=== PATIENT | female | born 1940 | race Caucasian/White ===

== ENCOUNTER → 2018-03-17 12:36 | Outpatient (CLI) | payer MEDICARE, OTHER, SELFPAY ==
[2018-03-17 13:16] LABS: Add Manual Diff / Slide Review NO; Basophils Percent Auto 0.9 % (0-2); Eosinophils Percent Auto 0.8 % (2-4); Hematocrit 42.2 % (36-46); Hemoglobin 14.7 g/dL (12.0-16.0); Mean Corpuscular Hemoglobin 31.3 PG (26-34); Mean Corpuscular Volume 89.5 fL (80-100); Monocytes Percent Auto 8.6 % (3-14); Neutrophils Absolute Auto 2800 /uL (3000-5900); Neutrophils Percent Auto 64.7 % (50-75); Platelet Count 129 X10^3/uL (150-400); Red Blood Cell Count 4.71 X10^6/uL (4.0-5.2); Red Cell Distribution Width 13.2 % (11.6-14.8); White Blood Cell Count 4.3 X10^3/uL (4.5-11.0)
[2018-03-17 13:19] LABS: Erythrocyte Sedimentation Rate 4 MM/HR (0-20)
[2018-03-17 13:47] LABS: Alanine Aminotransferase 29 IU/L (9-52); Albumin 4.3 g/dL (3.5-5.0); Albumin Globulin Ratio 1.5 (1.0-2.8); Alkaline Phosphatase 53 U/L (38-126); Aspartate Aminotransferase 24 IU/L (14-36); BUN Creatinine Ratio 25.7 (6-22); Bilirubin Total 0.5 mg/dL (0.2-1.3); Blood Urea Nitrogen 18 mg/dL (7-17); Calcium 9.6 mg/dL (8.4-10.2); Carbon Dioxide 30 mmol/L (22-32); Chloride 102 mmol/L (98-107); Estimated Glomerular Filt Rate > 60.0 mL/min (>60); Globulin 2.8 g/dL (1.7-4.1); Glucose 90 mg/dL (80-110); Potassium 3.8 mmol/L (3.4-5.1); Sodium 142 mmol/L (137-145); Total Protein 7.1 g/dL (6.3-8.2)
[2018-03-17 13:48] LABS: C-Reactive Protein Quant < 0.5 mg/dL (<1.0)
[2018-03-17 13:49] LABS: HEMOLYSIS < 15 (0-50)
[2018-03-17 13:52] LABS: Rheumatoid Factor < 8.6 IU/mL (<12.0)
[2018-03-17 14:15] LABS: TSH w/ Reflex to FT4 1.17 uIU/mL (0.47-4.68)
[2018-03-17 14:34] LABS: Vitamin B12 889 pg/mL (239-931)
[2018-03-19 11:15] LABS: CCP Antibody (IgG) < 16 Units (< 20)
[2018-03-19 11:50] LABS: Homocysteine 7.2 umol/L (< 10.4)
[2018-03-21 21:22] LABS: ANA Screen NEGATIVE (Negative); DNA Antibody Crithidia IFA NEGATIVE (Negative); Rheumatoid Factor <14 IU/mL; Sjogren Antiboday SS-A <1.0 NEG AI (<1.0 NEGATIVE); Sjogren Antiboday SS-B <1.0 NEG AI (<1.0 NEGATIVE); Sm Antibody <1.0 NEG AI (<1.0 NEGATIVE); Sm/RNP Antibody <1.0 NEG AI (<1.0 NEGATIVE)
[2018-03-22 23:09] LABS: Methylmalonic Acid 181 nmol/L (87-318)
== END ==
PROVIDERS: PCP Family Medicine; Visit Provider Family Medicine
DX: E03.9 Hypothyroidism, unspecified (principal); R63.6 Underweight; G43.909 Migraine, unspecified, not intractable, without status migrainosus; G62.9 Polyneuropathy, unspecified; M25.50 Pain in unspecified joint
CPT/HCPCS: 36415; 80053; 82607; 83090; 83516; 83735; 83921; 84443; 85025; 85651; 86038; 86140; 86430

== ENCOUNTER → 2018-05-25 08:40 | Outpatient (CLI) | payer MEDICARE, OTHER, SELFPAY ==
[2018-05-25 10:12] LABS: BUN Creatinine Ratio 31.4 (6-22); Blood Urea Nitrogen 22 mg/dL (7-17); Estimated Glomerular Filt Rate > 60.0 mL/min (>60)
== END ==
PROVIDERS: Family Provider Family Medicine; PCP Family Medicine; Visit Provider Family Medicine
DX: Z01.818 Encounter for other preprocedural examination (principal)
CPT/HCPCS: 36415; 82565; 84520

== ENCOUNTER → 2018-06-01 08:58 | Outpatient (CLI) | payer MEDICARE, OTHER, SELFPAY ==
--- NOTE | 2018-06-01 09:00 | DI.MRI.S_ITS ---
PROCEDURE: MR HEAD/BRAIN WO/W CON INDICATIONS: memory loss, new onset of headache, concern for mass TECHNIQUE: Noncontrast axial T1 spin echo, axial T2 fast spin echo, sagittal and axial FLAIR, coronal T2 fast spin echo, axial gradient echo, axial diffusion and ADC through the brain. After the administration of contrast, axial and coronal 3D VIBE or T1 spin echo with fat saturation through the brain. COMPARISON: [facility], , BRAIN WITH AND WITHOUT CONTRAS, 01/20/2010, 18:57. FINDINGS: Image quality: Excellent. CSF Spaces: Basal cisterns are patent. No extra-axial fluid collections. Ventricles are normal in size and shape. Brain: No midline shift. No intracranial bleeds or masses. No abnormal intracranial enhancement. The brainstem appears normal. Diffusion-weighted images demonstrate no acute ischemic insults. No chronic ischemic insults. Normal intravascular flow voids are present. Skull and face: Calvarial marrow is normal in signal. Orbits appear normal. Sinuses: Sinuses and mastoids appear clear. IMPRESSION: Mild to moderate microvascular atherosclerotic change in the deep white matter of each hemisphere, no area of mass or stroke is found, no vascular malformation or evidence of prior hemorrhage is seen. Dictated by: Ludwin Navas M.D. on 06/01/2018 at 12:13 Approved by: Ludwin Navas M.D. on 06/01/2018 at 12:15
== END ==
PROVIDERS: Family Provider Family Medicine; PCP Family Medicine; Visit Provider Family Medicine
DX: R41.3 Other amnesia (principal); R51 Headache
CPT/HCPCS: 70553; A9579

== ENCOUNTER 2018-06-03 08:15 | Outpatient (RCR) | payer MEDICARE, OTHER, SELFPAY ==
--- NOTE | 2018-03-30 15:45 | PT.OIE ---
Current Diagnoses Radiculopathy, lumbar region (03/29/18) Lumbago with sciatica, left side (03/29/18) Past Medical History (Last Updated 03/30/18 @ 06:57 by Oksana Rodriguez, PT) Right fibular fracture (Acute) Past Surgical History History of esophagogastroduodenoscopy (EGD) History of third molar tooth extraction Status post tonsillectomy and adenoidectomy Status post vaginal hysterectomy Provider Visit Care Team Role Provider Type Josee Peterson DO Attending Provider Physician Family Provider Primary Care Provider Specialty: Family Practice Address: [address] [place] [address], [facility] Email: [email or web address] Physical Therapy Initial Evaluation PT-OP-A Visit Information Start: 03/29/18 09:04 Freq: Status: Active Protocol: Document 03/29/18 09:45 AMB (Rec: 03/30/18 07:16 AMB [email or web address]) Out-Patient Physical Therapy Visit Information Visit Information Visit Type Initial Evaluation Visit Start Time 09:45 Visit Stop Time 10:45 Total Visit Minutes 60 Visit Number 1 Evaluation Information Evaluation Date 03/29/18 PT-OP-B Current Condition Start: 03/29/18 09:04 Freq: Status: Active Protocol: Document 03/29/18 09:45 AMB (Rec: 03/29/18 10:06 AMB [id number]) Current Condition History of Current Condition Onset Date 3 months ago, back pain worsened Current Complaints Difficulty sitting, standing due to back pain History of Current Condition Enjoys gardening, but bends forward a lot. Standing is difficult, lifting, sitting up straight is very painful so that sitting in the computer for 10 minutes is as much as she can handle. Pain can radiate down the front of the left thigh. Back pain is bilateral. 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 Also notices recent onset spinning dizziness. Prior Treatments and Tests MRI from 2016: Grade 1/11 anterolisthesis of L5 on S1. Severe left and moderate right foraminal narrowing with mild nerve root flattening at L5-S1. Multilevel spinal stenosis secondary to disc bulges. Prior Functional Status Baseline Function- ADL's Independent Baseline Function- Mobility Independent Baseline Function- Recreation/Hobbies Gardening: pt has been careful with lifting, but does tend to flex forward and the spine to weed. Current Functional Impairments (Reported) Functional Limitations- ADL's Pt limited to sitting at the computer for 10 minutes, previously walking 4-6 miles on the trails with her dog, now avoids walking due to pain . Avoids standing for 10 minutes or more due to pain. Difficulty sleeping, or being on her back without her knees flexed forward significantly. Personal Factors Other Personal Factors That May Effect Dizziness, osteopenia, history Therapy/Recovery of low blood pressure, neuropathy PT-OP-C Subjective Start: 03/29/18 09:04 Freq: Status: Active Protocol: Document 03/29/18 09:45 AMB (Rec: 03/30/18 07:16 AMB [email or web address]) OP-PT Subjective Patient Comments Patient Comments Pt states her health has gone down significantly in the last 3 months Patient Questionnaires Oswestry Low Back Index Oswestry Score 60 Oswestry Impairment 60 to 79% Impaired (Score 60- 79) OP-PT Pain Assessment Pain Assessment Grid Paper Pain Assessment Grid Completed Yes Location Lower Back Pain Location Details LB with radiation into anterior L thigh Intensity 7 Scale Used Numeric (1 - 10) PT-OP-G Mobility & Gait Start: 03/29/18 09:04 Freq: Status: Active Protocol: Document 03/29/18 09:45 AMB (Rec: 03/30/18 07:21 AMB [email or web address]) OP Gait Assessment Comments Gait Comments Ambulates without AD. States she uses a walking stick when walking on a trail. Reduced trunk rotation, forward head, pauses with transfers due to dizziness. PT-OP-J Posture/Palpation/Skin Start: 03/29/18 09:04 Freq: Status: Active Protocol: Document 03/29/18 09:45 AMB (Rec: 03/30/18 06:54 AMB [email or web address]) Posture Evaluation Comments Posture Comments Pt stands with moderate- severe thoracic kyphosis with flat lumbar spine and posterior pelvic tilt. PT-OP-K Range of Motion Start: 03/29/18 09:04 Freq: Status: Active Protocol: Document 03/29/18 09:45 AMB (Rec: 03/30/18 07:03 AMB [email or web address]) Lumbar Spine Range of Motion Lumbar Spine Active Percentage Testing Position standing Flexion 90 Extension 25 Lateral Flexion Left 75 Lateral Flexion Right 75 PT-OP-L Special Tests Start: 03/29/18 09:04 Freq: Status: Active Protocol: Document 03/29/18 09:45 AMB (Rec: 03/30/18 07:11 AMB [email or web address]) Special Tests Lumbar Spine Special Tests Slump Test Results negative for increased radicular pain PT-OP-M Strength Start: 03/29/18 09:04 Freq: Status: Active Protocol: Document 03/29/18 09:45 AMB (Rec: 03/30/18 07:11 AMB [email or web address]) Hip Strength Hip Manual Muscle Testing Right Flexion (L2) 4 Good Extension (S1) 4 Good Abduction 4 Good Left Flexion (L2) 4 Good Extension (S1) 4- Good- Abduction 4- Good- Knee Strength Knee Manual Muscle Testing Right Flexion (S2) 4 Good Extension (L3) 4 Good Left Flexion (S2) 4 Good Extension (L3) 4 Good Ankle/Foot Strength Ankle and Foot Manual Muscle Testing Right Dorsiflexion (L4) 3+ Fair+ Plantarflexion (S1) 3 Fair Left Dorsiflexion (L4) 4 Good Plantarflexion (S1) 4 Good PT-OP-Q Treatments Start: 03/29/18 09:04 Freq: Status: Active Protocol: Document 03/29/18 09:45 AMB (Rec: 03/30/18 07:14 AMB [email or web address]) Self-Care/Home Management Treatment Activities Self-Care/Home Management Activities set up of desk to avoid reaching forward PT-OP-R Modalities Start: 03/29/18 09:04 Freq: Status: Active Protocol: Document 03/29/18 09:45 AMB (Rec: 03/30/18 07:14 AMB [email or web address]) Electric Stimulation Electric Stimulation Interferential Current (IFC) Body Location low back Duration (Minutes) 15 Patient Position Hooklying Combined With Heat/Cold Hot Pack PT-OP-T Assessment and Plan Start: 03/29/18 09:04 Freq: Status: Active Protocol: Document 03/29/18 09:45 AMB (Rec: 03/30/18 07:30 AMB [email or web address]) Physical Therapy Assessment Rehab Potential Rehabilitation Potential Good Evaluation Complexity Number of Personal Factors/Comorbidities 3 or More Number of Body Systems Impaired 4 or More Clinical Presentation at Evaluation Evolving Impairments Impairments Activity Tolerance Balance Functional Activities Functional Mobility Gait Pain Posture ROM Sensation Strength Transfers Goals 3 Impairment Positional tolerance Short Term Goal (STG) The patient will sit at her computer for 30 minutes with 5 /10 pain or less. STG Duration 4 weeks Colon And Rectal Surgeon Goal (LTG) The patient will plug making operator her kitchen for 30 minutes to cook a meal with good posture. LTG Duration 8 weeks 2 Impairment Strength Short Term Goal (STG) The patient will safely lift 10 pounds from the floor to waist height with good body mechanics without an increase in baseline back pain. STG Duration 4 weeks Colon And Rectal Surgeon Goal (LTG) The patient will be independent with a core stabilization HEP. LTG Duration 8 weeks 1 Impairment Body mechanics Short Term Goal (STG) The patient will sleep using pillows as props to avoid radiating leg pain. STG Duration 4 weeks Colon And Rectal Surgeon Goal (LTG) The patient will garden for 30 minutes without excessive lumbar flexion without an increase in baseline back pain . LTG Duration 8 weeks Assessment Summary Assessment The patient presents with an acute exacerbation of chronic radicular low back pain. She presents with poor body mechanics, weakness, and difficulty sitting, standing, walking, and sleeping due to the pain. She will benefit from education in self care techniques to manage her pain, and then core stabilization and body mechanics awareness to help prevent further flare up. Physical Therapy Plan Frequency and Duration Frequency of Treatment 2x/Week Duration of Treatment 8 weeks Plan of Care Start Date 03/29/18 Plan of Care End Date 05/24/18 Therapeutic Interventions Therapeutic Interventions Aquatic Therapy Balance Training Gait Training Home Exercise Program Manual Therapy Neuromuscular Re-education Self-Care/Home Management Soft Tissue Mobilization Therapeutic Activities Therapeutic Exercises Next Visit Focus/Plan Next Note Type Treatment Note Please Sign and Return: I have reviewed this Plan of Care and certify that the skilled therapy services above are required to meet the patient?s needs. Physician Signature Date Printed Name and Credentials Clinical Instructor Signature Printed Name and Credentials
--- NOTE | 2018-04-01 15:41 | PT.OTN ---
Current Diagnoses Radiculopathy, lumbar region (03/31/18) Physical Therapy Treatment Note PT-OP-A Visit Information Start: 03/29/18 09:04 Freq: Status: Active Protocol: Document 03/31/18 13:00 AMB (Rec: 03/31/18 13:12 AMB [id number]) Out-Patient Physical Therapy Visit Information Visit Information Visit Type Treatment Note Visit Start Time 09:45 Visit Stop Time 10:45 Total Visit Minutes 45 Visit Number 2 Evaluation Information Evaluation Date 03/29/18 PT-OP-B Current Condition Start: 03/29/18 09:04 Freq: Status: Active Protocol: Document 03/29/18 09:45 AMB (Rec: 03/29/18 10:06 AMB [email or web address]) Current Condition History of Current Condition Onset Date 3 months ago, back pain worsened Current Complaints Difficulty sitting, standing due to back pain History of Current Condition Enjoys gardening, but bends forward a lot. Standing is difficult, lifting, sitting up straight is very painful so that sitting in the computer for 10 minutes is as much as she can handle. Pain can radiate down the front of the left thigh. Back pain is bilateral. 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 Also notices recent onset spinning dizziness. Prior Treatments and Tests MRI from 2016: Grade 1/11 anterolistehesis of L5 on S1. Severe left and moderate right foraminal narrowing with mild nerve root flattening at L5-S1. Multilevel spinal stenosis secondary to disc bulges. Prior Functional Status Baseline Function- ADL's Independent Baseline Function- Mobility Independent Baseline Function- Recreation/Hobbies Gardening: pt has been careful with lifting, but does tend to flex forward and the spine to weed. Current Functional Impairments (Reported) Functional Limitations- ADL's Pt limited to sitting at the computer for 10 minutes, previously walking 4-6 miles on the trails with her dog, now avoids walking due to pain . Avoids standing for 10 minutes or more due to pain. Difficulty sleeping, or being on her back without her knees flexed forward significantly. Personal Factors Other Personal Factors That May Effect Dizziness, osteopenia, history Therapy/Recovery of low blood pressure, neuropathy PT-OP-C Subjective Start: 03/29/18 09:04 Freq: Status: Active Protocol: Document 03/31/18 13:00 AMB (Rec: 03/31/18 13:12 AMB [id number]) OP-PT Subjective Patient Comments Patient Comments Pt states she felt that the TENS was helpful PT-OP-G Mobility & Gait Start: 03/29/18 09:04 Freq: Status: Active Protocol: Document 03/29/18 09:45 AMB (Rec: 03/30/18 07:21 AMB [email or web address]) OP Gait Assessment Comments Gait Comments Ambulates without AD. States she uses a walking stick when walking on a trail. Reduced trunk rotation, forward head, pauses with transfers due to dizziness. PT-OP-J Posture/Palpation/Skin Start: 03/29/18 09:04 Freq: Status: Active Protocol: Document 03/29/18 09:45 AMB (Rec: 03/30/18 06:54 AMB [email or web address]) Posture Evaluation Comments Posture Comments Pt stands with moderate- severe thoracic kyphosis with flat lumbar spine and posterior pelvic tilt. PT-OP-K Range of Motion Start: 03/29/18 09:04 Freq: Status: Active Protocol: Document 03/29/18 09:45 AMB (Rec: 03/30/18 07:03 AMB [email or web address]) Lumbar Spine Range of Motion Lumbar Spine Active Percentage Testing Position standing Flexion 90 Extension 25 Lateral Flexion Left 75 Lateral Flexion Right 75 PT-OP-L Special Tests Start: 03/29/18 09:04 Freq: Status: Active Protocol: Document 03/29/18 09:45 AMB (Rec: 03/30/18 07:11 AMB [email or web address]) Special Tests Lumbar Spine Special Tests Slump Test Results negative for increased radicular pain PT-OP-M Strength Start: 03/29/18 09:04 Freq: Status: Active Protocol: Document 03/29/18 09:45 AMB (Rec: 03/30/18 07:11 AMB [email or web address]) Hip Strength Hip Manual Muscle Testing Right Flexion (L2) 4 Good Extension (S1) 4 Good Abduction 4 Good Left Flexion (L2) 4 Good Extension (S1) 4- Good- Abduction 4- Good- Knee Strength Knee Manual Muscle Testing Right Flexion (S2) 4 Good Extension (L3) 4 Good Left Flexion (S2) 4 Good Extension (L3) 4 Good Ankle/Foot Strength Ankle and Foot Manual Muscle Testing Right Dorsiflexion (L4) 3+ Fair+ Plantarflexion (S1) 3 Fair Left Dorsiflexion (L4) 4 Good Plantarflexion (S1) 4 Good PT-OP-Q Treatments Start: 03/29/18 09:04 Freq: Status: Active Protocol: Document 03/31/18 13:00 AMB (Rec: 04/01/18 15:39 AMB [email or web address]) Cardio Equipment Recumbent Elliptical (Biodex) Duration (Minutes) 6 Resistance 4 Therapeutic Exercises Supine Exercises 6 Supine Exercise Name double knee to chest Reps/Minutes 30x 2 5 Supine Exercise Name supine march Reps/Minutes 2x10 4 Supine Exercise Name pelvic tilt Reps/Minutes 10 3 Supine Exercise Name hamstring stretch Reps/Minutes 30x2 2 Supine Exercise Name piriformis stretch Reps/Minutes 30 x 2 1 Supine Exercise Name hip flexor stretch Reps/Minutes 30x2 Therapeutic Activity Therapeutic Activity 3 Name desk ergonomics Reps/Minutes 5 min Comments computer desk set up to avoid forward flexion 2 Name floor transfer Reps/Minutes 5 min Comments for gardening, avoiding florward bend. pt better with UE support on environmental support 1 Name bed mobility Reps/Minutes 5 min Comments avoiding sit up position, instructed in log roll Manual Therapy Treatment Manual Traction LE long axis Details L LE Body Position Supine Reps/Duration 30x2 PT-OP-R Modalities Start: 03/29/18 09:04 Freq: Status: Active Protocol: Document 03/31/18 13:00 AMB (Rec: 04/01/18 15:39 AMB [email or web address]) Electric Stimulation Electric Stimulation Interferential Current (IFC) Body Location low back Duration (Minutes) 15 Patient Position Hooklying Combined With Heat/Cold Hot Pack PT-OP-T Assessment and Plan Start: 03/29/18 09:04 Freq: Status: Active Protocol: Document 03/31/18 13:00 AMB (Rec: 04/01/18 15:39 AMB [email or web address]) Physical Therapy Assessment Assessment Summary Assessment Pt tolerated exercises well, she will need to make a conscious effort to change her body mechanics. Physical Therapy Plan Frequency and Duration Frequency of Treatment 2x/Week Duration of Treatment 8 weeks Plan of Care Start Date 03/29/18 Plan of Care End Date 05/24/18 Next Visit Focus/Plan Next Note Type Treatment Note Next Visit Plan Progress core stability, body mechanics Please Sign and Return: I have reviewed this Plan of Care and certify that the skilled therapy services above are required to meet the patient?s needs. Physician Signature Date Printed Name and Credentials Clinical Instructor Signature Printed Name and Credentials
--- NOTE | 2018-04-05 10:56 | PT.OTN ---
Current Diagnoses Radiculopathy, lumbar region (04/05/18) Physical Therapy Treatment Note PT-OP-A Visit Information Start: 03/29/18 09:04 Freq: Status: Active Protocol: Document 04/05/18 08:15 AMB (Rec: 04/05/18 10:36 AMB [email or web address]) Out-Patient Physical Therapy Visit Information Visit Information Visit Type Treatment Note Visit Start Time 08:15 Visit Stop Time 09:10 Total Visit Minutes 55 Visit Number 3 Evaluation Information Evaluation Date 03/29/18 PT-OP-B Current Condition Start: 03/29/18 09:04 Freq: Status: Active Protocol: Document 03/29/18 09:45 AMB (Rec: 03/29/18 10:06 AMB [email or web address]) Current Condition History of Current Condition Onset Date 3 months ago, back pain worsened Current Complaints Difficulty sitting, standing due to back pain History of Current Condition Enjoys gardening, but bends forward a lot. Standing is difficult, lifting, sitting up straight is very painful so that sitting in the computer for 10 minutes is as much as she can handle. Pain can radiate down the front of the left thigh. Back pain is bilateral. 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 Also notices recent onset spinning dizziness. Prior Treatments and Tests MRI from 2016: Grade 1/11 anterolistehesis of L5 on S1. Severe left and moderate right foraminal narrowing with mild nerve root flattening at L5-S1. Multilevel spinal stenosis secondary to disc bulges. Prior Functional Status Baseline Function- ADL's Independent Baseline Function- Mobility Independent Baseline Function- Recreation/Hobbies Gardening: pt has been careful with lifting, but does tend to flex forward and the spine to weed. Current Functional Impairments (Reported) Functional Limitations- ADL's Pt limited to sitting at the computer for 10 minutes, previously walking 4-6 miles on the trails with her dog, now avoids walking due to pain . Avoids standing for 10 minutes or more due to pain. Difficulty sleeping, or being on her back without her knees flexed forward significantly. Personal Factors Other Personal Factors That May Effect Dizziness, osteopenia, history Therapy/Recovery of low blood pressure, neuropathy PT-OP-C Subjective Start: 03/29/18 09:04 Freq: Status: Active Protocol: Document 04/05/18 08:15 AMB (Rec: 04/05/18 10:36 AMB [email or web address]) OP-PT Subjective Patient Comments Patient Comments Pt states her pain has been improving, because she hasn't been doing anything. She very much misses gardening and walking. PT-OP-G Mobility & Gait Start: 03/29/18 09:04 Freq: Status: Active Protocol: Document 03/29/18 09:45 AMB (Rec: 03/30/18 07:21 AMB [email or web address]) OP Gait Assessment Comments Gait Comments Ambulates without AD. States she uses a walking stick when walking on a trail. Reduced trunk rotation, forward head, pauses with transfers due to dizziness. PT-OP-J Posture/Palpation/Skin Start: 03/29/18 09:04 Freq: Status: Active Protocol: Document 03/29/18 09:45 AMB (Rec: 03/30/18 06:54 AMB [email or web address]) Posture Evaluation Comments Posture Comments Pt stands with moderate- severe thoracic kyphosis with flat lumbar spine and posterior pelvic tilt. PT-OP-K Range of Motion Start: 03/29/18 09:04 Freq: Status: Active Protocol: Document 03/29/18 09:45 AMB (Rec: 03/30/18 07:03 AMB [email or web address]) Lumbar Spine Range of Motion Lumbar Spine Active Percentage Testing Position standing Flexion 90 Extension 25 Lateral Flexion Left 75 Lateral Flexion Right 75 PT-OP-L Special Tests Start: 03/29/18 09:04 Freq: Status: Active Protocol: Document 03/29/18 09:45 AMB (Rec: 03/30/18 07:11 AMB [email or web address]) Special Tests Lumbar Spine Special Tests Slump Test Results negative for increased radicular pain PT-OP-M Strength Start: 03/29/18 09:04 Freq: Status: Active Protocol: Document 03/29/18 09:45 AMB (Rec: 03/30/18 07:11 AMB [email or web address]) Hip Strength Hip Manual Muscle Testing Right Flexion (L2) 4 Good Extension (S1) 4 Good Abduction 4 Good Left Flexion (L2) 4 Good Extension (S1) 4- Good- Abduction 4- Good- Knee Strength Knee Manual Muscle Testing Right Flexion (S2) 4 Good Extension (L3) 4 Good Left Flexion (S2) 4 Good Extension (L3) 4 Good Ankle/Foot Strength Ankle and Foot Manual Muscle Testing Right Dorsiflexion (L4) 3+ Fair+ Plantarflexion (S1) 3 Fair Left Dorsiflexion (L4) 4 Good Plantarflexion (S1) 4 Good PT-OP-Q Treatments Start: 03/29/18 09:04 Freq: Status: Active Protocol: Document 04/05/18 08:15 AMB (Rec: 04/05/18 10:36 AMB [email or web address]) Cardio Equipment Recumbent Elliptical (Biodex) Duration (Minutes) 7 Resistance 4 Therapeutic Exercises Supine Exercises 8 Supine Exercise Name 90-90 tap down Comments 2x10 7 Supine Exercise Name SLR Reps/Minutes 2x10 6 Supine Exercise Name double knee to chest Reps/Minutes 30x 2 4 Supine Exercise Name pelvic tilt Reps/Minutes 10 Prone Exercises 1 Prone Exercise Name gianluca pose Comments 30x2 PT-OP-R Modalities Start: 03/29/18 09:04 Freq: Status: Active Protocol: Document 04/05/18 08:15 AMB (Rec: 04/05/18 10:36 AMB [email or web address]) Electric Stimulation Electric Stimulation Interferential Current (IFC) Body Location low back Duration (Minutes) 15 Patient Position Hooklying Combined With Heat/Cold Hot Pack PT-OP-T Assessment and Plan Start: 03/29/18 09:04 Freq: Status: Active Protocol: Document 04/05/18 08:15 AMB (Rec: 04/05/18 10:49 AMB [email or web address]) Physical Therapy Assessment Assessment Summary Assessment Pt with better body mechanics at today's visit, need to work on getting back into gentle activity. Physical Therapy Plan Next Visit Focus/Plan Next Note Type Treatment Note Next Visit Plan Progress core stability
--- NOTE | 2018-04-08 10:02 | PT.OTN ---
Current Diagnoses Radiculopathy, lumbar region (04/08/18) Physical Therapy Treatment Note PT-OP-A Visit Information Start: 03/29/18 09:04 Freq: Status: Active Protocol: Document 04/08/18 08:15 AMB (Rec: 04/08/18 10:01 AMB [email or web address]) Out-Patient Physical Therapy Visit Information Visit Information Visit Type Treatment Note Visit Start Time 08:15 Visit Stop Time 09:10 Total Visit Minutes 55 Visit Number 3 Evaluation Information Evaluation Date 03/29/18 PT-OP-B Current Condition Start: 03/29/18 09:04 Freq: Status: Active Protocol: Document 03/29/18 09:45 AMB (Rec: 03/29/18 10:06 AMB [id number]) Current Condition History of Current Condition Onset Date 3 months ago, back pain worsened Current Complaints Difficulty sitting, standing due to back pain History of Current Condition Enjoys gardening, but bends forward a lot. Standing is difficult, lifting, sitting up straight is very painful so that sitting in the computer for 10 minutes is as much as she can handle. Pain can radiate down the front of the left thigh. Back pain is bilateral. 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 Also notices recent onset spinning dizziness. Prior Treatments and Tests MRI from 2016: Grade 1/11 anterolistehesis of L5 on S1. Severe left and moderate right foraminal narrowing with mild nerve root flattening at L5-S1. Multilevel spinal stenosis secondary to disc bulges. Prior Functional Status Baseline Function- ADL's Independent Baseline Function- Mobility Independent Baseline Function- Recreation/Hobbies Gardening: pt has been careful with lifting, but does tend to flex forward and the spine to weed. Current Functional Impairments (Reported) Functional Limitations- ADL's Pt limited to sitting at the computer for 10 minutes, previously walking 4-6 miles on the trails with her dog, now avoids walking due to pain . Avoids standing for 10 minutes or more due to pain. Difficulty sleeping, or being on her back without her knees flexed forward significantly. Personal Factors Other Personal Factors That May Effect Dizziness, osteopenia, history Therapy/Recovery of low blood pressure, neuropathy PT-OP-C Subjective Start: 03/29/18 09:04 Freq: Status: Active Protocol: Document 04/08/18 08:15 AMB (Rec: 04/08/18 10:01 AMB [email or web address]) OP-PT Subjective Patient Comments Patient Comments Pt has been trying to garden a little and it was difficult to kneel without putting hands on the ground. PT-OP-G Mobility & Gait Start: 03/29/18 09:04 Freq: Status: Active Protocol: Document 03/29/18 09:45 AMB (Rec: 03/30/18 07:21 AMB [email or web address]) OP Gait Assessment Comments Gait Comments Ambulates without AD. States she uses a walking stick when walking on a trail. Reduced trunk rotation, forward head, pauses with transfers due to dizziness. PT-OP-J Posture/Palpation/Skin Start: 03/29/18 09:04 Freq: Status: Active Protocol: Document 03/29/18 09:45 AMB (Rec: 03/30/18 06:54 AMB [email or web address]) Posture Evaluation Comments Posture Comments Pt stands with moderate- severe thoracic kyphosis with flat lumbar spine and posterior pelvic tilt. PT-OP-K Range of Motion Start: 03/29/18 09:04 Freq: Status: Active Protocol: Document 03/29/18 09:45 AMB (Rec: 03/30/18 07:03 AMB [email or web address]) Lumbar Spine Range of Motion Lumbar Spine Active Percentage Testing Position standing Flexion 90 Extension 25 Lateral Flexion Left 75 Lateral Flexion Right 75 PT-OP-L Special Tests Start: 03/29/18 09:04 Freq: Status: Active Protocol: Document 03/29/18 09:45 AMB (Rec: 03/30/18 07:11 AMB [email or web address]) Special Tests Lumbar Spine Special Tests Slump Test Results negative for increased radicular pain PT-OP-M Strength Start: 03/29/18 09:04 Freq: Status: Active Protocol: Document 03/29/18 09:45 AMB (Rec: 03/30/18 07:11 AMB [email or web address]) Hip Strength Hip Manual Muscle Testing Right Flexion (L2) 4 Good Extension (S1) 4 Good Abduction 4 Good Left Flexion (L2) 4 Good Extension (S1) 4- Good- Abduction 4- Good- Knee Strength Knee Manual Muscle Testing Right Flexion (S2) 4 Good Extension (L3) 4 Good Left Flexion (S2) 4 Good Extension (L3) 4 Good Ankle/Foot Strength Ankle and Foot Manual Muscle Testing Right Dorsiflexion (L4) 3+ Fair+ Plantarflexion (S1) 3 Fair Left Dorsiflexion (L4) 4 Good Plantarflexion (S1) 4 Good PT-OP-Q Treatments Start: 03/29/18 09:04 Freq: Status: Active Protocol: Document 04/08/18 08:15 AMB (Rec: 04/08/18 10:01 AMB [email or web address]) Cardio Equipment Recumbent Elliptical (Biodex) Duration (Minutes) 7 Resistance 4 Therapeutic Exercises Supine Exercises 8 Supine Exercise Name 90-90 tap down Comments 2x10 4 Supine Exercise Name pelvic tilt Reps/Minutes 10 Prone Exercises 2 Prone Exercise Name quadruped LE/ UE ext Reps/Minutes 2x10 1 Prone Exercise Name gianluca pose Comments 30x2 Standing Exercises 1 Standing Exercise Name squat Reps/Minutes 10 Comments partial Therapeutic Activity Therapeutic Activity 3 Name desk ergonomics Reps/Minutes 5 min Comments computer desk set up to avoid forward flexion Manual Therapy Treatment Soft Tissue Mobilization 1 Body Location low back STM Mobilization Type Myofascial Release Strumming Sustained Pressure Intensity/Depth Moderate Body Position Sidelying Comments lumbar and sacral, focus on L PT-OP-R Modalities Start: 03/29/18 09:04 Freq: Status: Active Protocol: Document 04/08/18 08:15 AMB (Rec: 04/08/18 10:01 AMB [email or web address]) Electric Stimulation Electric Stimulation Interferential Current (IFC) Body Location low back Duration (Minutes) 15 Patient Position Hooklying Combined With Heat/Cold Hot Pack PT-OP-T Assessment and Plan Start: 03/29/18 09:04 Freq: Status: Active Protocol: Document 04/08/18 08:15 AMB (Rec: 04/08/18 10:01 AMB [email or web address]) Physical Therapy Assessment Goals 3 Impairment Positional tolerance Short Term Goal (STG) The patient will sit at her computer for 30 minutes with 5 /10 pain or less. STG Duration 4 weeks Nursing Home Goal (LTG) The patient will marketing designer her kitchen for 30 minutes to cook a meal with good posture. LTG Duration 8 weeks 2 Impairment Strength Short Term Goal (STG) The patient will safely lift 10 pounds from the floor to waist height with good body mechanics without an increase in baseline back pain. STG Duration 4 weeks Optics Technical Officer Goal (LTG) The patient will be independent with a core stabilization HEP. LTG Duration 8 weeks 1 Impairment Body mechanics Short Term Goal (STG) The patient will sleep using pillows as props to avoid radiating leg pain. STG Duration 4 weeks Optics Technical Officer Goal (LTG) The patient will garden for 30 minutes without excessive lumbar flexion without an increase in baseline back pain . LTG Duration 8 weeks Assessment Summary Assessment Pt with better body mechanics with gardening, no pain at rest, but pain with spinal flexion continues. Physical Therapy Plan Frequency and Duration Frequency of Treatment 2x/Week Duration of Treatment 8 weeks Plan of Care Start Date 03/29/18 Plan of Care End Date 05/24/18 Next Visit Focus/Plan Next Note Type Treatment Note Next Visit Plan Progress core stability
--- NOTE | 2018-04-11 16:31 | PT.OTN ---
Current Diagnoses Radiculopathy, lumbar region (04/11/18) Physical Therapy Treatment Note PT-OP-A Visit Information Start: 03/29/18 09:04 Freq: Status: Active Protocol: Document 04/11/18 09:00 AMB (Rec: 04/11/18 10:15 AMB [id number]) Out-Patient Physical Therapy Visit Information Visit Information Visit Type Treatment Note Visit Start Time 09:00 Visit Stop Time 09:45 Total Visit Minutes 45 Visit Number 5 Evaluation Information Evaluation Date 03/29/18 PT-OP-B Current Condition Start: 03/29/18 09:04 Freq: Status: Active Protocol: Document 03/29/18 09:45 AMB (Rec: 03/29/18 10:06 AMB [id number]) Current Condition History of Current Condition Onset Date 3 months ago, back pain worsened Current Complaints Difficulty sitting, standing due to back pain History of Current Condition Enjoys gardening, but bends forward a lot. Standing is difficult, lifting, sitting up straight is very painful so that sitting in the computer for 10 minutes is as much as she can handle. Pain can radiate down the front of the left thigh. Back pain is bilateral. 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 Also notices recent onset spinning dizziness. Prior Treatments and Tests MRI from 2016: Grade 1/11 anterolistehesis of L5 on S1. Severe left and moderate right foraminal narrowing with mild nerve root flattening at L5-S1. Multilevel spinal stenosis secondary to disc bulges. Prior Functional Status Baseline Function- ADL's Independent Baseline Function- Mobility Independent Baseline Function- Recreation/Hobbies Gardening: pt has been careful with lifting, but does tend to flex forward and the spine to weed. Current Functional Impairments (Reported) Functional Limitations- ADL's Pt limited to sitting at the computer for 10 minutes, previously walking 4-6 miles on the trails with her dog, now avoids walking due to pain . Avoids standing for 10 minutes or more due to pain. Difficulty sleeping, or being on her back without her knees flexed forward significantly. Personal Factors Other Personal Factors That May Effect Dizziness, osteopenia, history Therapy/Recovery of low blood pressure, neuropathy PT-OP-C Subjective Start: 03/29/18 09:04 Freq: Status: Active Protocol: Document 04/11/18 09:00 AMB (Rec: 04/11/18 10:15 AMB [id number]) OP-PT Subjective Patient Comments Patient Comments Pt does not have much pain today, she states she gardened yesterday, kneeling and it was painful in the evening, but this morning she is feeling good. PT-OP-G Mobility & Gait Start: 03/29/18 09:04 Freq: Status: Active Protocol: Document 03/29/18 09:45 AMB (Rec: 03/30/18 07:21 AMB [email or web address]) OP Gait Assessment Comments Gait Comments Ambulates without AD. States she uses a walking stick when walking on a trail. Reduced trunk rotation, forward head, pauses with transfers due to dizziness. PT-OP-J Posture/Palpation/Skin Start: 03/29/18 09:04 Freq: Status: Active Protocol: Document 03/29/18 09:45 AMB (Rec: 03/30/18 06:54 AMB [email or web address]) Posture Evaluation Comments Posture Comments Pt stands with moderate- severe thoracic kyphosis with flat lumbar spine and posterior pelvic tilt. PT-OP-K Range of Motion Start: 03/29/18 09:04 Freq: Status: Active Protocol: Document 03/29/18 09:45 AMB (Rec: 03/30/18 07:03 AMB [email or web address]) Lumbar Spine Range of Motion Lumbar Spine Active Percentage Testing Position standing Flexion 90 Extension 25 Lateral Flexion Left 75 Lateral Flexion Right 75 PT-OP-L Special Tests Start: 03/29/18 09:04 Freq: Status: Active Protocol: Document 03/29/18 09:45 AMB (Rec: 03/30/18 07:11 AMB [email or web address]) Special Tests Lumbar Spine Special Tests Slump Test Results negative for increased radicular pain PT-OP-M Strength Start: 03/29/18 09:04 Freq: Status: Active Protocol: Document 03/29/18 09:45 AMB (Rec: 03/30/18 07:11 AMB [email or web address]) Hip Strength Hip Manual Muscle Testing Right Flexion (L2) 4 Good Extension (S1) 4 Good Abduction 4 Good Left Flexion (L2) 4 Good Extension (S1) 4- Good- Abduction 4- Good- Knee Strength Knee Manual Muscle Testing Right Flexion (S2) 4 Good Extension (L3) 4 Good Left Flexion (S2) 4 Good Extension (L3) 4 Good Ankle/Foot Strength Ankle and Foot Manual Muscle Testing Right Dorsiflexion (L4) 3+ Fair+ Plantarflexion (S1) 3 Fair Left Dorsiflexion (L4) 4 Good Plantarflexion (S1) 4 Good PT-OP-Q Treatments Start: 03/29/18 09:04 Freq: Status: Active Protocol: Document 04/11/18 09:00 AMB (Rec: 04/11/18 16:31 AMB [email or web address]) Therapeutic Exercises Supine Exercises 8 Supine Exercise Name 90-90 tap down Comments 2x10 6 Supine Exercise Name double knee to chest Reps/Minutes 30x 2 4 Supine Exercise Name pelvic tilt Reps/Minutes 10 Prone Exercises 2 Prone Exercise Name quadruped LE/ UE ext Reps/Minutes 2x10 1 Prone Exercise Name gianluca pose Comments 30x2 Sidelying Exercises 2 Sidelying Exercise Name clamshell Reps/Minutes 15 1 Sidelying Exercise Name hip abduction Reps/Minutes 10 Comments difficult on L Therapeutic Activity Therapeutic Activity 4 Name squatting form Reps/Minutes 15 min Comments picking up a pen from the floor PT-OP-R Modalities Start: 03/29/18 09:04 Freq: Status: Active Protocol: Document 04/08/18 08:15 AMB (Rec: 04/08/18 10:01 AMB [email or web address]) Electric Stimulation Electric Stimulation Interferential Current (IFC) Body Location low back Duration (Minutes) 15 Patient Position Hooklying Combined With Heat/Cold Hot Pack PT-OP-T Assessment and Plan Start: 03/29/18 09:04 Freq: Status: Active Protocol: Document 04/11/18 09:00 AMB (Rec: 04/11/18 10:15 AMB [id number]) Physical Therapy Assessment Assessment Summary Assessment Pt needed vc for body mechanics for lifting things from the floor. Genu valgus posture continues. Physical Therapy Plan Next Visit Focus/Plan Next Note Type Treatment Note Next Visit Plan Follow up on body mechanics, desk ergonomics
--- NOTE | 2018-04-14 16:21 | PT.OTN ---
Current Diagnoses Radiculopathy, lumbar region (04/14/18) Physical Therapy Treatment Note PT-OP-A Visit Information Start: 03/29/18 09:04 Freq: Status: Active Protocol: Document 04/14/18 08:15 AMB (Rec: 04/14/18 08:34 AMB [id number]) Out-Patient Physical Therapy Visit Information Visit Information Visit Type Treatment Note Visit Start Time 08:15 Visit Stop Time 09:00 Total Visit Minutes 45 Visit Number 6 Evaluation Information Evaluation Date 03/29/18 PT-OP-B Current Condition Start: 03/29/18 09:04 Freq: Status: Active Protocol: Document 03/29/18 09:45 AMB (Rec: 03/29/18 10:06 AMB [id number]) Current Condition History of Current Condition Onset Date 3 months ago, back pain worsened Current Complaints Difficulty sitting, standing due to back pain History of Current Condition Enjoys gardening, but bends forward a lot. Standing is difficult, lifting, sitting up straight is very painful so that sitting in the computer for 10 minutes is as much as she can handle. Pain can radiate down the front of the left thigh. Back pain is bilateral. 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 Also notices recent onset spinning dizziness. Prior Treatments and Tests MRI from 2016: Grade 1/11 anterolistehesis of L5 on S1. Severe left and moderate right foraminal narrowing with mild nerve root flattening at L5-S1. Multilevel spinal stenosis secondary to disc bulges. Prior Functional Status Baseline Function- ADL's Independent Baseline Function- Mobility Independent Baseline Function- Recreation/Hobbies Gardening: pt has been careful with lifting, but does tend to flex forward and the spine to weed. Current Functional Impairments (Reported) Functional Limitations- ADL's Pt limited to sitting at the computer for 10 minutes, previously walking 4-6 miles on the trails with her dog, now avoids walking due to pain . Avoids standing for 10 minutes or more due to pain. Difficulty sleeping, or being on her back without her knees flexed forward significantly. Personal Factors Other Personal Factors That May Effect Dizziness, osteopenia, history Therapy/Recovery of low blood pressure, neuropathy PT-OP-C Subjective Start: 03/29/18 09:04 Freq: Status: Active Protocol: Document 04/14/18 08:15 AMB (Rec: 04/14/18 08:34 AMB [email or web address]) OP-PT Subjective Patient Comments Patient Comments The patient is doing well today, but the last few days were painful after gardening. PT-OP-G Mobility & Gait Start: 03/29/18 09:04 Freq: Status: Active Protocol: Document 03/29/18 09:45 AMB (Rec: 03/30/18 07:21 AMB [email or web address]) OP Gait Assessment Comments Gait Comments Ambulates without AD. States she uses a walking stick when walking on a trail. Reduced trunk rotation, forward head, pauses with transfers due to dizziness. PT-OP-J Posture/Palpation/Skin Start: 03/29/18 09:04 Freq: Status: Active Protocol: Document 03/29/18 09:45 AMB (Rec: 03/30/18 06:54 AMB [email or web address]) Posture Evaluation Comments Posture Comments Pt stands with moderate- severe thoracic kyphosis with flat lumbar spine and posterior pelvic tilt. PT-OP-K Range of Motion Start: 03/29/18 09:04 Freq: Status: Active Protocol: Document 03/29/18 09:45 AMB (Rec: 03/30/18 07:03 AMB [email or web address]) Lumbar Spine Range of Motion Lumbar Spine Active Percentage Testing Position standing Flexion 90 Extension 25 Lateral Flexion Left 75 Lateral Flexion Right 75 PT-OP-L Special Tests Start: 03/29/18 09:04 Freq: Status: Active Protocol: Document 03/29/18 09:45 AMB (Rec: 03/30/18 07:11 AMB [email or web address]) Special Tests Lumbar Spine Special Tests Slump Test Results negative for increased radicular pain PT-OP-M Strength Start: 03/29/18 09:04 Freq: Status: Active Protocol: Document 03/29/18 09:45 AMB (Rec: 03/30/18 07:11 AMB [email or web address]) Hip Strength Hip Manual Muscle Testing Right Flexion (L2) 4 Good Extension (S1) 4 Good Abduction 4 Good Left Flexion (L2) 4 Good Extension (S1) 4- Good- Abduction 4- Good- Knee Strength Knee Manual Muscle Testing Right Flexion (S2) 4 Good Extension (L3) 4 Good Left Flexion (S2) 4 Good Extension (L3) 4 Good Ankle/Foot Strength Ankle and Foot Manual Muscle Testing Right Dorsiflexion (L4) 3+ Fair+ Plantarflexion (S1) 3 Fair Left Dorsiflexion (L4) 4 Good Plantarflexion (S1) 4 Good PT-OP-Q Treatments Start: 03/29/18 09:04 Freq: Status: Active Protocol: Document 04/14/18 08:15 AMB (Rec: 04/14/18 08:58 AMB [id number]) Cardio Equipment Recumbent Elliptical (Biodex) Duration (Minutes) 7 Resistance 4 Therapeutic Exercises Supine Exercises 2 Supine Exercise Name piriformis stretch Reps/Minutes 30 x 2 Prone Exercises 1 Prone Exercise Name gianluca pose Comments 30x2 Sidelying Exercises 2 Sidelying Exercise Name clamshell Reps/Minutes 15 1 Sidelying Exercise Name hip abduction Reps/Minutes 10 Comments difficult on L Therapeutic Activity Therapeutic Activity 5 Name gardening techniques Comments supporting core with at least one UE, stability from core before moving limbs Manual Therapy Treatment Soft Tissue Mobilization 1 Body Location piriformis STM Mobilization Type Myofascial Release Strumming Sustained Pressure Intensity/Depth Moderate Body Position Sidelying PT-OP-R Modalities Start: 03/29/18 09:04 Freq: Status: Active Protocol: Document 04/08/18 08:15 AMB (Rec: 04/08/18 10:01 AMB [email or web address]) Electric Stimulation Electric Stimulation Interferential Current (IFC) Body Location low back Duration (Minutes) 15 Patient Position Hooklying Combined With Heat/Cold Hot Pack PT-OP-T Assessment and Plan Start: 03/29/18 09:04 Freq: Status: Active Protocol: Document 04/14/18 08:15 AMB (Rec: 04/14/18 16:20 AMB [email or web address]) Physical Therapy Assessment Goals 3 Impairment Positional tolerance Short Term Goal (STG) The patient will sit at her computer for 30 minutes with 5 /10 pain or less. STG Duration 4 weeks Cone Picker Goal (LTG) The patient will building maintenance technician her kitchen for 30 minutes to cook a meal with good posture. LTG Duration 8 weeks 2 Impairment Strength Short Term Goal (STG) The patient will safely lift 10 pounds from the floor to waist height with good body mechanics without an increase in baseline back pain. STG Duration 4 weeks [facility] Goal (LTG) The patient will be independent with a core stabilization HEP. LTG Duration 8 weeks 1 Impairment Body mechanics Short Term Goal (STG) The patient will sleep using pillows as props to avoid radiating leg pain. STG Duration 4 weeks [facility] Goal (LTG) The patient will garden for 30 minutes without excessive lumbar flexion without an increase in baseline back pain . LTG Duration 8 weeks Assessment Summary Assessment hip abductor weakness continues, tight in piriformis Physical Therapy Plan Frequency and Duration Frequency of Treatment 2x/Week Duration of Treatment 8 weeks Plan of Care Start Date 03/29/18 Plan of Care End Date 05/24/18 Next Visit Focus/Plan Next Note Type Treatment Note Next Visit Plan Core stability with functional activities
--- NOTE | 2018-04-22 15:14 | PT.OTN ---
Current Diagnoses Radiculopathy, lumbar region (04/22/18) Physical Therapy Treatment Note PT-OP-A Visit Information Start: 03/29/18 09:04 Freq: Status: Active Protocol: Document 04/22/18 09:00 AMB (Rec: 04/22/18 09:08 AMB [id number]) Out-Patient Physical Therapy Visit Information Visit Information Visit Type Treatment Note Visit Start Time 09:00 Visit Stop Time 09:45 Total Visit Minutes 45 Visit Number 7 PT-OP-B Current Condition Start: 03/29/18 09:04 Freq: Status: Active Protocol: Document 03/29/18 09:45 AMB (Rec: 03/29/18 10:06 AMB [id number]) Current Condition History of Current Condition Onset Date 3 months ago, back pain worsened Current Complaints Difficulty sitting, standing due to back pain History of Current Condition Enjoys gardening, but bends forward a lot. Standing is difficult, lifting, sitting up straight is very painful so that sitting in the computer for 10 minutes is as much as she can handle. Pain can radiate down the front of the left thigh. Back pain is bilateral. 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 Also notices recent onset spinning dizziness. Prior Treatments and Tests MRI from 2016: Grade 1/11 anterolistehesis of L5 on S1. Severe left and moderate right foraminal narrowing with mild nerve root flattening at L5-S1. Multilevel spinal stenosis secondary to disc bulges. Prior Functional Status Baseline Function- ADL's Independent Baseline Function- Mobility Independent Baseline Function- Recreation/Hobbies Gardening: pt has been careful with lifting, but does tend to flex forward and the spine to weed. Current Functional Impairments (Reported) Functional Limitations- ADL's Pt limited to sitting at the computer for 10 minutes, previously walking 4-6 miles on the trails with her dog, now avoids walking due to pain . Avoids standing for 10 minutes or more due to pain. Difficulty sleeping, or being on her back without her knees flexed forward significantly. Personal Factors Other Personal Factors That May Effect Dizziness, osteopenia, history Therapy/Recovery of low blood pressure, neuropathy PT-OP-C Subjective Start: 03/29/18 09:04 Freq: Status: Active Protocol: Document 04/22/18 09:00 AMB (Rec: 04/22/18 15:13 AMB [email or web address]) OP-PT Subjective Patient Comments Patient Comments Pt reports increased pain the next evening after last PT session, was also chopping a lot of vegetables, sitting at the picnic table was also quite painful. PT-OP-G Mobility & Gait Start: 03/29/18 09:04 Freq: Status: Active Protocol: Document 03/29/18 09:45 AMB (Rec: 03/30/18 07:21 AMB [email or web address]) OP Gait Assessment Comments Gait Comments Ambulates without AD. States she uses a walking stick when walking on a trail. Reduced trunk rotation, forward head, pauses with transfers due to dizziness. PT-OP-J Posture/Palpation/Skin Start: 03/29/18 09:04 Freq: Status: Active Protocol: Document 03/29/18 09:45 AMB (Rec: 03/30/18 06:54 AMB [email or web address]) Posture Evaluation Comments Posture Comments Pt stands with moderate- severe thoracic kyphosis with flat lumbar spine and posterior pelvic tilt. PT-OP-K Range of Motion Start: 03/29/18 09:04 Freq: Status: Active Protocol: Document 03/29/18 09:45 AMB (Rec: 03/30/18 07:03 AMB [email or web address]) Lumbar Spine Range of Motion Lumbar Spine Active Percentage Testing Position standing Flexion 90 Extension 25 Lateral Flexion Left 75 Lateral Flexion Right 75 PT-OP-L Special Tests Start: 03/29/18 09:04 Freq: Status: Active Protocol: Document 03/29/18 09:45 AMB (Rec: 03/30/18 07:11 AMB [email or web address]) Special Tests Lumbar Spine Special Tests Slump Test Results negative for increased radicular pain PT-OP-M Strength Start: 03/29/18 09:04 Freq: Status: Active Protocol: Document 03/29/18 09:45 AMB (Rec: 03/30/18 07:11 AMB [email or web address]) Hip Strength Hip Manual Muscle Testing Right Flexion (L2) 4 Good Extension (S1) 4 Good Abduction 4 Good Left Flexion (L2) 4 Good Extension (S1) 4- Good- Abduction 4- Good- Knee Strength Knee Manual Muscle Testing Right Flexion (S2) 4 Good Extension (L3) 4 Good Left Flexion (S2) 4 Good Extension (L3) 4 Good Ankle/Foot Strength Ankle and Foot Manual Muscle Testing Right Dorsiflexion (L4) 3+ Fair+ Plantarflexion (S1) 3 Fair Left Dorsiflexion (L4) 4 Good Plantarflexion (S1) 4 Good PT-OP-Q Treatments Start: 03/29/18 09:04 Freq: Status: Active Protocol: Document 04/22/18 09:00 AMB (Rec: 04/22/18 15:13 AMB [email or web address]) Cardio Equipment Recumbent Elliptical (Biodex) Duration (Minutes) 7 Resistance 4 Therapeutic Exercises Supine Exercises 6 Supine Exercise Name double knee to chest Reps/Minutes 30x 2 4 Supine Exercise Name pelvic tilt Reps/Minutes 10 2 Supine Exercise Name piriformis stretch Reps/Minutes 30 x 2 Prone Exercises 1 Prone Exercise Name gianluca pose Comments 30x2 Sidelying Exercises 1 Sidelying Exercise Name hip abduction Reps/Minutes 10 Comments difficult on L Sitting Exercises 1 Sitting Exercise Name therapy ball weightshift Comments 65cm Standing Exercises 2 Standing Exercise Name weightshift Comments stride stance and lateral Manual Therapy Treatment Soft Tissue Mobilization 1 Body Location piriformis STM Mobilization Type Myofascial Release Strumming Sustained Pressure Intensity/Depth Moderate Body Position Sidelying Comments with sidelying QL stretch and lumbar gapping, GrI, II PT-OP-R Modalities Start: 03/29/18 09:04 Freq: Status: Active Protocol: Document 04/08/18 08:15 AMB (Rec: 04/08/18 10:01 AMB [email or web address]) Electric Stimulation Electric Stimulation Interferential Current (IFC) Body Location low back Duration (Minutes) 15 Patient Position Hooklying Combined With Heat/Cold Hot Pack PT-OP-T Assessment and Plan Start: 03/29/18 09:04 Freq: Status: Active Protocol: Document 04/22/18 09:00 AMB (Rec: 04/22/18 15:13 AMB [email or web address]) Physical Therapy Assessment Assessment Summary Assessment Encouraged pt to follow up with her PCP regarding her feeling of lightheadedness that is limiting her walking. Reinforced that patient is not to forward bend, that includes while seated. Weightshifting during static standing (and possibly during seated) can also help to reduce pain. Physical Therapy Plan Next Visit Focus/Plan Next Note Type Treatment Note Next Visit Plan Progress body mechanics, revisit therapy ball and if that would help with sitting pain
--- NOTE | 2018-05-04 14:26 | PT.OTN ---
Current Diagnoses Radiculopathy, lumbar region (05/04/18) Physical Therapy Treatment Note PT-OP-A Visit Information Start: 03/29/18 09:04 Freq: Status: Active Protocol: Document 05/04/18 08:15 AMB (Rec: 05/04/18 13:06 AMB [email or web address]) Out-Patient Physical Therapy Visit Information Visit Information Visit Type Treatment Note Visit Start Time 08:15 Visit Stop Time 09:00 Total Visit Minutes 45 Visit Number 8 Evaluation Information Evaluation Date 03/29/18 PT-OP-B Current Condition Start: 03/29/18 09:04 Freq: Status: Active Protocol: Document 03/29/18 09:45 AMB (Rec: 03/29/18 10:06 AMB [id number]) Current Condition History of Current Condition Onset Date 3 months ago, back pain worsened Current Complaints Difficulty sitting, standing due to back pain History of Current Condition Enjoys gardening, but bends forward a lot. Standing is difficult, lifting, sitting up straight is very painful so that sitting in the computer for 10 minutes is as much as she can handle. Pain can radiate down the front of the left thigh. Back pain is bilateral. 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 Also notices recent onset spinning dizziness. Prior Treatments and Tests MRI from 2016: Grade 1/11 anterolistehesis of L5 on S1. Severe left and moderate right foraminal narrowing with mild nerve root flattening at L5-S1. Multilevel spinal stenosis secondary to disc bulges. Prior Functional Status Baseline Function- ADL's Independent Baseline Function- Mobility Independent Baseline Function- Recreation/Hobbies Gardening: pt has been careful with lifting, but does tend to flex forward and the spine to weed. Current Functional Impairments (Reported) Functional Limitations- ADL's Pt limited to sitting at the computer for 10 minutes, previously walking 4-6 miles on the trails with her dog, now avoids walking due to pain . Avoids standing for 10 minutes or more due to pain. Difficulty sleeping, or being on her back without her knees flexed forward significantly. Personal Factors Other Personal Factors That May Effect Dizziness, osteopenia, history Therapy/Recovery of low blood pressure, neuropathy PT-OP-C Subjective Start: 03/29/18 09:04 Freq: Status: Active Protocol: Document 05/04/18 08:15 AMB (Rec: 05/04/18 13:06 AMB [email or web address]) OP-PT Subjective Patient Comments Patient Comments Pt reports back pain is getting better with sitting, but she has not tried gardening, and sleeping remains painful. She also reports dizziness continues and that she has had a fall on the right shoulder. PT-OP-G Mobility & Gait Start: 03/29/18 09:04 Freq: Status: Active Protocol: Document 03/29/18 09:45 AMB (Rec: 03/30/18 07:21 AMB [email or web address]) OP Gait Assessment Comments Gait Comments Ambulates without AD. States she uses a walking stick when walking on a trail. Reduced trunk rotation, forward head, pauses with transfers due to dizziness. PT-OP-J Posture/Palpation/Skin Start: 03/29/18 09:04 Freq: Status: Active Protocol: Document 03/29/18 09:45 AMB (Rec: 03/30/18 06:54 AMB [email or web address]) Posture Evaluation Comments Posture Comments Pt stands with moderate- severe thoracic kyphosis with flat lumbar spine and posterior pelvic tilt. PT-OP-K Range of Motion Start: 03/29/18 09:04 Freq: Status: Active Protocol: Document 03/29/18 09:45 AMB (Rec: 03/30/18 07:03 AMB [email or web address]) Lumbar Spine Range of Motion Lumbar Spine Active Percentage Testing Position standing Flexion 90 Extension 25 Lateral Flexion Left 75 Lateral Flexion Right 75 PT-OP-L Special Tests Start: 03/29/18 09:04 Freq: Status: Active Protocol: Document 03/29/18 09:45 AMB (Rec: 03/30/18 07:11 AMB [email or web address]) Special Tests Lumbar Spine Special Tests Slump Test Results negative for increased radicular pain PT-OP-M Strength Start: 03/29/18 09:04 Freq: Status: Active Protocol: Document 03/29/18 09:45 AMB (Rec: 03/30/18 07:11 AMB [email or web address]) Hip Strength Hip Manual Muscle Testing Right Flexion (L2) 4 Good Extension (S1) 4 Good Abduction 4 Good Left Flexion (L2) 4 Good Extension (S1) 4- Good- Abduction 4- Good- Knee Strength Knee Manual Muscle Testing Right Flexion (S2) 4 Good Extension (L3) 4 Good Left Flexion (S2) 4 Good Extension (L3) 4 Good Ankle/Foot Strength Ankle and Foot Manual Muscle Testing Right Dorsiflexion (L4) 3+ Fair+ Plantarflexion (S1) 3 Fair Left Dorsiflexion (L4) 4 Good Plantarflexion (S1) 4 Good PT-OP-Q Treatments Start: 03/29/18 09:04 Freq: Status: Active Protocol: Document 05/04/18 08:15 AMB (Rec: 05/04/18 14:24 AMB [email or web address]) Cardio Equipment Recumbent Elliptical (Biodex) Duration (Minutes) 7 Resistance 4 Therapeutic Activity Therapeutic Activity 2 Name standing Reps/Minutes 20 min Comments weightshift, engage core Neuro Re-Education Treatment Balance Activities 2 Details Check Hollis Hallpike Vestibular Rehabilitation X1 Viewing Details modified tandem Reps/Duration 30x2 PT-OP-R Modalities Start: 03/29/18 09:04 Freq: Status: Active Protocol: Document 04/08/18 08:15 AMB (Rec: 04/08/18 10:01 AMB [email or web address]) Electric Stimulation Electric Stimulation Interferential Current (IFC) Body Location low back Duration (Minutes) 15 Patient Position Hooklying Combined With Heat/Cold Hot Pack PT-OP-T Assessment and Plan Start: 03/29/18 09:04 Freq: Status: Active Protocol: Document 05/04/18 08:15 AMB (Rec: 05/04/18 14:24 AMB [email or web address]) Physical Therapy Assessment Assessment Summary Assessment Patient's dizziness is becoming more of an issue. Encouraged her to follow up with her physician. Better ability to functionally use core with standing/ walking today. No nystagmus with Kamini Hallpike, but more sx L>R. Physical Therapy Plan Next Visit Focus/Plan Next Note Type Treatment Note Next Visit Plan Follow up on sleeping postures
--- NOTE | 2018-05-11 10:31 | PT.OTN ---
Current Diagnoses Radiculopathy, lumbar region (05/11/18) Physical Therapy Treatment Note PT-OP-A Visit Information Start: 03/29/18 09:04 Freq: Status: Active Protocol: Document 05/11/18 07:30 AMB (Rec: 05/11/18 07:31 AMB [id number]) Out-Patient Physical Therapy Visit Information Visit Information Visit Type Treatment Note Visit Start Time 07:30 Visit Stop Time 08:15 Total Visit Minutes 45 Visit Number 9 Evaluation Information Evaluation Date 03/29/18 PT-OP-B Current Condition Start: 03/29/18 09:04 Freq: Status: Active Protocol: Document 03/29/18 09:45 AMB (Rec: 03/29/18 10:06 AMB [id number]) Current Condition History of Current Condition Onset Date 3 months ago, back pain worsened Current Complaints Difficulty sitting, standing due to back pain History of Current Condition Enjoys gardening, but bends forward a lot. Standing is difficult, lifting, sitting up straight is very painful so that sitting in the computer for 10 minutes is as much as she can handle. Pain can radiate down the front of the left thigh. Back pain is bilateral. 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 Also notices recent onset spinning dizziness. Prior Treatments and Tests MRI from 2016: Grade 1/11 anterolistehesis of L5 on S1. Severe left and moderate right foraminal narrowing with mild nerve root flattening at L5-S1. Multilevel spinal stenosis secondary to disc bulges. Prior Functional Status Baseline Function- ADL's Independent Baseline Function- Mobility Independent Baseline Function- Recreation/Hobbies Gardening: pt has been careful with lifting, but does tend to flex forward and the spine to weed. Current Functional Impairments (Reported) Functional Limitations- ADL's Pt limited to sitting at the computer for 10 minutes, previously walking 4-6 miles on the trails with her dog, now avoids walking due to pain . Avoids standing for 10 minutes or more due to pain. Difficulty sleeping, or being on her back without her knees flexed forward significantly. Personal Factors Other Personal Factors That May Effect Dizziness, osteopenia, history Therapy/Recovery of low blood pressure, neuropathy PT-OP-C Subjective Start: 03/29/18 09:04 Freq: Status: Active Protocol: Document 05/11/18 07:30 AMB (Rec: 05/11/18 07:41 AMB [id number]) OP-PT Subjective Patient Comments Patient Comments Sleeping is really difficult still. Standing continues to be painful. PT-OP-G Mobility & Gait Start: 03/29/18 09:04 Freq: Status: Active Protocol: Document 03/29/18 09:45 AMB (Rec: 03/30/18 07:21 AMB [email or web address]) OP Gait Assessment Comments Gait Comments Ambulates without AD. States she uses a walking stick when walking on a trail. Reduced trunk rotation, forward head, pauses with transfers due to dizziness. PT-OP-J Posture/Palpation/Skin Start: 03/29/18 09:04 Freq: Status: Active Protocol: Document 03/29/18 09:45 AMB (Rec: 03/30/18 06:54 AMB [email or web address]) Posture Evaluation Comments Posture Comments Pt stands with moderate- severe thoracic kyphosis with flat lumbar spine and posterior pelvic tilt. PT-OP-K Range of Motion Start: 03/29/18 09:04 Freq: Status: Active Protocol: Document 03/29/18 09:45 AMB (Rec: 03/30/18 07:03 AMB [email or web address]) Lumbar Spine Range of Motion Lumbar Spine Active Percentage Testing Position standing Flexion 90 Extension 25 Lateral Flexion Left 75 Lateral Flexion Right 75 PT-OP-L Special Tests Start: 03/29/18 09:04 Freq: Status: Active Protocol: Document 03/29/18 09:45 AMB (Rec: 03/30/18 07:11 AMB [email or web address]) Special Tests Lumbar Spine Special Tests Slump Test Results negative for increased radicular pain PT-OP-M Strength Start: 03/29/18 09:04 Freq: Status: Active Protocol: Document 03/29/18 09:45 AMB (Rec: 03/30/18 07:11 AMB [email or web address]) Hip Strength Hip Manual Muscle Testing Right Flexion (L2) 4 Good Extension (S1) 4 Good Abduction 4 Good Left Flexion (L2) 4 Good Extension (S1) 4- Good- Abduction 4- Good- Knee Strength Knee Manual Muscle Testing Right Flexion (S2) 4 Good Extension (L3) 4 Good Left Flexion (S2) 4 Good Extension (L3) 4 Good Ankle/Foot Strength Ankle and Foot Manual Muscle Testing Right Dorsiflexion (L4) 3+ Fair+ Plantarflexion (S1) 3 Fair Left Dorsiflexion (L4) 4 Good Plantarflexion (S1) 4 Good PT-OP-Q Treatments Start: 03/29/18 09:04 Freq: Status: Active Protocol: Document 05/11/18 07:30 AMB (Rec: 05/11/18 07:41 AMB [id number]) Cardio Equipment Recumbent Elliptical (Biodex) Duration (Minutes) 7 Resistance 4 Therapeutic Exercises Supine Exercises 6 Supine Exercise Name double knee to chest Reps/Minutes 30x 2 4 Supine Exercise Name pelvic tilt Reps/Minutes 10 Prone Exercises 2 Prone Exercise Name prone on elbows Comments increased shoulder pain Therapeutic Activity Therapeutic Activity 1 Name sleep positioning Comments pillows, towel roll under waist, difficult with R shoulder pain Manual Therapy Treatment Manual Traction LE long axis Details with hamstring stretch Body Position Hooklying Comments single leg then double leg PT-OP-R Modalities Start: 03/29/18 09:04 Freq: Status: Active Protocol: Document 04/08/18 08:15 AMB (Rec: 04/08/18 10:01 AMB [email or web address]) Electric Stimulation Electric Stimulation Interferential Current (IFC) Body Location low back Duration (Minutes) 15 Patient Position Hooklying Combined With Heat/Cold Hot Pack PT-OP-T Assessment and Plan Start: 03/29/18 09:04 Freq: Status: Active Protocol: Document 05/11/18 07:30 AMB (Rec: 05/11/18 10:30 AMB [email or web address]) Physical Therapy Assessment Assessment Summary Assessment Pt is managing pain, but continues to have flare ups with challenging activities ( standing and sleeping appear to be the worst). Nerve pain does not go past the knee, but does continue. Physical Therapy Plan Next Visit Focus/Plan Next Note Type Treatment Note Next Visit Plan Progress core stability
--- NOTE | 2018-05-20 12:38 | PT.OTN ---
Current Diagnoses Radiculopathy, lumbar region (05/20/18) Physical Therapy Treatment Note PT-OP-A Visit Information Start: 03/29/18 09:04 Freq: Status: Active Protocol: Document 05/20/18 08:15 AMB (Rec: 05/20/18 08:26 AMB [id number]) Out-Patient Physical Therapy Visit Information Visit Information Visit Type Treatment Note Visit Note G codes Visit Start Time 07:30 Visit Stop Time 08:15 Total Visit Minutes 45 Visit Number 10 Evaluation Information Evaluation Date 03/29/18 PT-OP-B Current Condition Start: 03/29/18 09:04 Freq: Status: Active Protocol: Document 03/29/18 09:45 AMB (Rec: 03/29/18 10:06 AMB [id number]) Current Condition History of Current Condition Onset Date 3 months ago, back pain worsened Current Complaints Difficulty sitting, standing due to back pain History of Current Condition Enjoys gardening, but bends forward a lot. Standing is difficult, lifting, sitting up straight is very painful so that sitting in the computer for 10 minutes is as much as she can handle. Pain can radiate down the front of the left thigh. Back pain is bilateral. 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 Also notices recent onset spinning dizziness. Prior Treatments and Tests MRI from 2016: Grade 1/11 anterolistehesis of L5 on S1. Severe left and moderate right foraminal narrowing with mild nerve root flattening at L5-S1. Multilevel spinal stenosis secondary to disc bulges. Prior Functional Status Baseline Function- ADL's Independent Baseline Function- Mobility Independent Baseline Function- Recreation/Hobbies Gardening: pt has been careful with lifting, but does tend to flex forward and the spine to weed. Current Functional Impairments (Reported) Functional Limitations- ADL's Pt limited to sitting at the computer for 10 minutes, previously walking 4-6 miles on the trails with her dog, now avoids walking due to pain . Avoids standing for 10 minutes or more due to pain. Difficulty sleeping, or being on her back without her knees flexed forward significantly. Personal Factors Other Personal Factors That May Effect Dizziness, osteopenia, history Therapy/Recovery of low blood pressure, neuropathy PT-OP-C Subjective Start: 03/29/18 09:04 Freq: Status: Active Protocol: Document 05/20/18 08:15 AMB (Rec: 05/20/18 08:26 AMB [id number]) OP-PT Subjective Patient Comments Patient Comments Bilateral ear pressure today. Getting head MRI. Back still hurts with standing. PT-OP-G Mobility & Gait Start: 03/29/18 09:04 Freq: Status: Active Protocol: Document 03/29/18 09:45 AMB (Rec: 03/30/18 07:21 AMB [email or web address]) OP Gait Assessment Comments Gait Comments Ambulates without AD. States she uses a walking stick when walking on a trail. Reduced trunk rotation, forward head, pauses with transfers due to dizziness. PT-OP-J Posture/Palpation/Skin Start: 03/29/18 09:04 Freq: Status: Active Protocol: Document 03/29/18 09:45 AMB (Rec: 03/30/18 06:54 AMB [email or web address]) Posture Evaluation Comments Posture Comments Pt stands with moderate- severe thoracic kyphosis with flat lumbar spine and posterior pelvic tilt. PT-OP-K Range of Motion Start: 03/29/18 09:04 Freq: Status: Active Protocol: Document 03/29/18 09:45 AMB (Rec: 03/30/18 07:03 AMB [email or web address]) Lumbar Spine Range of Motion Lumbar Spine Active Percentage Testing Position standing Flexion 90 Extension 25 Lateral Flexion Left 75 Lateral Flexion Right 75 PT-OP-L Special Tests Start: 03/29/18 09:04 Freq: Status: Active Protocol: Document 03/29/18 09:45 AMB (Rec: 03/30/18 07:11 AMB [email or web address]) Special Tests Lumbar Spine Special Tests Slump Test Results negative for increased radicular pain PT-OP-M Strength Start: 03/29/18 09:04 Freq: Status: Active Protocol: Document 03/29/18 09:45 AMB (Rec: 03/30/18 07:11 AMB [email or web address]) Hip Strength Hip Manual Muscle Testing Right Flexion (L2) 4 Good Extension (S1) 4 Good Abduction 4 Good Left Flexion (L2) 4 Good Extension (S1) 4- Good- Abduction 4- Good- Knee Strength Knee Manual Muscle Testing Right Flexion (S2) 4 Good Extension (L3) 4 Good Left Flexion (S2) 4 Good Extension (L3) 4 Good Ankle/Foot Strength Ankle and Foot Manual Muscle Testing Right Dorsiflexion (L4) 3+ Fair+ Plantarflexion (S1) 3 Fair Left Dorsiflexion (L4) 4 Good Plantarflexion (S1) 4 Good PT-OP-Q Treatments Start: 03/29/18 09:04 Freq: Status: Active Protocol: Document 05/20/18 08:15 AMB (Rec: 05/23/18 08:05 AMB [email or web address]) Cardio Equipment Recumbent Elliptical (Biodex) Duration (Minutes) 7 Resistance 5 Therapeutic Exercises Supine Exercises 4 Supine Exercise Name pelvic tilt Reps/Minutes 10 2 Supine Exercise Name piriformis stretch Reps/Minutes 30 x 2 Prone Exercises 1 Prone Exercise Name gianluca pose Comments 30x2 Sidelying Exercises 2 Sidelying Exercise Name clamshell Reps/Minutes 15 1 Sidelying Exercise Name hip abduction Reps/Minutes 5 Comments difficult on L Manual Therapy Treatment Soft Tissue Mobilization 1 Body Location piriformis STM Mobilization Type Myofascial Release Strumming Sustained Pressure Intensity/Depth Moderate Body Position Sidelying Comments with sidelying QL stretch and lumbar gapping, GrI, II Manual Traction LE long axis Details with hamstring stretch Body Position Hooklying Comments single leg then double leg PT-OP-R Modalities Start: 03/29/18 09:04 Freq: Status: Active Protocol: Document 04/08/18 08:15 AMB (Rec: 04/08/18 10:01 AMB [email or web address]) Electric Stimulation Electric Stimulation Interferential Current (IFC) Body Location low back Duration (Minutes) 15 Patient Position Hooklying Combined With Heat/Cold Hot Pack PT-OP-T Assessment and Plan Start: 03/29/18 09:04 Freq: Status: Active Protocol: Document 05/20/18 08:15 AMB (Rec: 05/20/18 16:37 AMB [email or web address]) Physical Therapy Assessment Goals 3 Impairment Positional tolerance Short Term Goal (STG) The patient will sit at her computer for 30 minutes with 5 /10 pain or less.-- MET STG Duration 4 weeks Prison Goal (LTG) 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 --NOT MET STG Duration 4 weeks Prison Goal (LTG) The patient will be independent with a core stabilization HEP. PARTIALLY MET LTG Duration 8 weeks 1 Impairment Body mechanics Short Term Goal (STG) The patient will sleep using pillows as props to avoid radiating leg pain. - NOT MET STG Duration 4 weeks Prison Goal (LTG) The patient will garden for 30 minutes without excessive lumbar flexion without an increase in baseline back pain . PARTIALLY MET LTG Duration 8 weeks Assessment Summary Assessment The patient is having less pain after her steroids. PT has helped her avoid certain painful positions, but she has a difficult time tolerating even gentle exercises. Physical Therapy Plan Next Visit Focus/Plan Next Note Type Treatment Note Next Visit Plan Follow up on patient's ability to return to her HEP.
--- NOTE | 2018-06-03 09:37 | PT.OTN ---
Current Diagnoses Radiculopathy, lumbar region (06/03/18) Physical Therapy Treatment Note PT-OP-A Visit Information Start: 03/29/18 09:04 Freq: Status: Active Protocol: Document 06/03/18 08:15 AMB (Rec: 06/03/18 09:31 AMB [email or web address]) Out-Patient Physical Therapy Visit Information Visit Information Visit Type Progress Note Visit Note G codes 10/27 Visit Start Time 08:15 Visit Stop Time 09:00 Total Visit Minutes 45 Visit Number 11 Evaluation Information Evaluation Date 03/29/18 PT-OP-B Current Condition Start: 03/29/18 09:04 Freq: Status: Active Protocol: Document 03/29/18 09:45 AMB (Rec: 03/29/18 10:06 AMB [id number]) Current Condition History of Current Condition Onset Date 3 months ago, back pain worsened Current Complaints Difficulty sitting, standing due to back pain History of Current Condition Enjoys gardening, but bends forward a lot. Standing is difficult, lifting, sitting up straight is very painful so that sitting in the computer for 10 minutes is as much as she can handle. Pain can radiate down the front of the left thigh. Back pain is bilateral. 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 Also notices recent onset spinning dizziness. Prior Treatments and Tests MRI from 2016: Grade 1/11 anterolistehesis of L5 on S1. Severe left and moderate right foraminal narrowing with mild nerve root flattening at L5-S1. Multilevel spinal stenosis secondary to disc bulges. Prior Functional Status Baseline Function- ADL's Independent Baseline Function- Mobility Independent Baseline Function- Recreation/Hobbies Gardening: pt has been careful with lifting, but does tend to flex forward and the spine to weed. Current Functional Impairments (Reported) Functional Limitations- ADL's Pt limited to sitting at the computer for 10 minutes, previously walking 4-6 miles on the trails with her dog, now avoids walking due to pain . Avoids standing for 10 minutes or more due to pain. Difficulty sleeping, or being on her back without her knees flexed forward significantly. Personal Factors Other Personal Factors That May Effect Dizziness, osteopenia, history Therapy/Recovery of low blood pressure, neuropathy PT-OP-C Subjective Start: 03/29/18 09:04 Freq: Status: Active Protocol: Document 06/03/18 08:15 AMB (Rec: 06/03/18 09:31 AMB [email or web address]) OP-PT Subjective Patient Comments Patient Comments Standing continues to be the most painful. Dr. Cordova vended back brace but pt hesitant to use. PT-OP-G Mobility & Gait Start: 03/29/18 09:04 Freq: Status: Active Protocol: Document 03/29/18 09:45 AMB (Rec: 03/30/18 07:21 AMB [email or web address]) OP Gait Assessment Comments Gait Comments Ambulates without AD. States she uses a walking stick when walking on a trail. Reduced trunk rotation, forward head, pauses with transfers due to dizziness. PT-OP-J Posture/Palpation/Skin Start: 03/29/18 09:04 Freq: Status: Active Protocol: Document 03/29/18 09:45 AMB (Rec: 03/30/18 06:54 AMB [email or web address]) Posture Evaluation Comments Posture Comments Pt stands with moderate- severe thoracic kyphosis with flat lumbar spine and posterior pelvic tilt. PT-OP-K Range of Motion Start: 03/29/18 09:04 Freq: Status: Active Protocol: Document 03/29/18 09:45 AMB (Rec: 03/30/18 07:03 AMB [email or web address]) Lumbar Spine Range of Motion Lumbar Spine Active Percentage Testing Position standing Flexion 90 Extension 25 Lateral Flexion Left 75 Lateral Flexion Right 75 PT-OP-L Special Tests Start: 03/29/18 09:04 Freq: Status: Active Protocol: Document 03/29/18 09:45 AMB (Rec: 03/30/18 07:11 AMB [email or web address]) Special Tests Lumbar Spine Special Tests Slump Test Results negative for increased radicular pain PT-OP-M Strength Start: 03/29/18 09:04 Freq: Status: Active Protocol: Document 03/29/18 09:45 AMB (Rec: 03/30/18 07:11 AMB [email or web address]) Hip Strength Hip Manual Muscle Testing Right Flexion (L2) 4 Good Extension (S1) 4 Good Abduction 4 Good Left Flexion (L2) 4 Good Extension (S1) 4- Good- Abduction 4- Good- Knee Strength Knee Manual Muscle Testing Right Flexion (S2) 4 Good Extension (L3) 4 Good Left Flexion (S2) 4 Good Extension (L3) 4 Good Ankle/Foot Strength Ankle and Foot Manual Muscle Testing Right Dorsiflexion (L4) 3+ Fair+ Plantarflexion (S1) 3 Fair Left Dorsiflexion (L4) 4 Good Plantarflexion (S1) 4 Good PT-OP-Q Treatments Start: 03/29/18 09:04 Freq: Status: Active Protocol: Document 06/03/18 08:15 AMB (Rec: 06/03/18 09:31 AMB [email or web address]) Cardio Equipment Recumbent Elliptical (Biodex) Duration (Minutes) 7 Resistance 5 Therapeutic Activity Therapeutic Activity 5 Name lifting training Comments 5# squat, flat lumbar, hips back Gait Training Gait Activity 1 Description technique Device Used none Surface firm Comments engage calves, push off with toes, engage abs PT-OP-R Modalities Start: 03/29/18 09:04 Freq: Status: Active Protocol: Document 04/08/18 08:15 AMB (Rec: 04/08/18 10:01 AMB [email or web address]) Electric Stimulation Electric Stimulation Interferential Current (IFC) Body Location low back Duration (Minutes) 15 Patient Position Hooklying Combined With Heat/Cold Hot Pack PT-OP-T Assessment and Plan Start: 03/29/18 09:04 Freq: Status: Active Protocol: Document 06/03/18 08:15 AMB (Rec: 06/03/18 09:31 AMB [email or web address]) Physical Therapy Assessment Goals 3 Impairment Positional tolerance Short Term Goal (STG) The patient will sit at her computer for 30 minutes with 5 /10 pain or less.-- MET STG Duration 4 weeks Plant Guide Goal (LTG) 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 -- PROGRESS MADE 5# STG Duration 4 weeks Plant Guide Goal (LTG) The patient will be independent with a core stabilization HEP. PARTIALLY MET LTG Duration 8 weeks 1 Impairment Body mechanics Short Term Goal (STG) The patient will sleep using pillows as props to avoid radiating leg pain. - PARTIALLY MET, intermittent STG Duration 4 weeks Plant Guide Goal (LTG) The patient will garden for 30 minutes without excessive lumbar flexion without an increase in baseline back pain . PARTIALLY MET LTG Duration 8 weeks Assessment Summary Assessment Pt reports her back is feeling better. She can now sit with less pain, sleeping is slightly better. She has been avoiding gardening due to pain. She has been having diffiuclty with cooking in the evening due to standing, that remains quite painful. 1-2/ 10 pain current, 5-6/10 pain at worst with standing. Physical Therapy Plan Next Visit Focus/Plan Next Note Type Treatment Note Next Visit Plan Aquatic therapy
--- NOTE | 2018-06-03 09:40 | PT.OPPOC ---
Current Diagnoses Radiculopathy, lumbar region (06/03/18) Provider Visit Care Team Role Provider Type Josee Peterson DO Attending Provider Physician Family Provider Primary Care Provider Specialty: Family Practice Address: [address] [place] [address], [id number] Email: 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 -- PROGRESS MADE 5# STG Duration 4 weeks Fruit Thinner Goal (LTG) The patient will be independent with a core stabilization HEP. PARTIALLY MET LTG Duration 8 weeks 1 Impairment Body mechanics Short Term Goal (STG) The patient will sleep using pillows as props to avoid radiating leg pain. - PARTIALLY MET, intermittent STG Duration 4 weeks Fdc Goal (LTG) The patient will garden for 30 minutes without excessive lumbar flexion without an increase in baseline back pain . PARTIALLY MET LTG Duration 8 weeks Progress Towards Goals Progress Towards Goals Progressing Toward Goals Assessment Summary Assessment Pt reports her back is feeling better. She can now sit with less pain, sleeping is slightly better. She has been avoiding gardening due to pain. She has been having diffiuclty with cooking in the evening due to standing, that remains quite painful. 1-2/ 10 pain current, 5-6/10 pain at worst with standing. Physical Therapy Plan Frequency and Duration Frequency of Treatment 1x/Week Duration of Treatment 8 weeks Plan of Care Start Date 06/03/18 Plan of Care End Date 07/29/18 Therapeutic Interventions Therapeutic Interventions Aquatic Therapy Gait Training Home Exercise Program Manual Therapy Neuromuscular Re-education Self-Care/Home Management Therapeutic Activities Therapeutic Exercises Modalities Cold Pack/Ice Massage Electric Stimulation Hot Packs Ultrasound Next Visit Focus/Plan Next Note Type Treatment Note Next Visit Plan Aquatic therapy Plan of Care Dates Plan of Care Start Date 06/03/18 Plan of Care End Date 07/29/18 Please Sign and Return: I have reviewed this Plan of Care and certify that the skilled therapy services above are required to meet the patient?s needs. Physician Signature Date Printed Name and Credentials Clinical Instructor Signature Printed Name and Credentials
--- NOTE | 2018-08-24 09:27 | PT.OPDS ---
Current Diagnoses Radiculopathy, lumbar region (06/03/18) Provider Visit Care Team Role Provider Type Josee Peterson DO Attending Provider Physician Family Provider Primary Care Provider Specialty: Family Practice Address: [address] [place] [address], [facility] Email: [email or web address] Visit Number Visit Number 11 Discharge Summary PT-OP-B Current Condition Start: 03/29/18 09:04 Freq: Status: Active Protocol: Document 03/29/18 09:45 AMB (Rec: 03/29/18 10:06 AMB [id number]) Current Condition History of Current Condition Onset Date 3 months ago, back pain worsened Current Complaints Difficulty sitting, standing due to back pain History of Current Condition Enjoys gardening, but bends forward a lot. Standing is difficult, lifting, sitting up straight is very painful so that sitting in the computer for 10 minutes is as much as she can handle. Pain can radiate down the front of the left thigh. Back pain is bilateral. 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 Also notices recent onset spinning dizziness. Prior Treatments and Tests MRI from 2016: Grade 1/11 anterolistehesis of L5 on S1. Severe left and moderate right foraminal narrowing with mild nerve root flattening at L5-S1. Multilevel spinal stenosis secondary to disc bulges. Prior Functional Status Baseline Function- ADL's Independent Baseline Function- Mobility Independent Baseline Function- Recreation/Hobbies Gardening: pt has been careful with lifting, but does tend to flex forward and the spine to weed. Current Functional Impairments (Reported) Functional Limitations- ADL's Pt limited to sitting at the computer for 10 minutes, previously walking 4-6 miles on the trails with her dog, now avoids walking due to pain . Avoids standing for 10 minutes or more due to pain. Difficulty sleeping, or being on her back without her knees flexed forward significantly. Personal Factors Other Personal Factors That May Effect Dizziness, osteopenia, history Therapy/Recovery of low blood pressure, neuropathy PT-OP-C Subjective Start: 03/29/18 09:04 Freq: Status: Active Protocol: Document 06/03/18 08:15 AMB (Rec: 06/03/18 09:31 AMB [email or web address]) OP-PT Subjective Patient Comments Patient Comments Standing continues to be the most painful. Dr. Cordova vended back brace but pt hesitant to use. PT-OP-G Mobility & Gait Start: 03/29/18 09:04 Freq: Status: Active Protocol: Document 03/29/18 09:45 AMB (Rec: 03/30/18 07:21 AMB [email or web address]) OP Gait Assessment Comments Gait Comments Ambulates without AD. States she uses a walking stick when walking on a trail. Reduced trunk rotation, forward head, pauses with transfers due to dizziness. PT-OP-J Posture/Palpation/Skin Start: 03/29/18 09:04 Freq: Status: Active Protocol: Document 03/29/18 09:45 AMB (Rec: 03/30/18 06:54 AMB [email or web address]) Posture Evaluation Comments Posture Comments Pt stands with moderate- severe thoracic kyphosis with flat lumbar spine and posterior pelvic tilt. PT-OP-K Range of Motion Start: 03/29/18 09:04 Freq: Status: Active Protocol: Document 03/29/18 09:45 AMB (Rec: 03/30/18 07:03 AMB [email or web address]) Lumbar Spine Range of Motion Lumbar Spine Active Percentage Testing Position standing Flexion 90 Extension 25 Lateral Flexion Left 75 Lateral Flexion Right 75 PT-OP-L Special Tests Start: 03/29/18 09:04 Freq: Status: Active Protocol: Document 03/29/18 09:45 AMB (Rec: 03/30/18 07:11 AMB [email or web address]) Special Tests Lumbar Spine Special Tests Slump Test Results negative for increased radicular pain PT-OP-M Strength Start: 03/29/18 09:04 Freq: Status: Active Protocol: Document 03/29/18 09:45 AMB (Rec: 03/30/18 07:11 AMB [email or web address]) Hip Strength Hip Manual Muscle Testing Right Flexion (L2) 4 Good Extension (S1) 4 Good Abduction 4 Good Left Flexion (L2) 4 Good Extension (S1) 4- Good- Abduction 4- Good- Knee Strength Knee Manual Muscle Testing Right Flexion (S2) 4 Good Extension (L3) 4 Good Left Flexion (S2) 4 Good Extension (L3) 4 Good Ankle/Foot Strength Ankle and Foot Manual Muscle Testing Right Dorsiflexion (L4) 3+ Fair+ Plantarflexion (S1) 3 Fair Left Dorsiflexion (L4) 4 Good Plantarflexion (S1) 4 Good PT-OP-T Assessment and Plan Start: 03/29/18 09:04 Freq: Status: Active Protocol: Document 08/24/18 09:24 AMB (Rec: 08/24/18 09:27 AMB [email or web address]) Physical Therapy Assessment Goals 3 Impairment Positional tolerance Short Term Goal (STG) The patient will sit at her computer for 30 minutes with 5 /10 pain or less.-- MET STG Duration 4 weeks Decorating Inspector Goal (LTG) The patient will software controls engineer her kitchen for 30 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 -- PROGRESS MADE 5# STG Duration 4 weeks Alf Goal (LTG) The patient will be independent with a core stabilization HEP. PARTIALLY MET LTG Duration 8 weeks 1 Impairment Body mechanics Short Term Goal (STG) The patient will sleep using pillows as props to avoid radiating leg pain. - PARTIALLY MET, intermittent STG Duration 4 weeks Alf Goal (LTG) The patient will garden for 30 minutes without excessive lumbar flexion without an increase in baseline back pain . PARTIALLY MET LTG Duration 8 weeks Assessment Summary Assessment The patient was last seen on june 03. At that time her back pain was more managable than when she was evaluated on March 29, but she was needing to limit her activity due to her pain and dizziness. She has since been following up with Dr. Cordova, but she has not called back to schedule more PT appointments. At the time of her last visit she had shown some improvement, but still had radiating leg pain with back pain that was limiting her activity. Physical Therapy Plan Discharge Physical Therapy Discharge Reasons No Longer Attending PT
== END 2018-10-12 10:17 ==
LOC: PHYS 08:15
PROVIDERS: Family Provider Family Medicine; PCP Family Medicine; Visit Provider Family Medicine
DX: M54.16 Radiculopathy, lumbar region (principal)
CPT/HCPCS: 97014; 97032; 97110; 97112; 97116; 97140; 97162; 97530; G0283

== ENCOUNTER → 2018-08-09 10:43 | Outpatient (CLI) | payer MEDICARE, OTHER, SELFPAY ==
--- NOTE | 2018-08-09 10:45 | DI.MRI.S_ITS ---
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 In cases with scoliosis, additional coronal T2 fast spin echo may be performed. COMPARISON: [facility], MR, L-SPINE WITHOUT CONTRAST, 04/29/2016, 18:43. FINDINGS: Image quality: Excellent. Alignment and Curvature: Grade 1 anterolisthesis of L5 on S1. Bone Marrow: Marrow is of normal overall signal. Chronic appearing T12 compression fracture with mild height loss anteriorly. Spinal Cord: Conus medullaris terminates at the L1 level. Visualized cord demonstrates normal signal and size. Paraspinous Soft Tissues: No paravertebral masses. 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 At the T11-T12 level there is a posterior disc bulge with mild canal narrowing. No foraminal stenosis. L1-L2: Bilateral facet disease. No definite canal or lateral recess stenosis. No foraminal narrowing. L2-L3: Mild broad-based posterior disc bulge bilateral facet disease. Minimal canal narrowing. Minimal bilaterally symmetric appearing partial effacement of the lateral recesses. No definite right foraminal stenosis. Moderate left foraminal narrowing due to presumed T2 hyperintense spinal meningeal cyst. L3-L4: Minimal broad-based posterior disc bulge and bilateral facet arthropathy. No definite canal stenosis. Symmetric bilateral moderate effacement of the left and right lateral recesses, which is slightly progressed since 04/29/16. Mild left and mild right foraminal narrowing. On the right, this is in part due to spinal meningeal cyst as before. L4-L5: Broad-based posterior disc bulge which is mildly asymmetric, left greater than right, and bilateral facet arthropathy. Effacement of the left lateral recess which appears asymmetric and new since the prior study. This may contact the descending left L5 nerve root. There is less conspicuous appearance of a previously seen central disc protrusion. Mild right and left foraminal stenoses. L5-S1: Mild canal narrowing. Severe right and moderate left foraminal stenoses, no definite interval change. IMPRESSION: Interval development of asymmetric left-sided L4-L5 subarticular narrowing possibly contacting the descending left L5 nerve root. Please correlate clinically. Slight increase in bilateral subarticular narrowing at the L3-L4 level, although appears symmetric. Elsewhere, no definite interval change as detailed above by spinal level. Grade 1 anterolisthesis of L5 on S1 as before. Severe right L5-S1 foraminal stenosis as before. Dictated by: Vick Blunt M.D. on 08/09/2018 at 13:50 Approved by: Vick Blunt M.D. on 08/09/2018 at 14:04
== END ==
PROVIDERS: Family Provider Family Medicine; PCP Family Medicine; Visit Provider Physical Medicine & Rehabilitation
DX: M51.26 Other intervertebral disc displacement, lumbar region (principal); M43.17 Spondylolisthesis, lumbosacral region; M48.07 Spinal stenosis, lumbosacral region
CPT/HCPCS: 72148

== ENCOUNTER → 2018-10-07 07:41 | Outpatient (CLI) | payer MEDICARE, OTHER, SELFPAY ==
[2018-10-07 09:01] LABS: BUN Creatinine Ratio 28.6 (6-22); Blood Urea Nitrogen 20 mg/dL (7-17); Calcium 9.6 mg/dL (8.4-10.2); Carbon Dioxide 30 mmol/L (22-32); Chloride 104 mmol/L (98-107); Estimated Glomerular Filt Rate > 60.0 mL/min (>60); Glucose 75 mg/dL (80-110); HEMOLYSIS < 15 (0-50); Potassium 4.4 mmol/L (3.4-5.1); Sodium 145 mmol/L (137-145)
[2018-10-07 09:18] LABS: Free T3, Triiodothyronine Free 3.24 pg/mL (2.77-5.27)
[2018-10-07 09:32] LABS: Thyroid Stimulating Hormone 3.87 uIU/mL (0.47-4.68)
[2018-10-12 12:58] LABS: Free T4, Direct Thyroxine 1.25 ng/dL (0.78-2.19)
== END ==
PROVIDERS: PCP Family Medicine; Visit Provider Family Medicine
DX: E03.9 Hypothyroidism, unspecified (principal); M81.0 Age-related osteoporosis without current pathological fracture; S22.080D Wedge compression fracture of T11-T12 vertebra, subsequent encounter for fracture with routine healing
CPT/HCPCS: 36415; 80048; 82306; 84439; 84443; 84481

== ENCOUNTER → 2018-11-18 09:30 | Outpatient (CLI) | payer MEDICARE, OTHER, SELFPAY ==
[2018-11-18 12:53] LABS: Free T3, Triiodothyronine Free 4.05 pg/mL (2.77-5.27)
[2018-11-18 12:55] LABS: Free T4, Direct Thyroxine 1.61 ng/dL (0.78-2.19)
[2018-11-18 13:07] LABS: Thyroid Stimulating Hormone 0.19 uIU/mL (0.47-4.68)
== END ==
PROVIDERS: Family Provider Family Medicine; PCP Family Medicine; Visit Provider Family Medicine
DX: E03.9 Hypothyroidism, unspecified (principal)
CPT/HCPCS: 36415; 84439; 84443; 84481

== ENCOUNTER 2018-11-28 12:34 | Emergency (ER) | payer MEDICARE, OTHER, SELFPAY ==
--- NOTE | 2018-11-28 12:39 | ED.FALL ---
HPI - Fall <KATE Laura - Last Filed: 11/28/18 21:55> General Chief Complaint: Fall Stated Complaint: FALL Time Seen by Provider: 11/28/18 12:57 Source: patient Mode of arrival: EMS Limitations: no limitations History of Present Illness HPI Narrative: 78-year-old female with history of osteoporosis and is a nonsmoker here for complaint of pain into her left ribcage area. She states that she was walking on her driveway earlier today when she slipped on the snow causing her to land on her left side. She was able ambulate after the fall and continue to walk for approximately about 20 min she returned home and then reports having increased pain. She has has increased pain with movement. She denies any head injury. She denies any neck pain. Pain is limited to the left lateral side. No loss of consciousness no other concerns or complaints. MD complaint: fall Related Data Home Medications Medication Instructions Recorded Confirmed CHOLECALCIFEROL (VITAMIN D) 2,000 iu PO Q DAY #0 03/07/12 11/23/18 [VITAMIN C] Q DAY #0 03/07/12 11/23/18 [VIT B 12] #0 02/01/17 11/23/18 calcium acetate PO 06/17/18 11/23/18 levothyroxine 100 mcg PO DAILY 11/28/18 11/28/18 Previous Rx's Medication Instructions Recorded omeprazole 40 mg PO QDAY #30 cap 05/28/17 gabapentin 100 mg capsule 100 mg PO BEDTIME #30 cap 03/17/18 doxepin 3 mg tablet 3 mg PO BEDTIME PRN #10 tab 07/06/18 Premarin 1 gm TOPICAL SEE INSTRUCTIONS #1 11/11/18 tube hydrocodone-acetaminophen [[place]] 1 tab PO Q6H PRN #6 tab 11/28/18 Allergies Allergy/AdvReac Type Severity Reaction Status Date / Time NSAIDS (Non-Steroidal AdvReac Mild Verified 10/14/18 13:25 Anti-Inflamma Review of Systems <KATE Laura - Last Filed: 11/28/18 21:55> Constitutional Denies frequent falls ENT Ears, Nose, Mouth, and Throat: Denies change in voice, Denies dizziness, Denies neck pain and Denies sore throat Cardiovascular Denies chest pain, Denies irregular heart rhythm, Denies lightheadedness, Denies palpitations, Denies dyspnea, Denies dyspnea on exertion and Denies orthopnea Respiratory Denies cough, Denies dyspnea, Denies dyspnea on exertion and Denies wheezing Gastrointestinal Gastrointestinal: Denies abdominal pain, Denies change in bowel habits, Denies diarrhea, Denies nausea and Denies vomiting Genitourinary Denies hematuria, Denies flank pain, Denies urinary incontinence and Denies urinary urgency Musculoskeletal Denies neck pain and Denies numbness Comments: Pain left lateral rib cage Neurologic Denies behavioral changes, Denies confusion, Denies dizziness, Denies frequent falls and Denies numbness Psychiatric Denies behavioral changes and Denies confusion Endocrine Denies palpitations Hematologic/Lymphatic Denies easy bruising Allergic/Immunologic Denies wheezing Exam <KATE Laura - Last Filed: 11/28/18 21:55> Initial Vital Signs Initial Vital Signs: Vital Signs Temperature 97.9 F 11/28/18 12:55 Pulse Rate 75 11/28/18 12:55 Respiratory Rate 19 11/28/18 12:55 Blood Pressure 145/77 H 11/28/18 12:55 Pulse Oximetry 100 11/28/18 12:55 Const General: cooperative and well developed Nutritional Appearance: well nourished Orientation: alert, awake, oriented x3 and not confused HENMO Mouth: oral mucosae normal and moist mucous membranes Eyes Conjunctivae: conjunctivae normal Sclera: sclerae normal Pupils: PERRL EOM: EOM intact bilaterally Neck Neck: normal visual inspection, trachea midline, No lymphadenopathy, No midline deformity and No JVD Lymphatic: No lymphedema Chest Other: No signs of trauma to the of chest wall and lateral rib cage. No ecchymosis. No swelling. No deformities. Tenderness on palpation to the left lateral chest wall Resp Effort & Inspection: normal respiratory effort, able to speak in complete sentences, no respiratory distress and no use of accessory muscles Auscultation: clear to auscultation bilaterally, no rales, no rhonchi and no wheezes Cardio Rate: regular rate Rhythm: regular rhythm Heart Sounds: no click, no gallops, no murmurs and no rubs GI Inspection: non-distended Palpation: soft, no hepatosplenomegaly, No guarding, No pulsatile mass and tender Auscultation: normal bowel sounds Other: Tenderness to left lateral lower ribcage area on palpation no signs of trauma Skin General: no rashes or lesions noted, No jaundice and No petechiae Neuro General: alert, oriented x3, gait normal and no focal motor deficits Speech: speech normal <Roxanne Lucio DO - Last Filed: 12/02/18 07:08> Initial Vital Signs Initial Vital Signs: Vital Signs Temperature 97.9 F 11/28/18 12:55 Pulse Rate 75 11/28/18 12:55 Respiratory Rate 11/28/18 12:55 Blood Pressure 145/77 H 11/28/18 12:55 Pulse Oximetry 100 11/28/18 12:55 PFSH <KATE Laura - Last Filed: 11/28/18 21:55> Medical History Lumbar radiculopathy, chronic (Chronic) Compression fracture of T12 vertebra with routine healing (Resolved) Hypothyroidism (Chronic) 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 (Chronic 07/03/16) 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) Spondylolisthesis at L5-S1 level (Chronic 07/03/16) Primary insomnia (Chronic 10/07/17) Lumbar spine pain (Acute) Depression (Chronic) Hypothyroidism (Chronic) Migraines (Chronic) Osteoporosis (Chronic) Cystocele (Resolved 12/18/13) Fracture tibia/fibula (Resolved) Uterovaginal prolapse (Resolved) Surgical History Right fibular fracture (Resolved) History of esophagogastroduodenoscopy (EGD) (~2015) History of third molar tooth extraction Status post tonsillectomy and adenoidectomy Status post vaginal hysterectomy (~2013) Social History Smoking Status: Never smoker Social History Smoking Status: Never smoker Course <KATE Laura - Last Filed: 11/28/18 21:55> Orders Ordered: Discontinued Medications Hydrocodone Bitart/Acetaminophen ([place] 5/325) 1 tab PO NOW ONE Stop: 11/28/18 12:54 Last Admin: 11/28/18 13:17 Dose: 1 tab Vital Signs - 8 hr 11/28/18 15:16 Pulse Rate 54 L Blood Pressure 103/72 Pulse Oximetry 97 <Roxanne Lucio DO - Last Filed: 12/02/18 07:08> Orders Ordered: Discontinued Medications Hydrocodone Bitart/Acetaminophen ([place] 5/325) 1 tab PO NOW ONE Stop: 11/28/18 12:54 Last Admin: 11/28/18 13:17 Dose: 1 tab Vital Signs - 8 hr 11/28/18 15:16 Pulse Rate 54 L Blood Pressure 103/72 Pulse Oximetry 97 MDM - Fall <KATE Laura - Last Filed: 11/28/18 21:55> Imaging Data US - abdomen: Radiologist's impression: [place] [id number] Ultrasound Report Signed Patient: Annette Bahena JMR#: [id number] : 2Acct:[id number] Age/Sex: 78 / FDate of Service: 11/28/18 Loc: ED Accession Number: [id number] Procedure: US abdomen complete Ordering Provider: Chucho Wilson PROCEDURE: US ABDOMEN COMPLETE INDICATIONS: GROUND LEVEL FALL, PAIN INTO LOWER LEFT RIBCAGE TECHNIQUE: Real-time scanning was performed of the abdominal and retroperitoneal organs, with image documentation. COMPARISON: None. FINDINGS: Liver: Liver is normal in size and homogeneous in echotexture. Gallbladder: The gallbladder wall measures 1.5 mm in diameter. No stones, sludge, pericholecystic fluid, or sonographic Mendoza sign. Biliary ducts: Intrahepatic bile ducts are non-dilated. Extrahepatic bile duct caliber measures 6.3 mm. Normal is 6-7 mm or less in diameter, or 10 mm or less post-cholecystectomy. Pancreas: Visualized portions of the pancreas are sonographically normal. Spleen: Spleen is normal in size and homogeneous in echotexture. Kidneys: Kidneys are normal in size and echotexture. Right kidney measures 9.3 cm long; left kidney measures 11.1 cm long. No hydronephrosis or nephrolithiasis. No solid masses. There is a 3.1 cm diameter left renal cyst. Aorta: Visualized aorta is normal in caliber at less than 3 cm. Iliacs: The iliacs are not visualize due to overlying bowel gas. IVC: Intrahepatic inferior vena cava is patent. Miscellaneous: No free abdominal fluid. IMPRESSION: 1. No cholelithiasis or findings to suggest choledocholithiasis or acute cholecystitis. 2. No free perihepatic fluid. Dictated by: Jackie Manzanares M.D. on 11/28/2018 at 13:43 Approved by: Jackie Manzanares M.D. on 11/28/2018 at 13:45 Chest x-ray: Radiologist's impression: [address] [id number] XRay Report Signed Patient: Annette Bahena JMR#: [id number] : 2Acct:[id number] Age/Sex: 78 / FDate of Service: 11/28/18 Loc: ED Accession Number: [id number] Procedure: XR ribs LT min 3V w CXR1V Ordering Provider: Chucho Wilson PROCEDURE: XR RIBS LT MIN 3V W CXR1V INDICATIONS: Ground level fall pain into left lower ribcage area TECHNIQUE: 2 views of the right ribs were acquired, along with a single view chest. COMPARISON: None. FINDINGS: Surgical changes and devices: None. Bones and chest wall: No fractures or dislocations. No suspicious bony lesions. Overlying soft tissues appear unremarkable. Lungs and pleura: No pleural effusions or pneumothorax. Lungs appear clear. Mediastinum: Mediastinal contours appear normal. Heart size is normal. IMPRESSION: No displaced rib fractures visualized. No acute cardiopulmonary findings. Dictated by: Jackie Manzanares M.D. on 11/28/2018 at 13:19 Approved by: Jackie Manzanares M.D. on 11/28/2018 at 13:19 [facility] Narrative Medical decision making narrative: X-ray of the left ribcage in chest was obtained was negative for any acute fractures or findings. Ultrasound of the abdomen was obtained to rule out any injuries and was negative for any acute findings. Signs and symptoms presents as contusion to left ribcage. [id number] ibuprofen as needed for any discomfort. Handful of [place] is prescribed for breakthrough pain. Follow up with primary care provider. At return emergency room for any worsening symptoms. Discharge Plan Departure Patient Disposition: Home Clinical Impression: Contusion of rib Qualifiers: Encounter type: initial encounter Laterality: left Qualified Code(s): S20.212A - Contusion of left front wall of thorax, initial encounter Discharge Date/Time: 11/28/18 15:17 Interventions: ED Discharge Assessment Last Done: 11/28/18 15:16 Instructions: DI for Rib Contusion Activity Restrictions/Additional Instructions: X-ray of the left ribcage was obtained was negative for any acute fractures. Ultrasound of the abdomen was obtained was also negative for any acute findings. Signs and symptoms presents as contusion to the left ribcage area. Use [id number] Tylenol or ibuprofen as needed for any discomfort. Small amount of [place] is prescribed for breakthrough pain. No driving while on the [place]. For any worsening symptoms return to the emergency room. Prescriptions: New hydrocodone-acetaminophen [[place]] 5-325 mg tablet 1 tab PO Q6H PRN (Reason: pain) Qty: 6 RF: 0 No Action CHOLECALCIFEROL (VITAMIN D) 2,000 iu PO Q DAY Qty: 0 RF: 0 [VITAMIN C] Q DAY Qty: 0 RF: 0 [VIT B 12] Qty: 0 RF: 0 omeprazole 40 MG capsule,delayed release(DR/EC) 40 mg PO QDAY Qty: 30 RF: 1 Premarin 0.625 mg/gram cream 1 gm Topical SEE INSTRUCTIONS Qty: 1 RF: 3 gabapentin 100 mg capsule 100 mg PO BEDTIME Qty: 30 RF: 3 doxepin 3 mg tablet 3 mg PO BEDTIME PRN (Reason: insomnia) Qty: 10 RF: 0 calcium acetate PO RF: 0 levothyroxine 100 mcg Tablet 100 mcg PO DAILY RF: 0 Referrals: Josee Peterson DO [Primary Care Provider] - <Roxanne Lucio DO - Last Filed: 12/02/18 07:08> Cosign ED Attending Antonioature Attestation: I was immediately available in the department for consultation. This documentation has been reviewed and I agree with assessment and plan. Supervised by Roxanne Lucio DO
--- NOTE | 2018-11-28 12:51 | DI.RAD.S_ITS ---
PROCEDURE: XR RIBS LT MIN 3V W CXR1V INDICATIONS: Ground level fall pain into left lower ribcage area TECHNIQUE: 2 views of the right ribs were acquired, along with a single view chest. COMPARISON: None. FINDINGS: Surgical changes and devices: None. Bones and chest wall: No fractures or dislocations. No suspicious bony lesions. Overlying soft tissues appear unremarkable. Lungs and pleura: No pleural effusions or pneumothorax. Lungs appear clear. Mediastinum: Mediastinal contours appear normal. Heart size is normal. IMPRESSION: No displaced rib fractures visualized. No acute cardiopulmonary findings. Dictated by: Jackie Manzanares M.D. on 11/28/2018 at 13:19 Approved by: Jackie Manzanares M.D. on 11/28/2018 at 13:19
--- NOTE | 2018-11-28 12:51 | DI.US.S_ITS ---
PROCEDURE: US ABDOMEN COMPLETE INDICATIONS: GROUND LEVEL FALL, PAIN INTO LOWER LEFT RIBCAGE TECHNIQUE: Real-time scanning was performed of the abdominal and retroperitoneal organs, with image documentation. COMPARISON: None. FINDINGS: Liver: Liver is normal in size and homogeneous in echotexture. Gallbladder: The gallbladder wall measures 1.5 mm in diameter. No stones, sludge, pericholecystic fluid, or sonographic Mendoza sign. Biliary ducts: Intrahepatic bile ducts are non-dilated. Extrahepatic bile duct caliber measures 6.3 mm. Normal is 6-7 mm or less in diameter, or 10 mm or less post-cholecystectomy. Pancreas: Visualized portions of the pancreas are sonographically normal. Spleen: Spleen is normal in size and homogeneous in echotexture. Kidneys: Kidneys are normal in size and echotexture. Right kidney measures 9.3 cm long; left kidney measures 11.1 cm long. No hydronephrosis or nephrolithiasis. No solid masses. There is a 3.1 cm diameter left renal cyst. Aorta: Visualized aorta is normal in caliber at less than 3 cm. Iliacs: The iliacs are not visualize due to overlying bowel gas. IVC: Intrahepatic inferior vena cava is patent. Miscellaneous: No free abdominal fluid. IMPRESSION: 1. No cholelithiasis or findings to suggest choledocholithiasis or acute cholecystitis. 2. No free perihepatic fluid. Dictated by: Jackie Manzanares M.D. on 11/28/2018 at 13:43 Approved by: Jackie Manzanares M.D. on 11/28/2018 at 13:45
[2018-11-28 12:55] VITALS: BP 145/77; PULSE 75; RESP 19; TEMP 36.6; O2SAT 100; BMI 20.1
[2018-11-28] MEDS: HYDROCODONE/ACET 5/325 TABLET 1 TAB PO (13:17)
--- NOTE | 2018-11-28 14:25 | PC.NURSE ---
Provider informed pt of ready for d/c. Pt informed me she was unsure if she could get up. I was standby assist to get pt out of bed. She was able to do so and walk around room on her own with mild discomfort. Pt waiting in chair at bedside for discharge papers
--- NOTE | 2018-11-28 14:57 | ED_ITS ---
HPI - Fall <KATE Laura - Last Filed: 11/28/18 21:55> General Chief Complaint: Fall Stated Complaint: FALL Time Seen by Provider: 11/28/18 12:57 Source: patient Mode of arrival: EMS Limitations: no limitations History of Present Illness HPI Narrative: 78-year-old female with history of osteoporosis and is a nonsmoker here for complaint of pain into her left ribcage area. She states that she was walking on her driveway earlier today when she slipped on the snow causing her to land on her left side. She was able ambulate after the fall and continue to walk for approximately about 20 min she returned home and then reports having increased pain. She has has increased pain with movement. She denies any head injury. She denies any neck pain. Pain is limited to the left lateral side. No loss of consciousness no other concerns or complaints. MD complaint: fall Related Data Home Medications Medication Instructions Recorded Confirmed CHOLECALCIFEROL (VITAMIN D) 2,000 iu PO Q DAY #0 03/07/12 11/23/18 [VITAMIN C] Q DAY #0 03/07/12 11/23/18 [VIT B 12] #0 02/01/17 11/23/18 calcium acetate PO 06/17/18 11/23/18 levothyroxine 100 mcg PO DAILY 11/28/18 11/28/18 Previous Rx's Medication Instructions Recorded omeprazole 40 mg PO QDAY #30 cap 05/28/17 gabapentin 100 mg capsule 100 mg PO BEDTIME #30 cap 03/17/18 doxepin 3 mg tablet 3 mg PO BEDTIME PRN #10 tab 07/06/18 Premarin 1 gm TOPICAL SEE INSTRUCTIONS #1 11/11/18 tube hydrocodone-acetaminophen [Tumacacori] 1 tab PO Q6H PRN #6 tab 11/28/18 Allergies Allergy/AdvReac Type Severity Reaction Status Date / Time NSAIDS (Non-Steroidal AdvReac Mild Verified 10/14/18 13:25 Anti-Inflamma Review of Systems <KATE Laura - Last Filed: 11/28/18 21:55> Constitutional Denies frequent falls ENT Ears, Nose, Mouth, and Throat: Denies change in voice, Denies dizziness, Denies neck pain and Denies sore throat Cardiovascular Denies chest pain, Denies irregular heart rhythm, Denies lightheadedness, Denies palpitations, Denies dyspnea, Denies dyspnea on exertion and Denies orthopnea Respiratory Denies cough, Denies dyspnea, Denies dyspnea on exertion and Denies wheezing Gastrointestinal Gastrointestinal: Denies abdominal pain, Denies change in bowel habits, Denies diarrhea, Denies nausea and Denies vomiting Genitourinary Denies hematuria, Denies flank pain, Denies urinary incontinence and Denies urinary urgency Musculoskeletal Denies neck pain and Denies numbness Comments: Pain left lateral rib cage Neurologic Denies behavioral changes, Denies confusion, Denies dizziness, Denies frequent falls and Denies numbness Psychiatric Denies behavioral changes and Denies confusion Endocrine Denies palpitations Hematologic/Lymphatic Denies easy bruising Allergic/Immunologic Denies wheezing Exam <KATE Laura - Last Filed: 11/28/18 21:55> Initial Vital Signs Initial Vital Signs: Vital Signs Temperature 97.9 F 11/28/18 12:55 Pulse Rate 75 11/28/18 12:55 Respiratory Rate 19 11/28/18 12:55 Blood Pressure 145/77 H 11/28/18 12:55 Pulse Oximetry 100 11/28/18 12:55 Const General: cooperative and well developed Nutritional Appearance: well nourished Orientation: alert, awake, oriented x3 and not confused HENTX Mouth: oral mucosae normal and moist mucous membranes Eyes Conjunctivae: conjunctivae normal Sclera: sclerae normal Pupils: PERRL EOM: EOM intact bilaterally Neck Neck: normal visual inspection, trachea midline, No lymphadenopathy, No midline deformity and No JVD Lymphatic: No lymphedema Chest Other: No signs of trauma to the of chest wall and lateral rib cage. No ecchymosis. No swelling. No deformities. Tenderness on palpation to the left lateral chest wall Resp Effort & Inspection: normal respiratory effort, able to speak in complete sentences, no respiratory distress and no use of accessory muscles Auscultation: clear to auscultation bilaterally, no rales, no rhonchi and no wheezes Cardio Rate: regular rate Rhythm: regular rhythm Heart Sounds: no click, no gallops, no murmurs and no rubs GI Inspection: non-distended Palpation: soft, no hepatosplenomegaly, No guarding, No pulsatile mass and tender Auscultation: normal bowel sounds Other: Tenderness to left lateral lower ribcage area on palpation no signs of trauma Skin General: no rashes or lesions noted, No jaundice and No petechiae Neuro General: alert, oriented x3, gait normal and no focal motor deficits Speech: speech normal <Roxanne Lucio DO - Last Filed: 12/02/18 07:08> Initial Vital Signs Initial Vital Signs: Vital Signs Temperature 97.9 F 11/28/18 12:55 Pulse Rate 75 11/28/18 12:55 Respiratory Rate 11/28/18 12:55 Blood Pressure 145/77 H 11/28/18 12:55 Pulse Oximetry 100 11/28/18 12:55 PFSH <KATE Laura - Last Filed: 11/28/18 21:55> Medical History Lumbar radiculopathy, chronic (Chronic) Compression fracture of T12 vertebra with routine healing (Resolved) Hypothyroidism (Chronic) 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 (Chronic 07/03/16) 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) Spondylolisthesis at L5-S1 level (Chronic 07/03/16) Primary insomnia (Chronic 10/07/17) Lumbar spine pain (Acute) Depression (Chronic) Hypothyroidism (Chronic) Migraines (Chronic) Osteoporosis (Chronic) Cystocele (Resolved 12/18/13) Fracture tibia/fibula (Resolved) Uterovaginal prolapse (Resolved) Surgical History Right fibular fracture (Resolved) History of esophagogastroduodenoscopy (EGD) (~2015) History of third molar tooth extraction Status post tonsillectomy and adenoidectomy Status post vaginal hysterectomy (~2013) Social History Smoking Status: Never smoker Social History Smoking Status: Never smoker Course <KATE Laura - Last Filed: 11/28/18 21:55> Orders Ordered: Discontinued Medications Hydrocodone Bitart/Acetaminophen (Tum[place]ori 5/325) 1 tab PO NOW ONE Stop: 11/28/18 12:54 Last Admin: 11/28/18 13:17 Dose: 1 tab Vital Signs - 8 hr 11/28/18 15:16 Pulse Rate 54 L Blood Pressure 103/72 Pulse Oximetry 97 <Roxanne Lucio DO - Last Filed: 12/02/18 07:08> Orders Ordered: Discontinued Medications Hydrocodone Bitart/Acetaminophen (T[place] 5/325) 1 tab PO NOW ONE Stop: 11/28/18 12:54 Last Admin: 11/28/18 13:17 Dose: 1 tab Vital Signs - 8 hr 11/28/18 15:16 Pulse Rate 54 L Blood Pressure 103/72 Pulse Oximetry 97 MDM - Fall <KATE Laura - Last Filed: 11/28/18 21:55> Imaging Data US - abdomen: Radiologist's impression: [place] [id number] Ultrasound Report Signed Patient: Annette Bahena JMR#: [id number] : 2Acct:[id number] Age/Sex: 78 / FDate of Service: 11/28/18 Loc: ED Accession Number: [id number] Procedure: US abdomen complete Ordering Provider: Chucho Wilson PROCEDURE: US ABDOMEN COMPLETE INDICATIONS: GROUND LEVEL FALL, PAIN INTO LOWER LEFT RIBCAGE TECHNIQUE: Real-time scanning was performed of the abdominal and retroperitoneal organs, with image documentation. COMPARISON: None. FINDINGS: Liver: Liver is normal in size and homogeneous in echotexture. Gallbladder: The gallbladder wall measures 1.5 mm in diameter. No stones, sludge, pericholecystic fluid, or sonographic Mendoza sign. Biliary ducts: Intrahepatic bile ducts are non-dilated. Extrahepatic bile duct caliber measures 6.3 mm. Normal is 6-7 mm or less in diameter, or 10 mm or less post-cholecystectomy. Pancreas: Visualized portions of the pancreas are sonographically normal. Spleen: Spleen is normal in size and homogeneous in echotexture. Kidneys: Kidneys are normal in size and echotexture. Right kidney measures 9.3 cm long; left kidney measures 11.1 cm long. No hydronephrosis or nephrolithiasis. No solid masses. There is a 3.1 cm diameter left renal cyst. Aorta: Visualized aorta is normal in caliber at less than 3 cm. Iliacs: The iliacs are not visualize due to overlying bowel gas. IVC: Intrahepatic inferior vena cava is patent. Miscellaneous: No free abdominal fluid. IMPRESSION: 1. No cholelithiasis or findings to suggest choledocholithiasis or acute cholecystitis. 2. No free perihepatic fluid. Dictated by: Jackie Manzanares M.D. on 11/28/2018 at 13:43 Approved by: Jackie Manzanares M.D. on 11/28/2018 at 13:45 Chest x-ray: Radiologist's impression: [address] [id number] XRay Report Signed Patient: Annette Bahena JMR#: [id number] : 2Acct:[id number] Age/Sex: 78 / FDate of Service: 11/28/18 Loc: ED Accession Number: [id number] Procedure: XR ribs LT min 3V w CXR1V Ordering Provider: Chucho Wilson PROCEDURE: XR RIBS LT MIN 3V W CXR1V INDICATIONS: Ground level fall pain into left lower ribcage area TECHNIQUE: 2 views of the right ribs were acquired, along with a single view chest. COMPARISON: None. FINDINGS: Surgical changes and devices: None. Bones and chest wall: No fractures or dislocations. No suspicious bony lesions. Overlying soft tissues appear unremarkable. Lungs and pleura: No pleural effusions or pneumothorax. Lungs appear clear. Mediastinum: Mediastinal contours appear normal. Heart size is normal. IMPRESSION: No displaced rib fractures visualized. No acute cardiopulmonary findings. Dictated by: Jackie Manzanares M.D. on 11/28/2018 at 13:19 Approved by: Jackie Manzanares M.D. on 11/28/2018 at 13:19 [facility] Narrative Medical decision making narrative: X-ray of the left ribcage in chest was obtained was negative for any acute fractures or findings. Ultrasound of the abdomen was obtained to rule out any injuries and was negative for any acute findings. Signs and symptoms presents as contusion to left ribcage. Over-the- counter ibuprofen as needed for any discomfort. Handful of Tumacacori is prescribed for breakthrough pain. Follow up with primary care provider. At return emergency room for any worsening symptoms. Discharge Plan Departure Patient Disposition: Home Clinical Impression: Contusion of rib Qualifiers: Encounter type: initial encounter Laterality: left Qualified Code(s): S20.212A - Contusion of left front wall of thorax, initial encounter Discharge Date/Time: 11/28/18 15:17 Interventions: ED Discharge Assessment Last Done: 11/28/18 15:16 Instructions: DI for Rib Contusion Activity Restrictions/Additional Instructions: X-ray of the left ribcage was obtained was negative for any acute fractures. Ultrasound of the abdomen was obtained was also negative for any acute findings. Signs and symptoms presents as contusion to the left ribcage area. Use [id number] Tylenol or ibuprofen as needed for any discomfort. Small amount of Tumacacori is prescribed for breakthrough pain. No driving while on the Tumacacori. For any worsening symptoms return to the emergency room. Prescriptions: New hydrocodone-acetaminophen [Tumacacori] 5-325 mg tablet 1 tab PO Q6H PRN (Reason: pain) Qty: 6 RF: 0 No Action CHOLECALCIFEROL (VITAMIN D) 2,000 iu PO Q DAY Qty: 0 RF: 0 [VITAMIN C] Q DAY Qty: 0 RF: 0 [VIT B 12] Qty: 0 RF: 0 omeprazole 40 MG capsule,delayed release(DR/EC) 40 mg PO QDAY Qty: 30 RF: 1 Premarin 0.625 mg/gram cream 1 gm Topical SEE INSTRUCTIONS Qty: 1 RF: 3 gabapentin 100 mg capsule 100 mg PO BEDTIME Qty: 30 RF: 3 doxepin 3 mg tablet 3 mg PO BEDTIME PRN (Reason: insomnia) Qty: 10 RF: 0 calcium acetate PO RF: 0 levothyroxine 100 mcg Tablet 100 mcg PO DAILY RF: 0 Referrals: Josee Peterson DO [Primary Care Provider] - <Roxanne Lucio DO - Last Filed: 12/02/18 07:08> Cosign ED Attending Antonioature Attestation: I was immediately available in the department for consultation. This documentation has been reviewed and I agree with assessment and plan. Supervised by Roxanne Lucio DO
[2018-11-28 15:16] VITALS: BP 103/72; PULSE 54; O2SAT 97
== END 2018-11-28 15:17 | disposition home or self-care (01) ==
PROVIDERS: Emergency Provider Nurse Practitioner Family; Family Provider Family Medicine; PCP Family Medicine
DX: S20.212A Contusion of left front wall of thorax, initial encounter (principal); W01.0XXA Fall on same level from slipping, tripping and stumbling without subsequent striking against object, initial encounter
CPT/HCPCS: 71101; 76700; 99282; 99284

== ENCOUNTER 2019-02-16 16:00 | Outpatient (RCR) | payer MEDICARE, OTHER, SELFPAY ==
--- NOTE | 2018-09-28 18:03 | PT.OIE ---
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) Spondylolisthesis at L5-S1 level (Chronic 07/03/16) Primary insomnia (Chronic 10/07/17) Lumbar spine pain (Acute) Depression (Chronic) Hypothyroidism (Chronic) Migraines (Chronic) Osteoporosis (Chronic) Cystocele (Resolved 12/18/13) Fracture tibia/fibula (Resolved) Uterovaginal prolapse (Resolved) Past Surgical History (Last Reviewed 08/24/18 @ 14:00 by Alfredo Cordova DO) Right fibular fracture (Resolved) History of esophagogastroduodenoscopy (EGD) (~2015) History of third molar tooth extraction Status post tonsillectomy and adenoidectomy Status post vaginal hysterectomy (~2013) Provider Visit Care Team Role Provider Type Josee Peterson DO Attending Provider Physician Family Provider Primary Care Provider Specialty: Family Practice Address: [address] [place] [address], [facility] Email: [email or web address] Physical Therapy Initial Evaluation PT-OP-A Visit Information Start: 09/28/18 07:26 Freq: Status: Active Protocol: Document 09/28/18 07:29 [facility] (Rec: 09/28/18 08:16 [facility] [id number]) Out-Patient Physical Therapy Visit Information Visit Information Visit Type Initial Evaluation Visit Note 1 total Visit Start Time 07:30 Visit Stop Time 08:15 Total Visit Minutes 45 Visit Number 10/27 PT-OP-B Current Condition Start: 09/28/18 07:26 Freq: Status: Active Protocol: Document 09/28/18 07:29 [facility] (Rec: 09/28/18 08:16 [facility] [id number]) Current Condition History of Current Condition Onset Date a long time w/1 year worsening History of Current Condition Pt reports she used to get BRISENO & migraines and she can treat them with coffee now and they do not bother her as much. Pt reports she started to get pressure in both ears and feels like her head is going to explode. The ear pressure started about 3 months ago with a feeling like she is coming down from with an airplane. Reports it makes her feel really dizzy and spacy and makes it hard to focus. Reports her eyes do not focus well. Dr. Garrison and Dr. Velázquez checked her ears & eyes and both were reported okay. Reports her back always gives her pain and she thinks she clenches some due to this. She is limited in her activity d/ t back. Reports she has teeth aches on the R side and had a cleaning early Dec and everything was okay. Dentist sent to her have her jaw worked on. Jaw problems for years but was only noticable when went to the dentist before and now she has to go to soft foods. 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 Pt reports neck pain and upper back pain especially when standing or working on the computer. Pt reports Dr. Morales checked neck pain since that happened about 1 year ago and reports she has a lot of pain by late afternoon. Pt reports xrays were completed on her neck. Dizziness is described as spinning with looking up. Has felt dizzy with going shopping and looking around. Reports what is going on in her head is scary. Treatment Goals Patient/Caregiver Goals Like to be able to chew on both sides & chew any food PT-OP-C Subjective Start: 09/28/18 07:26 Freq: Status: Active Protocol: Document 09/28/18 07:29 [facility] (Rec: 09/28/18 08:16 [facility] [id number]) OP-PT Pain Assessment Location jaw Pain Location Details B jaw, head & ears, teeth pain R Scale Used Numeric (1 - 10) Other Pain Aggravating Factors chewing, clenching, laying down Pain Alleviating Factors None PT-OP-F Manual Assessment Start: 09/28/18 07:26 Freq: Status: Active Protocol: Document 09/28/18 07:29 [facility] (Rec: 09/28/18 08:16 [facility] [id number]) Manual Assessments Joint Mobility Assessment Joint Mobility Assessment Head tilted to R in sitting; transient deviation to L with opening PT-OP-J Posture/Palpation/Skin Start: 09/28/18 07:26 Freq: Status: Active Protocol: Document 09/28/18 07:29 [facility] (Rec: 09/28/18 08:16 [facility] [id number]) Posture Evaluation Cesar Postural Classification System Cesar Postural Classifications Posterior/Anterior PT-OP-K Range of Motion Start: 09/28/18 07:26 Freq: Status: Active Protocol: Document 09/28/18 07:29 [facility] (Rec: 09/28/18 08:16 [facility] [id number]) Cervical Spine Range of Motion Cervical Spine Active Degrees Testing Position Sitting Flexion 70 Extension 52 Rotation Left 55 Rotation Right 70 Lateral Flexion Left 32 Lateral Flexion Right 45 Comments back and forth with ext & rot creates dizziness; pain with lat flex L TMJ Range of Motion Jaw Openning Jaw Openning (mm) 1.9 cm Comments Comments Deviation within normal limits but grinding PT-OP-Q Treatments Start: 09/28/18 07:26 Freq: Status: Active Protocol: Document 09/28/18 07:29 [facility] (Rec: 09/28/18 08:16 [facility] [id number]) Self-Care/Home Management Treatment Activities Self-Care/Home Management Activities edu on jaw and neck anatomy with pictures PT-OP-R Modalities Start: 09/28/18 07:26 Freq: Status: Active Protocol: Document 09/28/18 07:29 [facility] (Rec: 09/28/18 08:16 [facility] [id number]) Hot Pack/Cold Pack Treatment Hot Pack Location cervical & jaw Patient Position Hooklying Treatment Duration (minutes) 15 PT-OP-T Assessment and Plan Start: 09/28/18 07:26 Freq: Status: Active Protocol: Document 09/28/18 07:29 [facility] (Rec: 09/28/18 18:03 [facility] [id number]) Physical Therapy Assessment Rehab Potential Rehabilitation Potential Good Evaluation Complexity Number of Personal Factors/Comorbidities 3 or More Number of Body Systems Impaired 4 or More Clinical Presentation at Evaluation Evolving Impairments Impairments Activity Tolerance Functional Activities Pain Posture ROM Soft Tissue Mobility Strength Goals 3 Impairment eating Fdc Goal (LTG) Pt will report being able to eat all food textures without more than 1/10 pain. LTG Duration 11/29/18 2 Impairment posture Short Term Goal (STG) Pt will have good desk set up for home. STG Duration 10/29/18 Voice Network Administrator Goal (LTG) Pt will present with good posture without cueing. LTG Duration 11/29/18 1 Impairment neck & jaw pain Voice Network Administrator Goal (LTG) Pt will report no more than 1- 2/10 pain (in jaw, head, teeth & neck) with all her typical activities. LTG Duration 11/29/18 Assessment Summary Assessment Pt presents with neck pain, jaw pain, head pressure, teeth pain, and dizziness. At this time, it is not evident what is causing pt's dizziness as she has had MRI of head with no issues, ENT evaluation with no reported issues, dentist evaluation with no teeth issues, orthopedic consult & X -ray with pt reporting MD seeing no concerns for head pressure, and optomoligist evaluation with no issues reported. Pt has impaired posture, dec overall strength and ROM and would benefit from PT to work on jaw & neck mobility. Physical Therapy Plan Frequency and Duration Frequency of Treatment 2x/Week Duration of Treatment 2 months Plan of Care Start Date 09/28/18 Plan of Care End Date 11/29/18 Therapeutic Interventions Therapeutic Interventions Home Exercise Program Joint Mobilizations Manual Therapy Patient/Caregiver Education Self-Care/Home Management Soft Tissue Mobilization Taping Therapeutic Activities Therapeutic Exercises Modalities Cold Pack/Ice Massage Electric Stimulation Hot Packs Traction- Mechanical Ultrasound Next Visit Focus/Plan Next Note Type Treatment Note Next Visit Plan assess for arterial compression, differentiate between vestibular & cervical with neck ext testing, edu on neutral posture, isometric jaw opening, jaw opening stretch, STM to temporalis & masseter. get notes from all specialists
--- NOTE | 2018-09-28 18:03 | PT.OPPOC ---
Current Diagnoses Jaw pain (09/28/18) Provider Visit Care Team Role Provider Type Josee Peterson DO Attending Provider Physician Family Provider Primary Care Provider Specialty: Family Practice Address: [address] [place] [address], [address] Email: [email or web address] Plan Of Care PT-OP-T Assessment and Plan Start: 09/28/18 07:26 Freq: Status: Active Protocol: Document 09/28/18 07:29 [facility] (Rec: 09/28/18 18:03 [facility] [id number]) Physical Therapy Assessment Rehab Potential Rehabilitation Potential Good Evaluation Complexity Number of Personal Factors/Comorbidities 3 or More Number of Body Systems Impaired 4 or More Clinical Presentation at Evaluation Evolving Impairments Impairments Activity Tolerance Functional Activities Pain Posture ROM Soft Tissue Mobility Strength Goals 3 Impairment eating Form Building Supervisor Goal (LTG) Pt will report being able to eat all food textures without more than 1/10 pain. LTG Duration 11/29/18 2 Impairment posture Short Term Goal (STG) Pt will have good desk set up for home. STG Duration 10/29/18 Care Home Goal (LTG) Pt will present with good posture without cueing. LTG Duration 11/29/18 1 Impairment neck & jaw pain Care Home Goal (LTG) Pt will report no more than 1- 2/10 pain (in jaw, head, teeth & neck) with all her typical activities. LTG Duration 11/29/18 Assessment Summary Assessment Pt presents with neck pain, jaw pain, head pressure, teeth pain, and dizziness. At this time, it is not evident what is causing pt's dizziness as she has had MRI of head with no issues, ENT evaluation with no reported issues, dentist evaluation with no teeth issues, orthopedic consult & X -ray with pt reporting MD seeing no concerns for head pressure, and optomoligist evaluation with no issues reported. Pt has impaired posture, dec overall strength and ROM and would benefit from PT to work on jaw & neck mobility. Physical Therapy Plan Frequency and Duration Frequency of Treatment 2x/Week Duration of Treatment 2 months Plan of Care Start Date 09/28/18 Plan of Care End Date 11/29/18 Therapeutic Interventions Therapeutic Interventions Home Exercise Program Joint Mobilizations Manual Therapy Patient/Caregiver Education Self-Care/Home Management Soft Tissue Mobilization Taping Therapeutic Activities Therapeutic Exercises Modalities Cold Pack/Ice Massage Electric Stimulation Hot Packs Traction- Mechanical Ultrasound Next Visit Focus/Plan Next Note Type Treatment Note Next Visit Plan assess for arterial compression, differentiate between vestibular & cervical with neck ext testing, edu on neutral posture, isometric jaw opening, jaw opening stretch, STM to temporalis & masseter. get notes from all specialists Plan of Care Dates Plan of Care Start Date 09/28/18 Plan of Care End Date 11/29/18 Please Sign and Return: I have reviewed this Plan of Care and certify that the skilled therapy services above are required to meet the patient?s needs. Physician Signature Date Printed Name and Credentials Clinical Instructor Signature Printed Name and Credentials
--- NOTE | 2018-09-30 15:50 | PT.OTN ---
Current Diagnoses Jaw pain (09/30/18) Physical Therapy Treatment Note PT-OP-A Visit Information Start: 09/28/18 07:26 Freq: Status: Active Protocol: Document 09/30/18 15:43 [facility] (Rec: 09/30/18 15:50 [facility] [id number]) Out-Patient Physical Therapy Visit Information Visit Information Visit Type Treatment Note Visit Note 2 total Visit Start Time 07:30 Visit Stop Time 08:30 Total Visit Minutes 60 Visit Number 11/27 PT-OP-B Current Condition Start: 09/28/18 07:26 Freq: Status: Active Protocol: Document 09/28/18 07:29 [facility] (Rec: 09/28/18 08:16 [facility] [id number]) Current Condition History of Current Condition Onset Date a long time w/1 year worsening History of Current Condition Pt reports she used to get BRISENO & migraines and she can treat them with coffee now and they do not bother her as much. Pt reports she started to get pressure in both ears and feels like her head is going to explode. The ear pressure started about 3 months ago with a feeling like she is coming down from with an airplane. Reports it makes her feel really dizzy and spacy and makes it hard to focus. Reports her eyes do not focus well. Dr. Garrison and Dr. Velázquez checked her ears & eyes and both were reported okay. Reports her back always gives her pain and she thinks she clenches some due to this. She is limited in her activity d/ t back. Reports she has teeth aches on the R side and had a cleaning early Dec and everything was okay. Dentist sent to her have her jaw worked on. Jaw problems for years but was only noticable when went to the dentist before and now she has to go to soft foods. 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 Pt reports neck pain and upper back pain especially when standing or working on the computer. Pt reports Dr. Morales checked neck pain since that happened about 1 year ago and reports she has a lot of pain by late afternoon. Pt reports xrays were completed on her neck. Dizziness is described as spinning with looking up. Has felt dizzy with going shopping and looking around. Reports what is going on in her head is scary. Treatment Goals Patient/Caregiver Goals Like to be able to chew on both sides & chew any food PT-OP-C Subjective Start: 09/28/18 07:26 Freq: Status: Active Protocol: Document 09/30/18 15:43 [facility] (Rec: 09/30/18 15:50 [facility] [id number]) OP-PT Subjective Patient Comments Patient Comments Pt reports she sometimes feels like her face feels funny. PT-OP-F Manual Assessment Start: 09/28/18 07:26 Freq: Status: Active Protocol: Document 09/28/18 07:29 [facility] (Rec: 09/28/18 08:16 [facility] [id number]) Manual Assessments Joint Mobility Assessment Joint Mobility Assessment Head tilted to R in sitting; transient deviation to L with opening PT-OP-J Posture/Palpation/Skin Start: 09/28/18 07:26 Freq: Status: Active Protocol: Document 09/28/18 07:29 [facility] (Rec: 09/28/18 08:16 [facility] [id number]) Posture Evaluation Cesar Postural Classification System Cesar Postural Classifications Posterior/Anterior PT-OP-K Range of Motion Start: 09/28/18 07:26 Freq: Status: Active Protocol: Document 09/28/18 07:29 [facility] (Rec: 09/28/18 08:16 [facility] [id number]) Cervical Spine Range of Motion Cervical Spine Active Degrees Testing Position Sitting Flexion 70 Extension 52 Rotation Left 55 Rotation Right 70 Lateral Flexion Left 32 Lateral Flexion Right 45 Comments back and forth with ext & rot creates dizziness; pain with lat flex L TMJ Range of Motion Jaw Openning Jaw Openning (mm) 1.9 cm Comments Comments Deviation within normal limits but grinding PT-OP-Q Treatments Start: 09/28/18 07:26 Freq: Status: Active Protocol: Document 09/30/18 15:43 [facility] (Rec: 09/30/18 15:50 [facility] [id number]) Therapeutic Exercises Sitting Exercises jaw stretching Sitting Exercise Name passive jaw opening Reps/Minutes 30 sec hold 1 Sitting Exercise Name iso jaw opening Reps/Minutes 5 sec hold x8 Other Exercises testing Other Exercise Name VAT, extended ROM testing Manual Therapy Treatment Soft Tissue Mobilization inf mandible angle Body Location R sided, digastric Mobilization Type Rolling Intensity/Depth Superficial masseter Body Location R Mobilization Type Rolling Intensity/Depth Superficial cranial fascae Body Location B head Mobilization Type Myofascial Release Intensity/Depth Superficial 1 Body Location temporalis R Mobilization Type Rolling Intensity/Depth Superficial Self-Care/Home Management Treatment Activities Self-Care/Home Management Activities edu on jaw and neck anatomy with pictures & edu on possiblity that jaw issue may be causing ear muffling PT-OP-R Modalities Start: 09/28/18 07:26 Freq: Status: Active Protocol: Document 09/30/18 15:43 [facility] (Rec: 09/30/18 15:50 [facility] [id number]) Hot Pack/Cold Pack Treatment Hot Pack Location cervical & jaw Patient Position Hooklying Treatment Duration (minutes) 15 PT-OP-T Assessment and Plan Start: 09/28/18 07:26 Freq: Status: Active Protocol: Document 09/30/18 15:43 [facility] (Rec: 09/30/18 15:50 [facility] [id number]) Physical Therapy Assessment Goals 3 Impairment eating Fci Goal (LTG) Pt will report being able to eat all food textures without more than 1/10 pain. LTG Duration 11/29/18 2 Impairment posture Short Term Goal (STG) Pt will have good desk set up for home. STG Duration 10/29/18 [employer] Surveillance Goal (LTG) Pt will present with good posture without cueing. LTG Duration 11/29/18 1 Impairment neck & jaw pain Fci Goal (LTG) Pt will report no more than 1- 2/10 pain (in jaw, head, teeth & neck) with all her typical activities. LTG Duration 11/29/18 Assessment Summary Assessment Pt had no dizziness with testing of placing head into hands with neck in ext. Pt had no dizziness with extended ext, rotation or sidebending, only dizziness when moving to the positions. VAT negative. Pt has significant R sided tightness with jaw closing mm. Physical Therapy Plan Frequency and Duration Frequency of Treatment 2x/Week Duration of Treatment 2 months Plan of Care Start Date 09/28/18 Plan of Care End Date 11/29/18 Next Visit Focus/Plan Next Note Type Treatment Note Next Visit Plan further testing with vestibular and cervical to differentiate; get notes from specialists, edu on posture, isometric deviation
--- NOTE | 2018-10-05 10:27 | PT.OTN ---
Current Diagnoses Jaw pain (10/05/18) Physical Therapy Treatment Note PT-OP-A Visit Information Start: 09/28/18 07:26 Freq: Status: Active Protocol: Document 10/05/18 08:58 [facility] (Rec: 10/05/18 10:27 [facility] [id number]) Out-Patient Physical Therapy Visit Information Visit Information Visit Type Treatment Note Visit Note 3 total Visit Start Time 08:15 Visit Stop Time 09:10 Total Visit Minutes 55 Visit Number 3/ PT-OP-B Current Condition Start: 09/28/18 07:26 Freq: Status: Active Protocol: Document 09/28/18 07:29 [facility] (Rec: 09/28/18 08:16 [facility] [id number]) Current Condition History of Current Condition Onset Date a long time w/1 year worsening History of Current Condition Pt reports she used to get BRISENO & migraines and she can treat them with coffee now and they do not bother her as much. Pt reports she started to get pressure in both ears and feels like her head is going to explode. The ear pressure started about 3 months ago with a feeling like she is coming down from with an airplane. Reports it makes her feel really dizzy and spacy and makes it hard to focus. Reports her eyes do not focus well. Dr. Garrison and Dr. Velázquez checked her ears & eyes and both were reported okay. Reports her back always gives her pain and she thinks she clenches some due to this. She is limited in her activity d/ t back. Reports she has teeth aches on the R side and had a cleaning early Dec and everything was okay. Dentist sent to her have her jaw worked on. Jaw problems for years but was only noticable when went to the dentist before and now she has to go to soft foods. 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 Pt reports neck pain and upper back pain especially when standing or working on the computer. Pt reports Dr. Morales checked neck pain since that happened about 1 year ago and reports she has a lot of pain by late afternoon. Pt reports xrays were completed on her neck. Dizziness is described as spinning with looking up. Has felt dizzy with going shopping and looking around. Reports what is going on in her head is scary. Treatment Goals Patient/Caregiver Goals Like to be able to chew on both sides & chew any food PT-OP-C Subjective Start: 09/28/18 07:26 Freq: Status: Active Protocol: Document 10/05/18 08:58 [facility] (Rec: 10/05/18 10:27 [facility] [id number]) OP-PT Subjective Patient Comments Patient Comments Reports compliance with HEP PT-OP-F Manual Assessment Start: 09/28/18 07:26 Freq: Status: Active Protocol: Document 09/28/18 07:29 [facility] (Rec: 09/28/18 08:16 [facility] [id number]) Manual Assessments Joint Mobility Assessment Joint Mobility Assessment Head tilted to R in sitting; transient deviation to L with opening PT-OP-J Posture/Palpation/Skin Start: 09/28/18 07:26 Freq: Status: Active Protocol: Document 09/28/18 07:29 [facility] (Rec: 09/28/18 08:16 [facility] [id number]) Posture Evaluation [facility] Postural Classification System Cesar Postural Classifications Posterior/Anterior PT-OP-K Range of Motion Start: 09/28/18 07:26 Freq: Status: Active Protocol: Document 09/28/18 07:29 [facility] (Rec: 09/28/18 08:16 [facility] [id number]) Cervical Spine Range of Motion Cervical Spine Active Degrees Testing Position Sitting Flexion 70 Extension 52 Rotation Left 55 Rotation Right 70 Lateral Flexion Left 32 Lateral Flexion Right 45 Comments back and forth with ext & rot creates dizziness; pain with lat flex L TMJ Range of Motion Jaw Openning Jaw Openning (mm) 1.9 cm Comments Comments Deviation within normal limits but grinding PT-OP-Q Treatments Start: 09/28/18 07:26 Freq: Status: Active Protocol: Document 10/05/18 08:58 [facility] (Rec: 10/05/18 09:01 [facility] [id number]) Therapeutic Exercises Sitting Exercises jaw stretching Sitting Exercise Name passive jaw opening Reps/Minutes 30 sec hold 1 Sitting Exercise Name iso jaw opening Reps/Minutes 5 sec hold x8 Standing Exercises 2 Standing Exercise Name wall posture with 90/90 ER Therapeutic Activity Therapeutic Activity 5 Name s/l sleeping posture Comments importance of neutral neck and jaw 4 Name importance of posture for jaw Comments edu on good posture 3 Name review of anatomy in jaw & upper cervical region Comments Discussed how dizziness could be caused by vestibular system vs jaw vs neck 2 Name edu of use of ice or heat for pain management 1 Name Vestibular vs cervogenic dizziness Comments seated head turns L& R with no dizziness and turning stool with body putting head in L and R rotation without head movement caused dizziness PT-OP-R Modalities Start: 09/28/18 07:26 Freq: Status: Active Protocol: Document 10/05/18 08:58 [facility] (Rec: 10/05/18 10:27 [facility] [id number]) Hot Pack/Cold Pack Treatment Hot Pack Location cervical & jaw Patient Position Hooklying Treatment Duration (minutes) 15 PT-OP-T Assessment and Plan Start: 09/28/18 07:26 Freq: Status: Active Protocol: Document 10/05/18 08:58 [facility] (Rec: 10/05/18 10:27 [facility] [id number]) Physical Therapy Assessment Goals 3 Impairment eating Alf Goal (LTG) Pt will report being able to eat all food textures without more than 1/10 pain. LTG Duration 11/29/18 2 Impairment posture Short Term Goal (STG) Pt will have good desk set up for home. STG Duration 10/29/18 Alf Goal (LTG) Pt will present with good posture without cueing. LTG Duration 11/29/18 1 Impairment neck & jaw pain Alf Goal (LTG) Pt will report no more than 1- 2/10 pain (in jaw, head, teeth & neck) with all her typical activities. LTG Duration 11/29/18 Assessment Summary Assessment Pt had no dizziness with head rotation positioning, except when head turned itself indicating dizziness is more likely a vestibular issue. Pt required cueing for posture & positioning with exercises. Physical Therapy Plan Frequency and Duration Frequency of Treatment 2x/Week Duration of Treatment 2 months Plan of Care Start Date 09/28/18 Plan of Care End Date 11/29/18 Next Visit Focus/Plan Next Note Type Treatment Note Next Visit Plan cont to work on posture, cervical axial elongation, isometric deviation, review HEP
--- NOTE | 2018-10-14 08:17 | PT.OTN ---
Current Diagnoses Jaw pain (10/14/18) Physical Therapy Treatment Note PT-OP-A Visit Information Start: 09/28/18 07:26 Freq: Status: Active Protocol: Document 10/14/18 07:30 [facility] (Rec: 10/14/18 08:16 [facility] [id number]) Out-Patient Physical Therapy Visit Information Visit Information Visit Type Treatment Note Visit Note 4 total Visit Start Time 07:30 Visit Stop Time 08:25 Total Visit Minutes 55 Visit Number 01/25 PT-OP-B Current Condition Start: 09/28/18 07:26 Freq: Status: Active Protocol: Document 09/28/18 07:29 [facility] (Rec: 09/28/18 08:16 [facility] [id number]) Current Condition History of Current Condition Onset Date a long time w/1 year worsening History of Current Condition Pt reports she used to get BRISENO & migraines and she can treat them with coffee now and they do not bother her as much. Pt reports she started to get pressure in both ears and feels like her head is going to explode. The ear pressure started about 3 months ago with a feeling like she is coming down from with an airplane. Reports it makes her feel really dizzy and spacy and makes it hard to focus. Reports her eyes do not focus well. Dr. Garrison and Dr. Velázquez checked her ears & eyes and both were reported okay. Reports her back always gives her pain and she thinks she clenches some due to this. She is limited in her activity d/ t back. Reports she has teeth aches on the R side and had a cleaning early Dec and everything was okay. Dentist sent to her have her jaw worked on. Jaw problems for years but was only noticable when went to the dentist before and now she has to go to soft foods. 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 Pt reports neck pain and upper back pain especially when standing or working on the computer. Pt reports Dr. Morales checked neck pain since that happened about 1 year ago and reports she has a lot of pain by late afternoon. Pt reports xrays were completed on her neck. Dizziness is described as spinning with looking up. Has felt dizzy with going shopping and looking around. Reports what is going on in her head is scary. Treatment Goals Patient/Caregiver Goals Like to be able to chew on both sides & chew any food PT-OP-C Subjective Start: 09/28/18 07:26 Freq: Status: Active Protocol: Document 10/14/18 07:30 [facility] (Rec: 10/14/18 08:16 [facility] [id number]) OP-PT Subjective Patient Comments Patient Comments cont HEP compliance. posture is difficult PT-OP-F Manual Assessment Start: 09/28/18 07:26 Freq: Status: Active Protocol: Document 09/28/18 07:29 [facility] (Rec: 09/28/18 08:16 [facility] [id number]) Manual Assessments Joint Mobility Assessment Joint Mobility Assessment Head tilted to R in sitting; transient deviation to L with opening PT-OP-J Posture/Palpation/Skin Start: 09/28/18 07:26 Freq: Status: Active Protocol: Document 09/28/18 07:29 [facility] (Rec: 09/28/18 08:16 [facility] [id number]) Posture Evaluation Cesar Postural Classification System Cesar Postural Classifications Posterior/Anterior PT-OP-K Range of Motion Start: 09/28/18 07:26 Freq: Status: Active Protocol: Document 09/28/18 07:29 [facility] (Rec: 09/28/18 08:16 [facility] [id number]) Cervical Spine Range of Motion Cervical Spine Active Degrees Testing Position Sitting Flexion 70 Extension 52 Rotation Left 55 Rotation Right 70 Lateral Flexion Left 32 Lateral Flexion Right 45 Comments back and forth with ext & rot creates dizziness; pain with lat flex L TMJ Range of Motion Jaw Openning Jaw Openning (mm) 1.9 cm Comments Comments Deviation within normal limits but grinding PT-OP-Q Treatments Start: 09/28/18 07:26 Freq: Status: Active Protocol: Document 10/14/18 07:30 [facility] (Rec: 10/14/18 08:16 [facility] [id number]) Therapeutic Exercises Supine Exercises 8 Supine Exercise Name chin tuck with focus on good posture Sidelying Exercises 2 Sidelying Exercise Name roll & reach Standing Exercises 2 Standing Exercise Name wall posture with 90/90 ER Manual Therapy Treatment Soft Tissue Mobilization SCM Body Location SCM Mobilization Type Rolling inf mandible angle Body Location R sided, digastric Mobilization Type Rolling Intensity/Depth Superficial masseter Body Location R Mobilization Type Rolling Intensity/Depth Superficial PT-OP-R Modalities Start: 12/12/18 07:26 Freq: Status: Active Protocol: Document 10/14/18 07:30 [facility] (Rec: 10/14/18 08:16 [facility] [id number]) Hot Pack/Cold Pack Treatment Hot Pack Location cervical & jaw Patient Position Hooklying Treatment Duration (minutes) 15 PT-OP-T Assessment and Plan Start: 09/28/18 07:26 Freq: Status: Active Protocol: Document 10/14/18 07:30 [facility] (Rec: 10/14/18 08:16 [facility] [id number]) Physical Therapy Assessment Goals 3 Impairment eating [employer]ing Equipment Operator Goal (LTG) Pt will report being able to eat all food textures without more than 1/10 pain. LTG Duration 11/29/18 2 Impairment posture Short Term Goal (STG) Pt will have good desk set up for home. STG Duration 10/29/18 [employer]ing Equipment Operator Goal (LTG) Pt will present with good posture without cueing. LTG Duration 11/29/18 1 Impairment neck & jaw pain [employer]ing Equipment Operator Goal (LTG) Pt will report no more than 1- 2/10 pain (in jaw, head, teeth & neck) with all her typical activities. LTG Duration 11/29/18 Assessment Summary Assessment Pt is improving with her ability to maintain position in supine but did have a constriction feeling in her throat when chin tucking. With B downward glides of clavicle it improved. She has significant SCM tightness which could contribute to this . Physical Therapy Plan Frequency and Duration Frequency of Treatment 2x/Week Duration of Treatment 2 months Plan of Care Start Date 09/28/18 Plan of Care End Date 11/29/18 Next Visit Focus/Plan Next Note Type Treatment Note Next Visit Plan Cont to work on cervical & jaw position
--- NOTE | 2018-10-19 11:22 | PT.OTN ---
Current Diagnoses Jaw pain (10/19/18) Physical Therapy Treatment Note PT-OP-A Visit Information Start: 09/28/18 07:26 Freq: Status: Active Protocol: Document 10/19/18 10:00 [facility] (Rec: 10/19/18 11:21 [facility] [id number]) Out-Patient Physical Therapy Visit Information Visit Information Visit Type Treatment Note Visit Note 1 total 2019 Visit Start Time 10:30 Visit Stop Time 11:25 Total Visit Minutes 55 Visit Number 02/24 PT-OP-B Current Condition Start: 09/28/18 07:26 Freq: Status: Active Protocol: Document 09/28/18 07:29 [facility] (Rec: 09/28/18 08:16 [facility] [id number]) Current Condition History of Current Condition Onset Date a long time w/1 year worsening History of Current Condition Pt reports she used to get BRISENO & migraines and she can treat them with coffee now and they do not bother her as much. Pt reports she started to get pressure in both ears and feels like her head is going to explode. The ear pressure started about 3 months ago with a feeling like she is coming down from with an airplane. Reports it makes her feel really dizzy and spacy and makes it hard to focus. Reports her eyes do not focus well. Dr. Garrison and Dr. Velázquez checked her ears & eyes and both were reported okay. Reports her back always gives her pain and she thinks she clenches some due to this. She is limited in her activity d/ t back. Reports she has teeth aches on the R side and had a cleaning early Dec and everything was okay. Dentist sent to her have her jaw worked on. Jaw problems for years but was only noticable when went to the dentist before and now she has to go to soft foods. 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 Pt reports neck pain and upper back pain especially when standing or working on the computer. Pt reports Dr. Morales checked neck pain since that happened about 1 year ago and reports she has a lot of pain by late afternoon. Pt reports xrays were completed on her neck. Dizziness is described as spinning with looking up. Has felt dizzy with going shopping and looking around. Reports what is going on in her head is scary. Treatment Goals Patient/Caregiver Goals Like to be able to chew on both sides & chew any food PT-OP-C Subjective Start: 09/28/18 07:26 Freq: Status: Active Protocol: Document 10/19/18 10:00 [facility] (Rec: 10/19/18 11:21 [facility] [id number]) OP-PT Subjective Patient Comments Patient Comments Pt reports she is having trouble with the wall exercise . PT-OP-F Manual Assessment Start: 09/28/18 07:26 Freq: Status: Active Protocol: Document 09/28/18 07:29 [facility] (Rec: 09/28/18 08:16 [facility] [id number]) Manual Assessments Joint Mobility Assessment Joint Mobility Assessment Head tilted to R in sitting; transient deviation to L with opening PT-OP-J Posture/Palpation/Skin Start: 09/28/18 07:26 Freq: Status: Active Protocol: Document 09/28/18 07:29 [facility] (Rec: 09/28/18 08:16 [facility] [id number]) Posture Evaluation Cesar Postural Classification System Cesar Postural Classifications Posterior/Anterior PT-OP-K Range of Motion Start: 09/28/18 07:26 Freq: Status: Active Protocol: Document 09/28/18 07:29 [facility] (Rec: 09/28/18 08:16 [facility] [id number]) Cervical Spine Range of Motion Cervical Spine Active Degrees Testing Position Sitting Flexion 70 Extension 52 Rotation Left 55 Rotation Right 70 Lateral Flexion Left 32 Lateral Flexion Right 45 Comments back and forth with ext & rot creates dizziness; pain with lat flex L TMJ Range of Motion Jaw Openning Jaw Openning (mm) 1.9 cm Comments Comments Deviation within normal limits but grinding PT-OP-Q Treatments Start: 09/28/18 07:26 Freq: Status: Active Protocol: Document 10/19/18 10:00 [facility] (Rec: 10/19/18 11:21 [facility] [id number]) Therapeutic Exercises Supine Exercises 8 Supine Exercise Name chin tuck with focus on good posture Sitting Exercises jaw opening Sitting Exercise Name jaw opening with focus on mechanics posture roll up Sitting Exercise Name against wall then in chair with foucs on cervical retraction & relaxed jaw Standing Exercises 2 Standing Exercise Name wall posture with 90/90 ER Comments focus on thoracic & cervical position w/comfortable lumbar position Therapeutic Activity Therapeutic Activity 4 Name importance of posture for jaw Comments edu on good posture; demo of dec clicking of jaw in good posture; du on good seated posture & using back support so she doesn't slouch while eating 3 Name review of anatomy in jaw & upper cervical region Comments Discussed how dizziness could be caused by vestibular system vs jaw vs neck Manual Therapy Treatment Soft Tissue Mobilization SCM Body Location SCM Mobilization Type Rolling inf mandible angle Body Location R sided, digastric Mobilization Type Rolling Intensity/Depth Superficial masseter Body Location R Mobilization Type Rolling Intensity/Depth Superficial PT-OP-R Modalities Start: 09/28/18 07:26 Freq: Status: Active Protocol: Document 10/19/18 10:00 [facility] (Rec: 10/19/18 11:21 [facility] [id number]) Hot Pack/Cold Pack Treatment Hot Pack Location cervical & jaw Patient Position Hooklying Treatment Duration (minutes) 15 PT-OP-T Assessment and Plan Start: 09/28/18 07:26 Freq: Status: Active Protocol: Document 10/19/18 10:00 [facility] (Rec: 10/19/18 11:21 [facility] [id number]) Physical Therapy Assessment Goals 3 Impairment eating Prison Goal (LTG) Pt will report being able to eat all food textures without more than 1/10 pain. LTG Duration 11/29/18 2 Impairment posture Short Term Goal (STG) Pt will have good desk set up for home. STG Duration 10/29/18 Prison Goal (LTG) Pt will present with good posture without cueing. LTG Duration 11/29/18 1 Impairment neck & jaw pain Prison Goal (LTG) Pt will report no more than 1- 2/10 pain (in jaw, head, teeth & neck) with all her typical activities. LTG Duration 11/29/18 Assessment Summary Assessment Wall exercise adjusted so pt doesn't focus on low back being flat, but focuses on comfortable position while trying to straighten thoracic spine and achieve axial elongation of cervical spine. Cont work and edu on importance of posture while eating and her ant tightness of jaw & neck mm due to posture, which lead to dec excursion of jaw. Physical Therapy Plan Frequency and Duration Frequency of Treatment 2x/Week Duration of Treatment 2 months Plan of Care Start Date 09/28/18 Plan of Care End Date 11/29/18 Therapeutic Interventions Therapeutic Interventions Home Exercise Program Joint Mobilizations Manual Therapy Patient/Caregiver Education Self-Care/Home Management Soft Tissue Mobilization Taping Therapeutic Activities Therapeutic Exercises Modalities Cold Pack/Ice Massage Electric Stimulation Hot Packs Traction- Mechanical Ultrasound Next Visit Focus/Plan Next Note Type Treatment Note Next Visit Plan TMJ distraction, cont to work inf on mandible
--- NOTE | 2018-10-21 14:17 | PT.OTN ---
Current Diagnoses Jaw pain (10/21/18) Physical Therapy Treatment Note PT-OP-A Visit Information Start: 09/28/18 07:26 Freq: Status: Active Protocol: Document 10/21/18 14:02 [facility] (Rec: 10/21/18 14:17 [facility] [id number]) Out-Patient Physical Therapy Visit Information Visit Information Visit Type Treatment Note Visit Note 2 total 2019 Visit Start Time 07:30 Visit Stop Time 08:25 Total Visit Minutes 55 Visit Number 03/27 PT-OP-B Current Condition Start: 09/28/18 07:26 Freq: Status: Active Protocol: Document 09/28/18 07:29 [facility] (Rec: 09/28/18 08:16 [facility] [id number]) Current Condition History of Current Condition Onset Date a long time w/1 year worsening History of Current Condition Pt reports she used to get BRISENO & migraines and she can treat them with coffee now and they do not bother her as much. Pt reports she started to get pressure in both ears and feels like her head is going to explode. The ear pressure started about 3 months ago with a feeling like she is coming down from with an airplane. Reports it makes her feel really dizzy and spacy and makes it hard to focus. Reports her eyes do not focus well. Dr. Garrison and Dr. Velázquez checked her ears & eyes and both were reported okay. Reports her back always gives her pain and she thinks she clenches some due to this. She is limited in her activity d/ t back. Reports she has teeth aches on the R side and had a cleaning early Dec and everything was okay. Dentist sent to her have her jaw worked on. Jaw problems for years but was only noticable when went to the dentist before and now she has to go to soft foods. 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 Pt reports neck pain and upper back pain especially when standing or working on the computer. Pt reports Dr. Morales checked neck pain since that happened about 1 year ago and reports she has a lot of pain by late afternoon. Pt reports xrays were completed on her neck. Dizziness is described as spinning with looking up. Has felt dizzy with going shopping and looking around. Reports what is going on in her head is scary. Treatment Goals Patient/Caregiver Goals Like to be able to chew on both sides & chew any food PT-OP-C Subjective Start: 09/28/18 07:26 Freq: Status: Active Protocol: Document 10/21/18 14:02 [facility] (Rec: 10/21/18 14:17 [facility] [id number]) OP-PT Subjective Patient Comments Patient Comments Pt reports exercises have been going well. PT-OP-F Manual Assessment Start: 09/28/18 07:26 Freq: Status: Active Protocol: Document 09/28/18 07:29 [facility] (Rec: 09/28/18 08:16 [facility] [id number]) Manual Assessments Joint Mobility Assessment Joint Mobility Assessment Head tilted to R in sitting; transient deviation to L with opening PT-OP-J Posture/Palpation/Skin Start: 09/28/18 07:26 Freq: Status: Active Protocol: Document 09/28/18 07:29 [facility] (Rec: 09/28/18 08:16 [facility] [id number]) Posture Evaluation [facility] Postural Classification System Cesar Postural Classifications Posterior/Anterior PT-OP-K Range of Motion Start: 09/28/18 07:26 Freq: Status: Active Protocol: Document 09/28/18 07:29 [facility] (Rec: 09/28/18 08:16 [facility] [id number]) Cervical Spine Range of Motion Cervical Spine Active Degrees Testing Position Sitting Flexion 70 Extension 52 Rotation Left 55 Rotation Right 70 Lateral Flexion Left 32 Lateral Flexion Right 45 Comments back and forth with ext & rot creates dizziness; pain with lat flex L TMJ Range of Motion Jaw Openning Jaw Openning (mm) 1.9 cm Comments Comments Deviation within normal limits but grinding PT-OP-Q Treatments Start: 09/28/18 07:26 Freq: Status: Active Protocol: Document 10/21/18 14:02 [facility] (Rec: 10/21/18 14:17 [facility] [id number]) Therapeutic Exercises Standing Exercises 1 Standing Exercise Name corner pec stretch with focus on head position Reps/Minutes 30 sec Manual Therapy Treatment Soft Tissue Mobilization SCM Body Location SCM Mobilization Type Rolling inf mandible angle Body Location R sided, digastric Mobilization Type Rolling Intensity/Depth Superficial masseter Body Location R Mobilization Type Rolling Intensity/Depth Superficial 1 Body Location temporalis R Mobilization Type Rolling Intensity/Depth Superficial Joint Mobilizations mastoid Joint mastoid Direction AP FM TMJ Joint TMJ Direction distraction B PT-OP-R Modalities Start: 09/28/18 07:26 Freq: Status: Active Protocol: Document 10/21/18 14:02 [facility] (Rec: 10/21/18 14:17 [facility] [id number]) Hot Pack/Cold Pack Treatment Hot Pack Location cervical & jaw Patient Position Hooklying Treatment Duration (minutes) 15 PT-OP-T Assessment and Plan Start: 09/28/18 07:26 Freq: Status: Active Protocol: Document 10/21/18 14:02 [facility] (Rec: 10/21/18 14:17 [facility] [id number]) Physical Therapy Assessment Goals 3 Impairment eating Message Clerk Goal (LTG) Pt will report being able to eat all food textures without more than 1/10 pain. LTG Duration 11/29/18 2 Impairment posture Short Term Goal (STG) Pt will have good desk set up for home. STG Duration 10/29/18 Assisted Goal (LTG) Pt will present with good posture without cueing. LTG Duration 11/29/18 1 Impairment neck & jaw pain Message Clerk Goal (LTG) Pt will report no more than 1- 2/10 pain (in jaw, head, teeth & neck) with all her typical activities. LTG Duration 11/29/18 Assessment Summary Assessment Pt has significant tightness in R sided jaw mm and hyoid mm . It improves with STM but pt does have sensation of not enough space under jaw when opening mouth. Physical Therapy Plan Frequency and Duration Frequency of Treatment 2x/Week Duration of Treatment 2 months Plan of Care Start Date 09/28/18 Plan of Care End Date 11/29/18 Next Visit Focus/Plan Next Note Type Treatment Note Next Visit Plan inf manible soft tissue, hyoid mobs, TMJ mobs
--- NOTE | 2018-10-26 11:30 | PT.OTN ---
Current Diagnoses Jaw pain (10/25/18) Physical Therapy Treatment Note PT-OP-A Visit Information Start: 09/28/18 07:26 Freq: Status: Active Protocol: Document 10/25/18 08:55 [facility] (Rec: 10/25/18 11:17 [facility] [id number]) Out-Patient Physical Therapy Visit Information Visit Information Visit Type Treatment Note Visit Note 3 total 2019 Visit Start Time 08:15 Visit Stop Time 09:10 Total Visit Minutes 55 Visit Number 04/26 PT-OP-B Current Condition Start: 09/28/18 07:26 Freq: Status: Active Protocol: Document 09/28/18 07:29 [facility] (Rec: 09/28/18 08:16 [facility] [id number]) Current Condition History of Current Condition Onset Date a long time w/1 year worsening History of Current Condition Pt reports she used to get BRISENO & migraines and she can treat them with coffee now and they do not bother her as much. Pt reports she started to get pressure in both ears and feels like her head is going to explode. The ear pressure started about 3 months ago with a feeling like she is coming down from with an airplane. Reports it makes her feel really dizzy and spacy and makes it hard to focus. Reports her eyes do not focus well. Dr. Garrison and Dr. Velázquez checked her ears & eyes and both were reported okay. Reports her back always gives her pain and she thinks she clenches some due to this. She is limited in her activity d/ t back. Reports she has teeth aches on the R side and had a cleaning early Dec and everything was okay. Dentist sent to her have her jaw worked on. Jaw problems for years but was only noticable when went to the dentist before and now she has to go to soft foods. 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 Pt reports neck pain and upper back pain especially when standing or working on the computer. Pt reports Dr. Morales checked neck pain since that happened about 1 year ago and reports she has a lot of pain by late afternoon. Pt reports xrays were completed on her neck. Dizziness is described as spinning with looking up. Has felt dizzy with going shopping and looking around. Reports what is going on in her head is scary. Treatment Goals Patient/Caregiver Goals Like to be able to chew on both sides & chew any food PT-OP-C Subjective Start: 09/28/18 07:26 Freq: Status: Active Protocol: Document 10/25/18 08:55 [facility] (Rec: 10/25/18 11:17 [facility] [id number]) OP-PT Subjective Patient Comments Patient Comments Pt reports she has been having trouble sleeping because any position bothers her back or her shoulder. Reports shoulder is getting worse and she feels like she needs to elevate her shoulder girdle to hold it up and reports clenching. PT-OP-F Manual Assessment Start: 09/28/18 07:26 Freq: Status: Active Protocol: Document 09/28/18 07:29 [facility] (Rec: 09/28/18 08:16 [facility] [id number]) Manual Assessments Joint Mobility Assessment Joint Mobility Assessment Head tilted to R in sitting; transient deviation to L with opening PT-OP-J Posture/Palpation/Skin Start: 09/28/18 07:26 Freq: Status: Active Protocol: Document 09/28/18 07:29 [facility] (Rec: 09/28/18 08:16 [facility] [id number]) Posture Evaluation Cesar Postural Classification System Cesar Postural Classifications Posterior/Anterior PT-OP-K Range of Motion Start: 09/28/18 07:26 Freq: Status: Active Protocol: Document 09/28/18 07:29 [facility] (Rec: 09/28/18 08:16 [facility] [id number]) Cervical Spine Range of Motion Cervical Spine Active Degrees Testing Position Sitting Flexion 70 Extension 52 Rotation Left 55 Rotation Right 70 Lateral Flexion Left 32 Lateral Flexion Right 45 Comments back and forth with ext & rot creates dizziness; pain with lat flex L TMJ Range of Motion Jaw Openning Jaw Openning (mm) 1.9 cm Comments Comments Deviation within normal limits but grinding PT-OP-Q Treatments Start: 09/28/18 07:26 Freq: Status: Active Protocol: Document 10/25/18 08:55 [facility] (Rec: 10/25/18 11:17 [facility] [id number]) Manual Therapy Treatment Soft Tissue Mobilization SCM Body Location SCM Mobilization Type Rolling inf mandible angle Body Location R sided, digastric Mobilization Type Rolling Intensity/Depth Superficial masseter Body Location R Mobilization Type Rolling Intensity/Depth Superficial cranial fascae Body Location cranial fascia Mobilization Type Myofascial Release 1 Body Location temporalis R Mobilization Type Rolling Intensity/Depth Superficial Self-Care/Home Management Treatment Education Other Education Discussed not doing any exercise that hurts or involves her shoulder. TO only do the wall roll up without shoulder movement. Educated not to elevated shoulder girdle but to try better posture and elevating her hsoulder girlde will tighten her neck and jaw. Discussed avoiding painful positions and activities in order to avoid clenching. Reviewed sleeping position PT-OP-R Modalities Start: 09/28/18 07:26 Freq: Status: Active Protocol: Document 10/25/18 08:55 [facility] (Rec: 10/25/18 11:17 [facility] [id number]) Hot Pack/Cold Pack Treatment Hot Pack Location cervical & jaw Patient Position Hooklying Treatment Duration (minutes) 15 PT-OP-T Assessment and Plan Start: 09/28/18 07:26 Freq: Status: Active Protocol: Document 10/25/18 08:55 [facility] (Rec: 10/25/18 11:17 [facility] [id number]) Physical Therapy Assessment Goals 3 Impairment eating Cabin Outfitter Goal (LTG) Pt will report being able to eat all food textures without more than 1/10 pain. LTG Duration 11/29/18 2 Impairment posture Short Term Goal (STG) Pt will have good desk set up for home. STG Duration 10/29/18 Group Home Goal (LTG) Pt will present with good posture without cueing. LTG Duration 11/29/18 1 Impairment neck & jaw pain Cabin Outfitter Goal (LTG) Pt will report no more than 1- 2/10 pain (in jaw, head, teeth & neck) with all her typical activities. LTG Duration 11/29/18 Assessment Summary Assessment Pt cont to require education regarding avoiding painful positions and relaxing jaw position during the day. She has been instructed to follow up with her ortho re: her shoulder as her pain is inc her clenching & making it difficult to progress her jaw. She cont to have R sided inf jaw tightness that limits her opening. Physical Therapy Plan Frequency and Duration Frequency of Treatment 2x/Week Duration of Treatment 2 months Plan of Care Start Date 09/28/18 Plan of Care End Date 11/29/18 Next Visit Focus/Plan Next Note Type Treatment Note Next Visit Plan hyoid and cranial mobs & TMJ mobs
--- NOTE | 2018-10-28 14:06 | PT.OTRE ---
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) Spondylolisthesis at L5-S1 level (Chronic 07/03/16) Primary insomnia (Chronic 10/07/17) Lumbar spine pain (Acute) Depression (Chronic) Hypothyroidism (Chronic) Migraines (Chronic) Osteoporosis (Chronic) Cystocele (Resolved 12/18/13) Fracture tibia/fibula (Resolved) Uterovaginal prolapse (Resolved) Surgical History (Last Reviewed 08/24/18 @ 14:00 by Alfredo Cordova DO) Right fibular fracture (Resolved) History of esophagogastroduodenoscopy (EGD) (~2015) History of third molar tooth extraction Status post tonsillectomy and adenoidectomy Status post vaginal hysterectomy (~2013) Provider Visit Care Team Role Provider Type Josee Peterson DO Attending Provider Physician Family Provider Primary Care Provider Specialty: Family Practice Address: [address] [place] [address], [facility] Email: [email or web address] Physical Therapy Re-Evaluation PT-OP-A Visit Information Start: 09/28/18 07:26 Freq: Status: Active Protocol: Document 10/28/18 08:17 [facility] (Rec: 10/28/18 09:04 [facility] [id number]) Out-Patient Physical Therapy Visit Information Visit Information Visit Type Re-Evaluation Visit Note 4 total 2019 Visit Start Time 08:15 Visit Stop Time 09:10 Total Visit Minutes 55 Visit Number 10/27 PT-OP-B Current Condition Start: 09/28/18 07:26 Freq: Status: Active Protocol: Document 10/28/18 08:17 [facility] (Rec: 10/28/18 14:06 [facility] [id number]) Current Condition History of Current Condition Current Complaints jaw pain, neck pain, R shoulder/arm pain History of Current Condition 1/11/19: Addition of treatment of R neck, shoulder & arm pain. Pt reports it started in Nov and was cont to get worse . Reports she thinks it may have been her dog pulling that caused it but she stopped walking her dog and it was still painful. 09/28/18:Pt reports she used to get BRISENO & migraines and she can treat them with coffee now and they do not bother her as much. Pt reports she started to get pressure in both ears and feels like her head is going to explode. The ear pressure started about 3 months ago with a feeling like she is coming down from with an airplane. Reports it makes her feel really dizzy and spacy and makes it hard to focus. Reports her eyes do not focus well. Dr. Garrison and Dr Obed Velázquez checked her ears & eyes and both were reported okay. Reports her back always gives her pain and she thinks she clenches some due to this . She is limited in her activity d/t back. Reports she has teeth aches on the R side and had a cleaning early Dec and everything was okay. Dentist sent to her have her jaw worked on. Jaw problems for years but was only noticable when went to the dentist before and now she has to go to soft foods. 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 Pt reports neck pain and upper back pain especially when standing or working on the computer. Pt reports Dr. Morales checked neck pain since that happened about 1 year ago and reports she has a lot of pain by late afternoon. Pt reports xrays were completed on her neck. Dizziness is described as spinning with looking up. Has felt dizzy with going shopping and looking around. Reports what is going on in her head is scary. PT-OP-C Subjective Start: 09/28/18 07:26 Freq: Status: Active Protocol: Document 10/28/18 08:17 [facility] (Rec: 10/28/18 09:04 [facility] [id number]) OP-PT Subjective Patient Comments Patient Comments Saw re: shoulder and has new referal for UT pain OP-PT Pain Assessment Location R shoulder Pain Location Details R UT to post arm Intensity 4 Scale Used Numeric (1 - 10) Description Aching Description- Other worse w/ movement Frequency Constant Pain Duration hours after doing activity Radiating Location numbness to elbow Other Pain Aggravating Factors Move wrong, putting on seatbelt, laying on RUE, arm hanging off shoulder Pain Alleviating Factors None PT-OP-F Manual Assessment Start: 09/28/18 07:26 Freq: Status: Active Protocol: Document 09/28/18 07:29 [facility] (Rec: 09/28/18 08:16 [facility] [id number]) Manual Assessments Joint Mobility Assessment Joint Mobility Assessment Head tilted to R in sitting; transient deviation to L with opening PT-OP-J Posture/Palpation/Skin Start: 09/28/18 07:26 Freq: Status: Active Protocol: Document 09/28/18 07:29 [facility] (Rec: 09/28/18 08:16 [facility] [id number]) Posture Evaluation Cesar Postural Classification System Cesar Postural Classifications Posterior/Anterior PT-OP-K Range of Motion Start: 09/28/18 07:26 Freq: Status: Active Protocol: Document 10/28/18 08:17 [facility] (Rec: 10/28/18 09:04 [facility] [id number]) Cervical Spine Range of Motion Cervical Spine Active Degrees Testing Position Sitting Flexion 43 Extension 65 Rotation Left 65 Rotation Right 65 Lateral Flexion Left 45 Lateral Flexion Right 25 Comments pull in UT Shoulder Goniometric Range of Motion Shoulder Measured in Degrees Left Active Flexion 158 Extension 65 Abduction 180 External Rotation at 90 degrees 95 Abduction Internal Rotation Behind Back (text) T6 Right Active Flexion 138 Extension 60 Abduction 160 External Rotation at 90 degrees 76 Abduction Internal Rotation Behind Back (text) L1 PT-OP-L Special Tests Start: 09/28/18 07:26 Freq: Status: Active Protocol: Document 10/28/18 08:17 [facility] (Rec: 10/28/18 09:04 [facility] [id number]) Special Tests Cervical Spine Special Tests spurling Test Results neg Shoulder Special Tests Sulcus Test Results positive for pain and inc space Neer Impingement Test Results positive R Jamil Tay Impingement Test Results positive R AC Joint Compression Test Results neg Speed's Biceps Test Results positive Yergason's Biceps Test Results positive [place] Test Test Results neg Drop Arm Rotator Cuff Test Results neg Neural Special Tests- Upper Body Median Nerve Tension Test Results positive R Radial Nerve Tension Test Results positive R Ulnar Nerve Tension Test Results positive R Upper Limb Tension Test Test Results 45 deg neural tension R Comments 100 deg L PT-OP-M Strength Start: 09/28/18 07:26 Freq: Status: Active Protocol: Document 10/28/18 08:17 [facility] (Rec: 10/28/18 09:04 [facility] [id number]) Shoulder Strength Shoulder Manual Muscle Testing Right Flexion 4+ Good+ Extension 3 Fair Abduction (C5) 4+ Good+ External Rotation 4+ Good+ Internal Rotation 4 Good Comments pain with IR & ext, pain after flex testing Left Flexion 5 Normal Extension 5 Normal Abduction (C5) 5 Normal External Rotation 5 Normal Internal Rotation 5 Normal PT-OP-Q Treatments Start: 09/28/18 07:26 Freq: Status: Active Protocol: Document 10/28/18 08:17 [facility] (Rec: 10/28/18 09:04 [facility] [id number]) Self-Care/Home Management Treatment Education Other Education doing stretches and cervical ROM, edu with pictures and demos for UT & nerves & shoulder movement PT-OP-R Modalities Start: 09/28/18 07:26 Freq: Status: Active Protocol: Document 10/28/18 08:17 [facility] (Rec: 10/28/18 09:04 [facility] [id number]) Electric Stimulation Electric Stimulation Interferential Current (IFC) Body Location R UT/shoulder Duration (Minutes) 10 Intensity 12 Patient Position Hooklying Combined With Heat/Cold Cold Pack PT-OP-T Assessment and Plan Start: 09/28/18 07:26 Freq: Status: Active Protocol: Document 10/28/18 08:17 [facility] (Rec: 10/28/18 09:04 [facility] [id number]) Physical Therapy Assessment Goals shoulder Short Term Goal (STG) Pt will be able to score 4/5 or greater on all strengthening tests. STG Duration 11/28/18 Retirement Goal (LTG) Pt will be able to return to walking dog and doing normal ADLs without greater than 1/10 pain LTG Duration 12/26/18 3 Impairment eating Retirement Goal (LTG) Pt will report being able to eat all food textures without more than 1/10 pain. LTG Duration 11/29/18 2 Impairment posture Short Term Goal (STG) Pt will have good desk set up for home. STG Duration 10/29/18 Retirement Goal (LTG) Pt will present with good posture without cueing. LTG Duration 11/29/18 1 Impairment neck & jaw pain Case Finisher Goal (LTG) Pt will report no more than 1- 2/10 pain (in jaw, head, teeth & neck) with all her typical activities. LTG Duration 11/29/18 Assessment Summary Assessment Pt presents w/pain along R UT w/dx of UT strain from . Pt appears to be elevated in shoulder girdle on R side with pain to palpation of UT and dec ROM when stretching UT. She has impaired mechanics of R shoulder, creating positive impingement testing. She appears to have neural tension on R side creating radial, ulnar and median nerve tension tests to create pain and decreased range and numbness. Pt would benefit from skilled PT to address impaired posture , dec strength & ROM of R shoulder & neck. Physical Therapy Plan Frequency and Duration Frequency of Treatment 2x/Week Duration of Treatment 2 months Plan of Care Start Date 10/28/18 Plan of Care End Date 12/26/18 Therapeutic Interventions Therapeutic Interventions Aquatic Therapy Balance Training Gait Training Home Exercise Program Joint Mobilizations Manual Therapy Neuromuscular Re-education Patient/Caregiver Education Self-Care/Home Management Soft Tissue Mobilization Taping Therapeutic Activities Therapeutic Exercises Modalities Cold Pack/Ice Massage Electric Stimulation Hot Packs Infrared Therapy Iontophoresis Traction- Mechanical Ultrasound Next Visit Focus/Plan Next Note Type Treatment Note Next Visit Plan Scapular stability exercises & STM to UT
--- NOTE | 2018-10-28 14:06 | PT.OPPOC ---
Current Diagnoses Jaw pain (10/28/18) Provider Visit Care Team Role Provider Type Josee Peterson DO Attending Provider Physician Family Provider Primary Care Provider Specialty: Family Practice Address: [address] [place] [address], [id number] Email: [email or web address] Plan Of Care PT-OP-T Assessment and Plan Start: 09/28/18 07:26 Freq: Status: Active Protocol: Document 10/28/18 08:17 [facility] (Rec: 10/28/18 09:04 [facility] [id number]) Physical Therapy Assessment Goals shoulder Short Term Goal (STG) Pt will be able to score 4/5 or greater on all strengthening tests. STG Duration 11/28/18 Almond Paste Mixer Goal (LTG) Pt will be able to return to walking dog and doing normal ADLs without greater than 1/10 pain LTG Duration 12/26/18 3 Impairment eating Almond Paste Mixer Goal (LTG) Pt will report being able to eat all food textures without more than 1/10 pain. LTG Duration 11/29/18 2 Impairment posture Short Term Goal (STG) Pt will have good desk set up for home. STG Duration 10/29/18 Almond Paste Mixer Goal (LTG) Pt will present with good posture without cueing. LTG Duration 11/29/18 1 Impairment neck & jaw pain Halfway Goal (LTG) Pt will report no more than 1- 2/10 pain (in jaw, head, teeth & neck) with all her typical activities. LTG Duration 11/29/18 Assessment Summary Assessment Pt presents w/pain along R UT w/dx of UT strain from MD. Pt appears to be elevated in shoulder girdle on R side with pain to palpation of UT and dec ROM when stretching UT. She has impaired mechanics of R shoulder, creating positive impingement testing. She appears to have neural tension on R side creating radial, ulnar and median nerve tension tests to create pain and decreased range and numbness. Pt would benefit from skilled PT to address impaired posture , dec strength & ROM of R shoulder & neck. Physical Therapy Plan Frequency and Duration Frequency of Treatment 2x/Week Duration of Treatment 2 months Plan of Care Start Date 10/28/18 Plan of Care End Date 12/26/18 Therapeutic Interventions Therapeutic Interventions Aquatic Therapy Balance Training Gait Training Home Exercise Program Joint Mobilizations Manual Therapy Neuromuscular Re-education Patient/Caregiver Education Self-Care/Home Management Soft Tissue Mobilization Taping Therapeutic Activities Therapeutic Exercises Modalities Cold Pack/Ice Massage Electric Stimulation Hot Packs Infrared Therapy Iontophoresis Traction- Mechanical Ultrasound Next Visit Focus/Plan Next Note Type Treatment Note Next Visit Plan Scapular stability exercises & STM to UT Plan of Care Dates Plan of Care Start Date 10/28/18 Plan of Care End Date 12/26/18 Please Sign and Return: I have reviewed this Plan of Care and certify that the skilled therapy services above are required to meet the patient?s needs. Physician Signature Date Printed Name and Credentials Clinical Instructor Signature Printed Name and Credentials
--- NOTE | 2018-11-08 16:24 | PT.OTN ---
Current Diagnoses Jaw pain (11/08/18) Physical Therapy Treatment Note PT-OP-A Visit Information Start: 09/28/18 07:26 Freq: Status: Active Protocol: Document 11/08/18 10:32 [facility] (Rec: 11/08/18 16:24 [facility] [id number]) Out-Patient Physical Therapy Visit Information Visit Information Visit Type Treatment Note Visit Note 5 total 2019 Visit Start Time 10:30 Visit Stop Time 11:25 Total Visit Minutes 55 Visit Number 11/27 PT-OP-B Current Condition Start: 09/28/18 07:26 Freq: Status: Active Protocol: Document 10/28/18 08:17 [facility] (Rec: 10/28/18 14:06 [facility] [id number]) Current Condition History of Current Condition Current Complaints jaw pain, neck pain, R shoulder/arm pain History of Current Condition 10/28/18: Addition of treatment of R neck, shoulder & arm pain. Pt reports it started in Nov and was cont to get worse . Reports she thinks it may have been her dog pulling that caused it but she stopped walking her dog and it was still painful. 09/28/18:Pt reports she used to get BRISENO & migraines and she can treat them with coffee now and they do not bother her as much. Pt reports she started to get pressure in both ears and feels like her head is going to explode. The ear pressure started about 3 months ago with a feeling like she is coming down from with an airplane. Reports it makes her feel really dizzy and spacy and makes it hard to focus. Reports her eyes do not focus well. Dr. Garrison and Dr Obed Velázquez checked her ears & eyes and both were reported okay. Reports her back always gives her pain and she thinks she clenches some due to this . She is limited in her activity d/t back. Reports she has teeth aches on the R side and had a cleaning early Dec and everything was okay. Dentist sent to her have her jaw worked on. Jaw problems for years but was only noticable when went to the dentist before and now she has to go to soft foods. 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 Pt reports neck pain and upper back pain especially when standing or working on the computer. Pt reports Dr. Morales checked neck pain since that happened about 1 year ago and reports she has a lot of pain by late afternoon. Pt reports xrays were completed on her neck. Dizziness is described as spinning with looking up. Has felt dizzy with going shopping and looking around. Reports what is going on in her head is scary. PT-OP-C Subjective Start: 09/28/18 07:26 Freq: Status: Active Protocol: Document 11/08/18 10:32 [facility] (Rec: 11/08/18 16:24 [facility] [id number]) OP-PT Subjective Patient Comments Patient Comments Pt reports she had a cold last week. Notes she rested and that helped her shoulder but when [facility] does things, it sets her back PT-OP-F Manual Assessment Start: 09/28/18 07:26 Freq: Status: Active Protocol: Document 09/28/18 07:29 [facility] (Rec: 09/28/18 08:16 [facility] [id number]) Manual Assessments Joint Mobility Assessment Joint Mobility Assessment Head tilted to R in sitting; transient deviation to L with opening PT-OP-J Posture/Palpation/Skin Start: 09/28/18 07:26 Freq: Status: Active Protocol: Document 09/28/18 07:29 [facility] (Rec: 09/28/18 08:16 [facility] [id number]) Posture Evaluation Cesar Postural Classification System Cesar Postural Classifications Posterior/Anterior PT-OP-K Range of Motion Start: 09/28/18 07:26 Freq: Status: Active Protocol: Document 10/28/18 08:17 [facility] (Rec: 10/28/18 09:04 [facility] [id number]) Cervical Spine Range of Motion Cervical Spine Active Degrees Testing Position Sitting Flexion 43 Extension 65 Rotation Left 65 Rotation Right 65 Lateral Flexion Left 45 Lateral Flexion Right 25 Comments pull in UT Shoulder Goniometric Range of Motion Shoulder Measured in Degrees Left Active Flexion 158 Extension 65 Abduction 180 External Rotation at 90 degrees 95 Abduction Internal Rotation Behind Back (text) T6 Right Active Flexion 138 Extension 60 Abduction 160 External Rotation at 90 degrees 76 Abduction Internal Rotation Behind Back (text) L1 PT-OP-L Special Tests Start: 09/28/18 07:26 Freq: Status: Active Protocol: Document 10/28/18 08:17 [facility] (Rec: 10/28/18 09:04 [facility] [id number]) Special Tests Cervical Spine Special Tests spurling Test Results neg Shoulder Special Tests Sulcus Test Results positive for pain and inc space Neer Impingement Test Results positive R Jamil Tay Impingement Test Results positive R AC Joint Compression Test Results neg Speed's Biceps Test Results positive Yergason's Biceps Test Results positive [place] Test Test Results neg Drop Arm Rotator Cuff Test Results neg Neural Special Tests- Upper Body Median Nerve Tension Test Results positive R Radial Nerve Tension Test Results positive R Ulnar Nerve Tension Test Results positive R Upper Limb Tension Test Test Results 45 deg neural tension R Comments 100 deg L PT-OP-M Strength Start: 09/28/18 07:26 Freq: Status: Active Protocol: Document 10/28/18 08:17 [facility] (Rec: 10/28/18 09:04 [facility] [id number]) Shoulder Strength Shoulder Manual Muscle Testing Right Flexion 4+ Good+ Extension 3 Fair Abduction (C5) 4+ Good+ External Rotation 4+ Good+ Internal Rotation 4 Good Comments pain with IR & ext, pain after flex testing Left Flexion 5 Normal Extension 5 Normal Abduction (C5) 5 Normal External Rotation 5 Normal Internal Rotation 5 Normal PT-OP-Q Treatments Start: 09/28/18 07:26 Freq: Status: Active Protocol: Document 11/08/18 10:32 [facility] (Rec: 11/08/18 16:24 [facility] [id number]) Therapeutic Exercises Supine Exercises 8 Supine Exercise Name chin tuck with focus on good posture Standing Exercises cervical retraction Standing Exercise Name cervical retraction Reps/Minutes 10 Comments focus on not moving lower body ER Standing Exercise Name ER Side bilateral Reps/Minutes 20 Comments comfortable range row Standing Exercise Name row Side bilateral Equipment Used none Reps/Minutes 20 Manual Therapy Treatment Soft Tissue Mobilization UT/LS Body Location UT/LS Mobilization Type Rolling Intensity/Depth Moderate Joint Mobilizations 1st rib Joint R 1st rib Direction caudal FM w/SB Self-Care/Home Management Treatment Education Other Education edu on anatomy and importance of strengthening rotator cuff mm and scapular stabilizers and importance of good posture . PT-OP-R Modalities Start: 09/28/18 07:26 Freq: Status: Active Protocol: Document 11/08/18 10:32 [facility] (Rec: 11/08/18 16:24 [facility] [id number]) Electric Stimulation Electric Stimulation Interferential Current (IFC) Body Location R UT/shoulder Duration (Minutes) 10 Intensity 12 Patient Position Hooklying Combined With Heat/Cold Cold Pack Comments HP to upper cervical and jaw PT-OP-T Assessment and Plan Start: 09/28/18 07:26 Freq: Status: Active Protocol: Document 11/08/18 10:32 [facility] (Rec: 11/08/18 16:24 [facility] [id number]) Physical Therapy Assessment Goals shoulder Short Term Goal (STG) Pt will be able to score 4/5 or greater on all strengthening tests. STG Duration 11/28/18 Group Home Goal (LTG) Pt will be able to return to walking dog and doing normal ADLs without greater than 1/10 pain LTG Duration 12/26/18 3 Impairment eating Sessions Clerk Goal (LTG) Pt will report being able to eat all food textures without more than 1/10 pain. LTG Duration 11/29/18 2 Impairment posture Short Term Goal (STG) Pt will have good desk set up for home. STG Duration 10/29/18 Group Home Goal (LTG) Pt will present with good posture without cueing. LTG Duration 11/29/18 1 Impairment neck & jaw pain Sessions Clerk Goal (LTG) Pt will report no more than 1- 2/10 pain (in jaw, head, teeth & neck) with all her typical activities. LTG Duration 11/29/18 Assessment Summary Assessment No resistance used with shoulder exercises d/t pt being fearful to use resistance despite no pain with activity. She had significant elevation of R shoulder girdle. Physical Therapy Plan Frequency and Duration Frequency of Treatment 2x/Week Duration of Treatment 2 months Plan of Care Start Date 10/28/18 Plan of Care End Date 12/26/18 Next Visit Focus/Plan Next Note Type Treatment Note Next Visit Plan s/l and supine scap stability and AAROM & pulleys
--- NOTE | 2018-11-18 15:34 | PT.OTN ---
Current Diagnoses Jaw pain (11/18/18) Physical Therapy Treatment Note PT-OP-A Visit Information Start: 09/28/18 07:26 Freq: Status: Active Protocol: Document 11/18/18 14:59 [facility] (Rec: 11/18/18 15:34 [facility] [id number]) Out-Patient Physical Therapy Visit Information Visit Information Visit Type Treatment Note Visit Note 6 total 2019 Visit Start Time 08:15 Visit Stop Time 09:10 Total Visit Minutes 55 Visit Number 12/25 PT-OP-B Current Condition Start: 09/28/18 07:26 Freq: Status: Active Protocol: Document 10/28/18 08:17 [facility] (Rec: 10/28/18 14:06 [facility] [id number]) Current Condition History of Current Condition Current Complaints jaw pain, neck pain, R shoulder/arm pain History of Current Condition 10/28/18: Addition of treatment of R neck, shoulder & arm pain. Pt reports it started in Nov and was cont to get worse . Reports she thinks it may have been her dog pulling that caused it but she stopped walking her dog and it was still painful. 09/28/18:Pt reports she used to get BRISENO & migraines and she can treat them with coffee now and they do not bother her as much. Pt reports she started to get pressure in both ears and feels like her head is going to explode. The ear pressure started about 3 months ago with a feeling like she is coming down from with an airplane. Reports it makes her feel really dizzy and spacy and makes it hard to focus. Reports her eyes do not focus well. Dr. Garrison and Dr Obed Velázquez checked her ears & eyes and both were reported okay. Reports her back always gives her pain and she thinks she clenches some due to this . She is limited in her activity d/t back. Reports she has teeth aches on the R side and had a cleaning early Dec and everything was okay. Dentist sent to her have her jaw worked on. Jaw problems for years but was only noticable when went to the dentist before and now she has to go to soft foods. 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 Pt reports neck pain and upper back pain especially when standing or working on the computer. Pt reports Dr. Morales checked neck pain since that happened about 1 year ago and reports she has a lot of pain by late afternoon. Pt reports xrays were completed on her neck. Dizziness is described as spinning with looking up. Has felt dizzy with going shopping and looking around. Reports what is going on in her head is scary. PT-OP-C Subjective Start: 09/28/18 07:26 Freq: Status: Active Protocol: Document 11/18/18 14:59 [facility] (Rec: 11/18/18 15:34 [facility] [id number]) OP-PT Subjective Patient Comments Patient Comments Pt reports she rested the past 3 days so her shoulder feels better. Anxious about doing exercise. PT-OP-F Manual Assessment Start: 09/28/18 07:26 Freq: Status: Active Protocol: Document 09/28/18 07:29 [facility] (Rec: 09/28/18 08:16 [facility] [id number]) Manual Assessments Joint Mobility Assessment Joint Mobility Assessment Head tilted to R in sitting; transient deviation to L with opening PT-OP-J Posture/Palpation/Skin Start: 09/28/18 07:26 Freq: Status: Active Protocol: Document 09/28/18 07:29 [facility] (Rec: 09/28/18 08:16 [facility] [id number]) Posture Evaluation Cesar Postural Classification System Cesar Postural Classifications Posterior/Anterior PT-OP-K Range of Motion Start: 09/28/18 07:26 Freq: Status: Active Protocol: Document 10/28/18 08:17 [facility] (Rec: 10/28/18 09:04 [facility] [id number]) Cervical Spine Range of Motion Cervical Spine Active Degrees Testing Position Sitting Flexion 43 Extension 65 Rotation Left 65 Rotation Right 65 Lateral Flexion Left 45 Lateral Flexion Right 25 Comments pull in UT Shoulder Goniometric Range of Motion Shoulder Measured in Degrees Left Active Flexion 158 Extension 65 Abduction 180 External Rotation at 90 degrees 95 Abduction Internal Rotation Behind Back (text) T6 Right Active Flexion 138 Extension 60 Abduction 160 External Rotation at 90 degrees 76 Abduction Internal Rotation Behind Back (text) L1 PT-OP-L Special Tests Start: 09/28/18 07:26 Freq: Status: Active Protocol: Document 10/28/18 08:17 [facility] (Rec: 10/28/18 09:04 [facility] [id number]) Special Tests Cervical Spine Special Tests spurling Test Results neg Shoulder Special Tests Sulcus Test Results positive for pain and inc space Neer Impingement Test Results positive R Jamil Tay Impingement Test Results positive R AC Joint Compression Test Results neg Speed's Biceps Test Results positive Yergason's Biceps Test Results positive [place] Test Test Results neg Drop Arm Rotator Cuff Test Results neg Neural Special Tests- Upper Body Median Nerve Tension Test Results positive R Radial Nerve Tension Test Results positive R Ulnar Nerve Tension Test Results positive R Upper Limb Tension Test Test Results 45 deg neural tension R Comments 100 deg L PT-OP-M Strength Start: 09/28/18 07:26 Freq: Status: Active Protocol: Document 10/28/18 08:17 [facility] (Rec: 10/28/18 09:04 [facility] [id number]) Shoulder Strength Shoulder Manual Muscle Testing Right Flexion 4+ Good+ Extension 3 Fair Abduction (C5) 4+ Good+ External Rotation 4+ Good+ Internal Rotation 4 Good Comments pain with IR & ext, pain after flex testing Left Flexion 5 Normal Extension 5 Normal Abduction (C5) 5 Normal External Rotation 5 Normal Internal Rotation 5 Normal PT-OP-Q Treatments Start: 09/28/18 07:26 Freq: Status: Active Protocol: Document 11/18/18 14:59 [facility] (Rec: 11/18/18 15:34 [facility] [id number]) Therapeutic Exercises Sitting Exercises 1 Sitting Exercise Name scapular retraction progressed to row w/scap retraction Self-Care/Home Management Treatment Education Other Education edu on anatomy and importance of strengthening rotator cuff mm and scapular stabilizers and importance of good posture . Edu of how PT exercises are helpful vs just doing activities during the day. Edu on how to don shirt on/off to dec pain PT-OP-R Modalities Start: 09/28/18 07:26 Freq: Status: Active Protocol: Document 11/18/18 14:59 [facility] (Rec: 11/18/18 15:34 [facility] [id number]) Electric Stimulation Electric Stimulation Interferential Current (IFC) Body Location R UT/shoulder Duration (Minutes) 15 Intensity 12 Patient Position Hooklying Combined With Heat/Cold Cold Pack Comments HP to upper cervical and jaw Ultrasound Therapy Treatment R UT Treatment Duration (minutes) 5 Patient Position Supine Coupling Medium Ultrasound Gel Applicator Size (cm2) 10 Mode Setting Continuous Duty Cycle 100% Intensity Setting (w/cm2) 1 PT-OP-T Assessment and Plan Start: 09/28/18 07:26 Freq: Status: Active Protocol: Document 11/18/18 14:59 [facility] (Rec: 11/18/18 15:34 [facility] [id number]) Physical Therapy Assessment Goals shoulder Short Term Goal (STG) Pt will be able to score 4/5 or greater on all strengthening tests. STG Duration 11/28/18 [facility] Goal (LTG) Pt will be able to return to walking dog and doing normal ADLs without greater than 1/10 pain LTG Duration 12/26/18 3 Impairment eating [facility] Goal (LTG) Pt will report being able to eat all food textures without more than 1/10 pain. LTG Duration 11/29/18 2 Impairment posture Short Term Goal (STG) Pt will have good desk set up for home. STG Duration 10/29/18 [facility] Goal (LTG) Pt will present with good posture without cueing. LTG Duration 11/29/18 1 Impairment neck & jaw pain [facility] Goal (LTG) Pt will report no more than 1- 2/10 pain (in jaw, head, teeth & neck) with all her typical activities. LTG Duration 11/29/18 Assessment Summary Assessment Pt was reluctant to do pully exercise d/t concern w/moving arm. Pt required significant time spent on edu of difference of doing activities that hurt shoulder vs skilled PT exercises for ROM, flexibility & strengthening. She had significant difficulty with disassociating her scapular motion from thoracic ext and required cueing for good head positioning during exercise. Physical Therapy Plan Frequency and Duration Frequency of Treatment 2x/Week Duration of Treatment 2 months Plan of Care Start Date 10/28/18 Plan of Care End Date 12/26/18 Next Visit Focus/Plan Next Note Type Treatment Note Next Visit Plan review HEP and try s/l and supine AAROM & pullys
--- NOTE | 2018-11-22 13:41 | PT.OTN ---
Current Diagnoses Jaw pain (11/22/18) Physical Therapy Treatment Note PT-OP-A Visit Information Start: 09/28/18 07:26 Freq: Status: Active Protocol: Document 11/22/18 13:34 [facility] (Rec: 11/22/18 13:41 [facility] [id number]) Out-Patient Physical Therapy Visit Information Visit Information Visit Type Treatment Note Visit Note 7 total 2019 Visit Start Time 09:00 Visit Stop Time 09:55 Total Visit Minutes 55 Visit Number 01/25 PT-OP-B Current Condition Start: 09/28/18 07:26 Freq: Status: Active Protocol: Document 10/28/18 08:17 [facility] (Rec: 10/28/18 14:06 [facility] [id number]) Current Condition History of Current Condition Current Complaints jaw pain, neck pain, R shoulder/arm pain History of Current Condition 10/28/18: Addition of treatment of R neck, shoulder & arm pain. Pt reports it started in Nov and was cont to get worse . Reports she thinks it may have been her dog pulling that caused it but she stopped walking her dog and it was still painful. 09/28/18:Pt reports she used to get BRISENO & migraines and she can treat them with coffee now and they do not bother her as much. Pt reports she started to get pressure in both ears and feels like her head is going to explode. The ear pressure started about 3 months ago with a feeling like she is coming down from with an airplane. Reports it makes her feel really dizzy and spacy and makes it hard to focus. Reports her eyes do not focus well. Dr. Garrison and Dr Obed Velázquez checked her ears & eyes and both were reported okay. Reports her back always gives her pain and she thinks she clenches some due to this . She is limited in her activity d/t back. Reports she has teeth aches on the R side and had a cleaning early Dec and everything was okay. Dentist sent to her have her jaw worked on. Jaw problems for years but was only noticable when went to the dentist before and now she has to go to soft foods. 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 Pt reports neck pain and upper back pain especially when standing or working on the computer. Pt reports Dr. Morales checked neck pain since that happened about 1 year ago and reports she has a lot of pain by late afternoon. Pt reports xrays were completed on her neck. Dizziness is described as spinning with looking up. Has felt dizzy with going shopping and looking around. Reports what is going on in her head is scary. PT-OP-C Subjective Start: 09/28/18 07:26 Freq: Status: Active Protocol: Document 11/22/18 13:34 [facility] (Rec: 11/22/18 13:41 [facility] [id number]) OP-PT Subjective Patient Comments Patient Comments Pt reports a lot of pain in her lat shoulder region still with activity. PT-OP-F Manual Assessment Start: 09/28/18 07:26 Freq: Status: Active Protocol: Document 09/28/18 07:29 [facility] (Rec: 09/28/18 08:16 [facility] [id number]) Manual Assessments Joint Mobility Assessment Joint Mobility Assessment Head tilted to R in sitting; transient deviation to L with opening PT-OP-J Posture/Palpation/Skin Start: 09/28/18 07:26 Freq: Status: Active Protocol: Document 09/28/18 07:29 [facility] (Rec: 09/28/18 08:16 [facility] [id number]) Posture Evaluation Cesar Postural Classification System Cesar Postural Classifications Posterior/Anterior PT-OP-K Range of Motion Start: 09/28/18 07:26 Freq: Status: Active Protocol: Document 10/28/18 08:17 [facility] (Rec: 10/28/18 09:04 [facility] [id number]) Cervical Spine Range of Motion Cervical Spine Active Degrees Testing Position Sitting Flexion 43 Extension 65 Rotation Left 65 Rotation Right 65 Lateral Flexion Left 45 Lateral Flexion Right 25 Comments pull in UT Shoulder Goniometric Range of Motion Shoulder Measured in Degrees Left Active Flexion 158 Extension 65 Abduction 180 External Rotation at 90 degrees 95 Abduction Internal Rotation Behind Back (text) T6 Right Active Flexion 138 Extension 60 Abduction 160 External Rotation at 90 degrees 76 Abduction Internal Rotation Behind Back (text) L1 PT-OP-L Special Tests Start: 09/28/18 07:26 Freq: Status: Active Protocol: Document 10/28/18 08:17 [facility] (Rec: 10/28/18 09:04 [facility] [id number]) Special Tests Cervical Spine Special Tests spurling Test Results neg Shoulder Special Tests Sulcus Test Results positive for pain and inc space Neer Impingement Test Results positive R Jamil Tay Impingement Test Results positive R AC Joint Compression Test Results neg Speed's Biceps Test Results positive Yergason's Biceps Test Results positive [place] Test Test Results neg Drop Arm Rotator Cuff Test Results neg Neural Special Tests- Upper Body Median Nerve Tension Test Results positive R Radial Nerve Tension Test Results positive R Ulnar Nerve Tension Test Results positive R Upper Limb Tension Test Test Results 45 deg neural tension R Comments 100 deg L PT-OP-M Strength Start: 09/28/18 07:26 Freq: Status: Active Protocol: Document 10/28/18 08:17 [facility] (Rec: 10/28/18 09:04 [facility] [id number]) Shoulder Strength Shoulder Manual Muscle Testing Right Flexion 4+ Good+ Extension 3 Fair Abduction (C5) 4+ Good+ External Rotation 4+ Good+ Internal Rotation 4 Good Comments pain with IR & ext, pain after flex testing Left Flexion 5 Normal Extension 5 Normal Abduction (C5) 5 Normal External Rotation 5 Normal Internal Rotation 5 Normal PT-OP-Q Treatments Start: 09/28/18 07:26 Freq: Status: Active Protocol: Document 11/22/18 13:34 [facility] (Rec: 11/22/18 13:41 [facility] [id number]) Therapeutic Exercises Supine Exercises 1 Supine Exercise Name shoulder ER AAROM wand Side right Reps/Minutes 10 Comments stopped d/t pain Sitting Exercises pullys Sitting Exercise Name pully flex Comments stopped after 2 d/t pain Standing Exercises 1 Standing Exercise Name pendulums Reps/Minutes 10 Comments fwd & side Manual Therapy Treatment Soft Tissue Mobilization UT/LS Body Location UT/LS Mobilization Type Rolling Intensity/Depth Moderate 1 Body Location pec R Mobilization Type Rolling Intensity/Depth Moderate Joint Mobilizations GH Joint R Direction distraction w/flex 1st rib Joint R 1st rib Direction caudal FM w/SB Self-Care/Home Management Treatment Education Other Education edu on difference between activities that slightly inc pain vs activities that significantly inc pain and to avoid activities that significantly inc pain. Edu on point of AA exercises. PT-OP-R Modalities Start: 09/28/18 07:26 Freq: Status: Active Protocol: Document 11/22/18 13:34 [facility] (Rec: 11/22/18 13:41 [facility] [id number]) Electric Stimulation Electric Stimulation Interferential Current (IFC) Body Location R UT/shoulder Duration (Minutes) 15 Intensity 19 Patient Position Hooklying Combined With Heat/Cold Cold Pack Comments HP to upper cervical and jaw Ultrasound Therapy Treatment R UT Treatment Duration (minutes) 8 Patient Position Supine Coupling Medium Ultrasound Gel Applicator Size (cm2) 10 Mode Setting Continuous Duty Cycle 100% Intensity Setting (w/cm2) 1 PT-OP-T Assessment and Plan Start: 09/28/18 07:26 Freq: Status: Active Protocol: Document 11/22/18 13:34 [facility] (Rec: 11/22/18 13:41 [facility] [id number]) Physical Therapy Assessment Goals shoulder Short Term Goal (STG) Pt will be able to score 4/5 or greater on all strengthening tests. STG Duration 11/28/18 Sales Facilitator Goal (LTG) Pt will be able to return to walking dog and doing normal ADLs without greater than 1/10 pain LTG Duration 12/26/18 3 Impairment eating Sales Facilitator Goal (LTG) Pt will report being able to eat all food textures without more than 1/10 pain. LTG Duration 11/29/18 2 Impairment posture Short Term Goal (STG) Pt will have good desk set up for home. STG Duration 10/29/18 Sales Facilitator Goal (LTG) Pt will present with good posture without cueing. LTG Duration 11/29/18 1 Impairment neck & jaw pain Sales Facilitator Goal (LTG) Pt will report no more than 1- 2/10 pain (in jaw, head, teeth & neck) with all her typical activities. LTG Duration 11/29/18 Assessment Summary Assessment Pt cont to be anxious about exercise, and was able to tolerate pendulums, but pullys pt reported significant inc pain after 2 reps. She required cues to slow down with cane & pully exercises. Improving mobility of UT. Physical Therapy Plan Frequency and Duration Frequency of Treatment 2x/Week Duration of Treatment 2 months Plan of Care Start Date 10/28/18 Plan of Care End Date 12/26/18 Next Visit Focus/Plan Next Note Type Treatment Note Next Visit Plan Review HEP & try s/l exercises
--- NOTE | 2018-11-25 12:55 | PT.OTN ---
Current Diagnoses Jaw pain (11/25/18) Physical Therapy Treatment Note PT-OP-A Visit Information Start: 09/28/18 07:26 Freq: Status: Active Protocol: Document 11/25/18 12:44 [facility] (Rec: 11/25/18 12:55 [facility] [id number]) Out-Patient Physical Therapy Visit Information Visit Information Visit Type Treatment Note Visit Note 8 total 2019 Visit Start Time 09:45 Visit Stop Time 10:40 Total Visit Minutes 55 Visit Number 02/24 PT-OP-B Current Condition Start: 09/28/18 07:26 Freq: Status: Active Protocol: Document 10/28/18 08:17 [facility] (Rec: 10/28/18 14:06 [facility] [id number]) Current Condition History of Current Condition Current Complaints jaw pain, neck pain, R shoulder/arm pain History of Current Condition 10/28/18: Addition of treatment of R neck, shoulder & arm pain. Pt reports it started in Nov and was cont to get worse . Reports she thinks it may have been her dog pulling that caused it but she stopped walking her dog and it was still painful. 09/28/18:Pt reports she used to get BRISENO & migraines and she can treat them with coffee now and they do not bother her as much. Pt reports she started to get pressure in both ears and feels like her head is going to explode. The ear pressure started about 3 months ago with a feeling like she is coming down from with an airplane. Reports it makes her feel really dizzy and spacy and makes it hard to focus. Reports her eyes do not focus well. Dr. Garrison and Dr Obed Velázquez checked her ears & eyes and both were reported okay. Reports her back always gives her pain and she thinks she clenches some due to this . She is limited in her activity d/t back. Reports she has teeth aches on the R side and had a cleaning early Dec and everything was okay. Dentist sent to her have her jaw worked on. Jaw problems for years but was only noticable when went to the dentist before and now she has to go to soft foods. 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 Pt reports neck pain and upper back pain especially when standing or working on the computer. Pt reports Dr. Morales checked neck pain since that happened about 1 year ago and reports she has a lot of pain by late afternoon. Pt reports xrays were completed on her neck. Dizziness is described as spinning with looking up. Has felt dizzy with going shopping and looking around. Reports what is going on in her head is scary. PT-OP-C Subjective Start: 09/28/18 07:26 Freq: Status: Active Protocol: Document 11/25/18 12:44 [facility] (Rec: 11/25/18 12:55 [facility] [id number]) OP-PT Subjective Patient Comments Patient Comments Pt reports UT feeling better but pain has been centered around ant shoulder & lat arm PT-OP-F Manual Assessment Start: 09/28/18 07:26 Freq: Status: Active Protocol: Document 09/28/18 07:29 [facility] (Rec: 09/28/18 08:16 [facility] [id number]) Manual Assessments Joint Mobility Assessment Joint Mobility Assessment Head tilted to R in sitting; transient deviation to L with opening PT-OP-J Posture/Palpation/Skin Start: 09/28/18 07:26 Freq: Status: Active Protocol: Document 09/28/18 07:29 [facility] (Rec: 09/28/18 08:16 [facility] [id number]) Posture Evaluation Cesar Postural Classification System Cesar Postural Classifications Posterior/Anterior PT-OP-K Range of Motion Start: 09/28/18 07:26 Freq: Status: Active Protocol: Document 10/28/18 08:17 [facility] (Rec: 10/28/18 09:04 [facility] [id number]) Cervical Spine Range of Motion Cervical Spine Active Degrees Testing Position Sitting Flexion 43 Extension 65 Rotation Left 65 Rotation Right 65 Lateral Flexion Left 45 Lateral Flexion Right 25 Comments pull in UT Shoulder Goniometric Range of Motion Shoulder Measured in Degrees Left Active Flexion 158 Extension 65 Abduction 180 External Rotation at 90 degrees 95 Abduction Internal Rotation Behind Back (text) T6 Right Active Flexion 138 Extension 60 Abduction 160 External Rotation at 90 degrees 76 Abduction Internal Rotation Behind Back (text) L1 PT-OP-L Special Tests Start: 09/28/18 07:26 Freq: Status: Active Protocol: Document 10/28/18 08:17 [facility] (Rec: 10/28/18 09:04 [facility] [id number]) Special Tests Cervical Spine Special Tests spurling Test Results neg Shoulder Special Tests Sulcus Test Results positive for pain and inc space Neer Impingement Test Results positive R Jamil Tay Impingement Test Results positive R AC Joint Compression Test Results neg Speed's Biceps Test Results positive Yergason's Biceps Test Results positive Martin Test Test Results neg Drop Arm Rotator Cuff Test Results neg Neural Special Tests- Upper Body Median Nerve Tension Test Results positive R Radial Nerve Tension Test Results positive R Ulnar Nerve Tension Test Results positive R Upper Limb Tension Test Test Results 45 deg neural tension R Comments 100 deg L PT-OP-M Strength Start: 09/28/18 07:26 Freq: Status: Active Protocol: Document 10/28/18 08:17 [facility] (Rec: 10/28/18 09:04 [facility] [id number]) Shoulder Strength Shoulder Manual Muscle Testing Right Flexion 4+ Good+ Extension 3 Fair Abduction (C5) 4+ Good+ External Rotation 4+ Good+ Internal Rotation 4 Good Comments pain with IR & ext, pain after flex testing Left Flexion 5 Normal Extension 5 Normal Abduction (C5) 5 Normal External Rotation 5 Normal Internal Rotation 5 Normal PT-OP-Q Treatments Start: 09/28/18 07:26 Freq: Status: Active Protocol: Document 11/25/18 12:44 [facility] (Rec: 11/25/18 12:55 [facility] [id number]) Therapeutic Exercises Supine Exercises 2 Supine Exercise Name shoulder press Side right Reps/Minutes 10x2 1 Supine Exercise Name shoulder ER AAROM wand Side right Reps/Minutes 10x2 Sitting Exercises jaw opening Sitting Exercise Name iso jaw opening 1 Sitting Exercise Name scapular retraction progressed to row w/scap retraction Standing Exercises cervical retraction Standing Exercise Name cervical retraction Reps/Minutes 5 Comments focus on not moving lower body 2 Standing Exercise Name doorway pec stretch w/arms at side Side bilateral Reps/Minutes 30 sec Manual Therapy Treatment Soft Tissue Mobilization supraspinatus Body Location tendon Comments TFM 1 Body Location pec R Mobilization Type Rolling Intensity/Depth Moderate Joint Mobilizations GH Joint R Direction distraction w/flex; post glide Grade II PT-OP-R Modalities Start: 09/28/18 07:26 Freq: Status: Active Protocol: Document 11/25/18 12:44 [facility] (Rec: 11/25/18 12:55 [facility] [id number]) Electric Stimulation Electric Stimulation Interferential Current (IFC) Body Location R UT/shoulder Duration (Minutes) 15 Intensity 19 Patient Position Hooklying Combined With Heat/Cold Cold Pack Ultrasound Therapy Treatment R ant shoulder Treatment Duration (minutes) 8 Patient Position Supine Coupling Medium Ultrasound Gel Applicator Size (cm2) 10 Mode Setting Pulsed Duty Cycle 50% Intensity Setting (w/cm2) 1.0 PT-OP-T Assessment and Plan Start: 09/28/18 07:26 Freq: Status: Active Protocol: Document 11/25/18 12:44 [facility] (Rec: 11/25/18 12:55 [facility] [id number]) Physical Therapy Assessment Goals shoulder Short Term Goal (STG) Pt will be able to score 4/5 or greater on all strengthening tests. STG Duration 11/28/18 [place] Passer Goal (LTG) Pt will be able to return to walking dog and doing normal ADLs without greater than 1/10 pain LTG Duration 12/26/18 3 Impairment eating Detention Goal (LTG) Pt will report being able to eat all food textures without more than 1/10 pain. LTG Duration 11/29/18 2 Impairment posture Short Term Goal (STG) Pt will have good desk set up for home. STG Duration 10/29/18 [place]er Goal (LTG) Pt will present with good posture without cueing. LTG Duration 11/29/18 1 Impairment neck & jaw pain Detention Goal (LTG) Pt will report no more than 1- 2/10 pain (in jaw, head, teeth & neck) with all her typical activities. LTG Duration 11/29/18 Assessment Summary Assessment Pt able to tolerate AAROM and stretching with focus on scapular retraction during exercises. She cont to have tenderness of supraspinatus tendon & was able to tolerate further gentle glides. Physical Therapy Plan Frequency and Duration Frequency of Treatment 2x/Week Duration of Treatment 2 months Plan of Care Start Date 10/28/18 Plan of Care End Date 12/26/18 Next Visit Focus/Plan Next Note Type Treatment Note Next Visit Plan serratus punches & cont to advance scapular stability
--- NOTE | 2018-12-07 13:20 | PT.OTN ---
Current Diagnoses Jaw pain (12/07/18) Physical Therapy Treatment Note PT-OP-A Visit Information Start: 09/28/18 07:26 Freq: Status: Active Protocol: Document 12/07/18 13:14 [facility] (Rec: 12/07/18 13:19 [facility] [id number]) Out-Patient Physical Therapy Visit Information Visit Information Visit Type Treatment Note Visit Note 9 total 2019 Visit Start Time 11:20 Visit Stop Time 12:15 Total Visit Minutes 55 Visit Number 03/27 PT-OP-B Current Condition Start: 09/28/18 07:26 Freq: Status: Active Protocol: Document 10/28/18 08:17 [facility] (Rec: 10/28/18 14:06 [facility] [id number]) Current Condition History of Current Condition Current Complaints jaw pain, neck pain, R shoulder/arm pain History of Current Condition 10/28/18: Addition of treatment of R neck, shoulder & arm pain. Pt reports it started in Nov and was cont to get worse . Reports she thinks it may have been her dog pulling that caused it but she stopped walking her dog and it was still painful. 09/28/18:Pt reports she used to get BRISENO & migraines and she can treat them with coffee now and they do not bother her as much. Pt reports she started to get pressure in both ears and feels like her head is going to explode. The ear pressure started about 3 months ago with a feeling like she is coming down from with an airplane. Reports it makes her feel really dizzy and spacy and makes it hard to focus. Reports her eyes do not focus well. Dr. Garrison and Dr Obed Velázquez checked her ears & eyes and both were reported okay. Reports her back always gives her pain and she thinks she clenches some due to this . She is limited in her activity d/t back. Reports she has teeth aches on the R side and had a cleaning early Dec and everything was okay. Dentist sent to her have her jaw worked on. Jaw problems for years but was only noticable when went to the dentist before and now she has to go to soft foods. 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 Pt reports neck pain and upper back pain especially when standing or working on the computer. Pt reports Dr. Morales checked neck pain since that happened about 1 year ago and reports she has a lot of pain by late afternoon. Pt reports xrays were completed on her neck. Dizziness is described as spinning with looking up. Has felt dizzy with going shopping and looking around. Reports what is going on in her head is scary. PT-OP-C Subjective Start: 09/28/18 07:26 Freq: Status: Active Protocol: Document 12/07/18 13:14 [facility] (Rec: 12/07/18 13:19 [facility] [id number]) OP-PT Subjective Patient Comments Patient Comments Pt had fall last Wednesday when she slipped on ice. She went to the ER where they did imaging of ribs on L where she hit and dx her with rib contusions but no fx. Pt reports she is able to chew more things and jaw pain is up and down. She is able to walk still. PT-OP-F Manual Assessment Start: 09/28/18 07:26 Freq: Status: Active Protocol: Document 09/28/18 07:29 [facility] (Rec: 09/28/18 08:16 [facility] [id number]) Manual Assessments Joint Mobility Assessment Joint Mobility Assessment Head tilted to R in sitting; transient deviation to L with opening PT-OP-J Posture/Palpation/Skin Start: 09/28/18 07:26 Freq: Status: Active Protocol: Document 09/28/18 07:29 [facility] (Rec: 09/28/18 08:16 [facility] [id number]) Posture Evaluation Cesar Postural Classification System Cesar Postural Classifications Posterior/Anterior PT-OP-K Range of Motion Start: 09/28/18 07:26 Freq: Status: Active Protocol: Document 10/28/18 08:17 [facility] (Rec: 10/28/18 09:04 [facility] [id number]) Cervical Spine Range of Motion Cervical Spine Active Degrees Testing Position Sitting Flexion 43 Extension 65 Rotation Left 65 Rotation Right 65 Lateral Flexion Left 45 Lateral Flexion Right 25 Comments pull in UT Shoulder Goniometric Range of Motion Shoulder Measured in Degrees Left Active Flexion 158 Extension 65 Abduction 180 External Rotation at 90 degrees 95 Abduction Internal Rotation Behind Back (text) T6 Right Active Flexion 138 Extension 60 Abduction 160 External Rotation at 90 degrees 76 Abduction Internal Rotation Behind Back (text) L1 PT-OP-L Special Tests Start: 09/28/18 07:26 Freq: Status: Active Protocol: Document 10/28/18 08:17 [facility] (Rec: 10/28/18 09:04 [facility] [id number]) Special Tests Cervical Spine Special Tests spurling Test Results neg Shoulder Special Tests Sulcus Test Results positive for pain and inc space Neer Impingement Test Results positive R Jamil Tay Impingement Test Results positive R AC Joint Compression Test Results neg Speed's Biceps Test Results positive Yergason's Biceps Test Results positive Chowan Test Test Results neg Drop Arm Rotator Cuff Test Results neg Neural Special Tests- Upper Body Median Nerve Tension Test Results positive R Radial Nerve Tension Test Results positive R Ulnar Nerve Tension Test Results positive R Upper Limb Tension Test Test Results 45 deg neural tension R Comments 100 deg L PT-OP-M Strength Start: 09/28/18 07:26 Freq: Status: Active Protocol: Document 10/28/18 08:17 [facility] (Rec: 10/28/18 09:04 [facility] [id number]) Shoulder Strength Shoulder Manual Muscle Testing Right Flexion 4+ Good+ Extension 3 Fair Abduction (C5) 4+ Good+ External Rotation 4+ Good+ Internal Rotation 4 Good Comments pain with IR & ext, pain after flex testing Left Flexion 5 Normal Extension 5 Normal Abduction (C5) 5 Normal External Rotation 5 Normal Internal Rotation 5 Normal PT-OP-Q Treatments Start: 09/28/18 07:26 Freq: Status: Active Protocol: Document 12/07/18 13:14 [facility] (Rec: 12/07/18 13:19 [facility] [id number]) Therapeutic Exercises Standing Exercises row Standing Exercise Name row Side bilateral Equipment Used L1 Reps/Minutes 10 Therapeutic Activity Therapeutic Activity 5 Name standing posture Comments w/use of pictures and mirror Manual Therapy Treatment Soft Tissue Mobilization UT/LS Body Location UT/LS Mobilization Type Rolling Intensity/Depth Moderate 1 Body Location pec R Mobilization Type Rolling Intensity/Depth Moderate Joint Mobilizations GH Joint R Direction distraction w/flex; post glide Grade III PT-OP-R Modalities Start: 09/28/18 07:26 Freq: Status: Active Protocol: Document 12/07/18 13:14 [facility] (Rec: 12/07/18 13:19 [facility] [id number]) Hot Pack/Cold Pack Treatment Cold Pack Location L ribs & R shoulder Patient Position Supine Treatment Duration (minutes) 10 PT-OP-T Assessment and Plan Start: 09/28/18 07:26 Freq: Status: Active Protocol: Document 12/07/18 13:14 [facility] (Rec: 12/07/18 13:19 [facility] [id number]) Physical Therapy Assessment Goals shoulder Short Term Goal (STG) Pt will be able to score 4/5 or greater on all strengthening tests. STG Duration 11/28/18 Switchboard Receptionist Goal (LTG) Pt will be able to return to walking dog and doing normal ADLs without greater than 1/10 pain LTG Duration 12/26/18 3 Impairment eating Intermediate Goal (LTG) Pt will report being able to eat all food textures without more than 1/10 pain. LTG Duration 11/29/18 2 Impairment posture Short Term Goal (STG) Pt will have good desk set up for home. STG Duration 10/29/18 Switchboard Receptionist Goal (LTG) Pt will present with good posture without cueing. LTG Duration 11/29/18 1 Impairment neck & jaw pain Intermediate Goal (LTG) Pt will report no more than 1- 2/10 pain (in jaw, head, teeth & neck) with all her typical activities. LTG Duration 11/29/18 Assessment Summary Assessment Pt able to do more ROM painfree after mobilizations.S he was most limited with IR d /t tightness and pain. She required significant cueing for posture but was able to improve with mirror & images. Physical Therapy Plan Frequency and Duration Frequency of Treatment 2x/Week Duration of Treatment 2 months Plan of Care Start Date 10/28/18 Plan of Care End Date 12/26/18 Next Visit Focus/Plan Next Note Type Treatment Note Next Visit Plan serratus punches & cont to advance scapular stability & work on posture
--- NOTE | 2018-12-13 12:01 | PT.OTN ---
Current Diagnoses Jaw pain (12/13/18) Physical Therapy Treatment Note PT-OP-A Visit Information Start: 09/28/18 07:26 Freq: Status: Active Protocol: Document 12/13/18 09:45 AMB (Rec: 12/13/18 12:01 AMB [email or web address]) Out-Patient Physical Therapy Visit Information Visit Information Visit Type Treatment Note Visit Note 10 total 2019 Visit Start Time 09:45 Visit Stop Time 10:40 Total Visit Minutes 55 Visit Number 7/ Number of BATH SOLUTION MAKER Visits 0 PT-OP-B Current Condition Start: 09/28/18 07:26 Freq: Status: Active Protocol: Document 10/28/18 08:17 [facility] (Rec: 10/28/18 14:06 [facility] [email or web address]) Current Condition History of Current Condition Current Complaints jaw pain, neck pain, R shoulder/arm pain History of Current Condition 10/28/18: Addition of treatment of R neck, shoulder & arm pain. Pt reports it started in Nov and was cont to get worse . Reports she thinks it may have been her dog pulling that caused it but she stopped walking her dog and it was still painful. 09/28/18:Pt reports she used to get BRISENO & migraines and she can treat them with coffee now and they do not bother her as much. Pt reports she started to get pressure in both ears and feels like her head is going to explode. The ear pressure started about 3 months ago with a feeling like she is coming down from with an airplane. Reports it makes her feel really dizzy and spacy and makes it hard to focus. Reports her eyes do not focus well. Dr. Garrison and Dr Obed Velázquez checked her ears & eyes and both were reported okay. Reports her back always gives her pain and she thinks she clenches some due to this . She is limited in her activity d/t back. Reports she has teeth aches on the R side and had a cleaning early Dec and everything was okay. Dentist sent to her have her jaw worked on. Jaw problems for years but was only noticable when went to the dentist before and now she has to go to soft foods. 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 Pt reports neck pain and upper back pain especially when standing or working on the computer. Pt reports Dr. Morales checked neck pain since that happened about 1 year ago and reports she has a lot of pain by late afternoon. Pt reports xrays were completed on her neck. Dizziness is described as spinning with looking up. Has felt dizzy with going shopping and looking around. Reports what is going on in her head is scary. PT-OP-C Subjective Start: 09/28/18 07:26 Freq: Status: Active Protocol: Document 12/13/18 09:45 AMB (Rec: 12/13/18 12:01 AMB [email or web address]) OP-PT Subjective Patient Comments Patient Comments Pt states rib pain is getting better, but shoulder is not yet. Had thought that ear/jaw /teeth pain was better but it came back yesterday she is not sure why. PT-OP-F Manual Assessment Start: 09/28/18 07:26 Freq: Status: Active Protocol: Document 09/28/18 07:29 [facility] (Rec: 09/28/18 08:16 [facility] [id number]) Manual Assessments Joint Mobility Assessment Joint Mobility Assessment Head tilted to R in sitting; transient deviation to L with opening PT-OP-J Posture/Palpation/Skin Start: 09/28/18 07:26 Freq: Status: Active Protocol: Document 09/28/18 07:29 [facility] (Rec: 09/28/18 08:16 [facility] [id number]) Posture Evaluation Cesar Postural Classification System Cesar Postural Classifications Posterior/Anterior PT-OP-K Range of Motion Start: 09/28/18 07:26 Freq: Status: Active Protocol: Document 10/28/18 08:17 [facility] (Rec: 10/28/18 09:04 [facility] [id number]) Cervical Spine Range of Motion Cervical Spine Active Degrees Testing Position Sitting Flexion 43 Extension 65 Rotation Left 65 Rotation Right 65 Lateral Flexion Left 45 Lateral Flexion Right 25 Comments pull in UT Shoulder Goniometric Range of Motion Shoulder Measured in Degrees Left Active Flexion 158 Extension 65 Abduction 180 External Rotation at 90 degrees 95 Abduction Internal Rotation Behind Back (text) T6 Right Active Flexion 138 Extension 60 Abduction 160 External Rotation at 90 degrees 76 Abduction Internal Rotation Behind Back (text) L1 PT-OP-L Special Tests Start: 09/28/18 07:26 Freq: Status: Active Protocol: Document 10/28/18 08:17 [facility] (Rec: 10/28/18 09:04 [facility] [id number]) Special Tests Cervical Spine Special Tests spurling Test Results neg Shoulder Special Tests Sulcus Test Results positive for pain and inc space Neer Impingement Test Results positive R Jamil Tay Impingement Test Results positive R AC Joint Compression Test Results neg Speed's Biceps Test Results positive Yergason's Biceps Test Results positive [place] Test Test Results neg Drop Arm Rotator Cuff Test Results neg Neural Special Tests- Upper Body Median Nerve Tension Test Results positive R Radial Nerve Tension Test Results positive R Ulnar Nerve Tension Test Results positive R Upper Limb Tension Test Test Results 45 deg neural tension R Comments 100 deg L PT-OP-M Strength Start: 09/28/18 07:26 Freq: Status: Active Protocol: Document 10/28/18 08:17 [facility] (Rec: 10/28/18 09:04 [facility] [id number]) Shoulder Strength Shoulder Manual Muscle Testing Right Flexion 4+ Good+ Extension 3 Fair Abduction (C5) 4+ Good+ External Rotation 4+ Good+ Internal Rotation 4 Good Comments pain with IR & ext, pain after flex testing Left Flexion 5 Normal Extension 5 Normal Abduction (C5) 5 Normal External Rotation 5 Normal Internal Rotation 5 Normal PT-OP-Q Treatments Start: 09/28/18 07:26 Freq: Status: Active Protocol: Document 12/13/18 09:45 AMB (Rec: 12/13/18 12:01 AMB [email or web address]) Therapeutic Exercises Standing Exercises row Standing Exercise Name row Side bilateral Equipment Used AROM Reps/Minutes 10 2 Standing Exercise Name doorway pec stretch w/arms at side Side bilateral Reps/Minutes 30 sec Therapeutic Activity Therapeutic Activity 5 Name standing posture Comments w/use mirror- engage TrA Manual Therapy Treatment Soft Tissue Mobilization UT/LS Body Location UT/LS Mobilization Type Rolling Intensity/Depth Moderate 1 Body Location pec R Mobilization Type Rolling Intensity/Depth Moderate PT-OP-R Modalities Start: 18 07:26 Freq: Status: Active Protocol: Document 12/13/18 09:45 AMB (Rec: 12/13/18 12:01 AMB [email or web address]) Hot Pack/Cold Pack Treatment Cold Pack Location L ribs & R shoulder Patient Position Supine Treatment Duration (minutes) 10 PT-OP-T Assessment and Plan Start: 09/28/18 07:26 Freq: Status: Active Protocol: Document 12/13/18 09:45 AMB (Rec: 12/13/18 12:01 AMB [email or web address]) Physical Therapy Assessment Goals shoulder Short Term Goal (STG) Pt will be able to score 4/5 or greater on all strengthening tests. STG Duration 11/28/18 Brokerage Clerk Goal (LTG) Pt will be able to return to walking dog and doing normal ADLs without greater than 1/10 pain LTG Duration 12/26/18 3 Impairment eating Brokerage Clerk Goal (LTG) Pt will report being able to eat all food textures without more than 1/10 pain. LTG Duration 11/29/18 2 Impairment posture Short Term Goal (STG) Pt will have good desk set up for home. STG Duration 10/29/18 Brokerage Clerk Goal (LTG) Pt will present with good posture without cueing. LTG Duration 11/29/18 1 Impairment neck & jaw pain Brokerage Clerk Goal (LTG) Pt will report no more than 1- 2/10 pain (in jaw, head, teeth & neck) with all her typical activities. LTG Duration 11/29/18 Assessment Summary Assessment Pt agrees to look into side table for desk so that her arm can be supported while she writes. Pt continues to have right sided jaw pain so encouraged pt to schedule more appointments with primary therapist. Encouraged pt that shoulder will take time to heal. Physical Therapy Plan Frequency and Duration Frequency of Treatment 2x/Week Duration of Treatment 2 months Plan of Care Start Date 10/28/18 Plan of Care End Date 12/26/18 Next Visit Focus/Plan Next Note Type Treatment Note Next Visit Plan advamce scapular stability, work on postural awareness, could try kinesiotape for R shoulder if pt interested.
--- NOTE | 2018-12-20 11:54 | PT.OTN ---
Current Diagnoses Jaw pain (12/20/18) Physical Therapy Treatment Note PT-OP-A Visit Information Start: 09/28/18 07:26 Freq: Status: Active Protocol: Document 12/20/18 10:30 [facility] (Rec: 12/20/18 11:53 [facility] [email or web address]) Out-Patient Physical Therapy Visit Information Visit Information Visit Type Treatment Note Visit Note 11 total 2019 Visit Start Time 10:30 Visit Stop Time 11:15 Total Visit Minutes 45 Visit Number 8/10 Number of SHAKE PACKER Visits 1 PT-OP-B Current Condition Start: 09/28/18 07:26 Freq: Status: Active Protocol: Document 10/28/18 08:17 [facility] (Rec: 10/28/18 14:06 [facility] [email or web address]) Current Condition History of Current Condition Current Complaints jaw pain, neck pain, R shoulder/arm pain History of Current Condition 10/28/18: Addition of treatment of R neck, shoulder & arm pain. Pt reports it started in Nov and was cont to get worse . Reports she thinks it may have been her dog pulling that caused it but she stopped walking her dog and it was still painful. 09/28/18:Pt reports she used to get BRISENO & migraines and she can treat them with coffee now and they do not bother her as much. Pt reports she started to get pressure in both ears and feels like her head is going to explode. The ear pressure started about 3 months ago with a feeling like she is coming down from with an airplane. Reports it makes her feel really dizzy and spacy and makes it hard to focus. Reports her eyes do not focus well. Dr. Garrison and Dr Obed Velázquez checked her ears & eyes and both were reported okay. Reports her back always gives her pain and she thinks she clenches some due to this . She is limited in her activity d/t back. Reports she has teeth aches on the R side and had a cleaning early Dec and everything was okay. Dentist sent to her have her jaw worked on. Jaw problems for years but was only noticable when went to the dentist before and now she has to go to soft foods. 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 Pt reports neck pain and upper back pain especially when standing or working on the computer. Pt reports Dr. Morales checked neck pain since that happened about 1 year ago and reports she has a lot of pain by late afternoon. Pt reports xrays were completed on her neck. Dizziness is described as spinning with looking up. Has felt dizzy with going shopping and looking around. Reports what is going on in her head is scary. PT-OP-C Subjective Start: 09/28/18 07:26 Freq: Status: Active Protocol: Document 12/20/18 10:30 [facility] (Rec: 12/20/18 11:53 [facility] [email or web address]) OP-PT Subjective Patient Comments Patient Comments Pt states she had a lot of jaw pain. She been working on shoulder squeezes. PT-OP-F Manual Assessment Start: 09/28/18 07:26 Freq: Status: Active Protocol: Document 09/28/18 07:29 [facility] (Rec: 09/28/18 08:16 [facility] [id number]) Manual Assessments Joint Mobility Assessment Joint Mobility Assessment Head tilted to R in sitting; transient deviation to L with opening PT-OP-J Posture/Palpation/Skin Start: 09/28/18 07:26 Freq: Status: Active Protocol: Document 09/28/18 07:29 [facility] (Rec: 09/28/18 08:16 [facility] [id number]) Posture Evaluation Cesar Postural Classification System Cesar Postural Classifications Posterior/Anterior PT-OP-K Range of Motion Start: 09/28/18 07:26 Freq: Status: Active Protocol: Document 10/28/18 08:17 [facility] (Rec: 10/28/18 09:04 [facility] [id number]) Cervical Spine Range of Motion Cervical Spine Active Degrees Testing Position Sitting Flexion 43 Extension 65 Rotation Left 65 Rotation Right 65 Lateral Flexion Left 45 Lateral Flexion Right 25 Comments pull in UT Shoulder Goniometric Range of Motion Shoulder Measured in Degrees Left Active Flexion 158 Extension 65 Abduction 180 External Rotation at 90 degrees 95 Abduction Internal Rotation Behind Back (text) T6 Right Active Flexion 138 Extension 60 Abduction 160 External Rotation at 90 degrees 76 Abduction Internal Rotation Behind Back (text) L1 PT-OP-L Special Tests Start: 09/28/18 07:26 Freq: Status: Active Protocol: Document 10/28/18 08:17 [facility] (Rec: 10/28/18 09:04 [facility] [id number]) Special Tests Cervical Spine Special Tests spurling Test Results neg Shoulder Special Tests Sulcus Test Results positive for pain and inc space Neer Impingement Test Results positive R Jamil Tay Impingement Test Results positive R AC Joint Compression Test Results neg Speed's Biceps Test Results positive Yergason's Biceps Test Results positive [place] Test Test Results neg Drop Arm Rotator Cuff Test Results neg Neural Special Tests- Upper Body Median Nerve Tension Test Results positive R Radial Nerve Tension Test Results positive R Ulnar Nerve Tension Test Results positive R Upper Limb Tension Test Test Results 45 deg neural tension R Comments 100 deg L PT-OP-M Strength Start: 09/28/18 07:26 Freq: Status: Active Protocol: Document 10/28/18 08:17 [facility] (Rec: 10/28/18 09:04 [facility] [id number]) Shoulder Strength Shoulder Manual Muscle Testing Right Flexion 4+ Good+ Extension 3 Fair Abduction (C5) 4+ Good+ External Rotation 4+ Good+ Internal Rotation 4 Good Comments pain with IR & ext, pain after flex testing Left Flexion 5 Normal Extension 5 Normal Abduction (C5) 5 Normal External Rotation 5 Normal Internal Rotation 5 Normal PT-OP-Q Treatments Start: 09/28/18 07:26 Freq: Status: Active Protocol: Document 12/20/18 10:30 [facility] (Rec: 12/20/18 11:53 [facility] [email or web address]) Therapeutic Exercises Standing Exercises chin tuck Reps/Minutes 5 row Standing Exercise Name row Side bilateral Equipment Used AROM Reps/Minutes 10 Therapeutic Activity Therapeutic Activity 5 Name standing posture Comments w/use mirror- min A to place ribs Manual Therapy Treatment Soft Tissue Mobilization UT/LS Body Location UT/LS Mobilization Type Rolling Intensity/Depth Moderate 1 Body Location pec R Mobilization Type Rolling Intensity/Depth Moderate PT-OP-R Modalities Start: 09/28/18 07:26 Freq: Status: Active Protocol: Document 12/13/18 09:45 AMB (Rec: 12/13/18 12:01 AMB [email or web address]) Hot Pack/Cold Pack Treatment Cold Pack Location L ribs & R shoulder Patient Position Supine Treatment Duration (minutes) 10 PT-OP-T Assessment and Plan Start: 09/28/18 07:26 Freq: Status: Active Protocol: Document 12/20/18 10:30 [facility] (Rec: 12/20/18 11:53 [facility] [email or web address]) Physical Therapy Assessment Assessment Summary Assessment Pt improved with postural cues . She did have increase feeling leaning forward after postural correction. She need mod cues for rows to limit UT use. Physical Therapy Plan Frequency and Duration Frequency of Treatment 2x/Week Duration of Treatment 2 months Plan of Care Start Date 10/28/18 Plan of Care End Date 12/26/18 Next Visit Focus/Plan Next Note Type Treatment Note Next Visit Plan advamce scapular stability, work on postural awareness, could try kinesiotape for R shoulder if pt interested.
--- NOTE | 2018-12-27 11:49 | PT.OTN ---
Current Diagnoses Jaw pain (12/27/18) Physical Therapy Treatment Note PT-OP-A Visit Information Start: 09/28/18 07:26 Freq: Status: Active Protocol: Document 12/27/18 10:30 [facility] (Rec: 12/27/18 11:49 [facility] [email or web address]) Out-Patient Physical Therapy Visit Information Visit Information Visit Type Treatment Note Visit Note 12 total 2019 Visit Start Time 10:30 Visit Stop Time 11:25 Total Visit Minutes 55 Visit Number 06/27 Number of KOSHER DIETARY SERVICE MANAGER Visits 2 Evaluation Information Evaluation Date 03/29/18 PT-OP-B Current Condition Start: 09/28/18 07:26 Freq: Status: Active Protocol: Document 10/28/18 08:17 [facility] (Rec: 10/28/18 14:06 [facility] [email or web address]) Current Condition History of Current Condition Current Complaints jaw pain, neck pain, R shoulder/arm pain History of Current Condition 10/28/18: Addition of treatment of R neck, shoulder & arm pain. Pt reports it started in Aug and was cont to get worse . Reports she thinks it may have been her dog pulling that caused it but she stopped walking her dog and it was still painful. 09/28/18:Pt reports she used to get BRISENO & migraines and she can treat them with coffee now and they do not bother her as much. Pt reports she started to get pressure in both ears and feels like her head is going to explode. The ear pressure started about 3 months ago with a feeling like she is coming down from with an airplane. Reports it makes her feel really dizzy and spacy and makes it hard to focus. Reports her eyes do not focus well. Dr. Garrison and Dr Obed Velázquez checked her ears & eyes and both were reported okay. Reports her back always gives her pain and she thinks she clenches some due to this . She is limited in her activity d/t back. Reports she has teeth aches on the R side and had a cleaning early Dec and everything was okay. Dentist sent to her have her jaw worked on. Jaw problems for years but was only noticable when went to the dentist before and now she has to go to soft foods. 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 Pt reports neck pain and upper back pain especially when standing or working on the computer. Pt reports Dr. Morales checked neck pain since that happened about 1 year ago and reports she has a lot of pain by late afternoon. Pt reports xrays were completed on her neck. Dizziness is described as spinning with looking up. Has felt dizzy with going shopping and looking around. Reports what is going on in her head is scary. PT-OP-C Subjective Start: 09/28/18 07:26 Freq: Status: Active Protocol: Document 12/27/18 10:30 [facility] (Rec: 12/27/18 11:49 [facility] [email or web address]) OP-PT Subjective Patient Comments Patient Comments Pt states she had less back pain with walking up hill when working on her posture. PT-OP-F Manual Assessment Start: 09/28/18 07:26 Freq: Status: Active Protocol: Document 09/28/18 07:29 [facility] (Rec: 09/28/18 08:16 [facility] [id number]) Manual Assessments Joint Mobility Assessment Joint Mobility Assessment Head tilted to R in sitting; transient deviation to L with opening PT-OP-J Posture/Palpation/Skin Start: 09/28/18 07:26 Freq: Status: Active Protocol: Document 09/28/18 07:29 [facility] (Rec: 09/28/18 08:16 [facility] [id number]) Posture Evaluation Cesar Postural Classification System Cesar Postural Classifications Posterior/Anterior PT-OP-K Range of Motion Start: 09/28/18 07:26 Freq: Status: Active Protocol: Document 10/28/18 08:17 [facility] (Rec: 10/28/18 09:04 [facility] [id number]) Cervical Spine Range of Motion Cervical Spine Active Degrees Testing Position Sitting Flexion 43 Extension 65 Rotation Left 65 Rotation Right 65 Lateral Flexion Left 45 Lateral Flexion Right 25 Comments pull in UT Shoulder Goniometric Range of Motion Shoulder Measured in Degrees Left Active Flexion 158 Extension 65 Abduction 180 External Rotation at 90 degrees 95 Abduction Internal Rotation Behind Back (text) T6 Right Active Flexion 138 Extension 60 Abduction 160 External Rotation at 90 degrees 76 Abduction Internal Rotation Behind Back (text) L1 PT-OP-L Special Tests Start: 09/28/18 07:26 Freq: Status: Active Protocol: Document 10/28/18 08:17 [facility] (Rec: 10/28/18 09:04 [facility] [id number]) Special Tests Cervical Spine Special Tests spurling Test Results neg Shoulder Special Tests Sulcus Test Results positive for pain and inc space Neer Impingement Test Results positive R Jamil Tay Impingement Test Results positive R AC Joint Compression Test Results neg Speed's Biceps Test Results positive Yergason's Biceps Test Results positive [place] Test Test Results neg Drop Arm Rotator Cuff Test Results neg Neural Special Tests- Upper Body Median Nerve Tension Test Results positive R Radial Nerve Tension Test Results positive R Ulnar Nerve Tension Test Results positive R Upper Limb Tension Test Test Results 45 deg neural tension R Comments 100 deg L PT-OP-M Strength Start: 09/28/18 07:26 Freq: Status: Active Protocol: Document 10/28/18 08:17 [facility] (Rec: 10/28/18 09:04 [facility] [id number]) Shoulder Strength Shoulder Manual Muscle Testing Right Flexion 4+ Good+ Extension 3 Fair Abduction (C5) 4+ Good+ External Rotation 4+ Good+ Internal Rotation 4 Good Comments pain with IR & ext, pain after flex testing Left Flexion 5 Normal Extension 5 Normal Abduction (C5) 5 Normal External Rotation 5 Normal Internal Rotation 5 Normal PT-OP-Q Treatments Start: 09/28/18 07:26 Freq: Status: Active Protocol: Document 12/27/18 10:30 [facility] (Rec: 12/27/18 11:49 [facility] [email or web address]) Therapeutic Exercises Sitting Exercises 1 Sitting Exercise Name scapular retraction progressed to row w/scap retraction Standing Exercises chin tuck Reps/Minutes 5 row Standing Exercise Name row Side bilateral Equipment Used AROM Reps/Minutes 10 2 Standing Exercise Name doorway pec stretch w/arms at side Side bilateral Reps/Minutes 30 sec Therapeutic Activity Therapeutic Activity 5 Name standing posture Comments w/use mirror- min A to place ribs posture with gait Sitting posture Manual Therapy Treatment Soft Tissue Mobilization UT/LS Body Location UT/LS Mobilization Type Rolling Intensity/Depth Moderate 1 Body Location pec R Mobilization Type Rolling Intensity/Depth Moderate PT-OP-R Modalities Start: 09/28/18 07:26 Freq: Status: Active Protocol: Document 12/27/18 10:30 [facility] (Rec: 12/27/18 11:49 [facility] [email or web address]) Hot Pack/Cold Pack Treatment Cold Pack Location R shoulder Patient Position Supine Treatment Duration (minutes) 10 PT-OP-T Assessment and Plan Start: 09/28/18 07:26 Freq: Status: Active Protocol: Document 12/27/18 10:30 [facility] (Rec: 12/27/18 11:49 [facility] [email or web address]) Physical Therapy Assessment Assessment Summary Assessment Pt improving slowly with posture. She needed mod cues for posture. She was unable to hold T/S, C/s and shoulder posture in standing, but able to in sitting. Physical Therapy Plan Frequency and Duration Frequency of Treatment 2x/Week Duration of Treatment 2 months Plan of Care Start Date 10/28/18 Plan of Care End Date 12/26/18 Next Visit Focus/Plan Next Note Type Treatment Note Next Visit Plan alisonamce scapular stability, work on postural awareness, could try kinesiotape for R shoulder if pt interested.
--- NOTE | 2019-01-03 15:05 | PT.OTN ---
Current Diagnoses Jaw pain (01/03/19) Physical Therapy Treatment Note PT-OP-A Visit Information Start: 09/28/18 07:26 Freq: Status: Active Protocol: Document 01/03/19 11:15 GGD (Rec: 01/03/19 15:05 GGD [email or web address]) Out-Patient Physical Therapy Visit Information Visit Information Visit Type Treatment Note Visit Start Time 11:15 Visit Stop Time 12:10 Total Visit Minutes 55 Visit Number 07/27 Number of TRANSITION SOCIAL WORKER Visits 3 Evaluation Information Evaluation Date 03/29/18 PT-OP-B Current Condition Start: 09/28/18 07:26 Freq: Status: Active Protocol: Document 10/28/18 08:17 LR (Rec: 10/28/18 14:06 [facility] [email or web address]) Current Condition History of Current Condition Current Complaints jaw pain, neck pain, R shoulder/arm pain History of Current Condition 10/28/18: Addition of treatment of R neck, shoulder & arm pain. Pt reports it started in Nov and was cont to get worse . Reports she thinks it may have been her dog pulling that caused it but she stopped walking her dog and it was still painful. 09/28/18:Pt reports she used to get BRISENO & migraines and she can treat them with coffee now and they do not bother her as much. Pt reports she started to get pressure in both ears and feels like her head is going to explode. The ear pressure started about 3 months ago with a feeling like she is coming down from with an airplane. Reports it makes her feel really dizzy and spacy and makes it hard to focus. Reports her eyes do not focus well. Dr. Garrison and Dr Obed Velázquez checked her ears & eyes and both were reported okay. Reports her back always gives her pain and she thinks she clenches some due to this . She is limited in her activity d/t back. Reports she has teeth aches on the R side and had a cleaning early Dec and everything was okay. Dentist sent to her have her jaw worked on. Jaw problems for years but was only noticable when went to the dentist before and now she has to go to soft foods. 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 Pt reports neck pain and upper back pain especially when standing or working on the computer. Pt reports Dr. Morales checked neck pain since that happened about 1 year ago and reports she has a lot of pain by late afternoon. Pt reports xrays were completed on her neck. Dizziness is described as spinning with looking up. Has felt dizzy with going shopping and looking around. Reports what is going on in her head is scary. PT-OP-C Subjective Start: 09/28/18 07:26 Freq: Status: Active Protocol: Document 01/03/19 11:15 GGD (Rec: 01/03/19 15:05 GGD [email or web address]) OP-PT Subjective Patient Comments Patient Comments Pt states that she having trouble with posture and pain with walking in her shoulder. PT-OP-F Manual Assessment Start: 09/28/18 07:26 Freq: Status: Active Protocol: Document 09/28/18 07:29 [facility] (Rec: 09/28/18 08:16 [facility] [id number]) Manual Assessments Joint Mobility Assessment Joint Mobility Assessment Head tilted to R in sitting; transient deviation to L with opening PT-OP-J Posture/Palpation/Skin Start: 09/28/18 07:26 Freq: Status: Active Protocol: Document 09/28/18 07:29 [facility] (Rec: 09/28/18 08:16 [facility] [id number]) Posture Evaluation Cesar Postural Classification System Cesar Postural Classifications Posterior/Anterior PT-OP-K Range of Motion Start: 09/28/18 07:26 Freq: Status: Active Protocol: Document 01/03/19 11:15 GGD (Rec: 01/03/19 15:05 GGD [email or web address]) Cervical Spine Range of Motion Cervical Spine Active Degrees Testing Position Sitting Flexion 45 Extension 70 Rotation Left 65 Rotation Right 65 Lateral Flexion Left 45 Lateral Flexion Right 35 Shoulder Goniometric Range of Motion Shoulder Measured in Degrees Right Active Flexion 150 Extension 60 Abduction 170 External Rotation at 90 degrees 76 Abduction Internal Rotation Behind Back (text) L1 PT-OP-L Special Tests Start: 09/28/18 07:26 Freq: Status: Active Protocol: Document 10/28/18 08:17 [facility] (Rec: 10/28/18 09:04 [facility] [id number]) Special Tests Cervical Spine Special Tests spurling Test Results neg Shoulder Special Tests Sulcus Test Results positive for pain and inc space Neer Impingement Test Results positive R Jamil Tay Impingement Test Results positive R AC Joint Compression Test Results neg Speed's Biceps Test Results positive Yergason's Biceps Test Results positive [place] Test Test Results neg Drop Arm Rotator Cuff Test Results neg Neural Special Tests- Upper Body Median Nerve Tension Test Results positive R Radial Nerve Tension Test Results positive R Ulnar Nerve Tension Test Results positive R Upper Limb Tension Test Test Results 45 deg neural tension R Comments 100 deg L PT-OP-M Strength Start: 09/28/18 07:26 Freq: Status: Active Protocol: Document 01/03/19 11:15 GGD (Rec: 01/03/19 15:05 GGD [email or web address]) Shoulder Strength Shoulder Manual Muscle Testing Right Flexion 4+ Good+ Extension 4- Good- Abduction (C5) 4- Good- External Rotation 4+ Good+ Internal Rotation 4+ Good+ Comments pain with IR & ext, pain after flex testing PT-OP-Q Treatments Start: 09/28/18 07:26 Freq: Status: Active Protocol: Document 01/03/19 11:15 GGD (Rec: 01/03/19 15:05 GGD [email or web address]) Therapeutic Exercises Sitting Exercises 1 Sitting Exercise Name scapular retraction progressed to row w/scap retraction Standing Exercises Isometics IR/ER Side right Reps/Minutes 5 x chin tuck Reps/Minutes 5 row Standing Exercise Name row 2 Standing Exercise Name doorway pec stretch w/arms at side Therapeutic Activity Therapeutic Activity 5 Name standing posture Comments w/use mirror- min A to place ribs posture with gait Sitting posture Manual Therapy Treatment Soft Tissue Mobilization UT/LS Body Location UT/LS Mobilization Type Rolling Intensity/Depth Moderate 1 Body Location pec R Mobilization Type Rolling Intensity/Depth Moderate PT-OP-R Modalities Start: 09/28/18 07:26 Freq: Status: Active Protocol: Document 01/03/19 11:15 GGD (Rec: 01/03/19 15:05 GGD [email or web address]) Hot Pack/Cold Pack Treatment Cold Pack Location R shoulder Patient Position Supine Treatment Duration (minutes) 10 PT-OP-T Assessment and Plan Start: 09/28/18 07:26 Freq: Status: Active Protocol: Document 01/03/19 11:15 GGD (Rec: 01/03/19 15:05 GGD [email or web address]) Physical Therapy Assessment Goals shoulder Short Term Goal (STG) Pt will be able to score 4/5 or greater on all strengthening tests. STG Duration 2/11/19 Explosive Ordnance Disposal Specialist Goal (LTG) Pt will be able to return to walking dog and doing normal ADLs without greater than 1/10 pain LTG Duration 12/26/18 3 Impairment eating Long-Term Goal (LTG) Pt will report being able to eat all food textures without more than 1/10 pain. LTG Duration 11/29/18 2 Impairment posture Short Term Goal (STG) Pt will have good desk set up for home.(01/03/19) Pt has not changed desk set up. She has stopped using it. STG Duration 10/29/18 Long-Term Goal (LTG) Pt will present with good posture without cueing. LTG Duration 11/29/18 1 Impairment neck & jaw pain Explosive Ordnance Disposal Specialist Goal (LTG) Pt will report no more than 1- 2/10 pain (in jaw, head, teeth & neck) with all her typical activities. (01/03/19) Pt reports pain of 4/10. LTG Duration 11/29/18 Assessment Summary Assessment Pt needed increase cues with posture. Pt improve with shoulder ROM and strength. Physical Therapy Plan Frequency and Duration Frequency of Treatment 2x/Week Duration of Treatment 2 months Plan of Care Start Date 01/03/19 Plan of Care End Date 03/05/19 Next Visit Focus/Plan Next Note Type Treatment Note Next Visit Plan advance scapular stability, work on postural awareness.
--- NOTE | 2019-01-03 16:25 | PT.OPPN ---
Current Diagnoses Jaw pain (01/03/19) Physical Therapy Progress Note PT-OP-A Visit Information Start: 09/28/18 07:26 Freq: Status: Active Protocol: Document 01/03/19 11:15 GGD (Rec: 01/03/19 15:05 GGD [email or web address]) Out-Patient Physical Therapy Visit Information Visit Information Visit Type Treatment Note Visit Start Time 11:15 Visit Stop Time 12:10 Total Visit Minutes 55 Visit Number 07/27 Number of SCIENCE INSTRUCTOR Visits 3 Evaluation Information Evaluation Date 03/29/18 PT-OP-B Current Condition Start: 09/28/18 07:26 Freq: Status: Active Protocol: Document 10/28/18 08:17 LR (Rec: 10/28/18 14:06 [facility] [email or web address]) Current Condition History of Current Condition Current Complaints jaw pain, neck pain, R shoulder/arm pain History of Current Condition 10/28/18: Addition of treatment of R neck, shoulder & arm pain. Pt reports it started in Nov and was cont to get worse . Reports she thinks it may have been her dog pulling that caused it but she stopped walking her dog and it was still painful. 09/28/18:Pt reports she used to get BRISENO & migraines and she can treat them with coffee now and they do not bother her as much. Pt reports she started to get pressure in both ears and feels like her head is going to explode. The ear pressure started about 3 months ago with a feeling like she is coming down from with an airplane. Reports it makes her feel really dizzy and spacy and makes it hard to focus. Reports her eyes do not focus well. Dr. Garrison and Dr Obed Velázquez checked her ears & eyes and both were reported okay. Reports her back always gives her pain and she thinks she clenches some due to this . She is limited in her activity d/t back. Reports she has teeth aches on the R side and had a cleaning early Dec and everything was okay. Dentist sent to her have her jaw worked on. Jaw problems for years but was only noticable when went to the dentist before and now she has to go to soft foods. 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 Pt reports neck pain and upper back pain especially when standing or working on the computer. Pt reports Dr. Morales checked neck pain since that happened about 1 year ago and reports she has a lot of pain by late afternoon. Pt reports xrays were completed on her neck. Dizziness is described as spinning with looking up. Has felt dizzy with going shopping and looking around. Reports what is going on in her head is scary. PT-OP-C Subjective Start: 09/28/18 07:26 Freq: Status: Active Protocol: Document 01/03/19 11:15 GGD (Rec: 01/03/19 15:05 GGD [email or web address]) OP-PT Subjective Patient Comments Patient Comments Pt states that she having trouble with posture and pain with walking in her shoulder. PT-OP-F Manual Assessment Start: 09/28/18 07:26 Freq: Status: Active Protocol: Document 09/28/18 07:29 [facility] (Rec: 09/28/18 08:16 [facility] [id number]) Manual Assessments Joint Mobility Assessment Joint Mobility Assessment Head tilted to R in sitting; transient deviation to L with opening PT-OP-J Posture/Palpation/Skin Start: 09/28/18 07:26 Freq: Status: Active Protocol: Document 09/28/18 07:29 [facility] (Rec: 09/28/18 08:16 [facility] [id number]) Posture Evaluation Cesar Postural Classification System Cesar Postural Classifications Posterior/Anterior PT-OP-K Range of Motion Start: 09/28/18 07:26 Freq: Status: Active Protocol: Document 01/03/19 11:15 GGD (Rec: 01/03/19 15:05 GGD [email or web address]) Cervical Spine Range of Motion Cervical Spine Active Degrees Testing Position Sitting Flexion 45 Extension 70 Rotation Left 65 Rotation Right 65 Lateral Flexion Left 45 Lateral Flexion Right 35 Shoulder Goniometric Range of Motion Shoulder Measured in Degrees Right Active Flexion 150 Extension 60 Abduction 170 External Rotation at 90 degrees 76 Abduction Internal Rotation Behind Back (text) L1 PT-OP-L Special Tests Start: 09/28/18 07:26 Freq: Status: Active Protocol: Document 10/28/18 08:17 [facility] (Rec: 10/28/18 09:04 [facility] [id number]) Special Tests Cervical Spine Special Tests spurling Test Results neg Shoulder Special Tests Sulcus Test Results positive for pain and inc space Neer Impingement Test Results positive R Jamil Tay Impingement Test Results positive R AC Joint Compression Test Results neg Speed's Biceps Test Results positive Yergason's Biceps Test Results positive [place] Test Test Results neg Drop Arm Rotator Cuff Test Results neg Neural Special Tests- Upper Body Median Nerve Tension Test Results positive R Radial Nerve Tension Test Results positive R Ulnar Nerve Tension Test Results positive R Upper Limb Tension Test Test Results 45 deg neural tension R Comments 100 deg L PT-OP-M Strength Start: 09/28/18 07:26 Freq: Status: Active Protocol: Document 01/03/19 11:15 GGD (Rec: 01/03/19 15:05 GGD [email or web address]) Shoulder Strength Shoulder Manual Muscle Testing Right Flexion 4+ Good+ Extension 4- Good- Abduction (C5) 4- Good- External Rotation 4+ Good+ Internal Rotation 4+ Good+ Comments pain with IR & ext, pain after flex testing PT-OP-T Assessment and Plan Start: 09/28/18 07:26 Freq: Status: Active Protocol: Document 01/03/19 16:22 [facility] (Rec: 01/03/19 16:25 [facility] [email or web address]) Physical Therapy Assessment Impairments Impairments Activity Tolerance Functional Activities Functional Mobility Gait Pain Posture ROM Soft Tissue Mobility Strength Goals shoulder Short Term Goal (STG) Pt will be able to score 4/5 or greater on all strengthening tests. STG Duration 02/03/19-improved Equipment Maintenance Superintendent Goal (LTG) Pt will be able to return to walking dog and doing normal ADLs without greater than 1/10 pain LTG Duration 03/05/19 3 Impairment eating Equipment Maintenance Superintendent Goal (LTG) Pt will report being able to eat all food textures without more than 1/10 pain. LTG Duration 03/05/19-reports dec pain w/ eating 2 Impairment posture Short Term Goal (STG) Pt will have good desk set up for home.(01/03/19) Pt has not changed desk set up. She has stopped using it. STG Duration 02/03/19 Nursing Home Goal (LTG) Pt will present with good posture without cueing. LTG Duration 03/05/19-improving w/max cueing 1 Impairment neck & jaw pain Nursing Home Goal (LTG) Pt will report no more than 1- 2/10 pain (in jaw, head, teeth & neck) with all her typical activities. (01/03/19) Pt reports pain of 4/10. LTG Duration 2/12/19 Assessment Summary Assessment Pt is improivng with posture but requires significant cueing still. She has improved with strength of UE but does still have pain that limits her. She reported less jaw pain, but cont to have dysfunction and requires significant cueing for body awareness. Physical Therapy Plan Frequency and Duration Frequency of Treatment 2x/Week Duration of Treatment 2 months Plan of Care Start Date 01/03/19 Plan of Care End Date 03/05/19 Therapeutic Interventions Therapeutic Interventions Gait Training Home Exercise Program Joint Mobilizations Manual Therapy Neuromuscular Re-education Patient/Caregiver Education Self-Care/Home Management Soft Tissue Mobilization Taping Therapeutic Activities Therapeutic Exercises Modalities Cold Pack/Ice Massage Electric Stimulation Hot Packs Infrared Therapy Iontophoresis Traction- Mechanical Ultrasound Next Visit Focus/Plan Next Note Type Treatment Note Next Visit Plan advance scapular stability, work on postural awareness.
--- NOTE | 2019-01-03 16:26 | PT.OPPOC ---
Current Diagnoses Jaw pain (01/03/19) Provider Visit Care Team Role Provider Type Josee Peterson DO Attending Provider Physician Family Provider Primary Care Provider Specialty: Family Practice Address: [address] [place] [address], [id number] Email: [email or web address] Plan Of Care PT-OP-T Assessment and Plan Start: 09/28/18 07:26 Freq: Status: Active Protocol: Document 01/03/19 16:22 [facility] (Rec: 01/03/19 16:25 [facility] [email or web address]) Physical Therapy Assessment Impairments Impairments Activity Tolerance Functional Activities Functional Mobility Gait Pain Posture ROM Soft Tissue Mobility Strength Goals shoulder Short Term Goal (STG) Pt will be able to score 4/5 or greater on all strengthening tests. STG Duration 02/03/19-improved [facility] Goal (LTG) Pt will be able to return to walking dog and doing normal ADLs without greater than 1/10 pain LTG Duration 03/05/19 3 Impairment eating Penitentiary Goal (LTG) Pt will report being able to eat all food textures without more than 1/10 pain. LTG Duration 03/05/19-reports dec pain w/ eating 2 Impairment posture Short Term Goal (STG) Pt will have good desk set up for home.(01/03/19) Pt has not changed desk set up. She has stopped using it. STG Duration 02/03/19 [facility]entiary Goal (LTG) Pt will present with good posture without cueing. LTG Duration 03/05/19-improving w/max cueing 1 Impairment neck & jaw pain [facility]itentiary Goal (LTG) Pt will report no more than 1- 2/10 pain (in jaw, head, teeth & neck) with all her typical activities. (01/03/19) Pt reports pain of 4/10. LTG Duration 11/29/18 Assessment Summary Assessment Pt is improivng with posture but requires significant cueing still. She has improved with strength of UE but does still have pain that limits her. She reported less jaw pain, but cont to have dysfunction and requires significant cueing for body awareness. Physical Therapy Plan Frequency and Duration Frequency of Treatment 2x/Week Duration of Treatment 2 months Plan of Care Start Date 01/03/19 Plan of Care End Date 03/05/19 Therapeutic Interventions Therapeutic Interventions Gait Training Home Exercise Program Joint Mobilizations Manual Therapy Neuromuscular Re-education Patient/Caregiver Education Self-Care/Home Management Soft Tissue Mobilization Taping Therapeutic Activities Therapeutic Exercises Modalities Cold Pack/Ice Massage Electric Stimulation Hot Packs Infrared Therapy Iontophoresis Traction- Mechanical Ultrasound Next Visit Focus/Plan Next Note Type Treatment Note Next Visit Plan advance scapular stability, work on postural awareness. Plan of Care Dates Plan of Care Start Date 01/03/19 Plan of Care End Date 03/05/19 Please Sign and Return: I have reviewed this Plan of Care and certify that the skilled therapy services above are required to meet the patient?s needs. Physician Signature Date Printed Name and Credentials Clinical Instructor Signature Printed Name and Credentials
--- NOTE | 2019-01-20 16:01 | PT.OTN ---
Current Diagnoses Jaw pain (01/20/19) Physical Therapy Treatment Note PT-OP-A Visit Information Start: 09/28/18 07:26 Freq: Status: Active Protocol: Document 01/20/19 12:15 [facility] (Rec: 01/20/19 16:01 [facility] [id number]) Out-Patient Physical Therapy Visit Information Visit Information Visit Type Treatment Note Visit Note 14 total 2019 Visit Start Time 12:15 Visit Stop Time 13:15 Total Visit Minutes 60 Visit Number 10/27 Number of RADIOLOGY TEACHER Visits 0 PT-OP-B Current Condition Start: 09/28/18 07:26 Freq: Status: Active Protocol: Document 10/28/18 08:17 [facility] (Rec: 10/28/18 14:06 [facility] [id number]) Current Condition History of Current Condition Current Complaints jaw pain, neck pain, R shoulder/arm pain History of Current Condition 10/28/18: Addition of treatment of R neck, shoulder & arm pain. Pt reports it started in Nov and was cont to get worse . Reports she thinks it may have been her dog pulling that caused it but she stopped walking her dog and it was still painful. 09/28/18:Pt reports she used to get BRISENO & migraines and she can treat them with coffee now and they do not bother her as much. Pt reports she started to get pressure in both ears and feels like her head is going to explode. The ear pressure started about 3 months ago with a feeling like she is coming down from with an airplane. Reports it makes her feel really dizzy and spacy and makes it hard to focus. Reports her eyes do not focus well. Dr. Garrison and Dr Obed Velázquez checked her ears & eyes and both were reported okay. Reports her back always gives her pain and she thinks she clenches some due to this . She is limited in her activity d/t back. Reports she has teeth aches on the R side and had a cleaning early Dec and everything was okay. Dentist sent to her have her jaw worked on. Jaw problems for years but was only noticable when went to the dentist before and now she has to go to soft foods. 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 Pt reports neck pain and upper back pain especially when standing or working on the computer. Pt reports Dr. Morales checked neck pain since that happened about 1 year ago and reports she has a lot of pain by late afternoon. Pt reports xrays were completed on her neck. Dizziness is described as spinning with looking up. Has felt dizzy with going shopping and looking around. Reports what is going on in her head is scary. PT-OP-C Subjective Start: 09/28/18 07:26 Freq: Status: Active Protocol: Document 01/20/19 12:15 [facility] (Rec: 01/20/19 16:01 [facility] [id number]) OP-PT Subjective Patient Comments Patient Comments Pt reports she feels better with her shoulder blade and back position but has difficulty with her ribcage position. She went to TMJ MD PT-OP-F Manual Assessment Start: 09/28/18 07:26 Freq: Status: Active Protocol: Document 09/28/18 07:29 [facility] (Rec: 09/28/18 08:16 [facility] [id number]) Manual Assessments Joint Mobility Assessment Joint Mobility Assessment Head tilted to R in sitting; transient deviation to L with opening PT-OP-J Posture/Palpation/Skin Start: 09/28/18 07:26 Freq: Status: Active Protocol: Document 09/28/18 07:29 [facility] (Rec: 09/28/18 08:16 [facility] [id number]) Posture Evaluation Cesar Postural Classification System Cesar Postural Classifications Posterior/Anterior PT-OP-K Range of Motion Start: 09/28/18 07:26 Freq: Status: Active Protocol: Document 01/03/19 11:15 [facility] (Rec: 01/03/19 15:05 [facility] [email or web address]) Cervical Spine Range of Motion Cervical Spine Active Degrees Testing Position Sitting Flexion 45 Extension 70 Rotation Left 65 Rotation Right 65 Lateral Flexion Left 45 Lateral Flexion Right 35 Shoulder Goniometric Range of Motion Shoulder Measured in Degrees Right Active Flexion 150 Extension 60 Abduction 170 External Rotation at 90 degrees 76 Abduction Internal Rotation Behind Back (text) L1 PT-OP-L Special Tests Start: 09/28/18 07:26 Freq: Status: Active Protocol: Document 10/28/18 08:17 [facility] (Rec: 10/28/18 09:04 [facility] [id number]) Special Tests Cervical Spine Special Tests spurling Test Results neg Shoulder Special Tests Sulcus Test Results positive for pain and inc space Neer Impingement Test Results positive R Jamil Tay Impingement Test Results positive R AC Joint Compression Test Results neg Speed's Biceps Test Results positive Yergason's Biceps Test Results positive [place] Test Test Results neg Drop Arm Rotator Cuff Test Results neg Neural Special Tests- Upper Body Median Nerve Tension Test Results positive R Radial Nerve Tension Test Results positive R Ulnar Nerve Tension Test Results positive R Upper Limb Tension Test Test Results 45 deg neural tension R Comments 100 deg L PT-OP-M Strength Start: 09/28/18 07:26 Freq: Status: Active Protocol: Document 01/03/19 11:15 [facility] (Rec: 01/03/19 15:05 [facility] [email or web address]) Shoulder Strength Shoulder Manual Muscle Testing Right Flexion 4+ Good+ Extension 4- Good- Abduction (C5) 4- Good- External Rotation 4+ Good+ Internal Rotation 4+ Good+ Comments pain with IR & ext, pain after flex testing PT-OP-Q Treatments Start: 09/28/18 07:26 Freq: Status: Active Protocol: Document 01/20/19 12:15 [facility] (Rec: 01/20/19 16:01 [facility] [id number]) Therapeutic Exercises Supine Exercises 8 Supine Exercise Name chin tuck Sitting Exercises jaw opening Sitting Exercise Name w/tongue on roof of mouth/ isometric hold jaw stretching Sitting Exercise Name jaw stretch Therapeutic Activity Therapeutic Activity 5 Name standing posture Comments w/use mirror- min A to place ribs posture with gait 4 Name resting jaw position Manual Therapy Treatment Soft Tissue Mobilization 1 Body Location hyoid mm Mobilization Type Rolling Joint Mobilizations hyoid Joint hyoid FM PT-OP-R Modalities Start: 09/28/18 07:26 Freq: Status: Active Protocol: Document 01/20/19 12:15 [facility] (Rec: 01/20/19 16:01 [facility] [id number]) Hot Pack/Cold Pack Treatment Hot Pack Location cervical & jaw Patient Position Hooklying Treatment Duration (minutes) 15 PT-OP-T Assessment and Plan Start: 09/28/18 07:26 Freq: Status: Active Protocol: Document 01/20/19 12:15 [facility] (Rec: 01/20/19 16:01 [facility] [id number]) Physical Therapy Assessment Goals shoulder Short Term Goal (STG) Pt will be able to score 4/5 or greater on all strengthening tests. STG Duration 02/03/19-improved Silk Blocker Goal (LTG) Pt will be able to return to walking dog and doing normal ADLs without greater than 1/10 pain LTG Duration 03/05/19 3 Impairment eating Retirement Goal (LTG) Pt will report being able to eat all food textures without more than 1/10 pain. LTG Duration 03/05/19-reports dec pain w/ eating 2 Impairment posture Short Term Goal (STG) Pt will have good desk set up for home.(01/03/19) Pt has not changed desk set up. She has stopped using it. STG Duration 02/03/19 Silk Blocker Goal (LTG) Pt will present with good posture without cueing. LTG Duration 03/05/19-improving w/max cueing 1 Impairment neck & jaw pain Retirement Goal (LTG) Pt will report no more than 1- 2/10 pain (in jaw, head, teeth & neck) with all her typical activities. (01/03/19) Pt reports pain of 4/10. LTG Duration 11/29/18 Assessment Summary Assessment Pt improved with ability to adjust ribcage over pelvis but has difficulty maintaining it when ambulating. She required some cueing for TMJ exercises for form. Physical Therapy Plan Frequency and Duration Frequency of Treatment 2x/Week Duration of Treatment 2 months Plan of Care Start Date 01/03/19 Plan of Care End Date 03/05/19 Next Visit Focus/Plan Next Note Type Treatment Note Next Visit Plan cont to work on jaw postural awareness & neck & TMJ mobility
--- NOTE | 2019-01-27 16:21 | PT.OTN ---
Current Diagnoses Jaw pain (01/27/19) Physical Therapy Treatment Note PT-OP-A Visit Information Start: 09/28/18 07:26 Freq: Status: Active Protocol: Document 01/27/19 16:10 [facility] (Rec: 01/27/19 16:21 [facility] [id number]) Out-Patient Physical Therapy Visit Information Visit Information Visit Type Treatment Note Visit Note 15 total 2019 Visit Start Time 12:15 Visit Stop Time 13:00 Total Visit Minutes 45 Visit Number 2/10 Number of ADULT SPECIALIST Visits 0 PT-OP-B Current Condition Start: 09/28/18 07:26 Freq: Status: Active Protocol: Document 10/28/18 08:17 [facility] (Rec: 10/28/18 14:06 [facility] [id number]) Current Condition History of Current Condition Current Complaints jaw pain, neck pain, R shoulder/arm pain History of Current Condition 10/28/18: Addition of treatment of R neck, shoulder & arm pain. Pt reports it started in Nov and was cont to get worse . Reports she thinks it may have been her dog pulling that caused it but she stopped walking her dog and it was still painful. 09/28/18:Pt reports she used to get RBISENO & migraines and she can treat them with coffee now and they do not bother her as much. Pt reports she started to get pressure in both ears and feels like her head is going to explode. The ear pressure started about 3 months ago with a feeling like she is coming down from with an airplane. Reports it makes her feel really dizzy and spacy and makes it hard to focus. Reports her eyes do not focus well. Dr. Garrison and Dr Obed Velázquez checked her ears & eyes and both were reported okay. Reports her back always gives her pain and she thinks she clenches some due to this . She is limited in her activity d/t back. Reports she has teeth aches on the R side and had a cleaning early Dec and everything was okay. Dentist sent to her have her jaw worked on. Jaw problems for years but was only noticable when went to the dentist before and now she has to go to soft foods. 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 Pt reports neck pain and upper back pain especially when standing or working on the computer. Pt reports Dr. Morales checked neck pain since that happened about 1 year ago and reports she has a lot of pain by late afternoon. Pt reports xrays were completed on her neck. Dizziness is described as spinning with looking up. Has felt dizzy with going shopping and looking around. Reports what is going on in her head is scary. PT-OP-C Subjective Start: 09/28/18 07:26 Freq: Status: Active Protocol: Document 01/27/19 16:10 [facility] (Rec: 01/27/19 16:21 [facility] [id number]) OP-PT Subjective Patient Comments Patient Comments Pt reports she still has difficulty with posture and has been frustrated because she feels excessively fatigued by 5 pm daily PT-OP-F Manual Assessment Start: 09/28/18 07:26 Freq: Status: Active Protocol: Document 09/28/18 07:29 [facility] (Rec: 09/28/18 08:16 [facility] [id number]) Manual Assessments Joint Mobility Assessment Joint Mobility Assessment Head tilted to R in sitting; transient deviation to L with opening PT-OP-J Posture/Palpation/Skin Start: 09/28/18 07:26 Freq: Status: Active Protocol: Document 09/28/18 07:29 [facility] (Rec: 09/28/18 08:16 [facility] [id number]) Posture Evaluation Cesar Postural Classification System Cesar Postural Classifications Posterior/Anterior PT-OP-K Range of Motion Start: 09/28/18 07:26 Freq: Status: Active Protocol: Document 01/03/19 11:15 [facility] (Rec: 01/03/19 15:05 [facility] [email or web address]) Cervical Spine Range of Motion Cervical Spine Active Degrees Testing Position Sitting Flexion 45 Extension 70 Rotation Left 65 Rotation Right 65 Lateral Flexion Left 45 Lateral Flexion Right 35 Shoulder Goniometric Range of Motion Shoulder Measured in Degrees Right Active Flexion 150 Extension 60 Abduction 170 External Rotation at 90 degrees 76 Abduction Internal Rotation Behind Back (text) L1 PT-OP-L Special Tests Start: 09/28/18 07:26 Freq: Status: Active Protocol: Document 10/28/18 08:17 [facility] (Rec: 10/28/18 09:04 [facility] [id number]) Special Tests Cervical Spine Special Tests spurling Test Results neg Shoulder Special Tests Sulcus Test Results positive for pain and inc space Neer Impingement Test Results positive R Jamil Tay Impingement Test Results positive R AC Joint Compression Test Results neg Speed's Biceps Test Results positive Yergason's Biceps Test Results positive Kemper Test Test Results neg Drop Arm Rotator Cuff Test Results neg Neural Special Tests- Upper Body Median Nerve Tension Test Results positive R Radial Nerve Tension Test Results positive R Ulnar Nerve Tension Test Results positive R Upper Limb Tension Test Test Results 45 deg neural tension R Comments 100 deg L PT-OP-M Strength Start: 09/28/18 07:26 Freq: Status: Active Protocol: Document 01/03/19 11:15 [facility] (Rec: 01/03/19 15:05 [facility] [email or web address]) Shoulder Strength Shoulder Manual Muscle Testing Right Flexion 4+ Good+ Extension 4- Good- Abduction (C5) 4- Good- External Rotation 4+ Good+ Internal Rotation 4+ Good+ Comments pain with IR & ext, pain after flex testing PT-OP-Q Treatments Start: 09/28/18 07:26 Freq: Status: Active Protocol: Document 01/27/19 16:10 [facility] (Rec: 01/27/19 16:21 [facility] [id number]) Therapeutic Exercises Sitting Exercises posture roll up Sitting Exercise Name against chair Standing Exercises 1 Standing Exercise Name posture roll up Manual Therapy Treatment Soft Tissue Mobilization UT/LS Body Location UT/LS Mobilization Type Rolling Intensity/Depth Moderate inf mandible angle Body Location inf mandible Mobilization Type Rolling masseter Body Location masseter Mobilization Type Rolling 1 Body Location pec R Mobilization Type Rolling Intensity/Depth Moderate Self-Care/Home Management Treatment Education Patient Education Posture Other Education discussion of talking to MD re :sleep issues & fatigue and possibly seeing psychologist d /t stress & consulting MD ; verbal review of jaw exercises PT-OP-R Modalities Start: 09/28/18 07:26 Freq: Status: Active Protocol: Document 01/20/19 12:15 [facility] (Rec: 01/20/19 16:01 [facility] [id number]) Hot Pack/Cold Pack Treatment Hot Pack Location cervical & jaw Patient Position Hooklying Treatment Duration (minutes) 15 PT-OP-T Assessment and Plan Start: 09/28/18 07:26 Freq: Status: Active Protocol: Document 01/27/19 16:10 [facility] (Rec: 01/27/19 16:21 [facility] [id number]) Physical Therapy Assessment Goals shoulder Short Term Goal (STG) Pt will be able to score 4/5 or greater on all strengthening tests. STG Duration 02/03/19-improved Group Home Goal (LTG) Pt will be able to return to walking dog and doing normal ADLs without greater than 1/10 pain LTG Duration 03/05/19 3 Impairment eating Group Home Goal (LTG) Pt will report being able to eat all food textures without more than 1/10 pain. LTG Duration 03/05/19-reports dec pain w/ eating 2 Impairment posture Short Term Goal (STG) Pt will have good desk set up for home.(01/03/19) Pt has not changed desk set up. She has stopped using it. STG Duration 02/03/19 Group Home Goal (LTG) Pt will present with good posture without cueing. LTG Duration 03/05/19-improving w/max cueing 1 Impairment neck & jaw pain Group Home Goal (LTG) Pt will report no more than 1- 2/10 pain (in jaw, head, teeth & neck) with all her typical activities. (01/03/19) Pt reports pain of 4/10. LTG Duration 11/29/18 Assessment Summary Assessment Pt improved with postural awarenss today but still does require signficant cueing. Her tightenss was inc today and required cueing for deep breathing to help relax Physical Therapy Plan Frequency and Duration Frequency of Treatment 2x/Week Duration of Treatment 2 months Plan of Care Start Date 01/03/19 Plan of Care End Date 03/05/19 Next Visit Focus/Plan Next Note Type Treatment Note Next Visit Plan cont to work on jaw postural awareness & neck & TMJ mobility
--- NOTE | 2019-01-30 18:41 | PT.OTN ---
Current Diagnoses Jaw pain (01/30/19) Physical Therapy Treatment Note PT-OP-A Visit Information Start: 09/28/18 07:26 Freq: Status: Active Protocol: Document 01/30/19 18:34 [facility] (Rec: 01/30/19 18:41 [facility] [id number]) Out-Patient Physical Therapy Visit Information Visit Information Visit Type Treatment Note Visit Start Time 11:15 Visit Stop Time 12:00 Total Visit Minutes 45 Visit Number 3/10 Number of LEADERSHIP PROGRAM ASSOCIATE Visits 0 PT-OP-B Current Condition Start: 09/28/18 07:26 Freq: Status: Active Protocol: Document 10/28/18 08:17 [facility] (Rec: 10/28/18 14:06 [facility] [id number]) Current Condition History of Current Condition Current Complaints jaw pain, neck pain, R shoulder/arm pain History of Current Condition 10/28/18: Addition of treatment of R neck, shoulder & arm pain. Pt reports it started in Nov and was cont to get worse . Reports she thinks it may have been her dog pulling that caused it but she stopped walking her dog and it was still painful. 09/28/18:Pt reports she used to get BRISENO & migraines and she can treat them with coffee now and they do not bother her as much. Pt reports she started to get pressure in both ears and feels like her head is going to explode. The ear pressure started about 3 months ago with a feeling like she is coming down from with an airplane. Reports it makes her feel really dizzy and spacy and makes it hard to focus. Reports her eyes do not focus well. Dr. Garrison and Dr Obed Velázquez checked her ears & eyes and both were reported okay. Reports her back always gives her pain and she thinks she clenches some due to this . She is limited in her activity d/t back. Reports she has teeth aches on the R side and had a cleaning early Dec and everything was okay. Dentist sent to her have her jaw worked on. Jaw problems for years but was only noticable when went to the dentist before and now she has to go to soft foods. 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 Pt reports neck pain and upper back pain especially when standing or working on the computer. Pt reports Dr. Morales checked neck pain since that happened about 1 year ago and reports she has a lot of pain by late afternoon. Pt reports xrays were completed on her neck. Dizziness is described as spinning with looking up. Has felt dizzy with going shopping and looking around. Reports what is going on in her head is scary. PT-OP-C Subjective Start: 09/28/18 07:26 Freq: Status: Active Protocol: Document 01/30/19 18:34 [facility] (Rec: 01/30/19 18:41 [facility] [id number]) OP-PT Subjective Patient Comments Patient Comments Pt reports she will be going on trips soon so wants to work on her position fo rher neck & shoulder walking & work on HEP. PT-OP-F Manual Assessment Start: 09/28/18 07:26 Freq: Status: Active Protocol: Document 09/28/18 07:29 [facility] (Rec: 09/28/18 08:16 [facility] [id number]) Manual Assessments Joint Mobility Assessment Joint Mobility Assessment Head tilted to R in sitting; transient deviation to L with opening PT-OP-J Posture/Palpation/Skin Start: 09/28/18 07:26 Freq: Status: Active Protocol: Document 09/28/18 07:29 [facility] (Rec: 09/28/18 08:16 [facility] [id number]) Posture Evaluation Cesar Postural Classification System Cesar Postural Classifications Posterior/Anterior PT-OP-K Range of Motion Start: 09/28/18 07:26 Freq: Status: Active Protocol: Document 01/03/19 11:15 [facility] (Rec: 01/03/19 15:05 [facility] [email or web address]) Cervical Spine Range of Motion Cervical Spine Active Degrees Testing Position Sitting Flexion 45 Extension 70 Rotation Left 65 Rotation Right 65 Lateral Flexion Left 45 Lateral Flexion Right 35 Shoulder Goniometric Range of Motion Shoulder Measured in Degrees Right Active Flexion 150 Extension 60 Abduction 170 External Rotation at 90 degrees 76 Abduction Internal Rotation Behind Back (text) L1 PT-OP-L Special Tests Start: 09/28/18 07:26 Freq: Status: Active Protocol: Document 10/28/18 08:17 [facility] (Rec: 10/28/18 09:04 [facility] [id number]) Special Tests Cervical Spine Special Tests spurling Test Results neg Shoulder Special Tests Sulcus Test Results positive for pain and inc space Neer Impingement Test Results positive R Jamil Tay Impingement Test Results positive R AC Joint Compression Test Results neg Speed's Biceps Test Results positive Yergason's Biceps Test Results positive [place] Test Test Results neg Drop Arm Rotator Cuff Test Results neg Neural Special Tests- Upper Body Median Nerve Tension Test Results positive R Radial Nerve Tension Test Results positive R Ulnar Nerve Tension Test Results positive R Upper Limb Tension Test Test Results 45 deg neural tension R Comments 100 deg L PT-OP-M Strength Start: 09/28/18 07:26 Freq: Status: Active Protocol: Document 01/03/19 11:15 [facility] (Rec: 01/03/19 15:05 [facility] [email or web address]) Shoulder Strength Shoulder Manual Muscle Testing Right Flexion 4+ Good+ Extension 4- Good- Abduction (C5) 4- Good- External Rotation 4+ Good+ Internal Rotation 4+ Good+ Comments pain with IR & ext, pain after flex testing PT-OP-Q Treatments Start: 09/28/18 07:26 Freq: Status: Active Protocol: Document 01/30/19 18:34 [facility] (Rec: 01/30/19 18:41 [facility] [email or web address]) Therapeutic Exercises Standing Exercises 2 Standing Exercise Name abd w/focus on no elevation of scapular girdle 1 Standing Exercise Name posture roll up Therapeutic Activity Therapeutic Activity 5 Name standing posture Comments w/use mirror- min A to place ribs posture with gait 3 Name edu on how to set up chair for better posture/position Gait Training Gait Activity 1 Description arm swing with gait & relaxed head & neck position & posture Comments relaxed jaw; focus on position for up/down hills and how to use a walking stick appropriately w/ R shoulder Self-Care/Home Management Treatment Education Other Education edu on shoulder anatomy & posture importance & mm strength PT-OP-R Modalities Start: 09/28/18 07:26 Freq: Status: Active Protocol: Document 01/20/19 12:15 [facility] (Rec: 01/20/19 16:01 [facility] [id number]) Hot Pack/Cold Pack Treatment Hot Pack Location cervical & jaw Patient Position Hooklying Treatment Duration (minutes) 15 PT-OP-T Assessment and Plan Start: 09/28/18 07:26 Freq: Status: Active Protocol: Document 01/30/19 18:34 [facility] (Rec: 01/30/19 18:41 [facility] [email or web address]) Physical Therapy Assessment Goals shoulder Short Term Goal (STG) Pt will be able to score 4/5 or greater on all strengthening tests. STG Duration 02/03/19-improved [facility]ci Goal (LTG) Pt will be able to return to walking dog and doing normal ADLs without greater than 1/10 pain LTG Duration 03/05/19 3 Impairment eating [facility]ci Goal (LTG) Pt will report being able to eat all food textures without more than 1/10 pain. LTG Duration 03/05/19-reports dec pain w/ eating 2 Impairment posture Short Term Goal (STG) Pt will have good desk set up for home.(01/03/19) Pt has not changed desk set up. She has stopped using it. STG Duration 02/03/19 [facility] Goal (LTG) Pt will present with good posture without cueing. LTG Duration 03/05/19-improving w/max cueing 1 Impairment neck & jaw pain Special Education Aide Goal (LTG) Pt will report no more than 1- 2/10 pain (in jaw, head, teeth & neck) with all her typical activities. (01/03/19) Pt reports pain of 4/10. LTG Duration 11/29/18 Assessment Summary Assessment Pt had improved postural awareness w/gait & improved relaxation of UT and UE with appropriate arm swing after edu. Improved abd ROM with dec pain w/cueing. Physical Therapy Plan Frequency and Duration Frequency of Treatment 2x/Week Duration of Treatment 2 months Plan of Care Start Date 01/03/19 Plan of Care End Date 03/05/19 Next Visit Focus/Plan Next Note Type Treatment Note Next Visit Plan review & adjust HEP
--- NOTE | 2019-02-06 09:48 | PT.OTN ---
Current Diagnoses Jaw pain (02/06/19) Physical Therapy Treatment Note PT-OP-A Visit Information Start: 09/28/18 07:26 Freq: Status: Active Protocol: Document 02/06/19 09:00 [facility] (Rec: 02/06/19 09:47 [facility] [id number]) Out-Patient Physical Therapy Visit Information Visit Information Visit Type Treatment Note Visit Note 17 total 2019 Visit Start Time 09:02 Visit Stop Time 09:42 Total Visit Minutes 40 Visit Number 4/10 Number of RETORT COOLER Visits 0 PT-OP-B Current Condition Start: 09/28/18 07:26 Freq: Status: Active Protocol: Document 10/28/18 08:17 [facility] (Rec: 10/28/18 14:06 [facility] [id number]) Current Condition History of Current Condition Current Complaints jaw pain, neck pain, R shoulder/arm pain History of Current Condition 10/28/18: Addition of treatment of R neck, shoulder & arm pain. Pt reports it started in Nov and was cont to get worse . Reports she thinks it may have been her dog pulling that caused it but she stopped walking her dog and it was still painful. 09/28/18:Pt reports she used to get BRISENO & migraines and she can treat them with coffee now and they do not bother her as much. Pt reports she started to get pressure in both ears and feels like her head is going to explode. The ear pressure started about 3 months ago with a feeling like she is coming down from with an airplane. Reports it makes her feel really dizzy and spacy and makes it hard to focus. Reports her eyes do not focus well. Dr. Garrison and Dr Obed Velázquez checked her ears & eyes and both were reported okay. Reports her back always gives her pain and she thinks she clenches some due to this . She is limited in her activity d/t back. Reports she has teeth aches on the R side and had a cleaning early Dec and everything was okay. Dentist sent to her have her jaw worked on. Jaw problems for years but was only noticable when went to the dentist before and now she has to go to soft foods. 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 Pt reports neck pain and upper back pain especially when standing or working on the computer. Pt reports Dr. Morales checked neck pain since that happened about 1 year ago and reports she has a lot of pain by late afternoon. Pt reports xrays were completed on her neck. Dizziness is described as spinning with looking up. Has felt dizzy with going shopping and looking around. Reports what is going on in her head is scary. PT-OP-C Subjective Start: 09/28/18 07:26 Freq: Status: Active Protocol: Document 02/06/19 09:00 [facility] (Rec: 02/06/19 09:47 [facility] [id number]) OP-PT Subjective Patient Comments Patient Comments Compliance with HEP. Feels like the trekking pole help her shoulder PT-OP-F Manual Assessment Start: 09/28/18 07:26 Freq: Status: Active Protocol: Document 09/28/18 07:29 [facility] (Rec: 09/28/18 08:16 [facility] [id number]) Manual Assessments Joint Mobility Assessment Joint Mobility Assessment Head tilted to R in sitting; transient deviation to L with opening PT-OP-J Posture/Palpation/Skin Start: 09/28/18 07:26 Freq: Status: Active Protocol: Document 09/28/18 07:29 [facility] (Rec: 09/28/18 08:16 [facility] [id number]) Posture Evaluation Cesar Postural Classification System Cesar Postural Classifications Posterior/Anterior PT-OP-K Range of Motion Start: 09/28/18 07:26 Freq: Status: Active Protocol: Document 01/03/19 11:15 [facility] (Rec: 01/03/19 15:05 [facility] [email or web address]) Cervical Spine Range of Motion Cervical Spine Active Degrees Testing Position Sitting Flexion 45 Extension 70 Rotation Left 65 Rotation Right 65 Lateral Flexion Left 45 Lateral Flexion Right 35 Shoulder Goniometric Range of Motion Shoulder Measured in Degrees Right Active Flexion 150 Extension 60 Abduction 170 External Rotation at 90 degrees 76 Abduction Internal Rotation Behind Back (text) L1 PT-OP-L Special Tests Start: 09/28/18 07:26 Freq: Status: Active Protocol: Document 10/28/18 08:17 [facility] (Rec: 10/28/18 09:04 [facility] [id number]) Special Tests Cervical Spine Special Tests spurling Test Results neg Shoulder Special Tests Sulcus Test Results positive for pain and inc space Neer Impingement Test Results positive R Jamil Tay Impingement Test Results positive R AC Joint Compression Test Results neg Speed's Biceps Test Results positive Yergason's Biceps Test Results positive [place] Test Test Results neg Drop Arm Rotator Cuff Test Results neg Neural Special Tests- Upper Body Median Nerve Tension Test Results positive R Radial Nerve Tension Test Results positive R Ulnar Nerve Tension Test Results positive R Upper Limb Tension Test Test Results 45 deg neural tension R Comments 100 deg L PT-OP-M Strength Start: 09/28/18 07:26 Freq: Status: Active Protocol: Document 01/03/19 11:15 [facility] (Rec: 01/03/19 15:05 [facility] [email or web address]) Shoulder Strength Shoulder Manual Muscle Testing Right Flexion 4+ Good+ Extension 4- Good- Abduction (C5) 4- Good- External Rotation 4+ Good+ Internal Rotation 4+ Good+ Comments pain with IR & ext, pain after flex testing PT-OP-Q Treatments Start: 09/28/18 07:26 Freq: Status: Active Protocol: Document 02/06/19 09:00 [facility] (Rec: 02/06/19 09:47 [facility] [id number]) Therapeutic Exercises Sitting Exercises stretches Sitting Exercise Name UT stretch Reps/Minutes 30 sec ROM Sitting Exercise Name cervical Comments comfortable range jaw opening Sitting Exercise Name w/tongue on roof of mouth/ isometric hold Reps/Minutes 10x/2x5 sec iso holds jaw stretching Sitting Exercise Name jaw stretch Reps/Minutes 20 sec Comments & jaw opening as wide as can 1 Sitting Exercise Name deviations Side bilateral Reps/Minutes 10 Standing Exercises chin tuck Standing Exercise Name chin tuck Reps/Minutes 10 row Standing Exercise Name row Side bilateral Equipment Used L1 Reps/Minutes 20 Comments focus on scapula Self-Care/Home Management Treatment Education Patient Education Home Exercise Program Posture Other Education edu on tongue and jaw relation & anatomy & position & use of treking pole; review of posture for overall body for down hill & review of arm swing. PT-OP-R Modalities Start: 09/28/18 07:26 Freq: Status: Active Protocol: Document 01/20/19 12:15 [facility] (Rec: 01/20/19 16:01 [facility] [id number]) Hot Pack/Cold Pack Treatment Hot Pack Location cervical & jaw Patient Position Hooklying Treatment Duration (minutes) 15 PT-OP-T Assessment and Plan Start: 09/28/18 07:26 Freq: Status: Active Protocol: Document 02/06/19 09:00 [facility] (Rec: 02/06/19 09:47 [facility] [id number]) Physical Therapy Assessment Goals shoulder Short Term Goal (STG) Pt will be able to score 4/5 or greater on all strengthening tests. STG Duration 02/03/19-improved Jail Goal (LTG) Pt will be able to return to walking dog and doing normal ADLs without greater than 1/10 pain LTG Duration 03/05/19 3 Impairment eating Marquetry Worker Goal (LTG) Pt will report being able to eat all food textures without more than 1/10 pain. LTG Duration 03/05/19-reports dec pain w/ eating 2 Impairment posture Short Term Goal (STG) Pt will have good desk set up for home.(01/03/19) Pt has not changed desk set up. She has stopped using it. STG Duration 02/03/19 Marquetry Worker Goal (LTG) Pt will present with good posture without cueing. LTG Duration 03/05/19-improving w/max cueing 1 Impairment neck & jaw pain Jail Goal (LTG) Pt will report no more than 1- 2/10 pain (in jaw, head, teeth & neck) with all her typical activities. (01/03/19) Pt reports pain of 4/10. LTG Duration 11/29/18 Assessment Summary Assessment Pt had improved understanding of body position during exercises and activities today . Improved performance of exercise and reviewed anatomy and exercises as pt asked. Physical Therapy Plan Frequency and Duration Frequency of Treatment 2x/Week Duration of Treatment 2 months Plan of Care Start Date 01/03/19 Plan of Care End Date 03/05/19 Next Visit Focus/Plan Next Note Type Progress Note Next Visit Plan retest ROM & review goals & review exercises as needed
--- NOTE | 2019-02-16 17:12 | PT.OTN ---
Current Diagnoses Jaw pain (02/16/19) Physical Therapy Treatment Note PT-OP-A Visit Information Start: 09/28/18 07:26 Freq: Status: Active Protocol: Document 02/16/19 16:03 [facility] (Rec: 02/16/19 17:12 [facility] [id number]) Out-Patient Physical Therapy Visit Information Visit Information Visit Type Discharge Summary Visit Start Time 14:03 Visit Stop Time 14:46 Total Visit Minutes 43 Number of CUSTOMER COMPLAINT CLERK Visits 0 PT-OP-B Current Condition Start: 09/28/18 07:26 Freq: Status: Active Protocol: Document 10/28/18 08:17 [facility] (Rec: 10/28/18 14:06 [facility] [id number]) Current Condition History of Current Condition Current Complaints jaw pain, neck pain, R shoulder/arm pain History of Current Condition 10/28/18: Addition of treatment of R neck, shoulder & arm pain. Pt reports it started in Nov and was cont to get worse . Reports she thinks it may have been her dog pulling that caused it but she stopped walking her dog and it was still painful. 09/28/18:Pt reports she used to get BRISENO & migraines and she can treat them with coffee now and they do not bother her as much. Pt reports she started to get pressure in both ears and feels like her head is going to explode. The ear pressure started about 3 months ago with a feeling like she is coming down from with an airplane. Reports it makes her feel really dizzy and spacy and makes it hard to focus. Reports her eyes do not focus well. Dr. Garrison and Dr Obed Velázquez checked her ears & eyes and both were reported okay. Reports her back always gives her pain and she thinks she clenches some due to this . She is limited in her activity d/t back. Reports she has teeth aches on the R side and had a cleaning early Dec and everything was okay. Dentist sent to her have her jaw worked on. Jaw problems for years but was only noticable when went to the dentist before and now she has to go to soft foods. 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 Pt reports neck pain and upper back pain especially when standing or working on the computer. Pt reports Dr. Morales checked neck pain since that happened about 1 year ago and reports she has a lot of pain by late afternoon. Pt reports xrays were completed on her neck. Dizziness is described as spinning with looking up. Has felt dizzy with going shopping and looking around. Reports what is going on in her head is scary. PT-OP-C Subjective Start: 09/28/18 07:26 Freq: Status: Active Protocol: Document 02/06/19 09:00 [facility] (Rec: 02/06/19 09:47 [facility] [id number]) OP-PT Subjective Patient Comments Patient Comments Compliance with HEP. Feels like the trekking pole help her shoulder PT-OP-F Manual Assessment Start: 09/28/18 07:26 Freq: Status: Active Protocol: Document 09/28/18 07:29 [facility] (Rec: 09/28/18 08:16 [facility] [id number]) Manual Assessments Joint Mobility Assessment Joint Mobility Assessment Head tilted to R in sitting; transient deviation to L with opening PT-OP-J Posture/Palpation/Skin Start: 09/28/18 07:26 Freq: Status: Active Protocol: Document 09/28/18 07:29 [facility] (Rec: 09/28/18 08:16 [facility] [id number]) Posture Evaluation Cesar Postural Classification System Cesar Postural Classifications Posterior/Anterior PT-OP-K Range of Motion Start: 09/28/18 07:26 Freq: Status: Active Protocol: Document 02/16/19 16:03 [facility] (Rec: 02/16/19 17:12 [facility] [id number]) Cervical Spine Range of Motion Cervical Spine Active Degrees Testing Position Sitting Flexion 62 Extension 70 Rotation Left 74 Rotation Right 76 Lateral Flexion Left 39 Lateral Flexion Right 45 TMJ Range of Motion Jaw Openning Jaw Openning (mm) 3.3 cm Shoulder Goniometric Range of Motion Shoulder Measured in Degrees Left Active Flexion 165 Extension 50 Abduction 180 External Rotation at 90 degrees 78 Abduction Internal Rotation Behind Back (text) T10 Right Active Flexion 170 Extension 50 Abduction 180 External Rotation at 90 degrees 80 Abduction Internal Rotation Behind Back (text) L1 PT-OP-L Special Tests Start: 09/28/18 07:26 Freq: Status: Active Protocol: Document 10/28/18 08:17 [facility] (Rec: 10/28/18 09:04 [facility] [id number]) Special Tests Cervical Spine Special Tests spurling Test Results neg Shoulder Special Tests Sulcus Test Results positive for pain and inc space Neer Impingement Test Results positive R Jamil Tay Impingement Test Results positive R AC Joint Compression Test Results neg Speed's Biceps Test Results positive Yergason's Biceps Test Results positive [place] Test Test Results neg Drop Arm Rotator Cuff Test Results neg Neural Special Tests- Upper Body Median Nerve Tension Test Results positive R Radial Nerve Tension Test Results positive R Ulnar Nerve Tension Test Results positive R Upper Limb Tension Test Test Results 45 deg neural tension R Comments 100 deg L PT-OP-M Strength Start: 09/28/18 07:26 Freq: Status: Active Protocol: Document 02/16/19 16:03 [facility] (Rec: 02/16/19 17:12 [facility] [id number]) Shoulder Strength Shoulder Manual Muscle Testing Right Flexion 5 Normal Extension 3+ Fair+ External Rotation 4+ Good+ Internal Rotation 5 Normal PT-OP-Q Treatments Start: 09/28/18 07:26 Freq: Status: Active Protocol: Document 02/16/19 16:03 [facility] (Rec: 02/16/19 17:12 [facility] [id number]) Therapeutic Exercises Standing Exercises ER Standing Exercise Name pivot prone exercise for scap retraction 1 Standing Exercise Name scap retraction Reps/Minutes 30 Comments attempted resisted but unable Therapeutic Activity Therapeutic Activity 5 Name standing posture Comments w/use mirror- min A to place ribs posture with gait; used laying down for exercise to achieve 4 Name seated posture edu w/tactile cueing & demo 3 Name discussion of sleeping position PT-OP-R Modalities Start: 09/28/18 07:26 Freq: Status: Active Protocol: Document 01/20/19 12:15 [facility] (Rec: 01/20/19 16:01 [facility] [id number]) Hot Pack/Cold Pack Treatment Hot Pack Location cervical & jaw Patient Position Hooklying Treatment Duration (minutes) 15 PT-OP-T Assessment and Plan Start: 09/28/18 07:26 Freq: Status: Active Protocol: Document 02/16/19 16:03 [facility] (Rec: 02/16/19 17:12 [facility] [id number]) Physical Therapy Assessment Goals shoulder Short Term Goal (STG) Pt will be able to score 4/5 or greater on all strengthening tests. STG Duration 02/03/19-improved Database Modeler Goal (LTG) Pt will be able to return to walking dog and doing normal ADLs without greater than 1/10 pain LTG Duration 03/05/19-some improvement 3 Impairment eating Database Modeler Goal (LTG) Pt will report being able to eat all food textures without more than 1/10 pain. LTG Duration achieved 2 Impairment posture Short Term Goal (STG) Pt will have good desk set up for home.(01/03/19) Pt has not changed desk set up. She has stopped using it. STG Duration achieved Fpc Goal (LTG) Pt will present with good posture without cueing. LTG Duration significant improved posture to mechanical limits 1 Impairment neck & jaw pain Fpc Goal (LTG) Pt will report no more than 1- 2/10 pain (in jaw, head, teeth & neck) with all her typical activities. (01/03/19) Pt reports pain of 4/10. LTG Duration achieved Assessment Summary Assessment Pt has met goals iwth jaw and has improved her ROM and pain level with her jaw. Her posture has improved significantly which has in turn helped her LBP and her shoulder pain has improved but is still signifiacnt. She has started to have L shoulder pain which is limited her ADLs and sleeping also. She cont to have dec scap stabilizers but is nervous about strengthening d/t pain w/ shoulder motion. Physical Therapy Plan Discharge Physical Therapy Discharge Reasons Plateau in Progress
== END 2019-02-23 12:36 | disposition home or self-care (01) ==
LOC: PHYS 16:00
PROVIDERS: Family Provider Family Medicine; PCP Family Medicine; Visit Provider Family Medicine
DX: R68.84 Jaw pain (principal)
CPT/HCPCS: 97010; 97014; 97035; 97110; 97116; 97140; 97162; 97164; 97530; 97535; G0283

== ENCOUNTER → 2019-04-27 08:43 | Outpatient (CLI) | payer MEDICARE, OTHER, SELFPAY ==
[2019-04-27 12:02] LABS: Free T4, Direct Thyroxine 1.51 ng/dL (0.78-2.19)
== END ==
PROVIDERS: PCP Family Medicine; Visit Provider Family Medicine
DX: E03.9 Hypothyroidism, unspecified (principal); R53.83 Other fatigue
CPT/HCPCS: 36415; 84439; 84443

== ENCOUNTER → 2019-06-20 08:21 | Outpatient (CLI) | payer MEDICARE, OTHER, SELFPAY ==
[2019-06-20 08:46] LABS: Hematocrit 41.6 % (36-46); Hemoglobin 14.3 g/dL (12.0-16.0); Mean Corpuscular HGB Conc 34.5 % (30-36); Mean Corpuscular Hemoglobin 29.9 PG (26-34); Mean Corpuscular Volume 86.9 fL (80-100); Platelet Count 176 X10^3/uL (150-400); Red Blood Cell Count 4.79 X10^6/uL (4.0-5.2); Red Cell Distribution Width 13.4 % (11.6-14.8); White Blood Cell Count 3.8 X10^3/uL (4.5-11.0)
== END ==
PROVIDERS: PCP Family Medicine; Visit Provider Dermatology MOHS-Micrographic Surgery
DX: D69.6 Thrombocytopenia, unspecified (principal)
CPT/HCPCS: 36415; 85027

== ENCOUNTER 2019-07-27 10:30 | Outpatient (RCR) | payer MEDICARE, OTHER, SELFPAY ==
--- NOTE | 2019-07-12 17:26 | PT.OIE ---
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) Compression fracture of T12 vertebra with routine healing (Resolved) Cystocele (Resolved 12/18/13) Degeneration of intervertebral disc of lumbosacral region (Chronic 07/03/16) Depression (Chronic) Fracture tibia/fibula (Resolved) Hypothyroidism (Chronic) Hypothyroidism (Chronic) Lumbar radiculopathy, chronic (Chronic) Lumbar spine pain (Acute) Migraines (Chronic) Osteoporosis (Chronic) 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) Spondylolisthesis at L5-S1 level (Chronic 07/03/16) Uterovaginal prolapse (Resolved) Past Surgical History (Last Reviewed 11/28/18 @ 14:53 by KATE Laura) History of esophagogastroduodenoscopy (EGD) (~2015) History of third molar tooth extraction Right fibular fracture (Resolved) Status post tonsillectomy and adenoidectomy Status post vaginal hysterectomy (~2013) Visit Care Team Role Provider Type Josee Peterson DO Attending Provider Physician Primary Care Provider Specialty: [facility] Address: [address] [place] [address], [address], [facility] Email: [email or web address] Physical Therapy Initial Evaluation PT-OP-A Visit Information Start: 07/12/19 14:33 Freq: Status: Active Protocol: Document 07/12/19 11:15 DCW (Rec: 07/12/19 17:25 DCW [id number]) Out-Patient Physical Therapy Visit Information Visit Information Visit Type Initial Evaluation Visit Start Time 11:15 Visit Stop Time 12:00 Total Visit Minutes 45 Visit Number 1 Number of SPECIAL EDUCATION SUPERINTENDENT Visits 0 Evaluation Information Evaluation Date 07/12/19 PT-OP-B Current Condition Start: 07/12/19 14:33 Freq: Status: Active Protocol: Document 07/12/19 11:15 DCW (Rec: 07/12/19 17:25 DCW [id number]) Current Condition History of Current Condition Onset Date Multi-year history Current Complaints Vertigo/imbalance with visual motion History of Current Condition Pt is a 79 year old female complaining of a multi-year history of vertigo, imbalance, confusion, and light- headedness, but admits it has been worsening over the last year. Pt reports symptoms are always there in the background, but some things make it substantially worse. Symptoms are provoked by walking through big stores, riding as a passenger in a car , using her camera or binoculars, reading, looking up at birds, or walking over narrow bridges during hikes. Pt reports she has had her eyes checked (They look great !) her hearing tested, and a brain MRI, and all testing was negative. Pt denies recent hearing changes, tinnitus, diplopia, dysarthria, discoordination, or decreased mentation/consciousness. Pt denies hx of HTN, diabetes, arrhythmia, head trauma, seizure, CVA, anxiety/panic disorders, or excessive smoking or drinking. Does note a history of mild depression. Treatment Goals Patient/Caregiver Goals Eliminate, or at least decrease, pt's symptoms of vertigo Prior Functional Status Baseline Function- ADL's Independent Baseline Function- Mobility Independent Current Functional Impairments (Reported) Functional Limitations- Recreation/ Pt has difficulty on her hikes Hobbies , unable to cross narrow bridges, opting instead to rene across the water. Pt has difficulty walking into large stores, reading on a computer, and using her camera or binoculars PT-OP-C Subjective Start: 07/12/19 14:33 Freq: Status: Active Protocol: Document 07/12/19 11:15 [facility] (Rec: 07/12/19 17:25 [facility] [id number]) OP-PT Subjective Patient Comments Patient Comments It;s just been getting worse over the last year. I don't want it to keep me from living my life. Patient Reported Progress Worse Patient Questionnaires ABC- Activity Specific Balance Confidence Scale ABC Score 55% ABC Functional Impairment 40 to <60% Impaired (Score 41- 60) Dizziness Handicap Inventory DHI Score 52% DHI Functional Impairment 40 to 59% Impaired (Score 40- 59) PT-OP-O Vestibular Start: 07/12/19 14:33 Freq: Status: Active Protocol: Document 07/12/19 11:15 CAW (Rec: 07/12/19 17:25 [facility] [id number]) Vestibular Assessment Screening Tests Vestibular Artery Screen Negative Auditory Tests Charlton Test Negative Rinne Test Negative Air Conduction Results Equal Visual Testing Smooth Pursuits Horizontal Negative Smooth Pursuits Vertical Negative Saccades Horizontal Negative, but is sets off my head. Gaze Evoked Nystagmus With Fixation Negative Gaze Evoked Nystagmus Without Fixation Negative Heave Test Negative Thrust Head Negative Quinten String Test Impaired Convergence Test WNL DVA (Line Degradation) 7 Head Shake Negative Spontaneous Nystagmus Negative Positional Testing Kamini-Hallpike Negative Left,Negative Right Rolling Test Negative Left,Negative Right Supine to Sit Negative Sit to Supine Negative Comments Vestibular Comments Quinten string = set off symptoms with rapid movements between green and blue beads, no visible symptoms. PT-OP-Q Treatments Start: 07/12/19 14:33 Freq: Status: Active Protocol: Document 07/12/19 11:15 DC (Rec: 07/12/19 17:25 [facility] [id number]) Neuro Re-Education Treatment Vestibular Rehabilitation Corrective Saccades Details Eyes, then head Distance From Target Arm length Speed as tolerated Position seated Reps/Duration 30x2 VOR Retraining Details Target, head, eyes move together Distance From Target Arm length Speed as tolerated Position seated Reps/Duration 30x2 X2 Viewing Details Head and target move in opposite directions Distance From Target Arm length Speed as tolerated Position seated Reps/Duration 30x2 X1 Viewing Details Head moves, target remains stationary Distance From Target Arm length Speed as tolerated Position seated Reps/Duration 30x2 PT-OP-T Assessment and Plan Start: 07/12/19 14:33 Freq: Status: Active Protocol: Document 07/12/19 11:15 DC (Rec: 07/12/19 17:25 [facility] [id number]) Physical Therapy Assessment Rehab Potential Rehabilitation Potential Good Evaluation Complexity Number of Personal Factors/Comorbidities 1-2 Number of Body Systems Impaired 3 Clinical Presentation at Evaluation Unstable Impairments Impairments Balance,Coordination, Functional Activities, Functional Mobility,Vestibular ,Visual Motor Goals 3 Impairment Pt unable to read longer than 30 minutes due to vertigo [facility] Goal (LTG) Pt to tolerate 90 minutes of reading with no increased symptoms LTG Duration 09/11/19 2 Impairment Pt unable to go shopping in [employer] due to increased vertigo and imbalance Color Tester Goal (LTG) Pt to tolerate shopping for 45 minutes in [employer] with no increased symptoms LTG Duration 09/11/19 1 Impairment Pt does not have an appropriate home exercise program Short Term Goal (STG) Pt to be independent and compliant with an appropriate HEP STG Duration 08/11/19 Assessment Summary Assessment 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 Unfortunately, this is largely a diagnosis of exclusion, as there are no tests to properly rule in this disorder. Patients with this disorder, however, typically present with significant visual motion sensitivity/Optokinetic Nystagmus, especially with up walking around in areas with increased visual stimuli, such as walking down aisles of stores, riding as a passenger in cars, or hiking in the brown. Pt also has a very large (7 line) degradation with her DVA, and struggled significantly with her oculomotor/VOR exercises, particularly X1 and X2 viewing . Vestibular Rehabilitation has been shown in many cases to help minimize the severity of symptoms, mainly through habituation/desensitization techniques. Physical Therapy Plan Frequency and Duration Frequency of Treatment 2x/Week Duration of Treatment 12 weeks Plan of Care Start Date 07/12/19 Plan of Care End Date 10/04/19 Therapeutic Interventions Therapeutic Interventions Balance Training,Coordination Training,Home Exercise Program ,Neuromuscular Re-education, Patient/Caregiver Education, Self-Care/Home Management, Sensory Integration,Vestibular Rehabilitation Next Visit Focus/Plan Next Note Type Treatment Note Next Visit Plan VOR/visual motion exercises, balance training, vestibular rehabilitation
--- NOTE | 2019-07-12 17:26 | PT.OPPOC ---
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) Dizziness and giddiness (07/12/19) Visit Care Team Role Provider Type Josee Peterson DO Attending Provider Physician Primary Care Provider Specialty: [facility] Address: [address] [place] [address], [address] [place] [address], [id number] Email: [email or web address] Plan Of Care PT-OP-T Assessment and Plan Start: 07/12/19 14:33 Freq: Status: Active Protocol: Document 07/12/19 11:15 DCW (Rec: 07/12/19 17:25 DCW [id number]) Physical Therapy Assessment Rehab Potential Rehabilitation Potential Good Evaluation Complexity Number of Personal Factors/Comorbidities 1-2 Number of Body Systems Impaired 3 Clinical Presentation at Evaluation Unstable Impairments Impairments Balance,Coordination, Functional Activities, Functional Mobility,Vestibular ,Visual Motor Goals 3 Impairment Pt unable to read longer than 30 minutes due to vertigo Alf Goal (LTG) Pt to tolerate 90 minutes of reading with no increased symptoms LTG Duration 09/11/19 2 Impairment Pt unable to go shopping in [employer] due to increased vertigo and imbalance Alf Goal (LTG) Pt to tolerate shopping for 45 minutes in [employer] with no increased symptoms LTG Duration 09/11/19 1 Impairment Pt does not have an appropriate home exercise program Short Term Goal (STG) Pt to be independent and compliant with an appropriate HEP STG Duration 08/11/19 Assessment Summary Assessment 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 Unfortunately, this is largely a diagnosis of exclusion, as there are no tests to properly rule in this disorder. Patients with this disorder, however, typically present with significant visual motion sensitivity/Optokinetic Nystagmus, especially with up walking around in areas with increased visual stimuli, such as walking down aisles of stores, riding as a passenger in cars, or hiking in the brown. Pt also has a very large (7 line) degradation with her DVA, and struggled significantly with her oculomotor/VOR exercises, particularly X1 and X2 viewing . Vestibular Rehabilitation has been shown in many cases to help minimize the severity of symptoms, mainly through habituation/desensitization techniques. Physical Therapy Plan Frequency and Duration Frequency of Treatment 2x/Week Duration of Treatment 12 weeks Plan of Care Start Date 07/12/19 Plan of Care End Date 10/04/19 Therapeutic Interventions Therapeutic Interventions Balance Training,Coordination Training,Home Exercise Program ,Neuromuscular Re-education, Patient/Caregiver Education, Self-Care/Home Management, Sensory Integration,Vestibular Rehabilitation Next Visit Focus/Plan Next Note Type Treatment Note Next Visit Plan VOR/visual motion exercises, balance training, vestibular rehabilitation Plan of Care Dates Plan of Care Start Date 07/12/19 Plan of Care End Date 10/04/19
--- NOTE | 2019-07-13 11:15 | PT.OTN ---
Current Diagnoses Labyrinthine dysfunction, unspecified ear (07/13/19) Dizziness and giddiness (07/13/19) Physical Therapy Treatment Note PT-OP-A Visit Information Start: 07/12/19 14:33 Freq: Status: Active Protocol: Document 07/13/19 10:30 DCW (Rec: 07/13/19 11:15 DCW [id number]) Out-Patient Physical Therapy Visit Information Visit Information Visit Type Treatment Note Visit Start Time 10:30 Visit Stop Time 11:15 Total Visit Minutes 45 Visit Number 2 Number of PLATE WORKER HELPER Visits 0 Evaluation Information Evaluation Date 07/12/19 PT-OP-B Current Condition Start: 07/12/19 14:33 Freq: Status: Active Protocol: Document 07/12/19 11:15 DCW (Rec: 07/12/19 17:25 DCW [id number]) Current Condition History of Current Condition Onset Date Multi-year history Current Complaints Vertigo/imbalance with visual motion History of Current Condition Pt is a 79 year old female complaining of a multi-year history of vertigo, imbalance, confusion, and light- headedness, but admits it has been worsening over the last year. Pt reports symptoms are always there in the background, but some things make it substantially worse. Symptoms are provoked by walking through big stores, riding as a passenger in a car , using her camera or binoculars, reading, looking up at birds, or walking over narrow bridges during hikes. Pt reports she has had her eyes checked (They look great !) her hearing tested, and a brain MRI, and all testing was negative. Pt denies recent hearing changes, tinnitus, diplopia, dysarthria, discoordination, or decreased mentation/consciousness. Pt denies hx of HTN, diabetes, arrhythmia, head trauma, seizure, CVA, anxiety/panic disorders, or excessive smoking or drinking. Does note a history of mild depression. Treatment Goals Patient/Caregiver Goals Eliminate, or at least decrease, pt's symptoms of vertigo Prior Functional Status Baseline Function- ADL's Independent Baseline Function- Mobility Independent Current Functional Impairments (Reported) Functional Limitations- Recreation/ Pt has difficulty on her hikes Hobbies , unable to cross narrow bridges, opting instead to rene across the water. Pt has difficulty walking into large stores, reading on a computer, and using her camera or binoculars PT-OP-C Subjective Start: 07/12/19 14:33 Freq: Status: Active Protocol: Document 07/13/19 10:30 DCW (Rec: 07/13/19 11:15 DCW [id number]) OP-PT Subjective Patient Comments Patient Comments I have a few questions about my home exercises. PT-OP-E Functional Tests Start: 07/13/19 10:31 Freq: Status: Active Protocol: Document 07/13/19 10:30 DCW (Rec: 07/13/19 11:15 DCW [id number]) Functional Tests Dynamic Gait Index (DGI) Score 23/24 Functional Gait Assessment Score 24/30 Functional Gait Assessment Impairment 20 to <40% Impaired (Score 19- Rating 24) PT-OP-O Vestibular Start: 07/12/19 14:33 Freq: Status: Active Protocol: Document 07/12/19 11:15 DCW (Rec: 07/12/19 17:25 DCW [id number]) Vestibular Assessment Screening Tests Vestibular Artery Screen Negative Auditory Tests Charlton Test Negative Rinne Test Negative Air Conduction Results Equal Visual Testing Smooth Pursuits Horizontal Negative Smooth Pursuits Vertical Negative Saccades Horizontal Negative, but is sets off my head. Gaze Evoked Nystagmus With Fixation Negative Gaze Evoked Nystagmus Without Fixation Negative Heave Test Negative Thrust Head Negative Quinten String Test Impaired Convergence Test WNL DVA (Line Degradation) 7 Head Shake Negative Spontaneous Nystagmus Negative Positional Testing [place]-Hallpike Negative Left,Negative Right Rolling Test Negative Left,Negative Right Supine to Sit Negative Sit to Supine Negative Comments Vestibular Comments Quinten string = set off symptoms with rapid movements between green and blue beads, no visible symptoms. PT-OP-Q Treatments Start: 07/12/19 14:33 Freq: Status: Active Protocol: Document 07/13/19 10:30 DCW (Rec: 07/13/19 11:15 DCW [id number]) Gym Equipment Shuttle Balance Red Comments Wide DHARA (EO/EC, X1 viewing), Staggered Stance (X1 viewing) Neuro Re-Education Treatment Balance Activities 1 Details Tandem Ambulation 2 Details Tandem Stance Comments X1 viewing Vestibular Rehabilitation Corrective Saccades Details Eyes, then head Distance From Target Arm length Speed as tolerated Position seated Reps/Duration 30x2 VOR Retraining Details Target, head, eyes move together Distance From Target Arm length Speed as tolerated Position seated Reps/Duration 30x2 X2 Viewing Details Head and target move in opposite directions Distance From Target Arm length Speed as tolerated Position seated Reps/Duration 30x2 X1 Viewing Details Head moves, target remains stationary Distance From Target Arm length Speed as tolerated Position seated Reps/Duration 30x2 Other Activities Balance Testing Comments DGI/FGA testing PT-OP-T Assessment and Plan Start: 07/12/19 14:33 Freq: Status: Active Protocol: Document 07/13/19 10:30 DCW (Rec: 07/13/19 11:15 DCW [id number]) Physical Therapy Assessment Impairments Impairments Balance,Coordination, Functional Activities, Functional Mobility,Vestibular ,Visual Motor Goals 3 Impairment Pt unable to read longer than 30 minutes due to vertigo [employer] Goal (LTG) Pt to tolerate 90 minutes of reading with no increased symptoms LTG Duration 09/11/19 2 Impairment Pt unable to go shopping in [employer] due to increased vertigo and imbalance [employer] Goal (LTG) Pt to tolerate shopping for 45 minutes in [employer] with no increased symptoms LTG Duration 09/11/19 1 Impairment Pt does not have an appropriate home exercise program Short Term Goal (STG) Pt to be independent and compliant with an appropriate HEP STG Duration 08/11/19 Assessment Summary Assessment Pt c/o difficulty, especially with addition of X1 viewing, but was able to tolerate all activities. Physical Therapy Plan Frequency and Duration Frequency of Treatment 2x/Week Duration of Treatment 12 weeks Plan of Care Start Date 07/12/19 Plan of Care End Date 10/04/19 Therapeutic Interventions Therapeutic Interventions Balance Training,Coordination Training,Home Exercise Program ,Neuromuscular Re-education, Patient/Caregiver Education, Self-Care/Home Management, Sensory Integration,Vestibular Rehabilitation Next Visit Focus/Plan Next Note Type Treatment Note Next Visit Plan VOR/visual motion exercises, balance training, vestibular rehabilitation
--- NOTE | 2019-07-25 11:20 | PT.OTN ---
Current Diagnoses Labyrinthine dysfunction, unspecified ear (07/25/19) Dizziness and giddiness (07/25/19) Physical Therapy Treatment Note PT-OP-A Visit Information Start: 07/12/19 14:33 Freq: Status: Active Protocol: Document 07/25/19 10:30 DCW (Rec: 07/25/19 11:20 DCW [id number]) Out-Patient Physical Therapy Visit Information Visit Information Visit Type Treatment Note Visit Start Time 10:30 Visit Stop Time 11:15 Total Visit Minutes 45 Visit Number 3 Number of VAT OPERATOR Visits 0 Evaluation Information Evaluation Date 07/12/19 PT-OP-B Current Condition Start: 07/12/19 14:33 Freq: Status: Active Protocol: Document 07/12/19 11:15 DCW (Rec: 07/12/19 17:25 DCW [id number]) Current Condition History of Current Condition Onset Date Multi-year history Current Complaints Vertigo/imbalance with visual motion History of Current Condition Pt is a 79 year old female complaining of a multi-year history of vertigo, imbalance, confusion, and light- headedness, but admits it has been worsening over the last year. Pt reports symptoms are always there in the background, but some things make it substantially worse. Symptoms are provoked by walking through big stores, riding as a passenger in a car , using her camera or binoculars, reading, looking up at birds, or walking over narrow bridges during hikes. Pt reports she has had her eyes checked (They look great !) her hearing tested, and a brain MRI, and all testing was negative. Pt denies recent hearing changes, tinnitus, diplopia, dysarthria, discoordination, or decreased mentation/consciousness. Pt denies hx of HTN, diabetes, arrhythmia, head trauma, seizure, CVA, anxiety/panic disorders, or excessive smoking or drinking. Does note a history of mild depression. Treatment Goals Patient/Caregiver Goals Eliminate, or at least decrease, pt's symptoms of vertigo Prior Functional Status Baseline Function- ADL's Independent Baseline Function- Mobility Independent Current Functional Impairments (Reported) Functional Limitations- Recreation/ Pt has difficulty on her hikes Hobbies , unable to cross narrow bridges, opting instead to rene across the water. Pt has difficulty walking into large stores, reading on a computer, and using her camera or binoculars PT-OP-C Subjective Start: 07/12/19 14:33 Freq: Status: Active Protocol: Document 07/25/19 10:30 DCW (Rec: 07/25/19 11:20 DCW [id number]) OP-PT Subjective Patient Comments Patient Comments Pt again has more questions about her HEP. PT-OP-E Functional Tests Start: 07/13/19 10:31 Freq: Status: Active Protocol: Document 07/13/19 10:30 DCW (Rec: 07/13/19 11:15 DCW [id number]) Functional Tests Dynamic Gait Index (DGI) Score 23/24 Functional Gait Assessment Score 24/30 Functional Gait Assessment Impairment 20 to <40% Impaired (Score 19- Rating 24) PT-OP-O Vestibular Start: 07/12/19 14:33 Freq: Status: Active Protocol: Document 07/12/19 11:15 DCW (Rec: 07/12/19 17:25 DCW [id number]) Vestibular Assessment Screening Tests Vestibular Artery Screen Negative Auditory Tests Charlton Test Negative Rinne Test Negative Air Conduction Results Equal Visual Testing Smooth Pursuits Horizontal Negative Smooth Pursuits Vertical Negative Saccades Horizontal Negative, but is sets off my head. Gaze Evoked Nystagmus With Fixation Negative Gaze Evoked Nystagmus Without Fixation Negative Heave Test Negative Thrust Head Negative Quinten String Test Impaired Convergence Test WNL DVA (Line Degradation) 7 Head Shake Negative Spontaneous Nystagmus Negative Positional Testing Kinsley-Hallpike Negative Left,Negative Right Rolling Test Negative Left,Negative Right Supine to Sit Negative Sit to Supine Negative Comments Vestibular Comments Quinten string = set off symptoms with rapid movements between green and blue beads, no visible symptoms. PT-OP-Q Treatments Start: 07/12/19 14:33 Freq: Status: Active Protocol: Document 07/25/19 10:30 DCW (Rec: 07/25/19 11:20 DCW [id number]) Gym Equipment Shuttle Balance Red Details Wide DHARA Comments Head turns Neuro Re-Education Treatment Balance Activities Amb /c Head Turns Details Amb with head turns 3 Details SLS Comments Head Turns 1 Details Tandem Ambulation 2 Details Tandem Stance Comments X1 viewing Vestibular Rehabilitation Corrective Saccades Details Eyes, then head Distance From Target Arm length Speed as tolerated Position seated Reps/Duration 30x2 VOR Retraining Details Target, head, eyes move together Distance From Target Arm length Speed as tolerated Position seated Reps/Duration 30x2 Self-Care/Home Management Treatment Education Patient Education Home Exercise Program,Safety PT-OP-T Assessment and Plan Start: 07/12/19 14:33 Freq: Status: Active Protocol: Document 07/25/19 10:30 DCW (Rec: 07/25/19 11:20 DCW [id number]) Physical Therapy Assessment Impairments Impairments Balance,Coordination, Functional Activities, Functional Mobility,Vestibular ,Visual Motor Goals 3 Impairment Pt unable to read longer than 30 minutes due to vertigo Residential Goal (LTG) Pt to tolerate 90 minutes of reading with no increased symptoms LTG Duration 09/11/19 2 Impairment Pt unable to go shopping in [employer] due to increased vertigo and imbalance Residential Goal (LTG) Pt to tolerate shopping for 45 minutes in [employer] with no increased symptoms LTG Duration 09/11/19 1 Impairment Pt does not have an appropriate home exercise program Short Term Goal (STG) Pt to be independent and compliant with an appropriate HEP STG Duration 08/11/19 Assessment Summary Assessment Pt struggled today with the concept of changing her visual focus. Discussed pt working on home program and visual function. Physical Therapy Plan Frequency and Duration Frequency of Treatment 2x/Week Duration of Treatment 12 weeks Plan of Care Start Date 07/12/19 Plan of Care End Date 10/04/19 Therapeutic Interventions Therapeutic Interventions Balance Training,Coordination Training,Home Exercise Program ,Neuromuscular Re-education, Patient/Caregiver Education, Self-Care/Home Management, Sensory Integration,Vestibular Rehabilitation Next Visit Focus/Plan Next Note Type Treatment Note Next Visit Plan VOR/visual motion exercises, balance training, vestibular rehabilitation
--- NOTE | 2019-07-27 11:26 | PT.OTN ---
Current Diagnoses Labyrinthine dysfunction, unspecified ear (07/27/19) Dizziness and giddiness (07/27/19) Physical Therapy Treatment Note PT-OP-A Visit Information Start: 07/12/19 14:33 Freq: Status: Active Protocol: Document 07/27/19 10:30 DCW (Rec: 07/27/19 11:26 DCW [id number]) Out-Patient Physical Therapy Visit Information Visit Information Visit Type Treatment Note Visit Start Time 10:30 Visit Stop Time 11:15 Total Visit Minutes 45 Visit Number 4 Number of FEATHER WASHER Visits 0 Evaluation Information Evaluation Date 07/12/19 PT-OP-B Current Condition Start: 07/12/19 14:33 Freq: Status: Active Protocol: Document 07/12/19 11:15 DCW (Rec: 07/12/19 17:25 DCW [id number]) Current Condition History of Current Condition Onset Date Multi-year history Current Complaints Vertigo/imbalance with visual motion History of Current Condition Pt is a 79 year old female complaining of a multi-year history of vertigo, imbalance, confusion, and light- headedness, but admits it has been worsening over the last year. Pt reports symptoms are always there in the background, but some things make it substantially worse. Symptoms are provoked by walking through big stores, riding as a passenger in a car , using her camera or binoculars, reading, looking up at birds, or walking over narrow bridges during hikes. Pt reports she has had her eyes checked (They look great !) her hearing tested, and a brain MRI, and all testing was negative. Pt denies recent hearing changes, tinnitus, diplopia, dysarthria, discoordination, or decreased mentation/consciousness. Pt denies hx of HTN, diabetes, arrhythmia, head trauma, seizure, CVA, anxiety/panic disorders, or excessive smoking or drinking. Does note a history of mild depression. Treatment Goals Patient/Caregiver Goals Eliminate, or at least decrease, pt's symptoms of vertigo Prior Functional Status Baseline Function- ADL's Independent Baseline Function- Mobility Independent Current Functional Impairments (Reported) Functional Limitations- Recreation/ Pt has difficulty on her hikes Hobbies , unable to cross narrow bridges, opting instead to rene across the water. Pt has difficulty walking into large stores, reading on a computer, and using her camera or binoculars PT-OP-C Subjective Start: 07/12/19 14:33 Freq: Status: Active Protocol: Document 07/27/19 10:30 DCW (Rec: 07/27/19 11:26 DCW [id number]) OP-PT Subjective Patient Comments Patient Comments Last time was really helpful in processing everything that is going on. PT-OP-E Functional Tests Start: 07/13/19 10:31 Freq: Status: Active Protocol: Document 07/13/19 10:30 DCW (Rec: 07/13/19 11:15 DCW [id number]) Functional Tests Dynamic Gait Index (DGI) Score 23/24 Functional Gait Assessment Score 24/30 Functional Gait Assessment Impairment 20 to <40% Impaired (Score 19- Rating 24) PT-OP-O Vestibular Start: 07/12/19 14:33 Freq: Status: Active Protocol: Document 07/12/19 11:15 DCW (Rec: 07/12/19 17:25 DCW [id number]) Vestibular Assessment Screening Tests Vestibular Artery Screen Negative Auditory Tests Charlton Test Negative Rinne Test Negative Air Conduction Results Equal Visual Testing Smooth Pursuits Horizontal Negative Smooth Pursuits Vertical Negative Saccades Horizontal Negative, but is sets off my head. Gaze Evoked Nystagmus With Fixation Negative Gaze Evoked Nystagmus Without Fixation Negative Heave Test Negative Thrust Head Negative Quinten String Test Impaired Convergence Test WNL DVA (Line Degradation) 7 Head Shake Negative Spontaneous Nystagmus Negative Positional Testing Kamini-Hallpike Negative Left,Negative Right Rolling Test Negative Left,Negative Right Supine to Sit Negative Sit to Supine Negative Comments Vestibular Comments Quinten string = set off symptoms with rapid movements between green and blue beads, no visible symptoms. PT-OP-Q Treatments Start: 07/12/19 14:33 Freq: Status: Active Protocol: Document 07/27/19 10:30 DCW (Rec: 07/27/19 11:26 DCW [id number]) Neuro Re-Education Treatment Balance Activities Amb /c Head Turns Details Amb with head turns Vestibular Rehabilitation Convergence Details Convergence /c Pen Corrective Saccades Details Eyes, then head Distance From Target Arm length Speed as tolerated Position seated Reps/Duration 30x2 VOR Retraining Details Target, head, eyes move together Distance From Target Arm length Speed as tolerated Position seated Reps/Duration 30x2 Self-Care/Home Management Treatment Education Patient Education Home Exercise Program,Safety Other Education Edu on condition, continued treatment, challenging herself at home. PT-OP-T Assessment and Plan Start: 07/12/19 14:33 Freq: Status: Active Protocol: Document 07/27/19 10:30 DCW (Rec: 07/27/19 11:26 DCW [id number]) Physical Therapy Assessment Impairments Impairments Balance,Coordination, Functional Activities, Functional Mobility,Vestibular ,Visual Motor Goals 3 Impairment Pt unable to read longer than 30 minutes due to vertigo Assisted Goal (LTG) Pt to tolerate 90 minutes of reading with no increased symptoms LTG Duration 09/11/19 2 Impairment Pt unable to go shopping in [employer] due to increased vertigo and imbalance Manager Cable Goal (LTG) Pt to tolerate shopping for 45 minutes in [employer] with no increased symptoms LTG Duration 09/11/19 1 Impairment Pt does not have an appropriate home exercise program Short Term Goal (STG) Pt to be independent and compliant with an appropriate HEP STG Duration 08/11/19 Assessment Summary Assessment Once again, patient and therapist spent an extended time discussing pt's visual motion problems, and explanations of her various deficits. Pt feels more comfortable in her understanding at this time. Pt agreeable to focus on independent HEP at this time, and although she does not have more visits scheduled right now, her chart will remain open for ~one month in case she has any questions, concerns, or changes in her condition. Physical Therapy Plan Frequency and Duration Frequency of Treatment 2x/Week Duration of Treatment 12 weeks Plan of Care Start Date 07/12/19 Plan of Care End Date 10/04/19 Therapeutic Interventions Therapeutic Interventions Balance Training,Coordination Training,Home Exercise Program ,Neuromuscular Re-education, Patient/Caregiver Education, Self-Care/Home Management, Sensory Integration,Vestibular Rehabilitation Next Visit Focus/Plan Next Note Type Treatment Note Next Visit Plan VOR/visual motion exercises, balance training, vestibular rehabilitation
== END 2019-07-28 12:55 ==
LOC: PHYS 10:30
PROVIDERS: PCP Family Medicine; Visit Provider Family Medicine
DX: H83.2X9 Labyrinthine dysfunction, unspecified ear (principal); R42 Dizziness and giddiness
CPT/HCPCS: 97112; 97162; 97535

== ENCOUNTER → 2019-08-14 07:04 | Outpatient (CLI) | payer MEDICARE, OTHER, SELFPAY ==
[2019-08-14 08:20] LABS: Vitamin D 25 Hydroxy (D3) 37.6 ng/mL (30.0-100.0)
[2019-08-14 08:21] LABS: Free T3, Triiodothyronine Free 3.59 pg/mL (2.77-5.27)
[2019-08-14 08:31] LABS: Ferritin 16.9 ng/mL (11.1-264)
[2019-08-14 08:35] LABS: Thyroid Stimulating Hormone 0.24 uIU/mL (0.47-4.68)
[2019-08-17 10:01] LABS: Triiodothyronine T3 Reverse 15 ng/dL (8-25)
== END ==
PROVIDERS: PCP Family Medicine; Visit Provider Family Medicine
DX: E03.9 Hypothyroidism, unspecified (principal); G62.9 Polyneuropathy, unspecified; Z87.310 Personal history of (healed) osteoporosis fracture; M81.0 Age-related osteoporosis without current pathological fracture; R79.89 Other specified abnormal findings of blood chemistry
CPT/HCPCS: 36415; 82306; 82728; 84439; 84443; 84481; 84482

== ENCOUNTER → 2019-10-25 10:50 | Outpatient (CLI) | payer MEDICARE, OTHER, SELFPAY ==
--- NOTE | 2019-11-10 09:43 | P.HOLT.S_ITS ---
Supervisor Hot Dip Plating Report Referral & Results Date Patient Seen: 10/25/19 Requesting provider: Josee Peterson Indication: Arrhythmia Duration of monitoring (days): 7 Diary information: There were 13 patient triggered events and 14 patient diary entries Patient triggered events were associated with sinus rhythm, PACs and PVCs Patient diary entries were associated with sinus rhythm and PACs Data: Minimum heart rate identified was 44 beats per minute at 06:21 on 10/31/2019 Maximum sinus heart rate was 145 beats per minute at 08:27 on 11/01/2019 Maximum overall heart rate was 197 beats per minute at 14:13 on 10/27/2019 during an 8 beat run of SVT There were 15 runs of SVT the longest lasting 18.6 seconds with a rate of 87 beats per minute which suggest an wandering atrial pacemaker or atrial tachycardia versus true SVT Less than 1% of identified beats or either ventricular supraventricular ectopic in origin, but patient did have occasional supraventricular ectopic couplets and triplets again very rarely Impression: Minor simple cardiac dysrhythmia as above. No serious dysrhythmias identified on this study
== END ==
PROVIDERS: PCP Family Medicine; Visit Provider Family Medicine
DX: I49.9 Cardiac arrhythmia, unspecified (principal)
CPT/HCPCS: 0296T; 0298T

== ENCOUNTER → 2019-11-20 09:00 | Outpatient (CLI) | payer MEDICARE, OTHER, SELFPAY ==
[2019-11-20 10:36] LABS: Free T3, Triiodothyronine Free 2.41 pg/mL (2.77-5.27); Free T4, Direct Thyroxine 0.88 ng/dL (0.78-2.19)
[2019-11-23 15:17] LABS: Thyroid Peroxidase Antibodies 57 IU/mL (< 9)
== END ==
PROVIDERS: PCP Family Medicine; Referring Provider Family Medicine; Visit Provider Family Medicine
DX: E03.9 Hypothyroidism, unspecified (principal); Z87.310 Personal history of (healed) osteoporosis fracture
CPT/HCPCS: 36415; 84439; 84443; 84481; 86376

== ENCOUNTER → 2020-01-15 07:16 | Outpatient (CLI) | payer MEDICARE, OTHER, SELFPAY ==
[2020-01-15 07:39] LABS: Add Manual Diff / Slide Review NO; Basophils Absolute Auto 0 /uL (0-100); Basophils Percent Auto 1.2 % (0-2); Eosinophils Absolute Auto 100 /uL (0-450); Eosinophils Percent Auto 2.2 % (2-4); Hematocrit 43.9 % (36-46); Hemoglobin 14.9 g/dL (12.0-16.0); Lymphocytes Absolute Auto 1400 /uL (1100-4500); Lymphocytes Percent Auto 37.6 % (25-40); Mean Corpuscular HGB Conc 33.9 % (30-36); Mean Corpuscular Hemoglobin 31.2 PG (26-34); Mean Corpuscular Volume 92.1 fL (80-100); Monocytes Absolute Auto 400 /uL (0-900); Monocytes Percent Auto 9.6 % (3-14); Neutrophils Absolute Auto 1800 /uL (1500-7000); Neutrophils Percent Auto 49.4 % (50-75); Platelet Count 144 X10^3/uL (150-400); Red Blood Cell Count 4.77 X10^6/uL (4.0-5.2); Red Cell Distribution Width 13.2 % (11.6-14.8); White Blood Cell Count 3.7 X10^3/uL (4.5-11.0)
[2020-01-15 07:49] LABS: BUN Creatinine Ratio 24.7 (6-22); Blood Urea Nitrogen 18 mg/dL (7-17); Calcium 9.9 mg/dL (8.4-10.2); Carbon Dioxide 30 mmol/L (22-32); Chloride 106 mmol/L (98-107); Estimated Glomerular Filt Rate > 60.0 mL/min (>60); Glucose 97 mg/dL (80-110); HEMOLYSIS < 15 (0-50); Potassium 4.5 mmol/L (3.4-5.1); Sodium 140 mmol/L (137-145)
[2020-01-15 08:21] LABS: Cortisol AM (Before 10AM) 16.7 ug/dL (4.46-22.7)
[2020-01-15 09:03] LABS: Free T3, Triiodothyronine Free 3.06 pg/mL (2.77-5.27); Free T4, Direct Thyroxine 1.17 ng/dL (0.78-2.19)
[2020-01-15 09:16] LABS: Thyroid Stimulating Hormone 0.94 uIU/mL (0.47-4.68)
[2020-01-16 08:37] LABS: Insulin Level Total 9.5 uIU/mL (2.6-24.9)
== END ==
PROVIDERS: PCP Family Medicine; Referring Provider Family Medicine; Visit Provider Family Medicine
DX: G62.9 Polyneuropathy, unspecified (principal); F32.9 Major depressive disorder, single episode, unspecified; D72.819 Decreased white blood cell count, unspecified; E03.9 Hypothyroidism, unspecified
CPT/HCPCS: 36415; 80048; 82533; 83525; 84439; 84443; 84481; 85025

== ENCOUNTER → 2020-03-29 08:19 | Outpatient (CLI) | payer MEDICARE, OTHER, SELFPAY ==
[2020-03-29 09:47] LABS: Erythrocyte Sedimentation Rate 4 MM/HR (0-20)
[2020-03-29 09:49] LABS: Creatine Kinase 39 U/L (30-135)
[2020-03-29 09:51] LABS: C-Reactive Protein Quant < 0.5 mg/dL (<1.0)
== END ==
PROVIDERS: PCP Family Medicine; Referring Provider Family Medicine; Visit Provider Family Medicine
DX: R53.83 Other fatigue (principal)
CPT/HCPCS: 36415; 82550; 85651; 86140

== ENCOUNTER → 2020-07-08 10:27 | Outpatient (CLI) | payer MEDICARE, OTHER, SELFPAY ==
[2020-07-08 11:48] LABS: Free T3, Triiodothyronine Free 3.04 pg/mL (2.77-5.27); Free T4, Direct Thyroxine 1.22 ng/dL (0.78-2.19)
== END ==
PROVIDERS: PCP Student in an Organized Health Care Education/Training Program; Referring Provider Student in an Organized Health Care Education/Training Program; Visit Provider Student in an Organized Health Care Education/Training Program
DX: E03.8 Other specified hypothyroidism (principal); E06.3 Autoimmune thyroiditis
CPT/HCPCS: 36415; 84439; 84443; 84481

== ENCOUNTER → 2020-11-14 07:30 | Outpatient (CLI) | payer MEDICARE, OTHER, SELFPAY ==
[2020-11-14] MEDS: COVID-19 VACC #1, MRNA(MOD) 100 MCG/0.5 ML VIAL IM (07:42)
== END ==
PROVIDERS: PCP Student in an Organized Health Care Education/Training Program; Visit Provider Internal Medicine
DX: Z23 Encounter for immunization (principal)
CPT/HCPCS: 0011A; 91301

== ENCOUNTER → 2020-12-12 07:30 | Outpatient (CLI) | payer MEDICARE, OTHER, SELFPAY ==
[2020-12-12] MEDS: COVID-19 VACC #2, MRNA(MOD) 100 MCG/0.5 ML VIAL IM (07:36)
== END ==
PROVIDERS: PCP Student in an Organized Health Care Education/Training Program; Visit Provider Internal Medicine
DX: Z23 Encounter for immunization (principal)
CPT/HCPCS: 0012A; 91301

== ENCOUNTER → 2021-02-18 13:33 | Outpatient (CLI) | payer MEDICARE, OTHER, SELFPAY ==
[2021-02-18 15:52] LABS: Free T4, Direct Thyroxine 1.02 ng/dL (0.78-2.19)
[2021-02-18 16:06] LABS: Thyroid Stimulating Hormone 4.19 uIU/mL (0.47-4.68)
== END ==
PROVIDERS: PCP Student in an Organized Health Care Education/Training Program; Referring Provider Student in an Organized Health Care Education/Training Program; Visit Provider Student in an Organized Health Care Education/Training Program
DX: E03.8 Other specified hypothyroidism (principal); E06.3 Autoimmune thyroiditis
CPT/HCPCS: 36415; 84439; 84443

== ENCOUNTER → 2022-02-03 15:04 | Outpatient (CLI) | payer MEDICARE, OTHER, SELFPAY ==
[2022-02-03 16:07] LABS: Add Manual Diff / Slide Review NO; Basophils Absolute Auto 0 /uL (0-100); Basophils Percent Auto 0.7 % (0-2); Eosinophils Absolute Auto 0 /uL (0-450); Eosinophils Percent Auto 0.8 % (2-4); Hematocrit 41.9 % (36-46); Hemoglobin 14.1 g/dL (12.0-16.0); Lymphocytes Absolute Auto 1100 /uL (1100-4500); Lymphocytes Percent Auto 22.3 % (25-40); Mean Corpuscular HGB Conc 33.7 % (30-36); Mean Corpuscular Hemoglobin 30.6 PG (26-34); Monocytes Absolute Auto 400 /uL (0-900); Monocytes Percent Auto 7.2 % (3-14); Neutrophils Absolute Auto 3500 /uL (1500-7000); Platelet Count 162 X10^3/uL (150-400); Red Blood Cell Count 4.61 X10^6/uL (4.0-5.2); Red Cell Distribution Width 13.5 % (11.6-14.8); White Blood Cell Count 5.1 X10^3/uL (4.5-11.0)
[2022-02-03 16:14] LABS: Alanine Aminotransferase 15 IU/L (<35); Albumin 4.5 g/dL (3.5-5.0); Albumin Globulin Ratio 1.7 (1.0-2.8); Alkaline Phosphatase 57 U/L (38-126); Aspartate Aminotransferase 28 IU/L (14-36); BUN Creatinine Ratio 27.8 (6-22); Bilirubin Total 0.4 mg/dL (0.2-1.3); Blood Urea Nitrogen 22 mg/dL (7-17); Calcium 9.8 mg/dL (8.4-10.2); Carbon Dioxide 29 mmol/L (22-32); Chloride 102 mmol/L (98-107); Estimated Glomerular Filt Rate > 60 mL/min (>60); Globulin 2.6 g/dL (1.7-4.1); Glucose 105 mg/dL (80-110); HEMOLYSIS < 15 (0-50); Potassium 3.9 mmol/L (3.4-5.1); Sodium 141 mmol/L (137-145); Total Protein 7.1 g/dL (6.3-8.2)
[2022-02-03 16:26] LABS: NT-proBNP (BNP-Adult 18+) 113 pg/mL (<450)
[2022-02-03 16:42] LABS: TSH w/ Reflex to FT4 1.94 uIU/mL (0.47-4.68)
[2022-02-03 17:07] LABS: Vitamin B12 550 pg/mL (239-931)
== END ==
PROVIDERS: PCP Student in an Organized Health Care Education/Training Program; Referring Provider Student in an Organized Health Care Education/Training Program; Visit Provider Student in an Organized Health Care Education/Training Program
DX: E03.8 Other specified hypothyroidism (principal); R68.89 Other general symptoms and signs; E06.3 Autoimmune thyroiditis
CPT/HCPCS: 36415; 80053; 82607; 83880; 84443; 85025

== ENCOUNTER → 2022-03-09 09:19 | Outpatient (CLI) | payer MEDICARE, OTHER, SELFPAY ==
[2022-03-09 10:56] LABS: COVID19 -Nasal RAPID Negative (Negative)
== END ==
PROVIDERS: PCP Student in an Organized Health Care Education/Training Program; Visit Provider Family Medicine Sleep Medicine
DX: Z01.812 Encounter for preprocedural laboratory examination (principal); Z20.822 Contact with and (suspected) exposure to COVID-19
CPT/HCPCS: 87635

== ENCOUNTER → 2022-03-09 13:15 | Outpatient (CLI) | payer MEDICARE, OTHER, SELFPAY ==
--- NOTE | 2022-03-11 05:45 | DI.NM.S_ITS ---
DATE OF SERVICE: PROCEDURE: Exercise perfusion study. INDICATION: Exercise intolerance. RADIOPHARMACEUTICAL: 29.6 mCi technetium-99m Myoview IV at stress and 25.0 mCi technetium-99m Myoview IV at rest. CARDIAC STRESS: The patient underwent exercise perfusion study under the supervision of an attending staff. She walked on Nima protocol 3 minutes and achieved 104 percent of target heart rate. Baseline blood pressure 100/60 mmHg. Peak blood pressure 122/70 mmHg. The patient felt shortness of breath, leg weakness and fatigue, hence it was discontinued. No chest pain. Achieved 4.6 METs of workload. Functional aerobic impairment positive 30 percent. Baseline EKG revealed sinus rhythm. During stress, no convincing ischemic changes seen. No significant arrhythmias seen. RAW DATA: There is a breast shadow seen. GATED STUDY: Resting left ventricular ejection fraction 84 percent and stress left ventricular ejection fraction 85 percent. Resting end-diastolic volume 51 mL. TID ratio 0.88, which is within normal limits. Lung/heart ratio 0.34, which is within normal limits. MYOCARDIAL PERFUSION SCAN: Stress supine, resting supine and stress prone images were compared to each other. Stress supine and resting supine images revealed small size, mildly decreased perfusion of anterior apex, which got improved during the stress prone images. However stress prone images showed mildly decreased perfusion of distal anterior septum suggestive of shifting breast tissue attenuation artifact. No significant reversible ischemia. CONCLUSION: I will call this study likely a normal myocardial perfusion study with evidence of shifting breast tissue attenuation artifact, as stated above. Diminished exercise tolerance. Enhanced chronotropic response. No obvious ischemic changes seen. No significant arrhythmias seen. As far as perfusion scan is concerned, this is a low-risk myocardial perfusion scan. Annette Bahena - RADHA/eddie/ESTEPHANIE doc#: [id number]/job#: [id number] dd: 03/10/2022 17:42:00 dt: 03/10/2022 20:04:00 DICTATING MD/COPIES TO: Anat Paula MD COPIES MNE: HERBERT;
== END ==
PROVIDERS: PCP Student in an Organized Health Care Education/Training Program; Referring Provider Student in an Organized Health Care Education/Training Program; Visit Provider Student in an Organized Health Care Education/Training Program
DX: R68.89 Other general symptoms and signs (principal); Z20.822 Contact with and (suspected) exposure to COVID-19; R06.02 Shortness of breath; R53.83 Other fatigue; R53.1 Weakness
CPT/HCPCS: 78452; 87635; 93016; 93017; 93018; C9803; A9502

== ENCOUNTER → 2022-03-10 08:12 | Outpatient (CLI) | payer MEDICARE, OTHER, SELFPAY ==
--- NOTE | 2022-03-10 09:17 | P.PCN_ITS ---
Cardiac Stress Test Report Referral & Results Date Patient Seen: 03/10/22 Time Patient Seen: 09:00 Requesting provider: Partha Lee Indication: Exercise intolerance Rest ECG: NSR Procedure Note: Today, following both written and verbal informed consent, the patient was exercised according to a standard [facility] protocol. The patient went for a total of 3 minutes achieving a maximum heart rate of 145 maximum systolic blood pressure of 122. This is approximately 4.6 METs. Exercise was terminated at this point because of fatigue, leg weakness Patient was also given Cardiolite through a previously started Hep-Lock IV by the nuclear plant technical advisor approximately 1 minute prior to the cessation of exercise. Slow hemodynamic response to exercise. Hypotensive at rest. Marked exercise impairment (FA I +30% on active scale). Presenting symptoms of shortness of breath, presyncope, leg weakness reproduced with minimal exertion. No chest pain or other signs/symptoms of angina. Upsloping ST segment in multiple leads that resolved rapidly with rest. No rhythm changes. Impression: Intermediate probability for ischemia. Perfusion imaging pending. Please note: Actual ECG tracings can be found in the PACS system.
--- NOTE | 2022-03-10 10:03 | DI.CT.S_ITS ---
PROCEDURE: CT CHEST WO CON INDICATIONS: Dyspnea on exertion TECHNIQUE: Noncontrast 5 mm thick sections acquired from the pulmonary apices to the posterior costophrenic angles. 1 mm lung window, 5 mm thick coronal and sagittal and 7 mm axial MIP reformats were then acquired. For radiation dose reduction, the following was used: automated exposure control, adjustment of mA and/or kV according to patient size. COMPARISON: [facility], CHEST 2 VIEW, 03/08/2016, 10:27. FINDINGS: Image quality: Excellent. Lungs and pleura: There is a 2 mm nodule in the right lower lobe (series 3 image 145). No acute air space opacities. No pleural effusions or pneumothorax. Central and peripheral airways are patent and normal in caliber. Mediastinum: Heart size is normal. No pericardial effusion. No mediastinal adenopathy by size criteria. Thoracic aorta and central pulmonary arteries are normal in size. Esophagus is normal in caliber. There is a ikbbh-kv-ycyilero sized hiatal hernia. Bones and chest wall: No suspicious bony lesions. No vertebral body compression fractures. No axillary or supraclavicular adenopathy by size criteria. Thyroid gland is unremarkable. Abdomen: A few low-density nodules are seen in the left hepatic lobe, most likely hepatic cysts. There is a 3.2 cm simple appearing cyst in the superior pole of the left kidney IMPRESSION: 1. No acute cardiopulmonary process. 2. A 2 mm nodule in the right lower lobe. Please see enclosed follow-up recommendation. 3. A spxyw-uu-rzhhbzcz sized hiatal hernia. Fleischner Society criteria for SOLID lung nodule followup. Nodule size (mm)Low-risk patientHigh-risk patient?4No follow-up neededFollow-up at 12 mo; if no change, no further follow-up>6-2Gftvqc-kb CT at 12 mo; if no change, no further follow-up needed.Initial follow-up CT at 6-12 mo, then 18-24 mo if no change. >6-8Initial follow-up CT at 6-12 mo, then 18-24 mo if no change. Initial follow-up CT at 3-6 mo, then 9-12 mo and 24 mo if no change. >8Follow-up CT at 3, 9, 24 mo. Or PET and/or biopsy.Same as for low-risk pts. Dictated by: Regan Alexander M.D. on 03/10/2022 at 12:09 Approved by: Regan Alexander M.D. on 03/10/2022 at 12:39
== END ==
PROVIDERS: PCP Student in an Organized Health Care Education/Training Program; Referring Provider Student in an Organized Health Care Education/Training Program; Visit Provider Student in an Organized Health Care Education/Training Program
DX: R68.89 Other general symptoms and signs (principal); R06.00 Dyspnea, unspecified; R91.1 Solitary pulmonary nodule; K44.9 Diaphragmatic hernia without obstruction or gangrene; I95.9 Hypotension, unspecified
CPT/HCPCS: 71250

== ENCOUNTER → 2022-03-18 08:57 | Outpatient (CLI) | payer MEDICARE, OTHER, SELFPAY | PROVIDERS: PCP Student in an Organized Health Care Education/Training Program; Referring Provider Student in an Organized Health Care Education/Training Program; Visit Provider Student in an Organized Health Care Education/Training Program | DX: R68.89 Other general symptoms and signs (principal); Z00-Z99 Factors influencing health status and contact with health services | CPT/HCPCS: 36415; 87899 ==

== ENCOUNTER → 2022-03-19 12:30 | Outpatient (CLI) | payer MEDICARE, OTHER, SELFPAY ==
[2022-03-19 14:02] LABS: COVID19 -Nasal RAPID Negative (Negative)
== END ==
PROVIDERS: PCP Student in an Organized Health Care Education/Training Program; Referring Provider Internal Medicine; Visit Provider Internal Medicine
DX: Z20.822 Contact with and (suspected) exposure to COVID-19 (principal)
CPT/HCPCS: 87635; C9803

== ENCOUNTER → 2022-03-20 08:16 | Outpatient (CLI) | payer MEDICARE, OTHER, SELFPAY ==
--- NOTE | 2022-03-23 14:07 | PM.PFT.1 ---
Pulmonary Function Test Referral & Results Date Patient Seen: 03/20/22 Requesting provider: Partha Lee Results: The spirometry demonstrates an FVC of 2.6 or L which is 87% of predicted. The FEV1 was measured at 2.14 L which is 95% of predicted. The FEV1/FVC ratio was 82 which is 110% of predicted. Following the administration of bronchodilator there was 11% improvement in FEV1 and a 34% improvement in FEF 25-75% Lung volumes show an SVC of 3.07 L which is 103% of predicted. The diffusing capacity was measured at 17.54 which is 61% of predicted. No hemoglobin value was provided, so no correction for potential anemia could be made, if appropriate. The maximum voluntary ventilation was normal Interpretation: This study demonstrates normal spirometry There is a moderate reduction diffusing capacity suggesting disease at the capillary alveolar level Clinical correlation suggested
== END ==
PROVIDERS: PCP Student in an Organized Health Care Education/Training Program; Referring Provider Student in an Organized Health Care Education/Training Program; Visit Provider Student in an Organized Health Care Education/Training Program
DX: R06.09 Other forms of dyspnea (principal); J98.8 Other specified respiratory disorders
CPT/HCPCS: 94060; 94726; 94729

== ENCOUNTER 2022-04-30 14:15 | Outpatient (RCR) | payer MEDICARE, OTHER, SELFPAY | END 2022-04-30 14:53 | LOC: PUL 14:15 | PROVIDERS: PCP Student in an Organized Health Care Education/Training Program; Referring Provider Student in an Organized Health Care Education/Training Program; Visit Provider Student in an Organized Health Care Education/Training Program | DX: U09.9 Post COVID-19 condition, unspecified (principal); R06.02 Shortness of breath | CPT/HCPCS: 94625; 94626 ==

== ENCOUNTER → 2022-06-03 11:10 | Outpatient (CLI) | payer MEDICARE, OTHER, SELFPAY ==
[2022-06-03 13:22] LABS: BUN Creatinine Ratio 29.6 (6-22); Blood Urea Nitrogen 24 mg/dL (7-17); Estimated Glomerular Filt Rate > 60 mL/min (>60)
== END ==
PROVIDERS: PCP Student in an Organized Health Care Education/Training Program; Referring Provider Student in an Organized Health Care Education/Training Program; Visit Provider Student in an Organized Health Care Education/Training Program
DX: N14.1 Nephropathy induced by other drugs, medicaments and biological substances (principal); T50.8X5A Adverse effect of diagnostic agents, initial encounter
CPT/HCPCS: 36415; 82565; 84520

== ENCOUNTER → 2022-06-05 18:06 | Outpatient (CLI) | payer MEDICARE, OTHER, SELFPAY ==
--- NOTE | 2022-06-05 18:08 | DI.MRI.S_ITS ---
PROCEDURE: MR HEAD/BRAIN WO/W CON INDICATIONS: Neurological changes TECHNIQUE: Noncontrast axial T1 spin echo, axial T2 fast spin echo, sagittal and axial FLAIR, coronal T2 fast spin echo, axial gradient echo, axial diffusion and ADC through the brain. After the administration of contrast, axial and coronal and sagittal 3D VIBE or T1 spin echo with fat saturation through the brain. COMPARISON: [facility], MR, MR HEAD/BRAIN WO/W CON, 06/01/2018, 9:16. FINDINGS: Image quality: Excellent. CSF Spaces: Basal cisterns are patent. No extra-axial fluid collections. Ventricles are normal in size and shape. Brain: No midline shift. No intracranial bleeds or masses. No abnormal intracranial enhancement. The brainstem appears normal. Diffusion-weighted images demonstrate no acute infarct. Normal intravascular flow voids are present. Moderate atrophy and multifocal chronic ischemic change noted, increased from the prior exam 05/2018. Skull and face: Calvarial marrow is normal in signal. Orbits appear normal. Sinuses: Sinuses and mastoids appear clear. IMPRESSION: Atrophy and chronic ischemic change without acute infarct, hemorrhage or mass lesion Approved by: Jair Noyola M.D. on 06/06/2022 at 7:09
== END ==
PROVIDERS: PCP Student in an Organized Health Care Education/Training Program; Referring Provider Student in an Organized Health Care Education/Training Program; Visit Provider Student in an Organized Health Care Education/Training Program
DX: G43.909 Migraine, unspecified, not intractable, without status migrainosus (principal); F34.9 Persistent mood [affective] disorder, unspecified; R68.89 Other general symptoms and signs
CPT/HCPCS: 70553; A9579

== ENCOUNTER 2022-08-12 14:30 | Outpatient (RCR) | payer MEDICARE, OTHER, SELFPAY ==
--- NOTE | 2022-07-29 16:45 | PT.OPPOC ---
Physical, Occupational & Speech Therapy At [facility] Current Diagnoses Benign paroxysmal vertigo, unspecified ear (07/29/22) Other abnormalities of gait and mobility (07/29/22) Dizziness and giddiness (07/29/22) Visit Care Team Role Provider Type Partha Lee MD Attending Provider Physician Family Provider Primary Care Provider Referring Provider Specialty: Internal Medicine Address: [address] [place] [address], [address], [address] Email: [email or web address] Plan Of Care PT-OP-T Assessment and Plan Start: 07/29/22 17:53 Freq: Status: Active Protocol: Document 07/29/22 16:00 DCW (Rec: 07/30/22 15:54 DCW [id number]) Physical Therapy Assessment Rehab Potential Rehabilitation Potential Fair Evaluation Complexity Number of Personal Factors/Comorbidities 3 or More Number of Body Systems Impaired 4 or More Clinical Presentation at Evaluation Unstable Impairments Impairments Balance,Functional Activities, Functional Mobility,Sensation Goals Two Impairment Pt shows quick fall reaction when closing eyes with NBOS Halfway Goal (LTG) Pt to exhibit ability to standing with a NBOS with eyes closed for 20 seconds to demonstrate decreased risk of falls. LTG Duration 08/26/22 One Impairment Pt does not have an appropriate home exercise program Short Term Goal (STG) Pt to be independent and compliant with an appropriate HEP STG Duration 08/12/22 Assessment Summary Assessment Pt presents to skilled therapy with vague complaints of problems with balance and stability, along with notable neuropathy and fatigue. Pt admits that she doesn't think PT will help her, and is mainly just coming in looking for a diagnosis. Pt is a tangential historian with difficulty describing many of her complaints, which directly limited time spent today on vestibular testing. Pt did not appear to have symptoms of BPPV, did demonstrate some corrective saccades with smooth pursuit, which can be a sign of central dysfunction, however pt does have a recent brain MRI which only showed atrophy and chronic ischemic change. Saccadic movements can also just simply be an age- related function, and without corroborating imaging, are rather unremarkable. After extended discussion, therapist and patient agreeable to attempting some balance training to see if pt feels more confident with her gait and stability. Pt may benefit in the long-run from referral to neurology or rheumatology in regards to her sensation of full-body neuropathy in her legs, arms, body, and head if she does not progress with physical therapy. Physical Therapy Plan Frequency and Duration Frequency of Treatment 1x/Week Duration of treatment (weeks) 4 Plan of Care Start Date 07/29/22 Plan of Care End Date 08/26/22 Therapeutic Interventions Therapeutic Interventions Balance Training,Coordination Training,Home Exercise Program ,Neuromuscular Re-education, Patient/Caregiver Education, Self-Care/Home Management, Therapeutic Activities, Therapeutic Exercises, Vestibular Rehabilitation Next Visit Focus/Plan Next Note Type Treatment Note Next Visit Plan Balance and vestibular challenges Plan of Care Dates Plan of Care Start Date 07/29/22 Plan of Care End Date 08/26/22 Electronically Signed by: Franki Case, PT 07/30/22 [id number] If you are in agreement with this Plan of Care, please return a signed and dated copy. I have reviewed this Plan of Care and certify that the skilled therapy services above are required to meet the patient?s needs. Physician Signature Date Printed Name and Credentials Clinical Instructor Signature Printed Name and Credentials
--- NOTE | 2022-07-29 16:45 | PT.OIE ---
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) Bipolar depression Compression fracture of T12 vertebra with routine healing Cystocele (12/18/13) Degeneration of intervertebral disc of lumbosacral region (07/03/16) Depression Fracture tibia/fibula Hyperlipidemia Hypothyroidism Lumbar radiculopathy, chronic Lumbar spine pain Menopause Migraines Mitral valve prolapse Primary insomnia (10/07/17) Right peroneal mononeuropathy (07/03/16) Sensorineural hearing loss (SNHL) of both ears Spondylolisthesis at L5-S1 level (07/03/16) Uterovaginal prolapse Past Surgical History (Last Updated 02/17/20 @ 14:20 by Josee Peterson DO) H/O cataract removal with insertion of prosthetic lens History of esophagogastroduodenoscopy (EGD) (~2015) History of third molar tooth extraction Right fibular fracture Status post tonsillectomy and adenoidectomy Status post vaginal hysterectomy (~2013) Visit Care Team Role Provider Type Partha Lee MD Attending Provider Physician Family Provider Primary Care Provider Referring Provider Specialty: Internal Medicine Address: [address] [place] [address], [facility] Email: [email or web address] Physical Therapy Initial Evaluation PT-OP-A Visit Information Start: 07/29/22 17:53 Freq: Status: Active Protocol: Document 07/29/22 16:00 DCW (Rec: 07/30/22 09:38 DCW [id number]) Out-Patient Physical Therapy Visit Information Visit Information Visit Type Initial Evaluation Visit Start Time 16:00 Visit Stop Time 16:45 Total Visit Minutes 45 Visit Number [address] Visits 0 Evaluation Information Evaluation Date 07/30/22 PT-OP-B Current Condition Start: 07/29/22 17:53 Freq: Status: Active Protocol: Document 07/29/22 16:00 DCW (Rec: 07/30/22 09:38 DCW [id number]) Current Condition History of Current Condition Onset Date Six month history Current Complaints Worsening complaints of vague dizziness History of Current Condition Pt is a difficult historian who has problems describing her symptoms. She has been treated at this facility for vestibular issues approx. four years ago with minimal success. Returns today admitting she doesn't really know what she wants from therapy, really just looking for a diagnosis. Admits she feels different than she previously had, and although she has a multi-year history, has really noticed worsening symptoms since January. Describes dizziness, but notes it is an imbalance and difficulty seeing/reacting to things. For example, she'll be out working in her yard, and then be startled and surprised by seeing a branch out of her peripheral vision. Notes she fatigues very quickly, especially in situations where there is a lot of visual stimulation, like walking in a grocery store. Admits she has fairly bad neuropathy in her legs, which has progressed and is now starting at her knees and worsens distally, however also notes she feels like she has neuropathy in my arms, in my head, and in my body, too. PT-OP-C Subjective Start: 07/29/22 17:53 Freq: Status: Active Protocol: Document 07/29/22 16:00 DCW (Rec: 07/30/22 09:42 [facility] [id number]) OP-PT Subjective Patient Comments Patient Comments Sometimes I get dizzy when I ve around in bed. I'm not sure if there's spinning. I guess I don't really understand the difference between spinning or lightheadedness, it's just like visually things are moving a bit. Patient Reported Progress Worse Patient Questionnaires Dizziness Handicap Inventory DHI Score 80% DHI Functional Impairment 80 to 99% Impaired (Score 80- 99) OP-PT Pain Assessment Pain Assessment Grid Paper Pain Assessment Grid Completed No PT-OP-D Balance Start: 07/29/22 17:53 Freq: Status: Active Protocol: Document 07/29/22 16:00 DCW (Rec: 07/30/22 09:42 [facility] [id number]) OP-PT Balance Assessment Sitting Balance Static Sitting Balance Ability Normal Dynamic Sitting Balance Ability Normal Standing Balance Static Standing Balance Ability Good Dynamic Standing Balance Ability Good Balance Tests Other Other Balance Tests Performed NBOS Eyes open: Moderate Sway, 30+ seconds NBOS Eyes Closed: Fall Reaction Williamson Fall Scale Copyright Permission PT-OP-O Vestibular Start: 07/29/22 17:53 Freq: Status: Active Protocol: Document 07/29/22 16:00 DCW (Rec: 07/30/22 09:42 DCW [id number]) Vestibular Assessment Screening Tests Vestibular Artery Screen Negative Visual Testing Smooth Pursuits Horizontal Displays corrective saccades Smooth Pursuits Vertical Displays corrective saccades Saccades Horizontal WNL Saccades Vertical WNL Positional Testing [place]-Hallpike Negative Left,Negative Right Rolling Test Negative Left,Negative Right PT-OP-T Assessment and Plan Start: 07/29/22 17:53 Freq: Status: Active Protocol: Document 07/29/22 16:00 DCW (Rec: 07/30/22 15:54 DCW [id number]) Physical Therapy Assessment Rehab Potential Rehabilitation Potential Fair Evaluation Complexity Number of Personal Factors/Comorbidities 3 or More Number of Body Systems Impaired 4 or More Clinical Presentation at Evaluation Unstable Impairments Impairments Balance,Functional Activities, Functional Mobility,Sensation Goals Two Impairment Pt shows quick fall reaction when closing eyes with NBOS Cuff Matcher Goal (LTG) Pt to exhibit ability to standing with a NBOS with eyes closed for 20 seconds to demonstrate decreased risk of falls. LTG Duration 08/26/22 One Impairment Pt does not have an appropriate home exercise program Short Term Goal (STG) Pt to be independent and compliant with an appropriate HEP STG Duration 08/12/22 Assessment Summary Assessment Pt presents to skilled therapy with vague complaints of problems with balance and stability, along with notable neuropathy and fatigue. Pt admits that she doesn't think PT will help her, and is mainly just coming in looking for a diagnosis. Pt is a tangential historian with difficulty describing many of her complaints, which directly limited time spent today on vestibular testing. Pt did not appear to have symptoms of BPPV, did demonstrate some corrective saccades with smooth pursuit, which can be a sign of central dysfunction, however pt does have a recent brain MRI which only showed atrophy and chronic ischemic change. Saccadic movements can also just simply be an age- related function, and without corroborating imaging, are rather unremarkable. After extended discussion, therapist and patient agreeable to attempting some balance training to see if pt feels more confident with her gait and stability. Pt may benefit in the long-run from referral to neurology or rheumatology in regards to her sensation of full-body neuropathy in her legs, arms, body, and head if she does not progress with physical therapy. Physical Therapy Plan Frequency and Duration Frequency of Treatment 1x/Week Duration of treatment (weeks) 4 Plan of Care Start Date 07/29/22 Plan of Care End Date 08/26/22 Therapeutic Interventions Therapeutic Interventions Balance Training,Coordination Training,Home Exercise Program ,Neuromuscular Re-education, Patient/Caregiver Education, Self-Care/Home Management, Therapeutic Activities, Therapeutic Exercises, Vestibular Rehabilitation Next Visit Focus/Plan Next Note Type Treatment Note Next Visit Plan Balance and vestibular challenges
--- NOTE | 2022-08-12 15:12 | PT.OTN ---
Current Diagnoses Benign paroxysmal vertigo, unspecified ear (08/12/22) Other abnormalities of gait and mobility (08/12/22) Dizziness and giddiness (08/12/22) Physical Therapy Treatment Note PT-OP-A Visit Information Start: 07/29/22 17:53 Freq: Status: Active Protocol: Document 08/12/22 14:30 DCW (Rec: 08/12/22 15:12 DCW [id number]) Out-Patient Physical Therapy Visit Information Visit Information Visit Type Treatment Note Visit Start Time 14:30 Visit Stop Time 15:00 Total Visit Minutes 30 Visit Number 2 Number of EGG CANDLER Visits 0 Evaluation Information Evaluation Date 07/30/22 PT-OP-B Current Condition Start: 07/29/22 17:53 Freq: Status: Active Protocol: Document 07/29/22 16:00 DCW (Rec: 07/30/22 09:38 DCW [id number]) Current Condition History of Current Condition Onset Date Six month history Current Complaints Worsening complaints of vague dizziness History of Current Condition Pt is a difficult historian who has problems describing her symptoms. She has been treated at this facility for vestibular issues approx. four years ago with minimal success. Returns today admitting she doesn't really know what she wants from therapy, really just looking for a diagnosis. Admits she feels different than she previously had, and although she has a multi-year history, has really noticed worsening symptoms since January. Describes dizziness, but notes it is an imbalance and difficulty seeing/reacting to things. For example, she'll be out working in her yard, and then be startled and surprised by seeing a branch out of her peripheral vision. Notes she fatigues very quickly, especially in situations where there is a lot of visual stimulation, like walking in a grocery store. Admits she has fairly bad neuropathy in her legs, which has progressed and is now starting at her knees and worsens distally, however also notes she feels like she has neuropathy in my arms, in my head, and in my body, too. PT-OP-C Subjective Start: 07/29/22 17:53 Freq: Status: Active Protocol: Document 08/12/22 14:30 DCW (Rec: 08/12/22 15:12 DCW [id number]) OP-PT Subjective Patient Comments Patient Comments I'm really tired today. PT-OP-D Balance Start: 07/29/22 17:53 Freq: Status: Active Protocol: Document 07/29/22 16:00 DCW (Rec: 07/30/22 09:42 DCW [id number]) OP-PT Balance Assessment Sitting Balance Static Sitting Balance Ability Normal Dynamic Sitting Balance Ability Normal Standing Balance Static Standing Balance Ability Good Dynamic Standing Balance Ability Good Balance Tests Other Other Balance Tests Performed NBOS Eyes open: Moderate Sway, 30+ seconds NBOS Eyes closed: Fall Reaction Williamson Fall Scale Copyright Permission PT-OP-O Vestibular Start: 07/29/22 17:53 Freq: Status: Active Protocol: Document 07/29/22 16:00 DCW (Rec: 07/30/22 09:42 DCW [id number]) Vestibular Assessment Screening Tests Vestibular Artery Screen Negative Visual Testing Smooth Pursuits Horizontal Displays corrective saccades Smooth Pursuits Vertical Displays corrective saccades Saccades Horizontal WNL Saccades Vertical WNL Positional Testing Kamini-Hallpike Negative Left,Negative Right Rolling Test Negative Left,Negative Right PT-OP-Q Treatments Start: 07/29/22 17:53 Freq: Status: Active Protocol: Document 08/12/22 14:30 DCW (Rec: 08/12/22 15:12 DCW [id number]) Gym Equipment Shuttle Balance Red Details WBOS, Staggered Neuro Re-Education Treatment Balance Activities BOSU Details Blue BOSU Comments EO/EC PT-OP-T Assessment and Plan Start: 07/29/22 17:53 Freq: Status: Active Protocol: Document 08/12/22 14:30 DCW (Rec: 08/12/22 15:12 DCW [id number]) Physical Therapy Assessment Impairments Impairments Balance,Functional Activities, Functional Mobility,Sensation Goals Two Impairment Pt shows quick fall reaction when closing eyes with NBOS Assisted Goal (LTG) Pt to exhibit ability to standing with a NBOS with eyes closed for 20 seconds to demonstrate decreased risk of falls. LTG Duration 08/26/22 One Impairment Pt does not have an appropriate home exercise program Short Term Goal (STG) Pt to be independent and compliant with an appropriate HEP STG Duration 08/12/22 Assessment Summary Assessment Pt largely does fine with all balance challenges, had no difficulty with BOSU or Shuttle Balance, any balance activities. Continues vague complaints of neuropathy in my head, no real vestibular or balance components noted. Spent an extended time today discussing pt's symptoms and the questions she continues to have. Recommend that she follows-up with neuro referral . Unlikely to benefit from further physical therapy intervention. Will discharge from skilled PT at this time. Physical Therapy Plan Frequency and Duration Frequency of Treatment 1x/Week Duration of treatment (weeks) 4 Plan of Care Start Date 07/29/22 Plan of Care End Date 08/26/22 Therapeutic Interventions Therapeutic Interventions Balance Training,Coordination Training,Home Exercise Program ,Neuromuscular Re-education, Patient/Caregiver Education, Self-Care/Home Management, Therapeutic Activities, Therapeutic Exercises, Vestibular Rehabilitation Discharge Physical Therapy Discharge Reasons Patient Request Next Visit Focus/Plan Next Note Type Discharge Summary
== END 2022-08-18 10:56 | disposition home or self-care (01) ==
LOC: PHYS 14:30
PROVIDERS: Family Provider Student in an Organized Health Care Education/Training Program; PCP Student in an Organized Health Care Education/Training Program; Referring Provider Student in an Organized Health Care Education/Training Program; Visit Provider Student in an Organized Health Care Education/Training Program
DX: R26.89 Other abnormalities of gait and mobility (principal); H81.10 Benign paroxysmal vertigo, unspecified ear
CPT/HCPCS: 97112; 97163

== ENCOUNTER → 2023-03-10 08:20 | Outpatient (CLI) | payer MEDICARE, OTHER, SELFPAY ==
[2023-03-10 09:32] LABS: Add Manual Diff / Slide Review NO; Basophils Absolute Auto 0 /uL (0-100); Basophils Percent Auto 1.3 % (0-2); Eosinophils Absolute Auto 0 /uL (0-450); Eosinophils Percent Auto 0.8 % (2-4); Hematocrit 41.9 % (36-46); Hemoglobin 14.1 g/dL (12.0-16.0); Lymphocytes Absolute Auto 1000 /uL (1100-4500); Lymphocytes Percent Auto 30.6 % (25-40); Mean Corpuscular HGB Conc 33.7 % (30-36); Mean Corpuscular Hemoglobin 30.6 PG (26-34); Mean Corpuscular Volume 90.9 fL (80-100); Monocytes Absolute Auto 300 /uL (0-900); Monocytes Percent Auto 8.4 % (3-14); Neutrophils Absolute Auto 2000 /uL (1500-7000); Neutrophils Percent Auto 58.9 % (50-75); Platelet Count 136 X10^3/uL (150-400); Red Blood Cell Count 4.61 X10^6/uL (4.0-5.2); Red Cell Distribution Width 13.6 % (11.6-14.8); White Blood Cell Count 3.4 X10^3/uL (4.5-11.0)
[2023-03-10 09:48] LABS: Erythrocyte Sedimentation Rate 5 MM/HR (0-20)
[2023-03-10 10:07] LABS: Alanine Aminotransferase 15 IU/L (<35); Albumin 4.4 g/dL (3.5-5.0); Albumin Globulin Ratio 1.8 (1.0-2.8); Alkaline Phosphatase 63 U/L (38-126); Aspartate Aminotransferase 27 IU/L (14-36); BUN Creatinine Ratio 22.4 (6-22); Bilirubin Total 0.6 mg/dL (0.2-1.3); Blood Urea Nitrogen 17 mg/dL (7-17); C-Reactive Protein Quant < 0.5 mg/dL (<1.0); Calcium 9.1 mg/dL (8.4-10.2); Carbon Dioxide 29 mmol/L (22-32); Chloride 101 mmol/L (98-107); Creatine Kinase 38 U/L (30-135); Estimated Glomerular Filt Rate > 60 mL/min (>60); Globulin 2.4 g/dL (1.7-4.1); Glucose 71 mg/dL (80-110); HEMOLYSIS < 15 (0-50); Potassium 4.1 mmol/L (3.4-5.1); Sodium 137 mmol/L (137-145); Total Protein 6.8 g/dL (6.3-8.2)
[2023-03-10 10:16] LABS: Appearance Urine UA CLEAR; Bilirubin Urine UA NEGATIVE (NEGATIVE); Color Urine UA YELLOW; Glucose Urine UA NEGATIVE (Negative); Ketones Urine UA NEGATIVE (NEGATIVE); Leukocyte Esterase Urine UA 1+ (NEGATIVE); Nitrite Urine UA NEGATIVE (Negative); Occult Blood Urine UA TRACE-INTACT (Negative); Protein Urine UA NEGATIVE (Negative); Urobilinogen Urine UA 0.2 E.U./dL (0.2)
[2023-03-10 10:39] LABS: pH Urine UA 6.5 (4.5-8.0)
[2023-03-10 10:40] LABS: Bacteria Urine None Seen; Culture Indicated Urine Specimen Cultured; RBC Urine 1-5/HPF (0-5/HPF); Squamous Epithelial Cell Urine 1-5 /HPF (0-5/HPF); WBC Urine 1-5/HPF (0-5/HPF)
[2023-03-10 10:45] LABS: Vitamin B12 633 pg/mL (239-931)
== END ==
PROVIDERS: Family Provider Student in an Organized Health Care Education/Training Program; PCP Student in an Organized Health Care Education/Training Program; Referring Provider Pediatrics; Visit Provider Pediatrics
DX: E03.8 Other specified hypothyroidism (principal); E06.3 Autoimmune thyroiditis; E78.5 Hyperlipidemia, unspecified; H81.10 Benign paroxysmal vertigo, unspecified ear; K21.9 Gastro-esophageal reflux disease without esophagitis; M79.10 Myalgia, unspecified site; R53.83 Other fatigue; M81.0 Age-related osteoporosis without current pathological fracture
CPT/HCPCS: 36415; 80053; 81003; 81015; 82550; 82607; 84443; 85025; 85651; 86140; 87086

== ENCOUNTER → 2023-03-16 10:40 | Outpatient (CLI) | payer MEDICARE, OTHER, SELFPAY ==
--- NOTE | 2023-03-16 10:43 | DI.CT.S_ITS ---
PROCEDURE: CT FACIAL BONES WO CON INDICATIONS: lt periorbital to ear pain s/p dental extract-anatomic abnl? TECHNIQUE: Noncontrast 2.5 mm thick axial images acquired from the mandible through the frontal sinuses, with coronal and sagittal reformatting. For radiation dose reduction, the following was used: automated exposure control, adjustment of mA and/or kV according to patient size. COMPARISON: MR, MR HEAD/BRAIN WO/W CON, 06/05/2022, 18:36. FINDINGS: Image quality: Prominent artifact is present from dental hardware. Bones and teeth: Orbital hoover are intact. Sinus hoover show no fracture or deformity. Nasal bones and septum are intact. Visualized portions of the mandible demonstrate no fractures or subluxation. Zygomatic arches are intact. Pterygoid plates are intact. Visualized portions of the skull base and auditory canals are intact. Multiple lucencies are present within the left mandible appearing to be related to prior teeth extraction. Sinuses: Paranasal sinuses demonstrate mild mucosal thickening within the maxillary sinuses. No fluid levels. Ostiomeatal complexes are patent. Mastoid air cells are aerated. Soft tissues: No edema, masses, or fluid collections. No enlarged lymph nodes. No soft tissue lacerations or debris. Vascular: Visualized vascular structures appear normal in the absence of contrast. Bony vascular foramina and canals are intact. IMPRESSION: Minimal maxillary sinus mucosal thickening. Lucency is noted within the left mandible appearing to be related to prior dental extraction. If this area corresponds to area of pain, dental examination is recommended. Dictated by: Leydi Daigle M.D. on 03/16/2023 at 17:13 Approved by: Leydi Daigle M.D. on 03/16/2023 at 17:16
== END ==
PROVIDERS: Family Provider Student in an Organized Health Care Education/Training Program; PCP Pediatrics; Referring Provider Pediatrics; Visit Provider Pediatrics
DX: E06.3 Autoimmune thyroiditis (principal); M79.10 Myalgia, unspecified site; E03.8 Other specified hypothyroidism; E78.5 Hyperlipidemia, unspecified; H81.10 Benign paroxysmal vertigo, unspecified ear; K21.9 Gastro-esophageal reflux disease without esophagitis; R53.83 Other fatigue
CPT/HCPCS: 70486

== ENCOUNTER → 2023-06-30 10:48 | Outpatient (CLI) | payer MEDICARE, OTHER, SELFPAY ==
--- NOTE | 2023-06-30 10:49 | DI.RAD.S_ITS ---
Bone Density Report Name: KEVIN GONZALEZ Age: 83 Sex: Female Ethnicity: White Date of : 1940 Indication: osteopenia; prior fracture; Referring Provider: LEDA [id number] Study: Bone densitometry was performed. Exam Date: June 30, 2023 Accession number: [id number] Bone Density: Region BMD T-score Z-score Classification AP Spine(L1-L4) 0.849 -1.8 0.9 Osteopenia Femoral Neck (Left) 0.542 -2.8 -0.4 Osteoporosis Total Hip (Left) 0.690 -2.1 0.1 Osteopenia Femoral Neck (Right) 0.642 -1.9 0.5 Osteopenia Total Hip (Right) 0.756 -1.5 0.6 Osteopenia Total Hip Mean 0.723 -1.8 0.4 Osteopenia World Health Organization criteria for BMD impression classify patients as: Normal (T-score at or above -1.0), Osteopenia (T-score between -1.0 and -2.5), or Osteoporosis (T-score at or below -2.5). 10-year Fracture Risk: FRAX not reported because: Some T-score for Spine Total or Hip Total or Femoral Neck at or below -2.5 Prior hip or vertebral fracture Previous Exams: -- Region Exam Age BMD T-score BMD Change BMD Change Date g/cm2 vs Baseline vs Previous -- AP Spine (L1-L4) 06/30/2023 83 0.849 -1.8 0.038 (4.7%)# 0.038 (4.7%)# 04/06/2017 77 0.811 -2.1 Total Hip(Left) 06/30/2023 83 0.690 -2.1 -0.043 (-5.9%)# -0.043 (-5.9%)# 04/06/2017 77 0.734 -1.7 Total Hip(Right) 06/30/2023 83 0.756 -1.5 -0.002 (-0.2%)# -0.002 (-0.2%)# 04/06/2017 77 0.758 -1.5 -- *Denotes significance at 95% confidence level, LSC for AP Spine = 0.022 g/cm2, LSC for Total Hip = 0.027 g/cm2 # Denotes dissimilar scan types or analysis methods Impression: The patient has established osteoporosis, based on the Left Femoral Neck T-score and the existence of a prior fracture. The patient has risk factors, including: previous fracture. No significant bone loss was observed. Discussion: HIGH RISK OF FRACTURE. BONE DENSITY IS UNDESIRABLY LOW AT ONE OR MORE SKELETAL SITES, CONSISTENT WITH POSTMENOPAUSAL OSTEOPOROSIS. This patient's lowest T-score, in a patient who has previously fractured, meets the World Health Organization's (WHO) criteria for severe osteoporosis. In untreated patients, the risk of osteoporotic fracture increases approximately two-fold for each 1.0 SD decrease in T-score. Low bone density is not the only risk factor for fracture; also consider factors such as patient's age, frailty or poor health, risk of falling, risk of injury, previous osteoporotic fracture, family history of osteoporosis, cigarette smoking, low body weight, etc. Not everyone with low bone mineral density has osteoporosis; osteomalacia and other metabolic bone disorders should also be considered. Patients who have osteoporosis should be evaluated for specific diseases and conditions (secondary causes) that may cause or contribute to bone loss. The [place] Association [employer] Clinical Endocrinologists (AACE) and National Osteoporosis Foundation (NOF) recommend pharmacologic intervention for all postmenopausal women with a previous hip or vertebral fracture and a T-score in this range. The patient should follow a healthful lifestyle (good nutrition with adequate calcium and vitamin D, and appropriate weight-bearing exercise). Follow-Up: Consider a repeat BMD and Vertebral Fracture Assessment (VFA) exam in 2 years or sooner if medically necessary, to reassess this patient's status. Reported by: DREW DIALLO M.D. on 06/30/2023 11:58:00 AM.
== END ==
PROVIDERS: Family Provider Student in an Organized Health Care Education/Training Program; PCP Internal Medicine; Referring Provider Internal Medicine; Visit Provider Internal Medicine
DX: M81.0 Age-related osteoporosis without current pathological fracture (principal); Z87.310 Personal history of (healed) osteoporosis fracture; Z90.710 Acquired absence of both cervix and uterus
CPT/HCPCS: 77080

== ENCOUNTER → 2023-09-03 16:01 | Outpatient (CLI) | payer MEDICARE, OTHER, SELFPAY ==
[2023-09-03 17:15] LABS: Creatine Kinase 50 U/L (30-135)
[2023-09-12 13:15] LABS: MuSK Antibodies <1.0 U/mL (.)
[2023-09-23 12:04] LABS: MuSK Antibodies <1.0 U/mL (.)
== END ==
PROVIDERS: Family Provider Student in an Organized Health Care Education/Training Program; PCP Internal Medicine; Referring Provider Psychiatry & Neurology Clinical Neurophysiology; Visit Provider Psychiatry & Neurology Clinical Neurophysiology
DX: R53.82 Chronic fatigue, unspecified (principal)
CPT/HCPCS: 36415; 82550; 83519; 86255

== ENCOUNTER → 2023-09-24 08:40 | Outpatient (CLI) | payer MEDICARE, OTHER, SELFPAY ==
--- NOTE | 2023-09-24 08:42 | DI.CT.S_ITS ---
PROCEDURE: CT ABDOMEN PELVIS WO CON INDICATIONS: Abdomen pain TECHNIQUE: After the administration of oral contrast, 5 mm thick sections acquired from the diaphragms to the symphysis. 5 mm coronal and sagittal reformats were performed. For radiation dose reduction, the following was used: automated exposure control, adjustment of mA and/or kV according to patient size. COMPARISON: [facility], MR, MR LUMBAR SPINE WITHOUT CONTRAST, 02/23/2022, 16:41. FINDINGS: Image quality: Excellent. ABDOMEN: Lung bases: Lung bases are clear. Heart size is normal. Solid organs: Liver is normal in size. Gallbladder is unremarkable without calcified gallstones. . Pancreas is normal in size. Spleen is normal in size. No adrenal nodules. Both kidneys are normal in size, without hydronephrosis or nephrolithiasis. Peritoneum and bowel: Bowel loops demonstrate normal wall thickness and caliber. Elongated redundant colon. Large diffuse fecal load. No free fluid or air. Nodes and vessels: No retroperitoneal or mesenteric adenopathy by size criteria. Aorta and inferior vena cava are normal in size. Miscellaneous: No ventral hernias. PELVIS: Genitourinary: Bladder wall thickness is normal. Miscellaneous: No inguinal hernias or adenopathy. Uterus is surgically absent. No adnexal masses. Bones: No suspicious bony lesions. No acute vertebral body compression fractures. Mild old T12 compression. On the Known bilateral L5 pars defects with grade 1 anterolisthesis of L5 on S1 and severe left foraminal narrowing with left foraminal L5 nerve root impingement. IMPRESSION: 1. No acute abdominal process. 2. Large diffuse fecal load. 3. Known bilateral L5 pars defects with grade 1 anterolisthesis of L5 on S1 and severe left foraminal narrowing with left L1 nerve root impingement. 4. Remote hysterectomy. Dictated by: Tone Faria M.D. on 09/24/2023 at 11:51 Approved by: Tone Faria M.D. on 09/24/2023 at 11:56
== END ==
PROVIDERS: Family Provider Student in an Organized Health Care Education/Training Program; PCP Family Medicine; Referring Provider Family Medicine; Visit Provider Family Medicine
DX: R10.9 Unspecified abdominal pain (principal); M43.17 Spondylolisthesis, lumbosacral region; M48.07 Spinal stenosis, lumbosacral region; Z90.710 Acquired absence of both cervix and uterus
CPT/HCPCS: 74176

== ENCOUNTER → 2024-01-21 15:29 | Outpatient (CLI) | payer MEDICARE, OTHER, SELFPAY ==
[2024-01-24 16:56] LABS: H. Pylori Antigen Stool Negative (Negative)
== END ==
PROVIDERS: PCP Nurse Practitioner; Referring Provider Physician Assistant; Visit Provider Physician Assistant
DX: R10.9 Unspecified abdominal pain (principal)
CPT/HCPCS: 87338

== ENCOUNTER → 2024-01-29 11:43 | Outpatient (CLI) | payer MEDICARE, OTHER, SELFPAY ==
--- NOTE | 2024-01-29 11:45 | DI.CT.S_ITS ---
PROCEDURE: CT CHEST ABD PEL WO CON INDICATIONS: SOB, poor appetite, epigastric pain TECHNIQUE: After the administration of oral contrast, 5 mm thick sections acquired from the lung apices to the symphysis pubis. 5 mm thick coronal and sagittal reformats acquired, with additional 7 mm coronal MIP reformats through the lungs. For radiation dose reduction, the following was used: automated exposure control, adjustment of mA and/or kV according to patient size. COMPARISON: [facility], CT, CT ABDOMEN PELVIS WO CON, 09/24/2023, 10:12. [facility], CT, CT CHEST WO CON, 03/10/2022, 10:06. FINDINGS: Image quality: Diagnostic. CHEST: Lower Neck: No enlarged lymph nodes. Thyroid: No thyroid nodules which require sonographic follow up, per consensus guidelines. Axillae: No enlarged lymph nodes. Chest Wall: Unremarkable. Bones: Unremarkable. Lungs and Pleura: No pneumothorax or pleural effusions. Unchanged punctate right lateral nodule series 5, image 134. Unchanged punctate left lower lobe nodule series 5, image 266. Heart: Heart size is normal. No pericardial effusion. Thoracic Vessels: The aorta and pulmonary arteries demonstrate normal size. Mediastinum and Coretta: No enlarged lymph nodes. Esophagus: No wall thickening. Mild hiatal hernia. ABDOMEN: Liver: Unchanged low-attenuation hepatic foci. Gallbladder: No radiopaque gallstones or wall thickening. Biliary ducts: No biliary dilation. Pancreas: No ductal dilation. Spleen: Size is within normal limits. Adrenal Glands: No adrenal nodules. Kidneys and Ureters: No hydronephrosis. No solid mass. No complex renal cystic lesion which requires follow up. Simple left hepatic cyst. Stomach and Bowel: Normal colonic caliber, without significant wall thickening. Colonic diverticula without inflammatory change. Peritoneum: No abnormal intraperitoneal fluid. No free air. Ventral Wall: No hernia. Abdominal Nodes: No retroperitoneal or mesenteric adenopathy by size criteria. Vessels: Aorta and inferior vena cava are normal in size. PELVIS: Pelvic Organs: Unremarkable. Bladder: Unremarkable. Pelvic Nodes: No enlarged lymph nodes. Miscellaneous: No inguinal hernias are seen. Bones: L5 pars defect. Degenerative changes are present within the visualized spine. IMPRESSION: No acute process within the chest, abdomen or pelvis. Diverticulosis. Unchanged low-attenuation hepatic foci likely cysts. Dictated by: Leydi Daigle M.D. on 01/29/2024 at 15:45 Approved by: Leydi Daigle M.D. on 01/29/2024 at 15:52
== END ==
LOC: CT 11:44
PROVIDERS: PCP Nurse Practitioner; Referring Provider Nurse Practitioner; Visit Provider Nurse Practitioner
DX: K44.9 Diaphragmatic hernia without obstruction or gangrene (principal); K57.90 Diverticulosis of intestine, part unspecified, without perforation or abscess without bleeding; R10.13 Epigastric pain; R06.02 Shortness of breath; R63.0 Anorexia; R53.83 Other fatigue
CPT/HCPCS: 71250; 74176

== ENCOUNTER → 2024-02-18 07:21 | Outpatient (CLI) | payer MEDICARE, OTHER, SELFPAY ==
[2024-02-18 08:27] LABS: Add Manual Diff / Slide Review NO; Basophils Absolute Auto 0 /uL (0-100); Basophils Percent Auto 0.7 % (0-2); Eosinophils Absolute Auto 0 /uL (0-450); Eosinophils Percent Auto 0.7 % (2-4); Hematocrit 40.8 % (36-46); Hemoglobin 14.1 g/dL (12.0-16.0); Lymphocytes Absolute Auto 1100 /uL (1100-4500); Lymphocytes Percent Auto 19.5 % (25-40); Mean Corpuscular HGB Conc 34.6 % (30-36); Mean Corpuscular Hemoglobin 31.9 PG (26-34); Mean Corpuscular Volume 92.2 fL (80-100); Monocytes Absolute Auto 500 /uL (0-900); Monocytes Percent Auto 8.9 % (3-14); Neutrophils Absolute Auto 4100 /uL (1500-7000); Neutrophils Percent Auto 70.2 % (50-75); Platelet Count 160 X10^3/uL (150-400); Red Blood Cell Count 4.43 X10^6/uL (4.0-5.2); Red Cell Distribution Width 12.8 % (11.6-14.8); White Blood Cell Count 5.8 X10^3/uL (4.5-11.0)
[2024-02-18 08:30] LABS: Creatinine Urine Random 176.8 mg/dL
[2024-02-18 08:33] LABS: Microalbumi Creatinin Ratio Ur 7.3 ug/mg CR (<30); Microalbumin Urine Random 1.3 mg/dL (0-1.6)
[2024-02-18 08:43] LABS: Alanine Aminotransferase 12 IU/L (<35); Albumin 4.4 g/dL (3.5-5.0); Albumin Globulin Ratio 1.7 (1.0-2.8); Alkaline Phosphatase 63 U/L (38-126); Aspartate Aminotransferase 19 IU/L (14-36); BUN Creatinine Ratio 27.7 (6-22); Bilirubin Total 0.9 mg/dL (0.2-1.3); Blood Urea Nitrogen 18 mg/dL (7-17); Calcium 9.4 mg/dL (8.4-10.2); Carbon Dioxide 27 mmol/L (22-32); Chloride 105 mmol/L (98-107); Estimated Glomerular Filt Rate > 60 mL/min (>60); Globulin 2.6 g/dL (1.7-4.1); Glucose 85 mg/dL (80-110); HEMOLYSIS < 15 (0-50); Potassium 3.8 mmol/L (3.4-5.1); Sodium 138 mmol/L (137-145)
[2024-02-18 09:14] LABS: Thyroid Stimulating Hormone 2.39 uIU/mL (0.47-4.68)
[2024-02-20 09:17] LABS: IGA 114 mg/dL (64-422); IGG 646 mg/dL (586-1602); IGM 61 mg/dL (26-217)
== END ==
PROVIDERS: PCP Nurse Practitioner; Referring Provider Internal Medicine; Visit Provider Internal Medicine
DX: D47.2 Monoclonal gammopathy (principal); D69.6 Thrombocytopenia, unspecified; D72.819 Decreased white blood cell count, unspecified; E03.9 Hypothyroidism, unspecified; M81.0 Age-related osteoporosis without current pathological fracture; E78.2 Mixed hyperlipidemia; F51.01 Primary insomnia; Z79.899 Other long term (current) drug therapy
CPT/HCPCS: 36415; 80053; 82043; 82570; 82784; 83883; 84155; 84156; 84165; 84166; 84443; 85025

== ENCOUNTER → 2024-02-24 07:02 | Outpatient (CLI) | payer MEDICARE, OTHER, SELFPAY ==
[2024-02-24 08:06] LABS: HEMOLYSIS < 15 (0-50); Iron 101 ug/dL (37-170)
[2024-02-24 08:18] LABS: Percent Iron Saturation 39 % (15-50); Total Iron Binding Capacity 258 ug/dL (265-497); Transferrin 198 mg/dL (206-381)
[2024-02-24 08:44] LABS: Ferritin 108 ng/mL (11-264)
== END ==
LOC: LAB 07:05
PROVIDERS: PCP Nurse Practitioner; Referring Provider Internal Medicine; Visit Provider Internal Medicine
DX: E61.1 Iron deficiency (principal)
CPT/HCPCS: 36415; 82728; 83540; 83550

== ENCOUNTER → 2024-03-20 06:59 | Outpatient (CLI) | payer MEDICARE, OTHER, SELFPAY ==
[2024-03-20 08:39] LABS: Alanine Aminotransferase 13 IU/L (<35); Alkaline Phosphatase 57 U/L (38-126); Aspartate Aminotransferase 25 IU/L (14-36); BUN Creatinine Ratio 23.9 (6-22); Bilirubin Total 0.7 mg/dL (0.2-1.3); Blood Urea Nitrogen 16 mg/dL (7-17); Calcium 8.9 mg/dL (8.4-10.2); Carbon Dioxide 28 mmol/L (22-32); Chloride 108 mmol/L (98-107); Cholesterol 180 mg/dL (140-199); Estimated Glomerular Filt Rate > 60 mL/min (>60); Glucose 88 mg/dL (80-110); HDL Cholesterol 71 mg/dL (40-60); HEMOLYSIS < 15 (0-50); LDL Cholesterol Calculated 95 mg/dL (<100); Potassium 4.3 mmol/L (3.4-5.1); Sodium 140 mmol/L (137-145); Triglycerides 72 mg/dL (35-150)
== END ==
PROVIDERS: PCP Nurse Practitioner; Referring Provider Nurse Practitioner; Visit Provider Nurse Practitioner
DX: E78.2 Mixed hyperlipidemia (principal); R53.82 Chronic fatigue, unspecified
CPT/HCPCS: 36415; 80053; 80061

== ENCOUNTER 2024-04-13 08:25 | Emergency (ER) | payer MEDICARE, OTHER, SELFPAY ==
[2024-04-13 08:35] VITALS: BP 129/64; PULSE 64; RESP 18; TEMP 36.9; O2SAT 99; BMI 18.8
[2024-04-13] MEDS: PROPARACAINE 0.5% OPHTH SOL 1 DROPS EYE-LEFT (08:42)
--- NOTE | 2024-04-13 08:42 | ED.GENADULT ---
HPI - General Adult General Chief complaint: Eye Problems Stated complaint: R eye injury, [facility] Time Seen by Provider: 04/13/24 08:27 Source: patient Mode of arrival: Wheelchair History of Present Illness HPI narrative: Patient is an 84-year-old female. Does have history of cataracts. Also has macular degeneration. Is here for evaluation of an injury to her right eye. States she was outside doing some yd work when she was pulling on a branch. She states that her he and came back and hit her in the right eye. She has some bleeding the under part of the right eye. Some pain with movement of the right eye. No change in vision. No other injuries from the event. Related Data Home Medications Medication Instructions Recorded Confirmed calcium carbonate 600 mg-vitamin 2 tab PO DAILY 03/26/20 02/28/24 D3 20 mcg (800 unit) tablet (Caltrate with Vitamin D3) multivitamin (One Daily 1 tab PO DAILY 03/26/20 02/28/24 Multivitamin tablet) vitamin B complex (B 1 tab PO DAILY 03/26/20 02/28/24 Complex-Vitamin B12 tablet) omeprazole 20 mg capsule,delayed 20 mg PO BID 11/10/23 02/28/24 release Previous Rx's Medication Instructions Recorded naltrexone 50 mg tablet 50 mg PO DAILY #90 tabs 02/28/24 levothyroxine 75 mcg tablet 75 mcg PO DAILY #90 tabs 03/24/24 gabapentin 100 mg capsule 100 mg PO BEDTIME #90 caps 04/12/24 Allergies Allergy/AdvReac Type Severity Reaction Status Date / Time No Known Drug Allergies Allergy Verified 02/28/24 11:18 Review of Systems Eyes Eyes: Reports system reviewed and no additional complaints, except as documented ENT Ears, Nose, Mouth, and Throat: Reports system reviewed and no additional complaints, except as documented Integumentary/Breasts Skin/Breast: Reports system reviewed and no additional complaints, except as documented Hematologic/Lymphatic On Anticoagulants: No Patient History Medical History Anemia Dizziness Shortness of breath Myalgic encephalomyelitis Chronic fatigue Thrombocytopenia Vestibular migraine Polyneuropathy, unspecified Generalized anxiety disorder Age-related osteoporosis without current pathological fracture Acquired hypothyroidism Mixed hyperlipidemia Mitral valve prolapse Menopause Bipolar depression Sensorineural hearing loss (SNHL) of both ears Uterovaginal prolapse Lumbar radiculopathy, chronic Depression Migraines Lumbar spine pain Fracture tibia/fibula Primary insomnia (10/07/17) Spondylolisthesis at L5-S1 level (07/03/16) 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 (07/03/16) Arcus senilis of both eyes (01/30/16) Cystocele (12/18/13) Surgical History H/O cataract removal with insertion of prosthetic lens Right fibular fracture History of esophagogastroduodenoscopy (EGD) (~2015) Status post vaginal hysterectomy (~2013) Status post tonsillectomy and adenoidectomy History of third molar tooth extraction Family History Mother Bipolar disorder Breast cancer Father Stomach cancer Sister Hyperlipidemia Polymyalgia rheumatica Social History marital status: details: (Luis E), no children, retired number of children: 0 household members: spouse lives independently: Yes education level: college occupational status: previously employed 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 Smoking Status: Never smoker Smoking Status: Never smoker alcohol intake frequency: other Substance Use Type: does not use Exam Initial Vital Signs Initial Vital Signs: Vital Signs Temperature 98.5 F 04/13/24 08:35 Pulse Rate 64 04/13/24 08:35 Respiratory Rate 18 04/13/24 08:35 Blood Pressure 129/64 04/13/24 08:35 Pulse Oximetry 99 04/13/24 08:35 Oxygen Delivery Method Room Air 04/13/24 08:35 [facility] Head: normal to inspection and normocephalic Nose: other (No discomfort noted with palpation of the nasal bridge) Eyes Periorbital: periorbital findings normal Eyelids: eyelids normal Other: Extraocular movements intact but she does have discomfort with movement of the right eye. No entrapment noted. She does have a inferior medial and lateral subconjunctival hemorrhage on the right eye. Pupils are equal round and reactive. No step-offs noted with palpation of the orbital rim Fluorescein used in the right eye: No foreign bodies or abrasions noted Skin Other: No bruising noted around the right eye Course Orders Ordered: Discontinued Medications Fluorescein Sodium (Fluorescein 1 Mg Strip) 1 mg EYE-BOTH NOW ONE Stop: 04/13/24 08:29 Last Admin: 04/13/24 08:43 Dose: 1 mg Proparacaine HCl (Proparacaine 0.5% Ophth Angeli) 1 drops EYE-LEFT NOW ONE Stop: 04/13/24 08:29 Last Admin: 04/13/24 08:42 Dose: 1 drop Vital Signs Vital signs: Vital Signs - 8 hr 04/13/24 08:35 Temperature 98.5 F Pulse Rate 64 Respiratory Rate 18 Blood Pressure 129/64 Pulse Oximetry 99 Oxygen Delivery Method Room Air Medical Decision Making MDM Narrative Medical decision making narrative: Patient has history and physical exam consistent with a subconjunctival hemorrhage. I have low suspicion for fracture. Low suspicion for foreign-body. There was no hyphema noted. We will hold on any radiologic studies for now. Will discharge patient home with conservative measures for now. She was given return precautions. She expressed understanding and agreement. Discharge Plan Departure Patient Disposition: Home Clinical Impression: Subconjunctival hemorrhage Instructions: DI for Subconjunctival Hemorrhage Activity Restrictions/Additional Instructions: You can continue to take all of your medications as directed. I do recommend that you place ice over your right eye. I would not be surprised if you develop a black eye over the next couple days. Return to the emergency department for new or worsening symptoms. Prescriptions: No Action calcium carbonate-vitamin D3 [Caltrate with Vitamin D3] 600 mg(1,500mg) -800 unit tablet 2 tab PO DAILY multivitamin [One Daily Multivitamin] Tablet 1 tab PO DAILY vitamin B complex [B Complex-Vitamin B12] Tablet 1 tab PO DAILY levothyroxine 75 mcg tablet 75 mcg PO DAILY Qty: 90 2RF gabapentin 100 mg capsule 100 mg PO BEDTIME Qty: 90 1RF omeprazole 20 mg capsule,delayed release(DR/EC) 20 mg PO BID naltrexone 50 mg tablet 50 mg PO DAILY Qty: 90 3RF Rx Instructions: Low dose Naltrexone per [facility] titration schedule Referrals: Marcia Velázquez ARNP [Primary Care Provider] - Stand Alone Forms: Patient Portal/API
[2024-04-13] MEDS: FLUORESCEIN 1 MG STRIP EYE-BOTH (08:43)
== END 2024-04-13 09:15 | disposition home or self-care (01) ==
PROVIDERS: Emergency Provider Emergency Medicine; PCP Nurse Practitioner
DX: H11.31 Conjunctival hemorrhage, right eye (principal)
CPT/HCPCS: 99282; 99283

== ENCOUNTER → 2024-08-21 15:52 | Outpatient (CLI) | payer MEDICARE, OTHER, SELFPAY ==
[2024-08-21 17:19] LABS: Add Manual Diff / Slide Review NO; Basophils Absolute Auto 0 /uL (0-100); Basophils Percent Auto 0.9 % (0-2); Eosinophils Absolute Auto 0 /uL (0-450); Eosinophils Percent Auto 0.7 % (2-4); Hemoglobin 14.4 g/dL (12.0-16.0); Lymphocytes Absolute Auto 1200 /uL (1100-4500); Lymphocytes Percent Auto 32.7 % (25-40); Mean Corpuscular HGB Conc 34.3 % (30-36); Mean Corpuscular Hemoglobin 31.8 PG (26-34); Mean Corpuscular Volume 92.5 fL (80-100); Monocytes Absolute Auto 300 /uL (0-900); Monocytes Percent Auto 7.6 % (3-14); Neutrophils Absolute Auto 2100 /uL (1500-7000); Neutrophils Percent Auto 58.1 % (50-75); Platelet Count 139 X10^3/uL (150-400); Red Blood Cell Count 4.54 X10^6/uL (4.0-5.2); Red Cell Distribution Width 12.8 % (11.6-14.8); White Blood Cell Count 3.6 X10^3/uL (4.5-11.0)
[2024-08-21 17:44] LABS: Alanine Aminotransferase 16 IU/L (<35); Albumin Globulin Ratio 1.6 (1.0-2.8); Alkaline Phosphatase 68 U/L (38-126); Aspartate Aminotransferase 25 IU/L (14-36); Bilirubin Total 0.4 mg/dL (0.2-1.3); Blood Urea Nitrogen 20 mg/dL (7-17); Calcium 9.5 mg/dL (8.4-10.2); Carbon Dioxide 30 mmol/L (22-32); Chloride 101 mmol/L (98-107); Estimated Glomerular Filt Rate > 60 mL/min (>60); Globulin 2.5 g/dL (1.7-4.1); Glucose 89 mg/dL (80-110); HEMOLYSIS < 15 (0-50); Potassium 3.8 mmol/L (3.4-5.1); Sodium 136 mmol/L (137-145); Total Protein 6.5 g/dL (6.3-8.2)
[2024-08-21 18:19] LABS: Ferritin 76 ng/mL (11-264)
[2024-08-23 03:36] LABS: IGA 97 mg/dL (64-422); IGG 644 mg/dL (586-1602); IGM 62 mg/dL (26-217)
[2024-08-23 19:39] LABS: Free Kappa Lt Chains, Serum 15.5 mg/L (3.3-19.4); Free Lambda Lt Chains,Serum 10.3 mg/L (5.7-26.3)
== END ==
LOC: LAB 15:54
PROVIDERS: PCP Family Medicine; Referring Provider Internal Medicine; Visit Provider Internal Medicine
DX: E61.1 Iron deficiency (principal); D47.2 Monoclonal gammopathy
CPT/HCPCS: 36415; 80053; 82728; 82784; 83883; 84155; 84165; 85025

== ENCOUNTER → 2024-09-22 08:23 | Outpatient (CLI) | payer MEDICARE, OTHER, SELFPAY ==
[2024-09-25 13:09] LABS: Acetylcholine Receptor Bind AB <0.03 nmol/L (0.00-0.24)
[2024-09-28 11:36] LABS: Acetylcholine Rec Blocking AB 14 % (0-25)
[2024-09-29 09:36] LABS: MuSK Antibodies <1.0 U/mL (.)
== END ==
PROVIDERS: PCP Family Medicine; Referring Provider Ophthalmology; Visit Provider Ophthalmology
DX: G70.00 Myasthenia gravis without (acute) exacerbation (principal); H50.9 Unspecified strabismus; M31.6 Other giant cell arteritis; H57.13 Ocular pain, bilateral
CPT/HCPCS: 36415; 83519

== ENCOUNTER → 2024-10-04 12:56 | Outpatient (CLI) | payer MEDICARE, OTHER, SELFPAY ==
[2024-10-04 15:25] LABS: Erythrocyte Sedimentation Rate 4 MM/HR (0-20)
[2024-10-06 03:13] LABS: CRP, High Sensitivity 1.16 mg/L (0.00-3.00)
== END ==
PROVIDERS: Family Provider Family Medicine; PCP Family Medicine; Referring Provider Ophthalmology; Visit Provider Ophthalmology
DX: H57.12 Ocular pain, left eye (principal); H04.123 Dry eye syndrome of bilateral lacrimal glands
CPT/HCPCS: 36415; 85651; 86038; 86140

== ENCOUNTER → 2024-10-31 11:41 | Outpatient (CLI) | payer MEDICARE, OTHER, SELFPAY ==
--- NOTE | 2024-10-31 14:14 | ST.SWALLOW ---
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, [address] Fax: Email: [email or web address] Ron Swan MD Attending Provider Non-Staff Referring Provider Specialty: Psychiatry Address: [address] [place] [address], [phone] Fax: Email: Modified Barium Swallow Study DENTAL ASSISTANT MEDICAL ASSISTANT Modified Barium Swallow Study Start: 10/31/24 11:50 Freq: Status: Active Protocol: Document 10/31/24 12:57 LNK (Rec: 10/31/24 14:13 LNK [id number]) Modified Barium Swallow Study Total Time Visit Start Time 12:00 Visit Stop Time 00:00 Total Visit Minutes 1,[address] Chavarria Patient Information Patient History Pt is an 84 yr old female seen for a Modified Barium Swallow Study at the referral of Dr Ruiz Liu, Neurologist, at [facility] Pt reported that Dr Liu is treating her for autonomic dysfunction. Pt medical history includes thrombocytopenia, osteoporosis , polyneuropathy, bestibular migraine, hypothryoidsim, BPPV , GERD, a slidimng hiatal hernia and insomnia. According to the pt, her speech and swallowing have become slow and labored. She states her speech is slow and seems slurred at times. She reported that for both her speech and swallowing, she must concentrate when swallowing or speaking in order for these systems to function. Relative to swallowing, the pt stated that she must chew well and for extended time and swallow with intention. If she eats rapidly, she finds that she will cough as her foods/ liquids go down the wrong way. Pt stated she eats several small meals during the day and gets full rapidly. Subjective Observations Pt was seated in the fluoroscopy chair with directions and procedures described for her. She indicated she understood and agreed to proceed. Patient Positioning Position View Lat-A/P Imaging Lateral View Textures Administered Trials Presented Thin Liquid via Spoon (IDDSI 0 ),Thin Liquid via Cup (IDDSI 0 ),Extremely Thick Liquid via Spoon (IDDSI 4),Puree (IDDSI 4 ),Easy to Chew (IDDSI 7) Barium Tablet No The IDDSI Framework Protocol: IDDSI.1 Oral Impairment Source: The Modified Barium Swallow Impairment Profile (MBSImP??) Lip Closure Interlabial escape; no progression to anterior lip Tongue Control During Bolus Hold Posterior escape of less than half of bolus Bolus Preparation/Mastication Slow prolonged chewing/mashing with complete re-collection Bolus Transport/Lingual Motion Delayed initiation of tongue motion Oral Residue Residue collection on oral structures Location Tongue Initiation of Pharyngeal Swallow Bolus head at posterior laryngeal surface of epiglottis Additional Oral Impairment Observations *OME indicated oral structures to be WNL. Dentition was natural in good hygiene. *Speed, ROM and strength of labial, lingual and velar structures was noted to be reduced. Pt demonstrated slowed rapidly alternating movements, was unable to maintain oral pressure (puffed cheeks) without labial and/or vealar leakage. *DKS was slower than expected. *Pt's speech was onserved to be mildly dysarthric with reduced speaking rate and vocal volume. *Pt's voice was inconsistently noted to be mildy hypernasal. *Mastication was slower than expected. Bolus formation, control and AP transition were adequate. *Mild oral phase dysphagia; *Mild dysarthria observed Pharyngeal Impairment Source: The Modified Barium Swallow Impairment Profile (MBSImP??) Soft Palate Elevation No bolus between soft palate & pharyngeal wall Laryngeal Elevation Comp.sup.move.thyroid cart.w/ comp.approx.arytenoids to epiglot petiole Anterior Hyoid Excursion Complete anterior movement Epiglottic Movement Partial inversion Laryngeal Vestibular Closure Incomplete; narrow column air/ contrast in laryngeal vestibule Pharyngeal Stripping Wave Present - diminished Pharyngoesophageal Segment Opening Complete distention & complete duration; no obstruction of flow Tongue Base Retraction Wide column of contrast/air betwn tongue base & post. pharyngeal wall Pharyngeal Residue Collection of residue within/ on pharyngeal structures Location Diffuse (>3 areas) Additional Pharyngeal Impairment *Weak tongue base retraction Observations and hyolaryngeal elevation and movement. *Reduced stripping of posterior pharyngeal wall affecting bolus control *Epiglotic inversion for small bolus amount inconsistent; full epiglottic inversion with large bolus amounts *Flash laryngeal penetration of thin liquid x1 without laryngeal residue (WNL for pt's age) *No tracheal aspiration observed *Diffuse pharyngeal residue observed post swallow. *Multiple swallows required to clear pharyngeal pooling A/P View Textures Administered Trials Presented Thin Liquid via Cup (IDDSI 0) The IDDSI Framework Protocol: IDDSI.1 A/P View Observations Pharyngeal Contraction Complete Esophageal Clearance Upright Position Esophageal retention Vocal Fold Function Good Esophageal Function Slowed Clearing Additional A-P Observations *Mild esophageal retention observed. Cleared with sips of water. Thin barium cookie with barium and calibrated tablet appeared to be mildly slow, but were observed to clear the esophagus to the stomach. *Residual contrast was noted above the aotic arch when pt described the bolus as not going down (at sternal notch). Additional water cleared the the contrast. Clinical Impressions Dysphagia Type Oral,Pharyngeal,Esophageal Findings Throughout the MBSS, the pt described her swallowing as hard and purposeful. She frequently referred to the bolus trials as stuck in her throat (pointing to sternal notch). When she reported these sensations, her pharyngeal and oral cavities were observed to be clear. Mild esophageal retention of contrast triggered pt response that the food was stuck near sternal arch (referred sensation). Mild-moderate oropharyngeal dysphagia observed, with mild esophageal retention. ST for base of tongue exercises was discussed with the pt to target increase strength of tongue base muscles and improve bolus control. ST recommended for speech as well Rehabilitation Potential Good Patient Appropriate for Therapy Yes Recommendations Diet Liquids Order Thin (IDDSI 0) Diet Order Soft & Bite-sized (IDDSI 6) Medication Recommendation Whole in Carrier,Crushed in Carrier Comments No diet change at this time; pt reports a soft diet preferred Aspiration Precautions Recommended Precautions Upright at 90 Degrees, Alternate Liquids/Solids, Frequent Rest Periods,Small Bites/Sips Treatment Plan Therapy Recommendations Outpatient Speech Therapy Therapy Strategy Recommendations Sitting Upright (90 deg),Small Bites and Sips,Alternate Liquids/Solids Additional Strategies Recommended Increase liquids within each meal to aid esophageal clearance
== END ==
PROVIDERS: Family Provider Family Medicine; PCP Family Medicine; Referring Provider Psychiatry & Neurology Neuromuscular Medicine; Visit Provider Psychiatry & Neurology Neuromuscular Medicine
DX: R13.10 Dysphagia, unspecified (principal)
CPT/HCPCS: 74230; 92611

== ENCOUNTER → 2024-11-09 14:42 | Outpatient (CLI) | payer MEDICARE, OTHER, SELFPAY | PROVIDERS: Family Provider Family Medicine; PCP Family Medicine; Referring Provider Psychiatry & Neurology Neuromuscular Medicine; Visit Provider Psychiatry & Neurology Neuromuscular Medicine | DX: R53.1 Weakness (principal) | CPT/HCPCS: 95886; 95912 ==

== ENCOUNTER → 2024-12-27 11:02 | Outpatient (CLI) | payer MEDICARE, OTHER, SELFPAY ==
[2024-12-27 12:56] LABS: TSH w/ Reflex to FT4 2.39 uIU/mL (0.47-4.68)
[2024-12-28 09:54] LABS: Free T3, Triiodothyronine Free 3.48 pg/mL (2.77-5.27)
== END ==
PROVIDERS: Family Provider Family Medicine; PCP Family Medicine; Referring Provider Family Medicine; Visit Provider Family Medicine
DX: E03.9 Hypothyroidism, unspecified (principal)
CPT/HCPCS: 36415; 84443; 84481

== ENCOUNTER 2025-04-04 12:22 | Day surgery (SDC) | payer MEDICARE, OTHER, SELFPAY ==
--- NOTE | 2025-04-04 | PATH_ITS ---
[facility] Accession Number: [id number] No. of containers..02 Tissue . 01 Material submitted: . PART A: body - RANDOM BIOPSIES PART B: colon - COLON, TRANSVERSE POLYP . 01 Clinical history: . A: FOR MICROSCOPIC COLITIS . 01 Diagnosis: A. RANDOM COLON, BIOPSY: Colonic mucosa with no diagnostic abnormality. Negative for active, chronic, and microscopic colitis. Negative for dysplasia and malignancy. . B. TRANSVERSE COLON POLYP: Tubular adenoma. MRV 04/09/2025 1301 Local . 01 Electronically signed: . Ron Banegas MD, PhD, Pathologist NPI- [id number] . 01 Gross description: . Part A: RANDOM BIOPSIES: Received in formalin are 4 fragment(s) of fenton, soft tissue measuring 0.1 x 0.1 x 0.1 cm to 0.4 x 0.3 x 0.2 cm submitted entirely in 1 cassette(s) Part B: COLON, TRANSVERSE POLYP: Received in formalin is 1 fragment(s) of fenton, soft tissue measuring 0.6 x 0.3 x 0.3 cm submitted entirely in 1 cassette(s) /TIGRE 04/06/2025 0021 Local . 01 Pathologist provided ICD-10: D12.3, R19.4 . 01 CPT . 171540, 696299 Specimen Comment: A courtesy copy of this report has been sent to [phone] Performed at: [address] [id number] MD Parth Ferrari MD Phone: [phone]
--- NOTE | 2025-04-04 13:02 | PM.HP.IH.1 ---
History of Present Illness History of Present Illness Date Patient Seen: 04/04/25 Chief complaint: Colonoscopy Narrative: Colon cancer screening but also left-sided abdominal pain and issues with low weight if not actual weight loss and loose stools [facility] Medical History GERD (gastroesophageal reflux disease) External hemorrhoids Internal hemorrhoids Depression Macular degeneration of both eyes History of migraine History of pathological fracture due to osteoporosis (11/16/14) Anemia Dizziness Shortness of breath Myalgic encephalomyelitis Chronic fatigue Thrombocytopenia Polyneuropathy, unspecified Age-related osteoporosis without current pathological fracture Acquired hypothyroidism Mixed hyperlipidemia Mitral valve prolapse Menopause Sensorineural hearing loss (SNHL) of both ears Uterovaginal prolapse Lumbar radiculopathy, chronic Migraines Lumbar spine pain Fracture tibia/fibula Primary insomnia (10/07/17) Spondylolisthesis at L5-S1 level (07/03/16) 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 (07/03/16) Arcus senilis of both eyes (01/30/16) Cystocele (12/18/13) Surgical History H/O cataract removal with insertion of prosthetic lens Right fibular fracture History of esophagogastroduodenoscopy (EGD) (~2015) Status post vaginal hysterectomy (~2013) Status post tonsillectomy and adenoidectomy History of third molar tooth extraction Family History Mother Bipolar disorder Breast cancer Father Stomach cancer Sister Hyperlipidemia Polymyalgia rheumatica Social History marital status: details: (Luis E), no children, retired number of children: 0 household members: spouse lives independently: Yes education level: college occupational status: previously employed 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 alcohol intake: never substance use type: does not use Meds Home Medications and Allergies Home Medications ?Medication ?Instructions ?Recorded ?Confirmed ?Type calcium 600 mg (as 2 tab PO DAILY 03/26/20 02/23/25 History carbonate)-vitamin D3 20 mcg (800 unit) tablet (Caltrate with Vitamin D3) multivitamin (One Daily 1 tab PO DAILY 03/26/20 02/23/25 History Multivitamin tablet) vitamin B complex (B 1 tab PO DAILY 03/26/20 02/23/25 History Complex-Vitamin B12 tablet) omeprazole 20 mg capsule,delayed 20 mg PO BID 11/10/23 02/23/25 History release naltrexone 50 mg tablet 50 mg PO DAILY #90 tabs 02/28/24 02/23/25 Rx gabapentin 100 mg capsule 100 mg PO BEDTIME #90 caps 04/12/24 02/23/25 Rx levothyroxine 75 mcg tablet 75 mcg PO DAILY #90 tabs 12/26/24 02/23/25 Rx hydrocortisone 2.5 %-pramoxine 1 % 1 applic topical BID #59 mL 01/26/25 02/23/25 Rx lotion (Pramosone) lidocaine 3 %-hydrocortisone 2.5 % 1 applic SC Q12H #1 ea 01/26/25 02/23/25 Rx (7 gram) rectal kit, gel and wipes Allergies Allergy/AdvReac Type Severity Reaction Status Date / Time No Known Drug Allergies Allergy Verified 02/23/25 14:16 Exam Narrative Exam Narrative: Oropharynx free of lesions Chest clear to auscultation percussion Cardiac exam reveals no S3 or murmur Assessment & Plan Assessment & Plan narrative: Lower abdominal discomfort loose stools and colorectal cancer screening. Risks, benefits, alternatives have been explained. Time-Based Coding :: [TOTAL MINUTES] spent with patient and on the chart (including review of chart, obtaining history, exam, reviewing outside data, placing orders, documenting exam and treatment plan, and counseling patient) on [DATE]. [employer] Document charge(s): No
[2025-04-04 13:06] VITALS: BP 114/70; PULSE 89; RESP 16; TEMP 36.9; O2SAT 97
--- NOTE | 2025-04-04 13:34 | P.OP.COLON_ITS ---
Operative Date/Time/Diagnoses Date of procedure: 04/04/25 Time of procedure: 14:13 Pre-op diagnosis: See indication and findings Post-op diagnosis: same Procedure & Clinicians Study performed: Colonoscopy Same procedure(s) as scheduled: Yes Indications: Changes in bowel movements with some loose stools and left lower quadrant abdominal pain with some degree of lower weight/weight loss. Never had colorectal cancer screening. Surgeon: Claudia Webb Procedure Notes Procedure in detail: After informed consent was obtained the patient was placed in left lateral decubitus position. The video colonoscope was introduced the rectum slowly adv anced cecum. Preparation was good. On slow withdrawal mucosa was carefully examined. The scope was removed. The patient tolerated procedure well. Blood loss none Complications none Sedation mac Findings 1. 8 mm sessile polyp in the mid transverse colon cold biopsy removed completely 2. Significant left-sided diverticulosis 3. Moderate internal hemorrhoids Four. Random biopsies taken throughout the colon to rule out microscopic colitis Will be in touch regarding her biopsies. If she would like to have her hemorrhoids addressed than follow-up with General surgery would be suggested.
[2025-04-04 14:14] VITALS: BP 89/45; PULSE 86; RESP 17; TEMP 36.6; O2SAT 99
[2025-04-04 14:20] VITALS: BP 95/55; PULSE 70; RESP 15; TEMP 36.4; O2SAT 98
[2025-04-04 14:25] VITALS: BP 107/53; PULSE 60; RESP 18; TEMP 36.2; O2SAT 100
== END 2025-04-04 14:41 | disposition home or self-care (01) ==
PROVIDERS: Family Provider Family Medicine; PCP Family Medicine; Referring Provider Internal Medicine Gastroenterology; Visit Provider Internal Medicine Gastroenterology
PROC: 0DJD8ZZ Inspection of Lower Intestinal Tract, Via Natural or Artificial Opening Endoscopic (ICD-10-PCS; CPT 45378; principal; 2025-04-04 13:45)
DX: R10.32 Left lower quadrant pain (principal); R19.7 Diarrhea, unspecified; R63.4 Abnormal weight loss; K57.30 Diverticulosis of large intestine without perforation or abscess without bleeding; K64.8 Other hemorrhoids; D12.3 Benign neoplasm of transverse colon
CPT/HCPCS: 45380; J2704

== ENCOUNTER → 2025-07-26 10:18 | Outpatient (CLI) | payer MEDICARE, OTHER, SELFPAY ==
[2025-07-26 14:02] LABS: Influenza A - CEPHEID Flu A NEGATIVE (NEGATIVE); Influenza B - CEPHEID Flu B NEGATIVE (NEGATIVE)
[2025-07-26 14:13] LABS: COVID-19 CEPHEID 4-PLEX PCR Negative (Negative)
== END ==
PROVIDERS: Family Provider Family Medicine; PCP Family Medicine; Visit Provider Family Medicine
DX: R68.89 Other general symptoms and signs (principal); R06.02 Shortness of breath; R07.9 Chest pain, unspecified; H83.8X3 Other specified diseases of inner ear, bilateral
CPT/HCPCS: 87637

== ENCOUNTER → 2025-08-18 08:11 | Outpatient (CLI) | payer MEDICARE, OTHER, SELFPAY ==
[2025-08-18 09:17] LABS: Add Manual Diff / Slide Review NO; Hematocrit 41.6 % (36-46); Hemoglobin 14.3 g/dL (12.0-16.0); Lymphocytes Absolute Auto 1000 /uL (1100-4500); Mean Corpuscular HGB Conc 34.4 % (30-36); Mean Corpuscular Hemoglobin 31.2 PG (26-34); Mean Corpuscular Volume 90.7 fL (80-100); Platelet Count 134 X10^3/uL (150-400)
[2025-08-18 09:48] LABS: Hemoglobin A1C% w Est Avg Glu 4.9 % (4.0-6.0)
[2025-08-18 09:58] LABS: Iron 101 ug/dL (37-170)
[2025-08-18 10:01] LABS: Alanine Aminotransferase 14 IU/L (<35); Albumin 4.0 g/dL (3.5-5.0); Albumin Globulin Ratio 1.7 (1.0-2.8); Alkaline Phosphatase 61 U/L (38-126); Blood Urea Nitrogen 17 mg/dL (7-17); Calcium 9.2 mg/dL (8.4-10.2); Carbon Dioxide 28 mmol/L (22-32); Chloride 103 mmol/L (98-107); Estimated Glomerular Filt Rate > 60 mL/min (>60); Globulin 2.4 g/dL (1.7-4.1); Glucose 64 mg/dL (70-99); HEMOLYSIS < 15 (0-50); Potassium 3.9 mmol/L (3.4-5.1); Sodium 138 mmol/L (137-145); Total Protein 6.4 g/dL (6.3-8.2)
[2025-08-18 10:11] LABS: HEMOLYSIS < 15 (0-50); Percent Iron Saturation 36 % (15-50); Total Iron Binding Capacity 280 ug/dL (265-497); Transferrin 247 mg/dL (206-381)
[2025-08-18 10:32] LABS: TSH w/ Reflex to FT4 1.72 uIU/mL (0.47-4.68)
[2025-08-18 10:38] LABS: Ferritin 38 ng/mL (11-264)
[2025-08-21 14:40] LABS: Immunoglobulin G,Serum 639 mg/dL (586-1602)
[2025-08-21 15:12] LABS: Albumin 3.4 g/dL (2.9-4.4); Alpha-1-Globulin 0.2 g/dL (0.0-0.4); Alpha-2-Globulin 0.8 g/dL (0.4-1.0); Gamma Globulin 0.7 g/dL (0.4-1.8)
== END ==
PROVIDERS: Family Provider Family Medicine; PCP Family Medicine; Referring Provider Family Medicine; Visit Provider Family Medicine
DX: R20.2 Paresthesia of skin (principal); Z79.899 Other long term (current) drug therapy; D69.6 Thrombocytopenia, unspecified; E03.9 Hypothyroidism, unspecified; R53.82 Chronic fatigue, unspecified; R53.83 Other fatigue
CPT/HCPCS: 36415; 80053; 82728; 82784; 83036; 83540; 83550; 84155; 84165; 84443; 85025; 86334